=== PATIENT | male | born 1950 | race Caucasian/White ===

== ENCOUNTER 2018-02-09 09:13 | Inpatient (IN) | payer MEDICARE, OTHER, SELFPAY ==
[2018-02-09] VITALS (13 sets, daily range): BP systolic 143–211; BP diastolic 66–109; PULSE 73–99; RESP 14–21; TEMP 36.5–37; O2SAT 94–96; BMI 40.6; BMI 39.0; BMI 39.7
--- NOTE | 2018-02-09 09:32 | EKG12_ITS ---
Test Reason : CP Blood Pressure : / mmHG Vent. Rate : 098 BPM Atrial Rate : 098 BPM P-R Int : 184 ms QRS Dur : 110 ms QT Int : 376 ms P-R-T Axes : 000 -31 073 degrees QTc Int : 480 ms Normal sinus rhythm Left axis deviation Septal infarct , age undetermined Abnormal ECG Confirmed by ARPIT WAGNER, JUNAID ([id number]), newspaper editor DANUTA FLOWERS ([id number]) on 02/11/2018 1:29:19 PM Referred By: Confirmed By:JUNAID MUNSON MD
--- NOTE | 2018-02-09 09:34 | ED.VISSUMM ---
- ER Visit Summary Date of Service: 02/09/18 Chief Complaint: Chest pain History of Present Illness: The patient is a 67 M presenting with chest pain. Chest pain has been intermittent and started yesterday. He states it is a burning type pain in the substernal region radiating to both arms. He states he has had these symptoms in the past and required stenting. He has mild shortness of breath associated with this. Denies diaphoresis or nausea. At the worst it was 8/10. Currently 4/10. He has a history of 5 stents with the last being in 2013. He has a history of hypertension, diabetes, hypercholesterolemia, family history of early heart disease. No PE/DVT risk factors. Physical Examination: Vitals are stable. Blood pressure 211/109. Patient is afebrile. Alert no acute distress. HEENT exam is unremarkable. Neck is supple. Lungs are clear and equal bilaterally. Heart is regular rate and rhythm. Abdomen is soft nontender nondistended. Extremities are unremarkable. Skin is warm and dry. No focal neurologic deficit. Remainder of exam is unremarkable. Emergency Department Course and Treatment: Patient was given aspirin on arrival. EKG is sinus rate of 98. His blood pressure is elevated and he is given his morning dose of his home medication. Repeat blood pressure 171/89. CBC, chemistries unremarkable other than glucose 338. Troponin 0.026. Chest x-ray shows cardiomegaly. On reevaluation, patient is pain-free. Discussed with Dr. Spence and Dr. Freeman. Patient will be admitted. Disposition: Admission Impression: Chest pain This note was generated with Hair S[employer]nce dictation software. It may contain incorrect words, spelling, and punctuation that were not noted in review of the chart prior to signing ED Disposition - Plan for ED Patient: Disposition: Acute Care [facility] Chief Complaint: Chest Pain
--- NOTE | 2018-02-09 09:35 | RAD_ITS ---
STUDY: X-RAY CHEST REASON FOR EXAM: Male, 67 years old. Chest pain TECHNIQUE: Single frontal view COMPARISON: None. FINDINGS: The lungs are clear and expanded. There is no demonstrated pleural abnormality. Cardiomegaly. Normal mediastinum and april. Normal visualized pulmonary arteries. Slightly calcified aortic arch and descending thoracic aorta. Mild degenerative changes of the thoracic spine. Normal visualized ribs, clavicles, and shoulders. There is no demonstrated abnormality of the visualized soft tissue structures of the upper abdomen. RAD/Chest 1 View (Portable) IMPRESSION: Cardiomegaly. Electronically Signed: Siddharth Augustin DO at 9:54 EDT Tel [phone], Service support ,
[2018-02-09] MEDS: Aspirin 81 MG TAB.CHEW 324 MG PO (09:36)
--- NOTE | 2018-02-09 09:37 | ED.DCSUM_ITS ---
- ER Visit Summary Date of Service: 02/09/18 Chief Complaint: Chest pain History of Present Illness: The patient is a 67 M presenting with chest pain. Chest pain has been intermittent and started yesterday. He states it is a burning type pain in the substernal region radiating to both arms. He states he has had these symptoms in the past and required stenting. He has mild shortness of breath associated with this. Denies diaphoresis or nausea. At the worst it was 8/10. Currently 4/10. He has a history of 5 stents with the last being in 2013. He has a history of hypertension, diabetes, hypercholesterolemia, family history of early heart disease. No PE/DVT risk factors. Physical Examination: Vitals are stable. Blood pressure 211/109. Patient is afebrile. Alert no acute distress. HEENT exam is unremarkable. Neck is supple. Lungs are clear and equal bilaterally. Heart is regular rate and rhythm. Abdomen is soft nontender nondistended. Extremities are unremarkable. Skin is warm and dry. No focal neurologic deficit. Remainder of exam is unremarkable. Emergency Department Course and Treatment: Patient was given aspirin on arrival. EKG is sinus rate of 98. His blood pressure is elevated and he is given his morning dose of his home medication. Repeat blood pressure 171/89. CBC, chemistries unremarkable other than glucose 338. Troponin 0.026. Chest x- ray shows cardiomegaly. On reevaluation, patient is pain-free. Discussed with Dr. Spence and Dr. Freeman. Patient will be admitted. Disposition: Admission Impression: Chest pain This note was generated with Clink dictation software. It may contain incorrect words, spelling, and punctuation that were not noted in review of the chart prior to signing ED Disposition - Plan for ED Patient: Disposition: Acute Care Hospital [facility] Chief Complaint: Chest Pain
[2018-02-09 09:47] LABS: Absolute Lymphocyte Count 2.26 X10^3/ul (0.83-4.51); Absolute Neutrophil Count 3.6 X10^3/uL (2.0-7.7); Basophil# 0.03 X10^3/uL; Basophil% 0.5 % (0-1); Eosinophil# 0.17 X10^3/uL; Eosinophils% 2.6 % (0-5); Hematocrit 47.5 % (40-54); Hemoglobin 16.5 g/dl (13.0-16.5); Lymphocyte # 2.26 X10^3/ul (4.0); Lymphocyte % 34.3 % (19-41); Mean Corp Hgb Conc 34.7 g/gl (32-36); Mean Corpuscular Hgb 29.4 pg (27.0-32.0); Mean Corpuscular Volume 84.5 fL (80-94); Mean Platelet Vol. 10.5 fl (6.2-12.0); Monocyte# 0.54 X10^3/uL; Monocyte% 8.2 % (0-10); Neutrophil # 3.56 X10^3/uL (2.7-7.7); Neutrophil % 54.1 % (47-70); Platelet Count 202 K/mm3 (150-450); RBC Distribution Width SD 39.8 fl (35.1-43.9); Red Blood Count 5.62 M/mm3 (4.6-6.2); White Blood Count 6.6 K/mm3 (4.4-11.0)
[2018-02-09 09:48] LABS: POSITIVE COUNT NO; POSITIVE DIFFERENTIAL NO; POSITIVE MORPHOLOGY NO
[2018-02-09 09:59] LABS: Anion Gap 9 (5-15); BUN 17 mg/dL (7-18); Calcium,Total 9.4 mg/dL (8.5-10.1); Chloride 103 mmol/L (98-107); Creatinine, Serum 0.94 mg/dL (0.70-1.30); EST Glomerular Filtration Rate 85 mL/min (>60); Est Glom Filt Rate - Afr Amer 103 mL/min (>60); Estimated Creatinine Clearance 82.33 ml/min; Glucose 338 mg/dL (74-106); Potassium 3.8 mmol/L (3.5-5.1); Sodium Level 139 mmol/L (136-145)
[2018-02-09] MEDS: Losartan Potassium 25 MG Tablet PO (09:59)
[2018-02-09] MEDS: amLODIPine 5 MG Tablet PO (09:59)
--- NOTE | 2018-02-09 11:18 | PCM.HP.STD ---
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 Patient symptoms started a day prior to coming in. Pain was located in the retrosternal region spreading across the chest as well as to both shoulders. Patient did notice increasing pain with minimal activity. He had a similar presentation when the last time he had a stent placed. He therefore presented to the emergency department as a result. Initial set of cardiac enzymes came back negative however given patient presentation and assessment of unstable angina made treatment initiated per protocol with consultation placed to cardiology from the ED and patient admitted to a monitored bed for subsequent management Past Medical History Past Medical History (Chronic Problems): Chronic Problems (Last Updated 11/20/17 @ 14:17 by Lizz Durant) Essential (primary) hypertension (Chronic) DM type 2 (diabetes mellitus, type 2) (Chronic) Dyslipidemia (Chronic) CAD (coronary artery disease) (Chronic) Allergies No Known Allergies Allergy (Unverified 02/09/18 09:16) Home Medications: Ambulatory Orders Medication Instructions Recorded amlodipine 5 mg tablet 5 mg PO QDAY 11/20/17 aspirin 81 mg tablet,delayed 81 mg PO DAILY 11/20/17 release glipizide 10 mg tablet 20 mg PO BID 11/20/17 insulin lispro (U-100) 100 unit/mL 20 unit SC TID ml 11/20/17 subcutaneous pen losartan 25 mg tablet 25 mg PO QDAY 11/20/17 lovastatin 40 mg tablet 40 mg PO QDAY 11/20/17 metoprolol succinate ER 100 mg 100 mg PO QDAY tab 11/20/17 tablet,extended release 24 hr Clopidogrel Bisulfate [Clopidogrel] 75 mg PO DAILY 02/09/18 Insulin NPH Human Isophane 40 unit SQ BID 02/09/18 [Novolin N] Metformin HCl [Glucophage] 1,000 mg PO BID 02/09/18 Smoking Status: Never smoker - *Family History Maternal History Items: No pertinent history Review of Systems Constitutional: Denies: Anorexia, Chills, Fever, Night Sweats, Weight Change HEENT: Denies: Head Aches, Sinus Congestion, Sinus Drainage Cardiovascular: Reports: Chest Pain. Denies: Orthopnea Respiratory: Denies: Cough, Shortness of breath at rest, Shortness of breath upon exertion, Sputum production Gastrointestinal: Denies: Abdominal Pain, Hematemesis, Hematochezia, Nausea, Melena, Vomiting Genitourinary: Denies: Dysuria, Frequency, Hematuria, Urgency Musculoskeletal: Denies: Joint Pain, Joint Tenderness Skin: Denies: Rash Neurological: Denies: Focal weakness, Numbness, Tingling Psychiatric: Denies: Homicidal Ideations, Suicidal Ideations Hematologic/ Lymphatic: Denies: Easy Bruising, Easy Bleeding VTE Information - Inpt Only VTE Present on Admission: No VTE Mechan Device Prophylaxis: Knee High SYLVIE Hose VTE Pharm Prophylaxis ordered?: Yes Patient Problems: Active and Suspected Problems (Last Updated 11/20/17 @ 14:17 by Lizz Durant) Unstable angina (Acute) Objective: GENERAL: cooperative HEENT: Clear conjunctiva, NECK; supple, normal thyroid, CHEST: Clear to auscultation bilaterally, HEART: Regular S1 S2, no audible murmurs ABDOMEN: soft, non-tender, normoactive bowel sounds, RECTAL: deferred EXTREMITIES: No edema, no clubbing, no cyanosis. FILES SUPERVISOR: Awake; no lateralizing signs. SKIN: No Rash - Physical Exam Vital Signs Temp Pulse Resp BP Pulse Ox 97.7 F L 76 20 H 171/89 H 96 02/09/18 11:00 02/09/18 11:00 02/09/18 11:00 02/09/18 11:00 02/09/18 11:00 Oxygen Flow Rate (L/min) 2 Oxygen Delivery Method Nasal Cannula Weight: 132.2 kg Body Mass Index (BMI) 40.6 Laboratory Tests Past 24 Hrs 02/09/18 02/09/18 09:18 09:18 WBC 6.6 RBC 5.62 Hgb 16.5 Hct 47.5 MCV 84.5 MCH 29.4 MCHC 34.7 RDW 13.0 RDW Differential 39.8 Plt Count 202 MPV 10.5 Immature Gran % (Auto) 0.300 Neut % (Auto) 54.1 Lymph % (Auto) 34.3 [place] % (Auto) 8.2 Eos % (Auto) 2.6 Baso % (Auto) 0.5 Absolute Neuts (auto) 3.6 Absolute Lymphs (auto) 2.26 Total Counted Not Reportable Sodium 139 Potassium 3.8 Chloride 103 Carbon Dioxide 27.0 Anion Gap 9 BUN 17 Creatinine 0.94 Estim Creat Clear Calc 82.33 Est GFR (MDRD) Af Amer 103 Est GFR (MDRD) Non-Af 85 BUN/Creatinine Ratio 18.0 Glucose 338 H Calcium 9.4 Troponin I 0.026 Assessment/Plan Active and Suspected Problems (Last Updated 11/20/17 @ 14:17 by Lizz Durant) Unstable angina (Acute) Patient is a 67-year-old gentleman with significant risk factors including hypertension, diabetes mellitus type 2 CAD with previous stent placement who presents with chest pain 1. Unstable angina. Treatment initiated per protocol patient admitted to the progressive care unit. Did order serial cardiac enzymes and echo and consultation placed to cardiology. Patient was kept n.p.o. after midnight nuclear stress test was not ordered the decision deferred to cardiology 2. CAD with previous stent placement patient is on recommended medications including dual antiplatelet therapy beta-blockers, as well as starting therapy 3. Diabetes mellitus type II: Controlled/ patient's oral hypoglycemics held. Placed on long acting insulin, Accu-Cheks a.c. and at bedtime and covered with sliding scale insulin 4. Hypertension-blood pressure controlled, home medications continued with dose adjustment as needed 5. Dyslipidemia-patient is on statin therapy, continued at home dose 6. Obesity with BMI of 40.6 weight loss advised 7. DVT prophylaxis on heparin Code Visit OBSV E&M: 02597 Initial observation care L2
--- NOTE | 2018-02-09 12:11 | EKG12_ITS ---
Test Reason : CP Blood Pressure : / mmHG Vent. Rate : 074 BPM Atrial Rate : 074 BPM P-R Int : 194 ms QRS Dur : 110 ms QT Int : 456 ms P-R-T Axes : -17 -39 078 degrees QTc Int : 506 ms Normal sinus rhythm Left axis deviation Septal infarct , age undetermined Prolonged QT Abnormal ECG Confirmed by SHANNAN WAGNER, GILBERTO ([id number]), editorial project manager DANUTA FLOWERS ([id number]) on 02/13/2018 1:14:23 PM Referred By: MILAGROS Confirmed By:GILBERTO CAMPBELL MD
--- NOTE | 2018-02-09 12:11 | ECHOCS_ITS ---
Reason For Study: CP Procedure This was a 2D Doppler, Color Flow transthoracic echocardiogram. Exam performed portable in patient room. Left Ventricle Normal LV size. Moderate concentric left ventricular hypertrophy. Left ventricular systolic function is normal. The estimated ejection fraction is 55 %. Transmitral diastolic flow velocities suggest mild (stage 1) diastolic dysfunction (reversed pattern). No regional wall motion abnormalities noted. Right Ventricle Normal RV size. Normal systolic function. Atria Normal left atrium. Normal right atrium. Mitral Valve Normal mitral valve. Tricuspid Valve Normal tricuspid valve. Unable to estimate RV systolic pressure due to inadequate jet, pulmonary artery pressure probably normal. Aortic Valve Trisinus/trileaflet aortic valve. Pulmonic Valve Normal pulmonic valve. Great Vessels Normal aortic root. The pulmonary artery is normal size. Normal inferior vena cava. Pericardium/Pleural No pericardial effusion. Medication Diluted definity 2ml given slow IV push to enhance endocardial definition. MMode/2D Measurements & Calculations LVIDd: 4.9 cm IVSd: 1.6 cm Ao root diam: 3.3 cm LVIDs: 3.4 cm LVPWd: 1.2 cm RVDd: 2.6 cm FS: 30.7 % LAV(MOD-bp): 43.7 ml LAV(MOD-bp) Indexed: 17.8 ml/m2 LA A4 area: 15.0 cm2 RA A4 area: 14.1 cm2 LAV(MOD-sp2): 46.2 ml LAV(MOD-sp4): 37.1 ml Time Measurements MV dec time: 0.26 sec Doppler Measurements & Calculations MV E max teodoro: 72.1 cm/sec Lat Peak E' Teodoro: 8.0 cm/sec Med Peak E' Teodoro: 5.6 cm/sec MV A max teodoro: 95.1 cm/sec E/E' lat: 9.0 E/E' med: 12.9 MV E/A: 0.76 Ao V2 max: 141.6 cm/sec LV V1 max: 82.1 cm/sec PA V2 max: 111.6 cm/sec Ao max P.0 mmHg LV V1 max P.7 mmHg Interpretation Summary Normal LV size. Moderate concentric left ventricular hypertrophy. Left ventricular systolic function is normal. The estimated ejection fraction is 55 %. Contrast injection was performed. Ordering Physician: Steven Spence Referring Physician: SUNNY JUAREZ Performed By: Nikki Leahy RDCS
[2018-02-09 13:25] LABS: Bedside Glucose 216 mg/dL (70-110)
[2018-02-09 14:41] LABS: Partial Thromboplast Time 26.2 Seconds (24.1-36.2)
[2018-02-09] MEDS: HEPARIN/D5w 25,000 UNITS 25,000 UNITS/250 ML IV.SOLN. 17 UNITS IV (15:03)
[2018-02-09] MEDS: Heparin Injection 5,000 UNITS/ML Syringe 10500 UNITS IV (15:03)
[2018-02-09 16:56] LABS: Bedside Glucose 311 mg/dL (70-110)
[2018-02-09 21:25] LABS: Partial Thromboplast Time 64.4 Seconds (24.1-36.2)
[2018-02-09 21:50] LABS: Bedside Glucose 210 mg/dL (70-110)
[2018-02-10] VITALS (29 sets, daily range): BP systolic 134–172; BP diastolic 48–96; PULSE 66–96; RESP 14–25; TEMP 36.7–37.7; O2SAT 92–96
[2018-02-10 02:58] LABS: Hematocrit 43.2 % (40-54); Hemoglobin 15.2 g/dl (13.0-16.5); Mean Corp Hgb Conc 35.2 g/gl (32-36); Mean Corpuscular Hgb 29.7 pg (27.0-32.0); Mean Corpuscular Volume 84.4 fL (80-94); Mean Platelet Vol. 10.4 fl (6.2-12.0); Platelet Count 177 K/mm3 (150-450); RBC Distribution Width CV 12.9 % (11.6-14.6); RBC Distribution Width SD 39.3 fl (35.1-43.9); Red Blood Count 5.12 M/mm3 (4.6-6.2); White Blood Count 6.2 K/mm3 (4.4-11.0)
[2018-02-10 03:02] LABS: Anion Gap 9 (5-15); BUN 12 mg/dL (7-18); BUN/Creat Ratio 17.5 RATIO (10-20); Calcium,Total 8.3 mg/dL (8.5-10.1); Chloride 104 mmol/L (98-107); Creatinine, Serum 0.68 mg/dL (0.70-1.30); EST Glomerular Filtration Rate 123 mL/min (>60); Est Glom Filt Rate - Afr Amer 149 mL/min (>60); Estimated Creatinine Clearance 77.39 ml/min; Glucose 221 mg/dL (74-106); Partial Thromboplast Time 49.9 Seconds (24.1-36.2); Potassium 3.1 mmol/L (3.5-5.1); Sodium Level 139 mmol/L (136-145)
[2018-02-10 03:45] LABS: Scan Indicated on CBC? Y/N NO
[2018-02-10] MEDS: Heparin Injection (Vial) 5,000 UNIT/ML VIAL IV (04:03)
[2018-02-10] MEDS: HEPARIN/D5w 25,000 UNITS 25,000 UNITS/250 ML IV.SOLN. 17 UNITS IV (04:43)
[2018-02-10 07:06] LABS: Bedside Glucose 244 mg/dL (70-110)
--- NOTE | 2018-02-10 08:12 | NURSING ---
HEPARIN STOPPED PER DR. MUNSON'S ORDERS.
[2018-02-10] MEDS: 0.9% NaCl Peripheral Flush Adult/Peds IV (08:18)
--- NOTE | 2018-02-10 08:27 | PCM.CONS.C ---
Reason for Consult Date of Consultation: 02/10/18 Reason for Consultation: Chest discomfort. History of Present Illness: The patient is a 67 year old M with a previous known history of coronary artery disease status post previous stenting who recently moved to the area. He said that many years ago he had experienced chest discomfort described as a burning sensation prior to his having been stented in 2008. He was told that if he had a similar presentation he should come to the emergency room. Over the weekend he experienced a similar episode of chest discomfort which appeared to worse with exertion and going away with rest. Due to the above he presented to the emergency room was evaluated and admitted. He was started on heparin. This morning cardiology consult was placed to evaluate him. He denies any chest pain at this particular time no paroxysmal nocturnal dyspnea no pedal edema no dizziness or diaphoresis no near syncope or syncope. He has been compliant with his medications he recently moved to the [facility]. [] Past Medical History Allergies/Adverse Reactions: Allergies No Known Allergies Allergy (Unverified 02/09/18 09:16) Home Medications: Ambulatory Orders Medication Instructions Recorded amlodipine 5 mg tablet 5 mg PO QDAY 11/20/17 aspirin 81 mg tablet,delayed 81 mg PO DAILY 11/20/17 release glipizide 10 mg tablet 20 mg PO BID 11/20/17 insulin lispro (U-100) 100 unit/mL 20 unit SC TID ml 11/20/17 subcutaneous pen losartan 25 mg tablet 25 mg PO QDAY 11/20/17 lovastatin 40 mg tablet 40 mg PO QDAY 11/20/17 metoprolol succinate ER 100 mg 100 mg PO QDAY tab 11/20/17 tablet,extended release 24 hr Clopidogrel Bisulfate [Clopidogrel] 75 mg PO DAILY 02/09/18 Insulin NPH Human Isophane 40 unit SQ BID 02/09/18 [Novolin N] Metformin HCl [Glucophage] 1,000 mg PO BID 02/09/18 Past Medical History (Chronic Problems): Chronic Problems (Last Updated 11/20/17 @ 14:17 by Lizz Durant) Essential (primary) hypertension (Chronic) DM type 2 (diabetes mellitus, type 2) (Chronic) Dyslipidemia (Chronic) CAD (coronary artery disease) (Chronic) Surgical History: - - *Family History Maternal Family History: Family History (Last Updated 11/20/17 @ 14:18 by Lizz Durant) Unknown Arthritis Cancer Diabetes Hypertension Heart disease History Items: No pertinent history Smoking Status: Never smoker Alcohol: None Drugs: None Review of Systems - Review of Systems General: Denies: Fever, Night Sweats, Fatigue Cardiovascular: Reports: Chest Discomfort, Chest Discomfort with Exertion. Denies: Shortness of Breath, Orthopnea, PND, Peripheral Edema, Palpitations, Lightheadedness, Dizziness, Near Syncope, Syncope Respiratory: Denies: Cough, Sputum Production, Hemoptysis Gastrointestinal: Denies: Hematemesis, Hematochezia, Melena Genitourinary: Denies: Dysuria, Hematuria Skin: Denies: Rash Subjectve: Pleasant gentleman in no apparent distress Objective: Vital Signs Temp Pulse Resp BP Pulse Ox 98.1 F 85 18 151/81 H 92 02/10/18 02:46 02/10/18 07:35 02/10/18 02:46 02/10/18 02:46 02/10/18 07:35 Oxygen Delivery Method Room Air Weight: 285 lb 0.923 oz Body Mass Index (BMI) 39.7 Intake and Output for Last 24 Hours 02/08/18 02/09/18 02/10/18 23:59 23:59 23:59 Intake Total 892 / 892 90 / 90 Balance 892 / 892 90 / 90 General: Awake, Alert, Oriented x 3 HEENT: PERRL, EOMI, Sclera Non Icteric Neck: Supple, Good ROM, No Lymph Node Enlargement Lungs: Clear to auscultation Cardiovascular: Regular Rhythm, Normal S1, Normal S2, No Murmurs, No Rubs, No Gallops Vascular: No Carotid Bruits, Normal Femoral Pulses, Normal Radial Pulses, Normal Dorsalis Pedal Pulse, Normal Posterior Tibial Pulses Abdomen: Bowel Sounds Present, Soft, Non Tender, No HSM, No Organomegaly Extremities: No Cyanosis, No Clubbing, No edema Neurological: No Focal Motor or Sensory Deficit 02/09/18 12:25: Troponin I 0.142 H 02/09/18 14:20: APTT 26.2 02/09/18 15:15: Troponin I 0.242 H 02/09/18 21:03: APTT 64.4 H 02/10/18 02:40: WBC 6.2, RBC 5.12, Hgb 15.2, Hct 43.2, MCV 84.4, MCH 29.7, MCHC 35.2, RDW 12.9, RDW Differential 39.3, Plt Count 177, MPV 10.4 02/10/18 02:40: Sodium 139, Potassium 3.1 L, Chloride 104, Carbon Dioxide 26.0, Anion Gap 9, BUN 12, Creatinine 0.68 L, Est GFR (MDRD) Af Amer 149, Est GFR (MDRD) Non-Af 123, BUN/Creatinine Ratio 17.5, Glucose 221 H, Calcium 8.3 L 02/10/18 02:40: APTT 49.9 H Rhythm: EKG: ECHO: Stress Test: Cardiac Cath: PCI: CT Surgery: Holter monitor: EPS: PPM: CXR: Chest CT Scan: Assessment/Plan 1. Chest pain unstable angina. He presents with chest discomfort which appears to be worsened with exertion of recent onset characteristic of unstable angina. He does not have any EKG changes at this particular time however he does have mild troponin elevation. With his previous history it would be prudent to proceed with a cardiac catheterization. The risk benefits and alternatives have been explained to him he understands and agrees to proceed. This was discussed with him in the presence of his and friend. 2. Hypertension. Patient has a history of known hypertension currently on medical therapy. No changes were made with respect to the above. 3. Risk factor modification. Patient will continue with aggressive risk factor modification with diet and exercise to be encouraged as well as lipid lowering medications. Thank you for allowing me to participate in the care of your patient. Please don't hesitate to call if any issues arise Addendum.: Patient underwent cardiac catheterization this morning which demonstrated the following: Left main coronary artery normal. Left anterior descending artery previously stented with mild diffuse disease. Left circumflex artery nondominant with proximal and 90% stenosis. Ramus intermedius with mild to moderate diffuse disease. Left to right collaterals filling a distal posterolateral vessel. Dominant large right coronary artery with mid 95% in-stent stenosis and mid to distal 70% stenosis and diffuse distal disease Preserved left ventricular ejection fraction. Based on the above angiographic findings the patient will undergo angioplasty and stenting of the right coronary artery which is thought to be the culprit lesion for his symptoms. Above discussed with patient, family and interventionalist.
[2018-02-10] MEDS: 0.9% Normal Saline 1,000 ML 15 ML IV (09:07)
[2018-02-10] MEDS: Clopidogrel Bisulfate 75 MG Tablet PO (09:07)
[2018-02-10] MEDS: Aspirin E.C. 81 MG Tablet PO (09:07)
[2018-02-10] MEDS: Metoprolol(XL)Succ 100 MG Tablet PO (09:08)
[2018-02-10] MEDS: amLODIPine 5 MG Tablet PO (09:08)
[2018-02-10] MEDS: Losartan Potassium 25 MG Tablet PO (09:09)
[2018-02-10 09:27] LABS: Partial Thromboplast Time 35.4 Seconds (24.1-36.2)
--- NOTE | 2018-02-10 10:38 | NURSING ---
Report given to Mulu in ICU
--- NOTE | 2018-02-10 10:55 | CL.D_ITS ---
Patient Name: AMBROSIO JULIO Study Date: 02/10/2018 Performing: Donny Choi MD Ht: 70.86 inches 180 cm : 1950 Wt: 284.4 lbs 129 kg Age: 67 Gender: male BSA: 2.45 PROCEDURE(S) PERFORMED [id number]/COR/LV CLINICAL PROFILE AND INDICATIONS Indications: ACS <= 24 hrs Heart Failure: None Stress/Imaging Stress/Image Study Performed: No Angina Classification Anginal Classification w/in 2 Weeks: CCS III CAD Presentations: Unstable angina. CONCLUSIONS Significant coronary artery disease with evidence of in-stent stenosis in the right coronary artery a s well as yocha dehe vessel disease. RECOMMENDATIONS Referred for immediate PCI DESCRIPTION OF PROCEDURE The patient arrived to the procedure lab. The risks and benefits of the procedure as well as a full d escription of our services here and current unavailability of surgical backup were fully explained to the patient and/or their significant other prior to the catheterization. The Timeout was completed, verifying the correct patient and procedure. The patient's procedural site was prepped and draped in the usual fashion. Local anesthetic was given subcutaneously to right radial region with Lidocaine 2% . Using a modified Seldinger technique, arterial access was obtained via the right radial artery, a 6 Fr sheath was inserted. Left Coronary Artery selective angiography was performed in multiple views u sing a 5 Fr. 4.0 Campo catheter. Right Coronary Artery selective angiography was then performed in mu ltiple views using a 5 Fr. 4.0 Campo catheter. Left Ventriculography was performed in SYED projection using a 5 Fr. Pigtail catheter. LV to AO pullback pressures were then recorded. CORONARY ANGIOGRAPHY DOMINANCE: Right Dominant LEFT HEART ASSESSMENT Left Ventricular Ejection Fraction: by LV Gram 60 % Normal LV wall motion Normal Left Ventricular systolic function LEFT MAIN: Angiographically normal LEFT ANTERIOR DECENDING ARTERY: Previously placed stent is patent, Mild luminal irregularities CIRCUMFLEX ARTERY: PROX CIRC: 95 % Stenosis RAMUS: Mild luminal irregularities RIGHT CORONARY ARTERY: MID RCA: Instent restenosis 95 %, 70 % Stenosis RT PDA: Distal - Mild luminal irregularities less than 30% COLLATERAL FLOW: Collateral flow from Left to Right COMPLICATIONS No Complications PROCEDURE MEDICATIONS Versed 1 mg IV Fentanyl 50 mcg IV Versed 1 mg IV Fentanyl 25 mcg IV Oxygen: 2 L/min via nasal cannula Oxygen: 4 L/min via nasal cannula Heparin diluted in 23cc Heparinized saline. Patient given 10cc IA of this solution. 02/10/2018 09:47: 08 Heparin 14606 unit(s) IV 02/10/2018 10:31:04 Heparin 1000 unit(s) IV 02/10/2018 10:51:46 Nitro 300 mcg IC 02/10/2018 10:41:56 Verapamil 2.5mg, Ntg 100mcgs, 2000 units of Heparin diluted in 23cc Heparinized saline. Patient give n 10cc IA of this solution. 02/10/2018 09:47:08 Solu-cortef 100 mg IV 02/10/2018 10:48:05 SUMMARY OF HEMODYNAMIC DATA Time AIR REST ECG 09:29:05 AO 122/80 (94) SA 09:50:06 AO 93/67 (76) 09:52:21 AO 86/61 (72) 09:54:23 LV 109/0, 13 09:59:18 LV 109/1, 13 09:59:25 LV 140/-3, 18 10:01:02 LVp 143/-2, 17 10:01:09 AOp 132/72 (95) 10:01:14 AO 95/59 (73) 10:46:10 Signed By Donny Choi MD On 02/10/2018 10:54:36 Donny Choi MD
--- NOTE | 2018-02-10 11:15 | EKG12_ITS ---
Test Reason : POST PCI Blood Pressure : / mmHG Vent. Rate : 087 BPM Atrial Rate : 087 BPM P-R Int : 254 ms QRS Dur : 114 ms QT Int : 430 ms P-R-T Axes : 025 -49 086 degrees QTc Int : 517 ms Sinus rhythm with 1st degree A-V block Left axis deviation Poor R wave progression Prolonged QT Abnormal ECG Confirmed by SHANNAN WAGNER, GILBERTO ([id number]), editor publications DANUTA FLOWERS ([id number]) on 02/13/2018 12:57:34 PM Referred By: ARPIT Confirmed By:GILBERTO CAMPBELL MD
--- NOTE | 2018-02-10 11:23 | CL.I_ITS ---
Patient Name: AMBROSIO JULIO Study Date: 02/10/2018 Performing: Juan David Freeman MD Ht: 71 inches 180 cm : 1950 Wt: 284.8 lbs 129 kg Age: 67 Gender: male BSA: 2.45 PROCEDURE(S) PERFORMED [id number] W OR WO PTCA, SINGLE CORONARY ARTERY CLINICAL PROFILE AND CO-MORBIDITIES Indications: ACS <= 24 hrs Heart Failure: None Stress/Imaging Stress/Image Study Performed: No Angina Classification Anginal Classification w/in 2 Weeks: CCS III CAD Presentations: Unstable angina. CONCLUSIONS Successful PTCA/JOSE MIGUEL of the Mid RCA ISR using Resolute Integrity 3.5x15 mm Successful PTCA/JOSE MIGUEL of the distal RCA using Resolute Integrity 3.0x15 mm, post-dilated using 3.5 mm b alloon RECOMMENDATIONS ASA Indefinitley Plavix for at least 12 months Follow up with Dr. Choi INTERVENTION INFORMATION LESION SITE: RCA (Mid) Lesion Complexity: Non-High/Non-C, In-stent restenosis: Yes Pre Stenosis: 95 % Pre intervention ORA flow: 3 PROCEDURE: Drug Eluting Stent with pre and post dilatation Post Stenosis: 0 % Post intervention ORA flow: 3 Lesion Devices: Cordis 6 Fr AL.75 100cm Guide Catheter Terumo .014 Runthrough Extra Floppy 180cm straight Ian Sci EMERGE MR 3.00x12 BALLOON Medtronic Resolute RX JOSE MIGUEL 3.5x15 Ian Sci NC EMERGE MR 3.50x15 BALLOON LESION SITE: RCA (Distal) Lesion Complexity: Non-High/Non-C Pre Stenosis: 80 % Pre intervention ORA flow: 3 PROCEDURE: Drug Eluting Stent with pre and post dilatation Drug Eluting Stent with pre and post dilatation Post Stenosis: 0 % Post intervention ORA flow: 3 Lesion Devices: Cordis 6 Fr AL.75 100cm Guide Catheter Terumo .014 Runthrough Extra Floppy 180cm straight Ian Sci EMERGE MR 3.00x12 BALLOON Medtronic Resolute RX JOSE MIGUEL 3.0x15 Ian Sci NC EMERGE MR 3.50x15 BALLOON COMPLICATIONS No Complications PROCEDURE MEDICATIONS Versed 1 mg IV Fentanyl 50 mcg IV Versed 1 mg IV Fentanyl 25 mcg IV Oxygen: 2 L/min via nasal cannula Oxygen: 4 L/min via nasal cannula Heparin diluted in 23cc Heparinized saline. Patient given 10cc IA of this solution. 02/10/2018 09:47: 08 Heparin 35263 unit(s) IV 02/10/2018 10:31:04 Heparin 1000 unit(s) IV 02/10/2018 10:51:46 Heparin 3000 unit(s) IV 02/10/2018 11:06:56 Nitro 300 mcg IC 02/10/2018 10:41:56 Plavix 300 mg PO 02/10/2018 11:07:07 Verapamil 2.5mg, Ntg 100mcgs, 2000 units of Heparin diluted in 23cc Heparinized saline. Patient give n 10cc IA of this solution. 02/10/2018 09:47:08 Solu-cortef 100 mg IV 02/10/2018 10:48:05 SUMMARY OF HEMODYNAMIC DATA Time AIR REST ECG 09:29:05 AO 122/80 (94) SA 09:50:06 AO 93/67 (76) 09:52:21 AO 86/61 (72) 09:54:23 LV 109/0, 13 09:59:18 LV 109/1, 13 09:59:25 LV 140/-3, 18 10:01:02 LVp 143/-2, 17 10:01:09 AOp 132/72 (95) 10:01:14 AO 95/59 (73) 10:46:10 RM AIR REST 10:55:24 AIR REST AO 167/90 (125) 10:58:22 Signed By Juan David Freeman MD On 02/11/2018 07:59:45 Signed By Juan David Freeman MD On 02/10/2018 11:22:01 AM Juan David Freeman MD
[2018-02-10] MEDS: 0.9% Normal Saline 1,000 ML 100 ML IV (11:33)
[2018-02-10 11:56] LABS: Bedside Glucose 257 mg/dL (70-110)
[2018-02-10] MEDS: Atorvastatin Calcium 10 MG Tablet PO (12:06)
--- NOTE | 2018-02-10 13:08 | CRPHASE1 ---
Patient Data/Charges Phase II Referral:: [facility] Start Phase II:: FOLLOWING CARDIOLOGY OFFICE VISIT Risk Factors/Lifestyle Smoking Status: Never smoker Hx Hypertension: Yes Hx Diabetes Mellitus Type 2: Yes Hx Metabolic Disorders: Yes Hx Dyslipidemia: Yes Hx Obesity: Yes Height: 5 ft 11 in - WT 284 / BMI 39.8 Stress: Home/Family ETOH: No Substance Abuse: No Risk Factor for Sedentary Lifestyle: Highest Risk Family History: Family History (Last Updated 11/20/17 @ 14:18 by Lizz Durant) Unknown Arthritis Cancer Diabetes Hypertension Heart disease Family History: Cancer, Diabetes, Heart Disease, Hypertension Past Cardiac Illness: Valve Disorders, Coronary Artery Disease, Previous PCI w/Stent Phase I Education Given On:: [place], Nutrition, Antiplatelet medication, Diabetes - Type II Issues Affecting Care:: None Knowledge of Condition:: Yes Learning Preferences: Verbal, Written Hospital Course Presenting Symptoms:: CHEST BURNING WITH PREVIOUS STENT PLACEMENT Pain Description: Burning Medical/Surgical History HI:: No Angina:: Yes - BURNING Valve Disease/Replacement:: Yes Diabetes:: Yes Diabetes Type II:: Yes Hypertension:: Yes Dyslipidemia:: Yes PTCA:: Yes - 2008 Discharge/Home/Social Eval Discharge Disposition: Home
--- NOTE | 2018-02-10 13:12 | CRPHASE1_ITS ---
Patient Data/Charges Phase II Referral:: [facility] Start Phase II:: FOLLOWING CARDIOLOGY OFFICE VISIT Risk Factors/Lifestyle Smoking Status: Never smoker Hx Hypertension: Yes Hx Diabetes Mellitus Type 2: Yes Hx Metabolic Disorders: Yes Hx Dyslipidemia: Yes Hx Obesity: Yes Height: 5 ft 11 in - WT 284 / BMI 39.8 Stress: Home/Family ETOH: No Substance Abuse: No Risk Factor for Sedentary Lifestyle: Highest Risk Family History: Family History (Last Updated 11/20/17 @ 14:18 by Lizz Durant) Unknown Arthritis Cancer Diabetes Hypertension Heart disease Family History: Cancer, Diabetes, Heart Disease, Hypertension Past Cardiac Illness: Valve Disorders, Coronary Artery Disease, Previous PCI w/ Stent Phase I Education Given On:: [place], Nutrition, Antiplatelet medication, Diabetes - Type II Issues Affecting Care:: None Knowledge of Condition:: Yes Learning Preferences: Verbal, Written Hospital Course Presenting Symptoms:: CHEST BURNING WITH PREVIOUS STENT PLACEMENT Pain Description: Burning Medical/Surgical History [place]:: No Angina:: Yes - BURNING Valve Disease/Replacement:: Yes Diabetes:: Yes Diabetes Type II:: Yes Hypertension:: Yes Dyslipidemia:: Yes PTCA:: Yes - 2008 Discharge/Home/Social Eval Discharge Disposition: Home
--- NOTE | 2018-02-10 13:14 | CRPH1.INST_ITS ---
General Education CAD and cardiac anatomy and function:: Patient communicates acknowledgment Explanation of diagnoses and procedures:: Patient communicates acknowledgment Sign/Symptoms of [place]:: Patient communicates acknowledgment Antiplatelet therapy: Patient communicates acknowledgment Proper use of NTG-SL: Patient communicates acknowledgment Emergency procedures and activation of EMS: Patient communicates acknowledgment Compliance of all prescribed medications: Patient communicates acknowledgment Smoking Patient Nicotine/Smoking Risk Factors Are:: Never smoked Dyslipidemia Patient Dyslipidemia Risk Factors Are:: Total Cholesterol, Triglycerides, HDL, LDL Recommendations Include:: Lipid profile not available, Reviewed NCEP/ATP guidelines, Therapeutic Lifestyle Change dietary guidelines Dyslipidemia Response Code:: Patient communicates acknowledgment Overweight/Obesity Patient Overweight/Obesity Risk Factors Are:: Obesity - > or = 30 Recommendations Include:: Weight loss of 5-10%, Reduced calorie diet, Exercise 5 -7 times/week Overweight/Obesity:: Patient communicates acknowledgment Hypertension Recommendations Include:: BP <130/80 if diabetic, DASH dietary guidelines, Decrease/maintain normal body weight, Moderation of ETOH Hypertension:: Patient communicates acknowledgment Heart Disease Patient Heart Disease Risk Factors Are:: Previous cardiac event Heart Disease Response Code:: Patient communicates acknowledgment Diabetes Patient Diabetes Risk Factors Are:: Elevated blood sugars Recommendations Include:: Maintain fasting blood sugars 70-110 md/dL, Maintain HgbA1c of 6% or less, Monitor blood sugar as prescribed, Diabetic dietary guidelines, Decrease/maintain body weight Diabetes:: Patient communicates acknowledgment Metabolic Syndrome Patient Metabolic Syndrome Risk Factors Are [3 of 5]:: Fasting blood sugar > 100 mg/dL, Waist circumference > 35 [female] or 40 [male], High triglyceride > 150, Hypertension, Low HDL <40 [male] or < 50 [female] Recommendations Include:: Reinforce compliance to risk factor modifications, Patient is diabetic, Encouraged follow-up with Primary Care Physician Metabolic Syndrome Response Code:: Patient communicates acknowledgment Sedentary Patient Sedentary Risk Factors Are:: Lack of regular exercise Recommendations Include:: Aerobic exercise 5-7 times/week for 20-30 minutes continuously, Benefits of regular exercise, Discussed home walking program, Monitored Outpatient Cardiac Rehab Sedentary Response Code:: Patient communicates acknowledgment Stress Recommendations Include:: Identification of stressors, and assessment of coping skills, Stress management techniques Stress Response Code:: Patient communicates acknowledgment
[2018-02-10 13:41] LABS: ACT Activated Clotting Time 241 sec (74-137)
[2018-02-10 13:41] LABS: ACT Activated Clotting Time 213 sec (74-137)
[2018-02-10 13:45] LABS: M R Staph aureus DNA By PCR Negative (Negative); Probe Check PASS; Specimen Processing Control PASS
[2018-02-10] MEDS: Insulin NPH Human 100 UNITS/ML PEN 40 UNITS SC (16:42)
[2018-02-10 16:50] LABS: Bedside Glucose 267 mg/dL (70-110)
--- NOTE | 2018-02-10 17:12 | PN_ITS ---
Patient Problems: Active and Suspected Problems (Last Updated 02/10/18 @ 13:18 by Leslie Trent) Unstable angina (Acute) Subjective: Patient was seen and examined today, I talked with the patient as well as several family members including his who were in the room today. Patient had a stent placed in the right coronary artery, he appears to have had a non- STEMI. His EF is preserved. I talked at length about the patient's dietary habits-it appears that the patient is really not watching his diet as well as he could be, I tried to impress upon him the necessity to take better care of his diabetes. I decided to change some of his medications up today, I have stopped his Cozaar and placed him on Diovan due to his elevated blood pressure, I recommended a discharge that we stop his glipizide, I have also recommended we change her from lovastatin to higher dose Lipitor at 40 mg nightly. I explained how to carb count to him and his family. - Physical Exam General: Alert, Oriented x3, Cooperative, No apparent distress, Well developed, Well nourished HEENT: Atraumatic, PERRLA, EOMI, Normocephalic Oral: Moist Mucosa Neck: Supple, No JVD, Negative Carotid Bruits, Trachea Midline, Thyroid Normal Size and Texture Lungs: Clear to auscultation, Normal air movement, No rhonchi, No wheeze, No rales Cardiovascular: Regular rate, Regular Rhythm, Normal S1, Normal S2, No murmurs, No Ectopic Activity, PMI Normal, No rub noted, No Gallop Abdomen: Bowel Sounds Present, Soft, Non Tender, Non-Distended, Obese, No hernias noted Extremities: No clubbing, No cyanosis, No edema, Capillary Refill Less than 3 Seconds Skin: No rashes, No breakdown Musculoskeletal: No Tenderness to Palpation of Joints or Extremities Neurological: Cranial nerves II-XII grossly intact, Neuro grossly intact, Sensory exam intact to light touch and pain, Coordination normal Psych/Mental Status: Normal Affect, Appropriate, Alert and oriented to time, place, person, mood and affect Vital Signs Temp Pulse Resp BP Pulse Ox 98.3 F 80 15 166/82 H 94 02/10/18 16:00 02/10/18 17:00 02/10/18 17:00 02/10/18 17:00 02/10/18 17:00 Oxygen Delivery Method Room Air Weight: 129.3 kg Body Mass Index (BMI) 39.7 Intake and Output for Last 24 Hours 02/08/18 02/09/18 02/10/18 23:59 23:59 23:59 Intake Total 892 / 892 1876 / 1877 Balance 892 / 892 1876 Laboratory Tests Past 24 Hrs 02/09/18 02/10/18 02/10/18 21:03 02:40 02:40 WBC 6.2 RBC 5.12 Hgb 15.2 Hct 43.2 MCV 84.4 MCH 29.7 MCHC 35.2 RDW 12.9 RDW Differential 39.3 Plt Count 177 MPV 10.4 APTT 64.4 H Activated Clotting Time Sodium 139 Potassium 3.1 L Chloride 104 Carbon Dioxide 26.0 Anion Gap 9 BUN 12 Creatinine 0.68 L Estim Creat Clear Calc 77.39 Est GFR (MDRD) Af Amer 149 Est GFR (MDRD) Non-Af 123 BUN/Creatinine Ratio 17.5 Glucose 221 H Calcium 8.3 L MRSA (PCR) 02/10/18 02/10/18 02/10/18 02:40 09:00 10:36 WBC RBC Hgb Hct MCV MCH MCHC RDW RDW Differential Plt Count MPV APTT 49.9 H 35.4 Activated Clotting Time 241 H Sodium Potassium Chloride Carbon Dioxide Anion Gap BUN Creatinine Estim Creat Clear Calc Est GFR (MDRD) Af Amer Est GFR (MDRD) Non-Af BUN/Creatinine Ratio Glucose Calcium MRSA (PCR) 02/10/18 02/10/18 11:03 11:30 WBC RBC Hgb Hct MCV MCH MCHC RDW RDW Differential Plt Count MPV APTT Activated Clotting Time 213 H Sodium Potassium Chloride Carbon Dioxide Anion Gap BUN Creatinine Estim Creat Clear Calc Est GFR (MDRD) Af Amer Est GFR (MDRD) Non-Af BUN/Creatinine Ratio Glucose Calcium MRSA (PCR) Negative POC Glucose 02/10/18 02/10/18 02/10/18 16:40 11:49 06:57 POC Glucose 267 H 257 H 244 H 02/09/18 21:20 POC Glucose 210 H Medical Necessity - Tobacco Use Smoking Status: Never smoker Assessment/Plan Active and Suspected Problems (Last Updated 02/10/18 @ 13:18 by Leslie Trent) Unstable angina (Acute) #1 [id number] present medications #2 coronary artery disease #3 type 2 diabetes-under poor control, I will have the dietitian see the patient before he is discharged #4 hypertension-again adjustments remain on his blood pressure medications #5 obesity #6 hyperlipidemia Code Visit Inpatient E&M: 11443 Subs Hosp L2
[2018-02-10] MEDS: Atorvastatin Calcium 40 MG Tablet PO (21:07)
[2018-02-11] VITALS (15 sets, daily range): BP systolic 132–172; BP diastolic 58–97; PULSE 64–82; RESP 13–18; TEMP 36.6–36.9; O2SAT 93–98
[2018-02-11] MEDS: 0.9% NaCl Peripheral Flush Adult/Peds IV (04:09)
[2018-02-11 04:36] LABS: Anion Gap 10 (5-15); BUN 11 mg/dL (7-18); BUN/Creat Ratio 18.4 RATIO (10-20); Calcium,Total 8.5 mg/dL (8.5-10.1); Chloride 107 mmol/L (98-107); EST Glomerular Filtration Rate 143 mL/min (>60); Est Glom Filt Rate - Afr Amer 173 mL/min (>60); Estimated Creatinine Clearance 77.39 ml/min; Glucose 121 mg/dL (74-106); Potassium 3.2 mmol/L (3.5-5.1); Sodium Level 142 mmol/L (136-145)
[2018-02-11 04:38] LABS: Hematocrit 42.3 % (40-54); Hemoglobin 14.8 g/dl (13.0-16.5); Mean Corpuscular Hgb 29.7 pg (27.0-32.0); Mean Corpuscular Volume 84.9 fL (80-94); Mean Platelet Vol. 10.4 fl (6.2-12.0); Platelet Count 202 K/mm3 (150-450); RBC Distribution Width SD 39.8 fl (35.1-43.9); Red Blood Count 4.98 M/mm3 (4.6-6.2); White Blood Count 8.3 K/mm3 (4.4-11.0)
[2018-02-11 05:14] LABS: Scan Indicated on CBC? Y/N NO
--- NOTE | 2018-02-11 05:55 | EKG12_ITS ---
Test Reason : AM EKG Blood Pressure : / mmHG Vent. Rate : 068 BPM Atrial Rate : 068 BPM P-R Int : 214 ms QRS Dur : 112 ms QT Int : 432 ms P-R-T Axes : -20 -42 121 degrees QTc Int : 459 ms Sinus rhythm with 1st degree A-V block Left axis deviation Septal infarct , age undetermined T wave abnormality, consider lateral ischemia Abnormal ECG Confirmed by ARPIT WAGNER, JUNAID ([id number]), editor farm journal DANUTA FLOWERS ([id number]) on 02/14/2018 3:05:10 PM Referred By: AZAEL Confirmed By:JUNAID MUNSON MD
[2018-02-11] MEDS: Insulin NPH Human 100 UNITS/ML PEN 40 UNITS SC (07:45)
[2018-02-11] MEDS: Aspirin E.C. 81 MG Tablet PO (07:46)
[2018-02-11 07:56] LABS: Bedside Glucose 169 mg/dL (70-110)
--- NOTE | 2018-02-11 08:48 | PCM.PN.CARD ---
Subjectve: The patient was seen and evaluated. Had uneventful night. Appears to be doing well. Objective: Vital Signs Temp Pulse Resp BP Pulse Ox 98.2 F 74 15 172/81 H 94 02/11/18 08:00 02/11/18 08:00 02/11/18 08:00 02/11/18 08:00 02/11/18 08:00 Oxygen Delivery Method Room Air Intake and Output for Last 24 Hours 02/09/18 02/10/18 02/11/18 23:59 23:59 23:59 Intake Total 984 / 984 Balance 984 / 984 General: Awake, Alert, Oriented x 3 HEENT: PERRL, EOMI, Sclera Non Icteric Neck: Supple, Good ROM, No Lymph Node Enlargement Lungs: Clear to auscultation Cardiovascular: Regular Rhythm, Normal S1, Normal S2, No Murmurs, No Rubs, No Gallops Vascular: No Carotid Bruits, Normal Femoral Pulses, Normal Radial Pulses, Normal Dorsalis Pedal Pulse, Normal Posterior Tibial Pulses Abdomen: Bowel Sounds Present, Soft, Non Tender, No HSM, No Organomegaly Extremities: No Cyanosis, No Clubbing, No edema Neurological: No Focal Motor or Sensory Deficit 02/11/18 04:05: WBC 8.3, RBC 4.98, Hgb 14.8, Hct 42.3, MCV 84.9, MCH 29.7, MCHC 35.0, RDW 13.0, RDW Differential 39.8, Plt Count 202, MPV 10.4 02/11/18 04:05: Sodium 142, Potassium 3.2 L, Chloride 107, Carbon Dioxide 25.0, Anion Gap 10, BUN 11, Creatinine 0.60 L, Est GFR (MDRD) Af Amer 173, Est GFR (MDRD) Non-Af 143, BUN/Creatinine Ratio 18.4, Glucose 121 H, Calcium 8.5 Rhythm: EKG: Normal sinus rhythm with no acute changes ECHO: Normal ejection fraction Medical Necessity - Tobacco Use Smoking Status: Never smoker Assessment/Plan 1. Chest pain unstable angina Patient underwent cardiac catheterization which demonstrated the following: Left main coronary artery normal. Left anterior descending artery previously stented with mild diffuse disease. Left circumflex artery nondominant with proximal and 90% stenosis. Ramus intermedius with mild to moderate diffuse disease. Left to right collaterals filling a distal posterolateral vessel. Dominant large right coronary artery with mid 95% in-stent stenosis and mid to distal 70% stenosis and diffuse distal disease Preserved left ventricular ejection fraction. Patient underwent angioplasty and stenting of the proximal and mid right coronary artery uneventfully. Creatinine this morning appears to be in the normal range with no rise and hemoglobin is also stable with no fall. Plan will be to continue patient on the current medical therapy with aspirin clopidogrel beta-tera and cardiac rehabilitation. Patient can be discharged from my standpoint. 2. Hypertension. Patient's blood pressure appears to be under suboptimal control. Would suggest increasing the amlodipine and also continue the ARB as well as the beta-tera. This can be followed up as an outpatient. 3. Risk factor modification with statins should be continued. Electrolytes should also be appropriately corrected.
--- NOTE | 2018-02-11 08:51 | PN.CARD_ITS ---
Subjectve: The patient was seen and evaluated. Had uneventful night. Appears to be doing well. Objective: Vital Signs Temp Pulse Resp BP Pulse Ox 98.2 F 74 15 172/81 H 94 02/11/18 08:00 02/11/18 08:00 02/11/18 08:00 02/11/18 08:00 02/11/18 08:00 Oxygen Delivery Method Room Air Intake and Output for Last 24 Hours 02/09/18 02/10/18 02/11/18 23:59 23:59 23:59 Intake Total 984 / 984 Balance 984 / 984 General: Awake, Alert, Oriented x 3 HEENT: PERRL, EOMI, Sclera Non Icteric Neck: Supple, Good ROM, No Lymph Node Enlargement Lungs: Clear to auscultation Cardiovascular: Regular Rhythm, Normal S1, Normal S2, No Murmurs, No Rubs, No Gallops Vascular: No Carotid Bruits, Normal Femoral Pulses, Normal Radial Pulses, Normal Dorsalis Pedal Pulse, Normal Posterior Tibial Pulses Abdomen: Bowel Sounds Present, Soft, Non Tender, No HSM, No Organomegaly Extremities: No Cyanosis, No Clubbing, No edema Neurological: No Focal Motor or Sensory Deficit 02/11/18 04:05: WBC 8.3, RBC 4.98, Hgb 14.8, Hct 42.3, MCV 84.9, MCH 29.7, MCHC 35.0, RDW 13.0, RDW Differential 39.8, Plt Count 202, MPV 10.4 02/11/18 04:05: Sodium 142, Potassium 3.2 L, Chloride 107, Carbon Dioxide 25.0, Anion Gap 10, BUN 11, Creatinine 0.60 L, Est GFR (MDRD) Af Amer 173, Est GFR ( MDRD) Non-Af 143, BUN/Creatinine Ratio 18.4, Glucose 121 H, Calcium 8.5 Rhythm: EKG: Normal sinus rhythm with no acute changes ECHO: Normal ejection fraction Medical Necessity - Tobacco Use Smoking Status: Never smoker Assessment/Plan 1. Chest pain unstable angina Patient underwent cardiac catheterization which demonstrated the following: Left main coronary artery normal. Left anterior descending artery previously stented with mild diffuse disease. Left circumflex artery nondominant with proximal and 90% stenosis. Ramus intermedius with mild to moderate diffuse disease. Left to right collaterals filling a distal posterolateral vessel. Dominant large right coronary artery with mid 95% in-stent stenosis and mid to distal 70% stenosis and diffuse distal disease Preserved left ventricular ejection fraction. Patient underwent angioplasty and stenting of the proximal and mid right coronary artery uneventfully. Creatinine this morning appears to be in the normal range with no rise and hemoglobin is also stable with no fall. Plan will be to continue patient on the current medical therapy with aspirin clopidogrel beta-tera and cardiac rehabilitation. Patient can be discharged from my standpoint. 2. Hypertension. Patient's blood pressure appears to be under suboptimal control. Would suggest increasing the amlodipine and also continue the ARB as well as the beta- tera. This can be followed up as an outpatient. 3. Risk factor modification with statins should be continued. Electrolytes should also be appropriately corrected.
[2018-02-11] MEDS: Isosorbide Mononitrate 60 MG Tablet PO (09:29)
[2018-02-11] MEDS: Metoprolol(XL)Succ 100 MG Tablet PO (09:30)
[2018-02-11] MEDS: amLODIPine 5 MG Tablet PO (09:30)
[2018-02-11] MEDS: Clopidogrel Bisulfate 75 MG Tablet PO (09:31)
--- NOTE | 2018-02-11 10:40 | CASEMGMT ---
RN CM Chart review. DC Plan Home on discharge. No needs identified @ this time. Patricia OTTON RN ACM
--- NOTE | 2018-02-11 10:46 | DCINST_ITS ---
- Discharge Diagnoses Current Active Problems: Current Active and Chronic Problems (Last Updated 02/10/18 @ 13:18 by Leslie Trent ) Unstable angina (Acute) Essential (primary) hypertension (Chronic) DM type 2 (diabetes mellitus, type 2) (Chronic) Dyslipidemia (Chronic) You will use the following diet at home:: Calorie/Carbohydrate Controlled ( specify 1200, 1400, etc) - 9122-3040 hermilo Your food should be the consistency of: Regular Your liquids should be the consistency of: Regular/Thin Discharge Activity: Return to Normal Activity Weight Bearing Status: Full weight bearing Additional Instructions: recommend carb counting Allergies/Adverse Reactions: Allergies No Known Allergies Allergy (Unverified 02/09/18 09:16) Medications to take at Discharge amlodipine 5 mg tablet 5 mg PO QDAY 11/20/17 aspirin 81 mg tablet,delayed release 81 mg PO DAILY 11/20/17 insulin lispro (U-100) 100 unit/mL subcutaneous pen 20 unit SC TID ml 11/20/17 metoprolol succinate ER 100 mg tablet,extended release 24 hr 100 mg PO QDAY tab 11/20/17 Clopidogrel Bisulfate [Clopidogrel] 75 mg PO DAILY 02/09/18 Metformin HCl [Glucophage] 1,000 mg PO BID 02/09/18 Atorvastatin Calcium [Lipitor] 40 mg PO QHS #90 tab 02/11/18 Insulin NPH Human Isophane [Novolin N] 45 unit SQ BID #1 vial 02/11/18 Isosorbide Mononitrate [Imdur] 60 mg PO DAILY #90 tab 02/11/18 Valsartan [Diovan] 320 mg PO DAILY #90 tab 02/11/18 The following prescriptions were given: Atorvastatin Calcium [Lipitor] 40 mg PO QHS #90 tab Isosorbide Mononitrate [Imdur] 60 mg PO DAILY #90 tab Valsartan [Diovan] 320 mg PO DAILY #90 tab Insulin NPH Human Isophane [Novolin N] 45 unit SQ BID #1 vial Primary Care Physician: Skylar Gunn DO [Primary Care Provider] - Please follow up with your Primary Care Physician in: in 2 weeks Please Follow Up With: Donny Choi MD When: as directed
--- NOTE | 2018-02-11 18:15 | PCM.DC.SUM ---
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%, distal right coronary artery stenosis 80% #3 proximal circumflex stenosis 90% #4 type 2 diabetes-uncontrolled #5 hypertension #6 hyperlipidemia - Secondary Discharge Diagnosis Chronic Problems (Last Updated 02/10/18 @ 13:18 by Leslie Trent) Atherosclerotic heart disease of [place] coronary artery without angina pectoris (Chronic) Essential (primary) hypertension (Chronic) DM type 2 (diabetes mellitus, type 2) (Chronic) Dyslipidemia (Chronic) Hospital Course and Treatment Operations: None Procedures: 2-D Echocardiogram, Cardiac catheterization, - - Drug-eluting stent placement in mid right coronary artery in-stent, drug-eluting stent placement distal RCA Summary of Care Provided: The patient is a 67 year old M who was seen in the emergency room at [facility] with a chief complaint of chest pain, he stated the chest pain was similar to anginal pain that he has had in the past. Patient had a past history of stent placements the last 1 occurring in 2013. Workup in the emergency room included an EKG which showed a normal sinus rhythm at 98, blood pressure was elevated, troponin was elevated at 0.026, chest x-ray showed cardiomegaly. Patient was admitted to PCU for unstable angina, serial cardiac enzymes were obtained and were elevated indicating a non-STEMI, patient was seen in consultation by cardiology who performed a cardiac catheterization which showed in-stent stenosis of the right coronary artery and severe stenosis of the distal right coronary artery, there was also stenosis of the proximal circumflex artery. Patient underwent insertion of a drug-eluting stent and his previous stent and also a drug-eluting stent in the distal right coronary artery. The circumflex artery stenosis was not felt to be amendable to intervention at this time and it was felt that drug treatment would be the best option for this stenosis. Patient tolerated his cardiac catheterization well, cardiac medications were adjusted during his hospital stay. On 02/11/18, patient was seen and examined and felt to be in stable condition for discharge home Discharge Activity: Return to Normal Activity Weight Bearing Status: Full weight bearing Home Medications: Medications to take at Discharge amlodipine 5 mg tablet 5 mg PO QDAY 11/20/17 aspirin 81 mg tablet,delayed release 81 mg PO DAILY 11/20/17 insulin lispro (U-100) 100 unit/mL subcutaneous pen 20 unit SC TID ml 11/20/17 metoprolol succinate ER 100 mg tablet,extended release 24 hr 100 mg PO QDAY tab 11/20/17 Clopidogrel Bisulfate [Clopidogrel] 75 mg PO DAILY 02/09/18 Metformin HCl [Glucophage] 1,000 mg PO BID 02/09/18 Atorvastatin Calcium [Lipitor] 40 mg PO QHS #90 tab 02/11/18 Insulin NPH Human Isophane [Novolin N] 45 unit SQ BID #1 vial 02/11/18 Isosorbide Mononitrate [Imdur] 60 mg PO DAILY #90 tab 02/11/18 Valsartan [Diovan] 320 mg PO DAILY #90 tab 02/11/18 Following Prescrptions Were Given to Patient: Atorvastatin Calcium [Lipitor] 40 mg PO QHS #90 tab Isosorbide Mononitrate [Imdur] 60 mg PO DAILY #90 tab Valsartan [Diovan] 320 mg PO DAILY #90 tab Insulin NPH Human Isophane [Novolin N] 45 unit SQ BID #1 vial Primary Care Physician: Skylar Gunn DO [Primary Care Provider] - Please follow up with your Primary Care Physician in: in 2 weeks Please Follow Up With: Donny Choi MD When: as directed Disposition: Home Minutes spent on discharge:: 35 Patient Condition:: Stable Medical Necessity - Tobacco Use Smoking Status: Never smoker Meaningful Use Info Meaningful Use Diagnoses (Choose all that apply): AMI - AMI Aspirin given w/in 24hrs of arrival?: Yes ASA at discharge?: Yes Statins at discharge?: Yes Joselito/ARB at discharge?: Yes Beta Malaika at discharge?: Yes Done w/ Acute [place] measure.: Yes Code Visit Inpatient E&M: 24294 Disch Hosp
--- NOTE | 2018-02-11 18:26 | DS.PCM_ITS ---
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%, distal right coronary artery stenosis 80% #3 proximal circumflex stenosis 90% #4 type 2 diabetes-uncontrolled #5 hypertension #6 hyperlipidemia - Secondary Discharge Diagnosis Chronic Problems (Last Updated 02/10/18 @ 13:18 by Leslie Trent) Atherosclerotic heart disease of [place] coronary artery without angina pectoris (Chronic) Essential (primary) hypertension (Chronic) DM type 2 (diabetes mellitus, type 2) (Chronic) Dyslipidemia (Chronic) Hospital Course and Treatment Operations: None Procedures: 2-D Echocardiogram, Cardiac catheterization, - - Drug-eluting stent placement in mid right coronary artery in-stent, drug-eluting stent placement distal RCA Summary of Care Provided: The patient is a 67 year old M who was seen in the emergency room at [facility] with a chief complaint of chest pain, he stated the chest pain was similar to anginal pain that he has had in the past. Patient had a past history of stent placements the last 1 occurring in 2013. Workup in the emergency room included an EKG which showed a normal sinus rhythm at 98, blood pressure was elevated, troponin was elevated at 0.026, chest x-ray showed cardiomegaly. Patient was admitted to PCU for unstable angina, serial cardiac enzymes were obtained and were elevated indicating a non-STEMI, patient was seen in consultation by cardiology who performed a cardiac catheterization which showed in-stent stenosis of the right coronary artery and severe stenosis of the distal right coronary artery, there was also stenosis of the proximal circumflex artery. Patient underwent insertion of a drug-eluting stent and his previous stent and also a drug-eluting stent in the distal right coronary artery. The circumflex artery stenosis was not felt to be amendable to intervention at this time and it was felt that drug treatment would be the best option for this stenosis. Patient tolerated his cardiac catheterization well, cardiac medications were adjusted during his hospital stay. On 02/11/18, patient was seen and examined and felt to be in stable condition for discharge home Discharge Activity: Return to Normal Activity Weight Bearing Status: Full weight bearing Home Medications: Medications to take at Discharge amlodipine 5 mg tablet 5 mg PO QDAY 11/20/17 aspirin 81 mg tablet,delayed release 81 mg PO DAILY 11/20/17 insulin lispro (U-100) 100 unit/mL subcutaneous pen 20 unit SC TID ml 11/20/17 metoprolol succinate ER 100 mg tablet,extended release 24 hr 100 mg PO QDAY tab 11/20/17 Clopidogrel Bisulfate [Clopidogrel] 75 mg PO DAILY 02/09/18 Metformin HCl [Glucophage] 1,000 mg PO BID 02/09/18 Atorvastatin Calcium [Lipitor] 40 mg PO QHS #90 tab 02/11/18 Insulin NPH Human Isophane [Novolin N] 45 unit SQ BID #1 vial 02/11/18 Isosorbide Mononitrate [Imdur] 60 mg PO DAILY #90 tab 02/11/18 Valsartan [Diovan] 320 mg PO DAILY #90 tab 02/11/18 Following Prescrptions Were Given to Patient: Atorvastatin Calcium [Lipitor] 40 mg PO QHS #90 tab Isosorbide Mononitrate [Imdur] 60 mg PO DAILY #90 tab Valsartan [Diovan] 320 mg PO DAILY #90 tab Insulin NPH Human Isophane [Novolin N] 45 unit SQ BID #1 vial Primary Care Physician: Skylar Gunn DO [Primary Care Provider] - Please follow up with your Primary Care Physician in: in 2 weeks Please Follow Up With: Donny Choi MD When: as directed Disposition: Home Minutes spent on discharge:: 35 Patient Condition:: Stable Medical Necessity - Tobacco Use Smoking Status: Never smoker Meaningful Use Info Meaningful Use Diagnoses (Choose all that apply): AMI - AMI Aspirin given w/in 24hrs of arrival?: Yes ASA at discharge?: Yes Statins at discharge?: Yes Joselito/ARB at discharge?: Yes Beta Malaika at discharge?: Yes Done w/ Acute [place] measure.: Yes Code Visit Inpatient E&M: 88371 Disch Hosp
== END 2018-02-11 11:15 | disposition home or self-care (01) | DRG 247 ==
LOC: ED 10:58 → PCU 11:50 → ICU 02-10 10:32
PROVIDERS: Internal Medicine Cardiovascular Disease; Admitting Provider Internal Medicine; Emergency Provider Emergency Medicine; Family Provider Family Medicine; PCP Family Medicine; Visit Provider Internal Medicine
DX: I21.4 Non-ST elevation (NSTEMI) myocardial infarction (principal); T82.855A Stenosis of coronary artery stent, initial encounter; Z68.41 Body mass index [BMI] 40.0-44.9, adult; T82.858A Stenosis of other vascular prosthetic devices, implants and grafts, initial encounter; I10 Essential (primary) hypertension; E78.5 Hyperlipidemia, unspecified; Y83.1 Surgical operation with implant of artificial internal device as the cause of abnormal reaction of the patient, or of later complication, without mention of misadventure at the time of the procedure; I25.110 Atherosclerotic heart disease of native coronary artery with unstable angina pectoris; E11.65 Type 2 diabetes mellitus with hyperglycemia; E66.9 Obesity, unspecified; Z71.3 Dietary counseling and surveillance
CPT/HCPCS: 36415; 71045; 80048; 82962; 84484; 85025; 85027; 85347; 85730; 87641; 92928; 93005; 93306; 93458; 97802; 99152; 99153; 99251; 99284; J7030; Q9957; Q9967; A4216; C1725; C1769; C1874; C1887; C1894; C8929; C9600; G0463

== ENCOUNTER → 2018-03-13 10:35 | Outpatient (CLI) | payer MEDICARE, OTHER, SELFPAY ==
--- NOTE | 2018-03-13 10:43 | PCM.CR.HP2 ---
CR - History & Physical - General Arrival date:: 03/13/18 Arrival time:: 10:43 Date of Referral:: 03/13/18 Date of CR Evaluation:: 03/13/18 Referring Physician: Dr. Dahiana Choi Primary Diagnosis: NSTEMI, PCI with stent - History of Present Cardiac Event Onset Date: Enter Onset Date of cardiac illnesses in Comment field below Current stable Angina Pectoris:: Yes - 02/09/18 Acute Myocardial Infarction within 12 months:: Yes - 02/09/18 Coronary Artery Bypass Graft:: No Heart valve replacement or repair:: No PTCA or coronary stenting:: Yes - 02/10/18 Heart or Heart-Lung Transplant:: No Heart Failure EF <35%:: No Type of Symptoms:: chest burning Interventions with present event:: PCI with stenting Were there any complications?: none - Medications Home Medications: Ambulatory Orders Medication Instructions Recorded aspirin 81 mg tablet,delayed 81 mg PO DAILY 11/20/17 release insulin lispro (U-100) 100 unit/mL 20 unit SC TID ml 11/20/17 subcutaneous pen metoprolol succinate ER 100 mg 100 mg PO QDAY tab 11/20/17 tablet,extended release 24 hr Clopidogrel Bisulfate [Clopidogrel] 75 mg PO DAILY 02/09/18 Atorvastatin Calcium [Lipitor] 40 mg PO QHS #90 tab 02/11/18 Insulin NPH Human Isophane 45 unit SQ BID #1 vial 02/11/18 [Novolin N] Isosorbide Mononitrate [Imdur] 60 mg PO DAILY #90 tab 02/11/18 Valsartan [Diovan] 320 mg PO DAILY #90 tab 02/11/18 cholecalciferol (vitamin D3) 50,000 unit PO QWEEK 03/12/18 50,000 unit capsule metformin 500 mg tablet 500 mg PO BID tab 03/12/18 - Allergies Allergies/Adverse Reactions: Allergies No Known Allergies Allergy (Unverified 03/12/18 10:19) - Sleep Disorder Evaluation Hx of Sleep Apnea: No Do you snore loudly (louder than talking or can be heard through closed doors)?: No Do you often feel tired/ fatigued/ sleepy during daytime?: Yes Has anyone observed you stop breathing during sleep?: No History of Hypertension (for STOP score): Yes STOP Results: Positive Advanced Directives - Advanced Directives Power of Bioinformatics Assistant: Yes Living Will: Yes Advance Directives Information Provided: Yes Advance Directives on File: Yes DNR Order?:: No Past Medical History - Past Medical Illness Medical History: Past Medical History (Last Reviewed 03/12/18 @ 10:40 by Donny Choi MD) Hyperlipidemia (Chronic) E78.5 Hypertension (Chronic) I10 Atherosclerotic heart disease of [place] coronary artery without angina pectoris (Chronic) I25.10 VEM-MVK-YDP-Mid RCA w/ 3.5 x 15 mm Resolute and JOSE MIGUEL-Distal RCA w/ Resolute 3.5 x 15 mm stent 02/10/18 GLU-Eoukn-Ymy LAD 06/29/2014 PCI-JOSE MIGUEL-Mid RCA w/ 4.0 x 18 mm Xience-06/10/2009 @ [facility] Vascular disease I99.9 Diabetes type 2, controlled E11.9 HTN (hypertension) I10 - Past Surgical History Surgical History: Past Surgical History (Last Reviewed 03/12/18 @ 10:40 by Donny Choi MD) History of left heart catheterization (Chronic) Z98.890 H/O right coronary artery stent placement (Chronic) Onset Date: 02/10/18 Z95.5 JXU-JLL-HAU-Mid RCA w/ 3.5 x 15 mm Resolute and JOSE MIGUEL-Distal RCA w/ Resolute 3.5 x 15 mm stent 02/10/18 TRS-Hxvaz-Rxn LAD 06/29/2014 PCI-JOSE MIGUEL-Mid RCA w/ 4.0 x 18 mm Xience-06/10/2009 @ [facility] History of hydrocelectomy Z98.890 History of tonsillectomy and adenoidectomy Z98.890 Surgical History: - - Family History Summary Family History: Family History (Last Reviewed 03/12/18 @ 10:40 by Donny Choi MD) Unknown Arthritis Cancer Diabetes Father Heart disease Mother Hypertension Other CAD (coronary artery disease) Social History - Smoking History Smoking Status: Never smoker - Alcohol Use Alcohol Usage: Yes - social drinkers - Substance Abuse Hx Substance Use: No - Occupation Occupation (List type of work in comments):: Retired - Hobbies, Recreation, Social Activities Hobbies: Other - golfing, grandchildren Recreational Activities: I am able to engage in all my recreational activities Social Environment - Status Marital Status: - Current Living Arrangements Living Environment:: Spouse - Children How many children do you have?: 3 Do any of your children live nearby?: Yes - Safety Do you feel safe in your surroundings?: Yes - Assistance Do you need any assistance at home?: no Review of Systems - Review of Systems Hints: Right click = Denies (Slash). Left click = Reports ([place]) Review of Present Symptoms: Reports: Fatigue, Appetite - Normal, Appetite - Special Diet - Cardiac diabetic, Sleep - Normal. Denies: Shortness of Breath at Rest, Shortness of Breath with Exertion, PVD, Operative Discomfort, Angina, Wound Healing, Dizziness/Lightheadedness, Heart Arrhythmia/Irregularities, Sexual Changes - Pain Is Patient Pain Free?: No Pain Location: other - Some pain behind knees. Ernesto with steps, knees Pain Level: 10 Risk Factor Assessment - Chief Complaint Chief Complaint: Feel better, less tired, more energy - Pulse Pulse Rate: 64 Pulse Rhythm: Regular - Hypertension How long have you been treated?: 25 years On medication(s)?: yes Blood Pressure Sitting - Right Arm: 144/80 Blood Pressure Sitting - Left Arm: 114/72 - Stress Stress: Home/Family - some - Diabetes Diabetic History: Type II Nutrition Referral for Diabetes: Yes - Obesity Height: 1.8 m Weight:: 129.274 kg Weight in Pounds: 285.0 lbs Weight Source: Standing Scale Body Mass Index (BMI): 39.7 Realistic Weight Goal (Loss of 1-2 lbs/week): 24 Nutritional Referral for Obesity: Yes - Physical Inactivity Physical Inactivity: Reg Exercise 30 min/day, Physically demanding job, Recreational activity - Risk Stratification Risk Guidelines: Lowest Risk: Risk Factor for Smoking, Moderate Risk: Risk Factor for Dyslipidemia, Risk Factor for Diabetes, Risk Factor for Hypertension, Risk Factor for Sedentary Lifestyle, Risk Factor for Depression, Highest Risk: Risk Factor for Obesity - For Smoking Smoking Risk Guidelines: Smoking Low Risk: None or quit greater than 6 months ago. Smoking Moderate Risk: Smoker or quit 6 months or less ago. Smoking High Risk: Smoker - For Dyslipidemia Dyslipidemia Risk Guidelines: Low Risk: Moderate Risk: High Risk: 15-25% fat 25.1-29% fat >/= 30% fat. <7% sat fat 7-9% sat fat >9% sat fat. <150 mg chol 150-299 mg chol >/= 300 mg chol. LDL <100 LDL 100-129 LDL >/= 130. Chol/HDL ratio <5.0 Chol/HDL ratio 5.0-6.0 Chol/HDL ratio >6.0. Triglycerides <100 Triglycerides 100-149 Triglycerides >/= 150 - For Diabetes Mellitus Diabetes Risk Guidelines: Diabetes Low Risk: HgA1c <6.5% and/or FBG <120. Diabetes Moderate Risk: HgA1c 6.6-7.9% and/or FBG 120-180. Diabetes High Risk: HgA1c >/= 8% and/or FBG >180 - For Obesity/Overweight Obesity/Overweight Risk Guidelines: Obesity Low Risk: BMI <25.0. Obesity Moderate Risk: BMI 25-29.9. Obesity High Risk: BMI >/= 30.0 - For Hypertension Hypertension Risk Guidelines: Hypertension Low Risk: Systolic <120 and Diastolic <80. Hypertension Moderate Risk: Systolic 120-139 and Diastolic 80-89. Hypertension High Risk: Systolic >/= 140 and Diastolic >/= 90 - For Sedentary Lifestyle Sedentary Lifestyle Risk Guidelines: Sedentary Lifestyle Low Risk: >/= 1,500 kcal/week. Sedentary Lifestyle Moderate Risk: 700-1,499 kcal/week. Sedentary Lifestyle High Risk: < 700 kcal/week - For Depression Depression Risk Guidelines: Depression Low Risk: Not clinically depressed. Depression Moderate Risk: Mildly depressed. Depression High Risk: Clinically depressed - Family History Family History: Family History (Last Reviewed 03/12/18 @ 10:40 by Donny Choi MD) Unknown Arthritis Cancer Diabetes Father Heart disease Mother Hypertension Other CAD (coronary artery disease) Motivation - Motivation to Participate On a scale of 1 to 10, how prepared are you to commit to attending program?: 6
--- NOTE | 2018-03-13 11:04 | CR.HP_ITS ---
CR - History & Physical - General Arrival date:: 03/13/18 Arrival time:: 10:43 Date of Referral:: 03/13/18 Date of CR Evaluation:: 03/13/18 Referring Physician: Dr. Dahiana Choi Primary Diagnosis: NSTEMI, PCI with stent - History of Present Cardiac Event Onset Date: Enter Onset Date of cardiac illnesses in Comment field below Current stable Angina Pectoris:: Yes - 02/09/18 Acute Myocardial Infarction within 12 months:: Yes - 02/09/18 Coronary Artery Bypass Graft:: No Heart valve replacement or repair:: No PTCA or coronary stenting:: Yes - 02/10/18 Heart or Heart-Lung Transplant:: No Heart Failure EF <35%:: No Type of Symptoms:: chest burning Interventions with present event:: PCI with stenting Were there any complications?: none - Medications Home Medications: Ambulatory Orders Medication Instructions Recorded aspirin 81 mg tablet,delayed 81 mg PO DAILY 11/20/17 release insulin lispro (U-100) 100 unit/mL 20 unit SC TID ml 11/20/17 subcutaneous pen metoprolol succinate ER 100 mg 100 mg PO QDAY tab 11/20/17 tablet,extended release 24 hr Clopidogrel Bisulfate [Clopidogrel] 75 mg PO DAILY 02/09/18 Atorvastatin Calcium [Lipitor] 40 mg PO QHS #90 tab 02/11/18 Insulin NPH Human Isophane 45 unit SQ BID #1 vial 02/11/18 [Novolin N] Isosorbide Mononitrate [Imdur] 60 mg PO DAILY #90 tab 02/11/18 Valsartan [Diovan] 320 mg PO DAILY #90 tab 02/11/18 cholecalciferol (vitamin D3) 50,000 unit PO QWEEK 03/12/18 50,000 unit capsule metformin 500 mg tablet 500 mg PO BID tab 03/12/18 - Allergies Allergies/Adverse Reactions: Allergies No Known Allergies Allergy (Unverified 03/12/18 10:19) - Sleep Disorder Evaluation Hx of Sleep Apnea: No Do you snore loudly (louder than talking or can be heard through closed doors)? : No Do you often feel tired/ fatigued/ sleepy during daytime?: Yes Has anyone observed you stop breathing during sleep?: No History of Hypertension (for STOP score): Yes STOP Results: Positive Advanced Directives - Advanced Directives Power of Neon Technician: Yes Living Will: Yes Advance Directives Information Provided: Yes Advance Directives on File: Yes DNR Order?:: No Past Medical History - Past Medical Illness Medical History: Past Medical History (Last Reviewed 03/12/18 @ 10:40 by Donny Choi MD) Hyperlipidemia (Chronic) E78.5 Hypertension (Chronic) I10 Atherosclerotic heart disease of [place] coronary artery without angina pectoris (Chronic) I25.10 SRO-MMP-GLK-Mid RCA w/ 3.5 x 15 mm Resolute and JOSE MIGUEL-Distal RCA w/ Resolute 3.5 x 15 mm stent 02/10/18 XIO-Wdwri-Kzr LAD 06/29/2014 PCI-JOSE MIGUEL-Mid RCA w/ 4.0 x 18 mm Xience-06/10/[address] [facility] Vascular disease I99.9 Diabetes type 2, controlled E11.9 HTN (hypertension) I10 - Past Surgical History Surgical History: Past Surgical History (Last Reviewed 03/12/18 @ 10:40 by Donny Choi MD) History of left heart catheterization (Chronic) Z98.890 H/O right coronary artery stent placement (Chronic) Onset Date: 02/10/18 Z95.5 JNS-KGQ-VWJ-Mid RCA w/ 3.5 x 15 mm Resolute and JOSE MIGUEL-Distal RCA w/ Resolute 3.5 x 15 mm stent 02/10/18 SJR-Wvdnm-Xph LAD 06/29/2014 PCI-JOSE MIGUEL-Mid RCA w/ 4.0 x 18 mm Xience-06/10/[address] [facility] History of hydrocelectomy Z98.890 History of tonsillectomy and adenoidectomy Z98.890 Surgical History: - - Family History Summary Family History: Family History (Last Reviewed 03/12/18 @ 10:40 by Donny Choi MD) Unknown Arthritis Cancer Diabetes Father Heart disease Mother Hypertension Other CAD (coronary artery disease) Social History - Smoking History Smoking Status: Never smoker - Alcohol Use Alcohol Usage: Yes - social drinkers - Substance Abuse Hx Substance Use: No - Occupation Occupation (List type of work in comments):: Retired - Hobbies, Recreation, Social Activities Hobbies: Other - golfing, grandchildren Recreational Activities: I am able to engage in all my recreational activities Social Environment - Status Marital Status: - Current Living Arrangements Living Environment:: Spouse - Children How many children do you have?: 3 Do any of your children live nearby?: Yes - Safety Do you feel safe in your surroundings?: Yes - Assistance Do you need any assistance at home?: no Review of Systems - Review of Systems Hints: Right click = Denies (Slash). Left click = Reports ([place]) Review of Present Symptoms: Reports: Fatigue, Appetite - Normal, Appetite - Special Diet - Cardiac diabetic, Sleep - Normal. Denies: Shortness of Breath at Rest, Shortness of Breath with Exertion, PVD, Operative Discomfort, Angina, Wound Healing, Dizziness/Lightheadedness, Heart Arrhythmia/Irregularities, Sexual Changes - Pain Is Patient Pain Free?: No Pain Location: other - Some pain behind knees. Ernesto with steps, knees Pain Level: 10 Risk Factor Assessment - Chief Complaint Chief Complaint: Feel better, less tired, more energy - Pulse Pulse Rate: 64 Pulse Rhythm: Regular - Hypertension How long have you been treated?: 25 years On medication(s)?: yes Blood Pressure Sitting - Right Arm: 144/80 Blood Pressure Sitting - Left Arm: 114/72 - Stress Stress: Home/Family - some - Diabetes Diabetic History: Type II Nutrition Referral for Diabetes: Yes - Obesity Height: 1.8 m Weight:: 129.274 kg Weight in Pounds: 285.0 lbs Weight Source: Standing Scale Body Mass Index (BMI): 39.7 Realistic Weight Goal (Loss of 1-2 lbs/week): 24 Nutritional Referral for Obesity: Yes - Physical Inactivity Physical Inactivity: Reg Exercise 30 min/day, Physically demanding job, Recreational activity - Risk Stratification Risk Guidelines: Lowest Risk: Risk Factor for Smoking, Moderate Risk: Risk Factor for Dyslipidemia, Risk Factor for Diabetes, Risk Factor for Hypertension , Risk Factor for Sedentary Lifestyle, Risk Factor for Depression, Highest Risk : Risk Factor for Obesity - For Smoking Smoking Risk Guidelines: Smoking Low Risk: None or quit greater than 6 months ago. Smoking Moderate Risk: Smoker or quit 6 months or less ago. Smoking High Risk: Smoker - For Dyslipidemia Dyslipidemia Risk Guidelines: Low Risk: Moderate Risk: High Risk: 15-25% fat 25.1-29% fat >/= 30% fat. <7% sat fat 7-9% sat fat >9% sat fat. <150 mg chol 150-299 mg chol >/= 300 mg chol. LDL <100 LDL 100-129 LDL >/= 130. Chol/HDL ratio <5.0 Chol/HDL ratio 5.0-6.0 Chol/HDL ratio >6.0. Triglycerides <100 Triglycerides 100-149 Triglycerides >/= 150 - For Diabetes Mellitus Diabetes Risk Guidelines: Diabetes Low Risk: HgA1c <6.5% and/or FBG <120. Diabetes Moderate Risk: HgA1c 6.6-7.9% and/or FBG 120-180. Diabetes High Risk: HgA1c >/= 8% and/or FBG >180 - For Obesity/Overweight Obesity/Overweight Risk Guidelines: Obesity Low Risk: BMI <25.0. Obesity Moderate Risk: BMI 25-29.9. Obesity High Risk: BMI >/= 30.0 - For Hypertension Hypertension Risk Guidelines: Hypertension Low Risk: Systolic <120 and Diastolic <80. Hypertension Moderate Risk: Systolic 120-139 and Diastolic 80-89. Hypertension High Risk: Systolic >/= 140 and Diastolic >/= 90 - For Sedentary Lifestyle Sedentary Lifestyle Risk Guidelines: Sedentary Lifestyle Low Risk: >/= 1 ,500 kcal/week. Sedentary Lifestyle Moderate Risk: 700-1,499 kcal/week. Sedentary Lifestyle High Risk: < 700 kcal/week - For Depression Depression Risk Guidelines: Depression Low Risk: Not clinically depressed. Depression Moderate Risk: Mildly depressed. Depression High Risk: Clinically depressed - Family History Family History: Family History (Last Reviewed 03/12/18 @ 10:40 by Donny Choi MD) Unknown Arthritis Cancer Diabetes Father Heart disease Mother Hypertension Other CAD (coronary artery disease) Motivation - Motivation to Participate On a scale of 1 to 10, how prepared are you to commit to attending program?: 6
--- NOTE | 2018-03-13 11:04 | CR.ITP_ITS ---
General Information - General Information Admitting Diagnosis: NSTEMI, PCI with stent - Education/Goals Barriers to Learning: None Cardiac Rehabilitation Goals: 1. Maintain the individual as the primary focus of care. 2. To improve the patient's quality of life. 3. Identification of cardiac risk factors and provide cardiac risk factor management. 4. Enhance the psychosocial status of the patient. 5. Reconditioning enough to allow the patient to resume customary activities. 6. Control symptoms of cardiac disease Scale for measuring improvement of personal goals: Enter appropriate number in Comments. 2 = Unchanged. 3 = Slightly Better. 4 = Moderate Improvement. 5 = Met my Goal Personal Goals: Initial Assessment: Improve management of stress and emotions, Improve energy level, Participate in home exercise program, Get back to work, or to resume activities faster, Improve muscle strength and endurance, Improve diet and eating habits (eat healthier), Control risk factors (learn risk factor modification) Exercise - Initial Assessment - Visit Date of Eval: 03/13/18 - Stages of Change Stages of Change:: Action - Exercise Prescription Mode:: Treadmill, Biodyne, Rower, Airdyne, NuStep - Hypertension Do any of the following apply?: Yes - Intervention Home Exercise/Activity Goal:: Sitting Time <3 hrs/day - Education Goals:: Warm-up, RPE LAURA Scale, S/S, Safe Exercise, Self-Monitoring - Exercise Program Goals Exercise Program Goals: B/P <130/80 Nutrition - Initial Assessment - Program Goals Nutrition Program Goals: LDL <70. Total Cholesterol <200. HDL >45. Triglycerides <150. HgbA1C <7%. BMI <25 - Visit Date of Assessment:: 03/13/18 - Stages of Change Stages of Change:: Action - Diabetes Diabetes:: Yes - Weight Management Height: 1.8 m Weight:: 129.274 kg - Intervention Referral to dietitian:: Yes Referral to Diabetic Clinic:: Yes Will attend diet classes:: Yes - Education Gave educational materials for:: Signs & symptoms of hypoglycemia, Signs & symptoms of hyperglycemia, Relate diabetes to coronary artery disease, Healthy eating Tobacco - Initial Assessment - Program Goals Tobacco Program Goals: Complete smoking cessation. Attend education classes. Improve Knowledge Test score - Stage of Change Stages of Change:: Maintenance - Learning Barriers Learning Barriers: Ready to Learn Total Score:: 20 - Family Support Do you have family support?: Yes - Tobacco Use Tobacco Use: Non-smoker Do you use smokeless tobacco?: No - Intervention Smoking Cessation Referral:: No Individual Education/Counseling:: No Education Schedule Given:: Yes - Education Gave educational material for:: Coronary artery disease, Risk factors, Sexuality , Medical compliance, Cardiac A&P, Angina signs & symptoms Psychosocial - Initial Assess - Target Goals Target Goals: Assess presence or absence of depression. Using a valid screening tool, maximizes coping skills. Positive support system - Stages of Change Stages of Change:: Action - Psychosocial Test Tool Used:: HANDS Depression Questionnaire Total Mood Screening Score:: 13 Self-Efficacy Score:: 6 - Intervention PS - Interventions: Yes Attend Stress Management Classes, Yes Uses Stress Management Skills, No Referral to Mental Health, No Referral to [facility] Case Management, No Referral to Physician - Education Gave educational materials for:: Coping techniques, Signs & symptoms of depression, Stress management, Relaxation techniques - Patient/Program Goal Preventative Medication(s):: Aspirin, LUCILLE inhibitor, Clopidogrel, Beta tera, Statin/lipid - Assistive Devices Assistive Devices:: None Fall Risk Assessed:: Yes Patient Health Questionnaire Initial Assessment 1. Little interest or pleasure in doing things: Several days 2. Feeling down, depressed, or hopeless: Several days 3. Trouble falling or staying asleep, or sleeping too much: More than half the days 4. Feeling tired or having little energy: Nearly every day 5. Poor appetite or overeating: Nearly every day 6. Feeling bad about yourself -- or that you are a failure or have let yourself or your family down: Several days 7. Trouble concentrating on things, such as reading the newspaper or watching television: Several days 8. Moving or speaking so slowly that other people could have noticed. Or the opposite - being so fidgety or restless that you have been moving around a lot more than usual: Several days 9. Thoughts that you would be better off , or of hurting yourself in some way: Not at all How difficult have these problems made it for you to do your work, take care of things at home, or get along with other people?: Somewhat difficult Total Score: 13 MINOR-Q SV Test - Statements CAD is a disease of the arteries in the heart: False Examples of risk factors for heart disease: True Angina is chest pain or discomfort: True The benefits of resistance training include: True Eating more meat and dairy products: False Anti-platelet medications such as aspirin are important: True The only effective way to manage stress: False An exercise warm-up slowly increases heart rate: True Prepared, processed foods usually have high sodium: True Depression is common after a heart attack: True The statin medications lower cholesterol: True To control blood pressure, lower the amount of sodium: True If someone gets chest discomfort during walking: False Transfats are partially hydrogenated vegetable oils: True Sleep apnea that is not treated increases the risk: False To control cholesterol, one should become a vegetarian: False Someone knows if he/she is exercising at the right level: True Diabetes cannot be prevented with exercise & health eating: False Stress is a large risk for heart attack: True A diet that can help lower blood pressure is rich in: True - Total Score Total Correct Responses: 20 Self-Efficacy Initial Assessment We would like to know how confident you are in doing certain activities. Please select your confidence level for:: Select your confidence level for the following using the scale 1-10 where 1 is not at all confident and 10 is totally confident. Your score is the average of all 6 responses. Fatigue: How confident are you that you can keep the fatigue caused by your disease from interfering with the things you want to do? Select Number: 5 Physical Discomfort or Pain: How confident are you that you can keep the physical discomfort or pain of your disease from interfering with the things you want to do? Select Number: 8 Emotional Distress: How confident are you that you can keep the emotional distress caused by your disease from interfering with the things you want to do? Select Number: 9 Other Symptoms or Health Problems: How confident are you that you can keep other symptoms or health problems from interfering with the things you want to do? Select Number: 6 Different Tasks and Activities: How confident are you that you can do the different tasks and activities needed to manage your health condition so as to reduce your need to see a doctor? Select Number: 7 Medication: How confident are you that you can do things other than just taking medication to reduce how much your illness affects your everyday life? Select Number: 6 Total Score:: 6 Nutrition Survey - Nutrition Survey Instructions Scoring Instructions: Scoring is as follows: Yes = 1 points. No = 0 point. Patient score that is >/=12 is considered to be at potential nutritional risk and could benefit from a referral to a registered dietitian. - Nutrition Survey Initial Have you lost >10 lbs over the past 2 months without trying?: No Are you following a special diet at home for diabetes, low fat, or low salt?: Yes Are you interested in meeting with a dietitian for help understanding your diet? : Yes Do you eat less than 3 meals a day?: No Do you eat fatty meats (newby, sausage, ribs, etc), fried foods, desserts, large amounts of salad dressings, margarine, butter, or cheese most days?: Yes Do you have food allergies? [Enter types in comment field]: No Do you eat in restaurants more than 3 times a week?: Yes Do you season food with salt, seasoning salt, or garlic salt?: Yes Do you used canned, boxed, frozen meals, or soups, seasoning packets?: Yes Total Score:: 6
[2018-03-13 12:08] VITALS: BP 114/72; BP 144/80; PULSE 64; BMI 39.7
== END ==
PROVIDERS: Family Provider Family Medicine; PCP Family Medicine; Visit Provider Internal Medicine Cardiovascular Disease
DX: I25.10 Atherosclerotic heart disease of native coronary artery without angina pectoris (principal); Z95.5 Presence of coronary angioplasty implant and graft; I25.2 Old myocardial infarction; E78.5 Hyperlipidemia, unspecified; I10 Essential (primary) hypertension; E11.9 Type 2 diabetes mellitus without complications; Z98.890 Other specified postprocedural states; Z79.82 Long term (current) use of aspirin; Z79.4 Long term (current) use of insulin; Z79.84 Long term (current) use of oral hypoglycemic drugs; Z79.899 Other long term (current) drug therapy

== ENCOUNTER → 2018-03-26 09:01 | Outpatient (CLI) | payer MEDICARE, OTHER, SELFPAY ==
--- NOTE | 2018-03-26 09:06 | AAVD_ITS ---
Reason For Study: Atherosclerotic Heart Disease Aorta Measurements Aorta Doppler Measurements Proximal aorta measures1.74cm x 1.77cm. in cross-Peak systolic flow velocities within the proximal sectional axis. aorta measure 107 cm/sec. Proximal aorta measures1.75cm. in longitudinal Peak systolic flow velocities within the mid axis. aorta measure 154 cm/sec. Mid aorta measures1.66cm x 1.74cm. in cross- Peak systolic flow velocities within the distal sectional axis. aorta measure 158 cm/sec. Mid aorta measures1.65cm. in longitudinal axis. Distal aorta measures1.24cm x 1.32cm. in cross- sectional axis. Distal aorta measures1.40cm. in longitudinal axis. Left Iliac Artery Left iliac artery measures 1.01cm x 0.97 cm. in the cross-sectional axis. Left iliac artery measures 1.01 cm. in the longitudinal axis. Peak systolic velocity in the left iliac artery measures 138 cm/sec. Right Iliac Artery Right iliac artery measures 0.95cm x 0.97 cm. in the cross-sectional axis. Right iliac artery measures 1.05 cm. in the longitudinal axis. Peak systolic velocity in the right iliac artery measures 110 cm/sec. Procedure Aorta IVC Iliac vasculature or bypass grafts [id number]. Difficult to visualize prox Ao due to bowel gas. Exam performed in department. Interpretation Summary Maximal aortic diameter of 1.74 x 1.77 cm proximally with no evidence for aneurysmal change Mildly increased aortic velocities consistent with atherosclerotic disease. Normal diameter left common iliac 1.01 x 0.97cm Normal diameter right common iliac 0.95 x 0.97cm Ordering Physician: Donny Choi Referring Physician: Skylar Gunn Performed By: Patrica Goldsmith, ALYCIA, RVT
== END ==
PROVIDERS: Family Provider Family Medicine; PCP Family Medicine; Visit Provider Internal Medicine Cardiovascular Disease
DX: I25.708 Atherosclerosis of coronary artery bypass graft(s), unspecified, with other forms of angina pectoris (principal); I10 Essential (primary) hypertension
CPT/HCPCS: 93978

== ENCOUNTER 2018-03-28 08:00 | Outpatient (RCR) | payer MEDICARE, OTHER, SELFPAY ==
--- NOTE | 2018-03-21 15:04 | PCM.CR.ITP ---
Exercise - 30-day Assessment - Visit Date of Eval: 03/21/18 Session #:: 4 - Stages of Change Stages of Change:: Action - Exercise Prescription Mode:: Treadmill, Rower, Airdyne, NuStep Frequency (x/week): 3 Duration:: 30 METs - Progression: 0.5-1 MET as tolerated: 2.5 Target Heart Rate:: 115-123 - Hypertension Resting Blood Pressure:: 144/82 Peak Exercise Blood Pressure:: 162/88 Medication Changes:: No - Intervention Home Exercise/Activity Goal:: Sitting Time <3 hrs/day - Education Goals:: Warm-up, RPE LAURA Scale, S/S, Safe Exercise, Self-Monitoring - Exercise Program Goals Exercise Program Goals: Aerobic Activity >30 min Nutrition - 30-Day Assessment - Program Goals Nutrition Program Goals: LDL <70. Total Cholesterol <200. HDL >45. Triglycerides <150. HgbA1C <7%. BMI <25 - Visit Date of Eval: 03/21/18 - Stages of Change Stages of Change:: Action - Lipids Has the patient seen the dietitian?: Yes - Diabetes Diabetes:: Yes - Weight Management Weight:: 287 lb - Intervention Referral to dietitian:: Yes Referral to Diabetic Clinic:: Yes Will attend diet classes:: Yes - Education Attended class for:: Signs & symptoms of hypoglycemia, Signs & symptoms of hyperglycemia, Relate diabetes to coronary artery disease, Healthy eating Tobacco - Initial Assessment - Program Goals Tobacco Program Goals: Complete smoking cessation. Attend education classes. Improve Knowledge Test score - Learning Barriers Learning Barriers: Ready to Learn Tobacco - 30-Day Assessment - Program Goals Tobacco Program Goals: Complete smoking cessation. Attend education classes. Improve Knowledge Test score - Stage of Change Stages of Change:: Action - Learning Barriers Learning Barriers: Participates in education - Family Support Do you have family support?: Yes - Tobacco Use Do you use smokeless tobacco?: No - Intervention Education Schedule Given:: Yes - Education Attended class for:: Tobacco triggers, Coronary artery disease, Risk factors, Sexuality, Medical compliance, Cardiac A&P, Angina signs & symptoms Psychosocial - Initial Assess - Target Goals Target Goals: Assess presence or absence of depression. Using a valid screening tool, maximizes coping skills. Positive support system - Psychosocial Test Tool Used:: HANDS Depression Questionnaire - Assistive Devices Fall Risk Assessed:: Yes Psychosocial - 30-Day Assess - Target Goals Target Goals: Assess presence or absence of depression. Using a valid screening tool, maximizes coping skills. Positive support system - Stages of Change Stages of Change:: Action - Psychosocial Test Tool Used:: HANDS Depression Questionnaire - Intervention PS - Interventions: Yes Attend Stress Management Classes, No Referral to Mental Health, No Referral to [facility] Case Management, No Referral to Physician, No Uses Stress Management Skills - Education Attended classes for:: Coping techniques, Signs & symptoms of depression, Stress management, Relaxation techniques - Patient/Program Goal Preventative Medication(s):: Aspirin, LUCILLE inhibitor, Clopidogrel, Beta tera, Statin/lipid - Assistive Devices Assistive Devices:: None Fall Risk Assessed:: Yes Patient Health Questionnaire 30-Day Re-eval Assessment 1. Little interest or pleasure in doing things: Several days 2. Feeling down, depressed, or hopeless: Several days 3. Trouble falling or staying asleep, or sleeping too much: More than half the days 4. Feeling tired or having little energy: Nearly every day 5. Poor appetite or overeating: Nearly every day 6. Feeling bad about yourself -- or that you are a failure or have let yourself or your family down: Several days 7. Trouble concentrating on things, such as reading the newspaper or watching television: Several days 8. Moving or speaking so slowly that other people could have noticed. Or the opposite - being so fidgety or restless that you have been moving around a lot more than usual: Several days 9. Thoughts that you would be better off , or of hurting yourself in some way: Not at all How difficult have these problems made it for you to do your work, take care of things at home, or get along with other people?: Somewhat difficult Total Score: 13 Self-Efficacy 30-Day Re-eval Assessment We would like to know how confident you are in doing certain activities. Please select your confidence level for:: Select your confidence level for the following using the scale 1-10 where 1 is not at all confident and 10 is totally confident. Your score is the average of all 6 responses. Fatigue: How confident are you that you can keep the fatigue caused by your disease from interfering with the things you want to do? Select Number: 5 Physical Discomfort or Pain: How confident are you that you can keep the physical discomfort or pain of your disease from interfering with the things you want to do? Select Number: 8 Emotional Distress: How confident are you that you can keep the emotional distress caused by your disease from interfering with the things you want to do? Select Number: 9 Other Symptoms or Health Problems: How confident are you that you can keep other symptoms or health problems from interfering with the things you want to do? Select Number: 6 Different Tasks and Activities: How confident are you that you can do the different tasks and activities needed to manage your health condition so as to reduce your need to see a doctor? Select Number: 7 Medication: How confident are you that you can do things other than just taking medication to reduce how much your illness affects your everyday life? Select Number: 6 Total Score:: 6
[2018-03-21 15:10] VITALS: BP 144/82; BP 162/88
== END 2018-03-29 23:59 ==
LOC: CR 08:00
PROVIDERS: Family Provider Family Medicine; PCP Family Medicine; Visit Provider Internal Medicine Cardiovascular Disease
DX: I25.10 Atherosclerotic heart disease of native coronary artery without angina pectoris (principal); Z95.5 Presence of coronary angioplasty implant and graft; I25.708 Atherosclerosis of coronary artery bypass graft(s), unspecified, with other forms of angina pectoris; I10 Essential (primary) hypertension
CPT/HCPCS: 93798; 93978

== ENCOUNTER 2018-03-28 09:33 | Outpatient (RCR) | payer MEDICARE, OTHER, SELFPAY | END 2018-03-29 23:59 | LOC: CR 09:33 | PROVIDERS: Family Provider Family Medicine; PCP Family Medicine; Visit Provider Internal Medicine Cardiovascular Disease | DX: I25.118 Atherosclerotic heart disease of native coronary artery with other forms of angina pectoris (principal) | CPT/HCPCS: 92971; G0166 ==

== ENCOUNTER → 2018-03-28 10:17 | Outpatient (CLI) | payer MEDICARE, OTHER, SELFPAY | PROVIDERS: Family Provider Family Medicine; PCP Family Medicine; Visit Provider Internal Medicine Cardiovascular Disease | DX: I25.10 Atherosclerotic heart disease of native coronary artery without angina pectoris (principal); Z95.5 Presence of coronary angioplasty implant and graft; I25.2 Old myocardial infarction; E78.5 Hyperlipidemia, unspecified; I10 Essential (primary) hypertension; E11.9 Type 2 diabetes mellitus without complications; Z98.890 Other specified postprocedural states; Z79.82 Long term (current) use of aspirin; Z79.4 Long term (current) use of insulin; Z79.84 Long term (current) use of oral hypoglycemic drugs; Z79.899 Other long term (current) drug therapy ==

== ENCOUNTER → 2018-04-21 07:12 | Outpatient (CLI) | payer MEDICARE, OTHER, SELFPAY ==
[2018-04-21 08:14] LABS: Hemoglobin A1c 8.5 % (4.2-6.3)
[2018-04-21 08:24] LABS: ALB/GLOB Ratio 0.9 RATIO (0.9-2.4); AST(SGOT) 17 U/L (15-37); Alanine Aminotransfer ALT/SGPT 26 U/L (16-61); Albumin, Serum 3.4 g/dL (3.2-5.0); Alkaline Phosphatase 87 U/L (45-117); Anion Gap 7 (5-15); BUN 15 mg/dL (7-18); BUN/Creat Ratio 17.3 RATIO (10-20); Calcium,Total 8.6 mg/dL (8.5-10.1); Chloride 105 mmol/L (98-107); Cholesterol 129 mg/dL (200); Creatinine, Serum 0.87 mg/dL (0.70-1.30); EST Glomerular Filtration Rate 93 mL/min (>60); Est Glom Filt Rate - Afr Amer 113 mL/min (>60); Globulin 3.9 g/dL (2.2-4.2); Glucose 153 mg/dL (74-106); High Density Lipoprotein 39 mg/dL; PSA,Total - Annual Screen 0.28 ng/mL (0.00-4.00); Potassium 3.9 mmol/L (3.5-5.1); Protein, Total 7.3 g/dL (6.4-8.2); Sodium Level 143 mmol/L (136-145); Thyroid Stim Hormone (TSH) 3.01 uIU/mL (0.358-3.74); Triglycerides 117 mg/dL; Very Low Density Lipoprotein 23 mg/dL (5-40)
[2018-04-21 10:36] LABS: Microalbumin,Random Urine 30.4 mg/L (NO RANGE EST.)
== END ==
PROVIDERS: Family Provider Family Medicine; PCP Family Medicine; Visit Provider Nurse Practitioner
DX: E11.9 Type 2 diabetes mellitus without complications (principal); R39.198 Other difficulties with micturition; Z12.5 Encounter for screening for malignant neoplasm of prostate
CPT/HCPCS: 36415; 80053; 80061; 82043; 82570; 83036; 84153; 84443; G0103

== ENCOUNTER 2018-04-22 13:00 | Outpatient (RCR) | payer MEDICARE, OTHER, SELFPAY | END 2018-04-22 23:59 | LOC: DC 13:00 | PROVIDERS: Family Provider Family Medicine; PCP Family Medicine; Visit Provider Internal Medicine Cardiovascular Disease | DX: E11.9 Type 2 diabetes mellitus without complications (principal); Z71.3 Dietary counseling and surveillance; I25.118 Atherosclerotic heart disease of native coronary artery with other forms of angina pectoris | CPT/HCPCS: 92971; 97802; G0108; G0166 ==

== ENCOUNTER → 2018-04-25 10:31 | Outpatient (CLI) | payer MEDICARE, OTHER, SELFPAY | PROVIDERS: Family Provider Family Medicine; PCP Family Medicine; Visit Provider Internal Medicine Cardiovascular Disease | DX: I49.9 Cardiac arrhythmia, unspecified (principal); R00.2 Palpitations; Z95.5 Presence of coronary angioplasty implant and graft; I25.118 Atherosclerotic heart disease of native coronary artery with other forms of angina pectoris | CPT/HCPCS: 92971; 93225; 93226; G0166 ==

== ENCOUNTER 2018-04-28 08:00 | Outpatient (RCR) | payer MEDICARE, OTHER, SELFPAY ==
[2018-03-30 01:10] VITALS: BP 144/82; BP 162/88
[2018-04-23 12:04] VITALS: BP 132/68; BP 178/70
--- NOTE | 2018-04-23 12:04 | CR.ITP_ITS ---
Exercise - 60-Day Assessment - Visit Date of Eval: 04/23/18 Session #:: 16 - Stages of Change Stages of Change:: Action - Exercise Prescription Mode:: Treadmill, Rower, Airdyne Frequency (x/week): 3 - also receiving ECP therapy 5-days/week. Duration:: 30 METs: 4 Target Heart Rate:: 115-123 - Hypertension Resting Blood Pressure:: 132/68 Peak Exercise Blood Pressure:: 178/70 Medication Changes:: No - Intervention Home Exercise/Activity Goal:: Moderate Exercise 30 min/day x 5 days/wk - Education Goals:: Warm-up, RPE LAURA Scale, S/S, Safe Exercise, Self-Monitoring - Exercise Program Goals Exercise Program Goals: Aerobic Activity >30 min Nutrition - 60-Day Assessment - Program Goals Nutrition Program Goals: LDL <70. Total Cholesterol <200. HDL >45. Triglycerides <150. HgbA1C <7%. BMI <25 - Visit Date of Eval: 04/23/18 - Stages of Change Stages of Change:: Action - Lipids Has the patient seen the dietitian?: No - Diabetes Diabetes:: Yes Insulin: No Non-Insulin Dependent?: Yes - Weight Management Weight:: 286 lb - Intervention Referral to dietitian:: No Referral to Diabetic Clinic:: No Will attend diet classes:: Yes - Education Attended class for:: Healthy eating Tobacco - Initial Assessment - Program Goals Tobacco Program Goals: Complete smoking cessation. Attend education classes. Improve Knowledge Test score - Learning Barriers Learning Barriers: Ready to Learn Tobacco - 60-Day Assessment - Program Goals Tobacco Program Goals: Complete smoking cessation. Attend education classes. Improve Knowledge Test score - Stage of Change Stages of Change:: Action - Learning Barriers Learning Barriers: Participates in education - Family Support Do you have family support?: Yes - Tobacco Use Tobacco Use: Non-smoker - Intervention Smoking Cessation Referral:: No Individual Education/Counseling:: No Education Schedule Given:: Yes - Education Attended class for:: Coronary artery disease, Risk factors, Sexuality, Medical compliance, Cardiac A&P, Angina signs & symptoms Psychosocial - 60-Day Assess - Target Goals Target Goals: Assess presence or absence of depression. Using a valid screening tool, maximizes coping skills. Positive support system - Stages of Change Stages of Change:: Action - Psychosocial Test Tool Used:: HANDS Depression Questionnaire - Intervention PS - Interventions: Yes Attend Stress Management Classes, Yes Uses Stress Management Skills, No Referral to Mental Health, No Referral to [facility] Case Management, No Referral to Physician - Education Attended classes for:: Coping techniques, Signs & symptoms of depression, Stress management, Relaxation techniques - Patient/Program Goal Preventative Medication(s):: Aspirin, Clopidogrel, Beta tera, Statin/lipid - Assistive Devices Assistive Devices:: None Fall Risk Assessed:: Yes Patient Health Questionnaire 60-Day Re-eval Assessment 1. Little interest or pleasure in doing things: Not at all 2. Feeling down, depressed, or hopeless: Not at all 3. Trouble falling or staying asleep, or sleeping too much: Several days 4. Feeling tired or having little energy: More than half the days 5. Poor appetite or overeating: More than half the days 6. Feeling bad about yourself -- or that you are a failure or have let yourself or your family down: Not at all 7. Trouble concentrating on things, such as reading the newspaper or watching television: Not at all 8. Moving or speaking so slowly that other people could have noticed. Or the opposite - being so fidgety or restless that you have been moving around a lot more than usual: Not at all 9. Thoughts that you would be better off , or of hurting yourself in some way: Not at all How difficult have these problems made it for you to do your work, take care of things at home, or get along with other people?: Somewhat difficult Total Score: 5 Self-Efficacy 60-Day Re-eval Assessment We would like to know how confident you are in doing certain activities. Please select your confidence level for:: Select your confidence level for the following using the scale 1-10 where 1 is not at all confident and 10 is totally confident. Your score is the average of all 6 responses. Fatigue: How confident are you that you can keep the fatigue caused by your disease from interfering with the things you want to do? Select Number: 6 Physical Discomfort or Pain: How confident are you that you can keep the physical discomfort or pain of your disease from interfering with the things you want to do? Select Number: 9 Emotional Distress: How confident are you that you can keep the emotional distress caused by your disease from interfering with the things you want to do? Select Number: 10 Other Symptoms or Health Problems: How confident are you that you can keep other symptoms or health problems from interfering with the things you want to do? Select Number: 7 Different Tasks and Activities: How confident are you that you can do the different tasks and activities needed to manage your health condition so as to reduce your need to see a doctor? Select Number: 8 Medication: How confident are you that you can do things other than just taking medication to reduce how much your illness affects your everyday life? Select Number: 7 Total Score:: 7
== END 2018-04-29 23:59 ==
LOC: CR 08:00
PROVIDERS: Family Provider Family Medicine; PCP Family Medicine; Visit Provider Internal Medicine Cardiovascular Disease
DX: I25.118 Atherosclerotic heart disease of native coronary artery with other forms of angina pectoris (principal); Z95.5 Presence of coronary angioplasty implant and graft; E11.9 Type 2 diabetes mellitus without complications; R39.198 Other difficulties with micturition; Z12.5 Encounter for screening for malignant neoplasm of prostate
CPT/HCPCS: 36415; 80053; 80061; 82043; 82570; 83036; 84153; 84443; 92971; 93798; G0103; G0166

== ENCOUNTER 2018-04-28 09:30 | Outpatient (RCR) | payer MEDICARE, OTHER, SELFPAY | END 2018-04-29 23:59 | LOC: CR 09:30 | PROVIDERS: Family Provider Family Medicine; PCP Family Medicine; Visit Provider Internal Medicine Cardiovascular Disease | DX: I25.118 Atherosclerotic heart disease of native coronary artery with other forms of angina pectoris (principal); Z95.5 Presence of coronary angioplasty implant and graft | CPT/HCPCS: 92971; 93798; G0166 ==

== ENCOUNTER 2018-05-20 09:15 | Outpatient (RCR) | payer MEDICARE, OTHER, SELFPAY | END 2018-05-30 23:59 | LOC: CR 09:15 | PROVIDERS: Family Provider Family Medicine; PCP Family Medicine; Visit Provider Internal Medicine Cardiovascular Disease | DX: I25.118 Atherosclerotic heart disease of native coronary artery with other forms of angina pectoris (principal); I25.10 Atherosclerotic heart disease of native coronary artery without angina pectoris; Z95.5 Presence of coronary angioplasty implant and graft | CPT/HCPCS: 92971; 93798; G0166 ==

== ENCOUNTER 2018-05-30 08:00 | Outpatient (RCR) | payer MEDICARE, OTHER, SELFPAY ==
[2018-04-30 01:06] VITALS: BP 132/68; BP 178/70
--- NOTE | 2018-05-23 14:59 | CR.ITP_ITS ---
General Information - General Information Admitting Diagnosis: PCI with coronary artery stenting - Education/Goals Cardiac Rehabilitation Goals: 1. Maintain the individual as the primary focus of care. 2. To improve the patient's quality of life. 3. Identification of cardiac risk factors and provide cardiac risk factor management. 4. Enhance the psychosocial status of the patient. 5. Reconditioning enough to allow the patient to resume customary activities. 6. Control symptoms of cardiac disease Scale for measuring improvement of personal goals: Enter appropriate number in Comments. 2 = Unchanged. 3 = Slightly Better. 4 = Moderate Improvement. 5 = Met my Goal Exercise - 90-Day Assessment - Visit Date of Eval: 05/23/18 Session #:: 27 - Stages of Change Stages of Change:: Action - Exercise Prescription Mode:: Treadmill, Airdyne, NuStep Frequency (x/week): 3 Duration:: 30 METs: 4 Target Heart Rate:: 115-123 Max HR 129 - Hypertension Resting Blood Pressure:: 156/82 Peak Exercise Blood Pressure:: 180/90 Medication Changes:: Yes - Atorvastatin dc'd start Lovastatin 20 mg QHS in 1 week 04/30 - Intervention Home Exercise/Activity Goal:: Sitting Time <3 hrs/day - Education Goals:: Warm-up, RPE LAURA Scale, S/S, Safe Exercise, Self-Monitoring - Exercise Program Goals Exercise Program Goals: Aerobic Activity >30 min, B/P <130/80 Nutrition - 90-Day Assessment - Program Goals Nutrition Program Goals: LDL <70. Total Cholesterol <200. HDL >45. Triglycerides <150. HgbA1C <7%. BMI <25 - Visit Date of Eval: 05/23/18 - Stages of Change Stages of Change:: Action - Lipids Has the patient seen the dietitian?: No - Diabetes Diabetes:: Yes - Weight Management Weight:: 129.501 kg - Intervention Referral to dietitian:: Yes Referral to Diabetic Clinic:: Yes Will attend diet classes:: Yes - Education Attended class for:: Signs & symptoms of hypoglycemia, Signs & symptoms of hyperglycemia, Relate diabetes to coronary artery disease, Healthy eating Tobacco - Initial Assessment - Program Goals Tobacco Program Goals: Complete smoking cessation. Attend education classes. Improve Knowledge Test score - Learning Barriers Learning Barriers: Ready to Learn Tobacco - 90-Day Assessment - Program Goals Tobacco Program Goals: Complete smoking cessation. Attend education classes. Improve Knowledge Test score - Stage of Change Stages of Change:: Action - Learning Barriers Learning Barriers: Participates in education - Family Support Do you have family support?: Yes - Tobacco Use Tobacco Use: Non-smoker Do you use smokeless tobacco?: No - Intervention Smoking Cessation Referral:: No Individual Education/Counseling:: No Education Schedule Given:: Yes - Education Attended class for:: Tobacco triggers, Coronary artery disease, Risk factors, Sexuality, Medical compliance, Cardiac A&P, Angina signs & symptoms Psychosocial - Initial Assess - Target Goals Target Goals: Assess presence or absence of depression. Using a valid screening tool, maximizes coping skills. Positive support system - Psychosocial Test Tool Used:: HANDS Depression Questionnaire - Assistive Devices Fall Risk Assessed:: Yes Psychosocial - 90-Day Assess - Target Goals Target Goals: Assess presence or absence of depression. Using a valid screening tool, maximizes coping skills. Positive support system - Stages of Change Stages of Change:: Action - Psychosocial Test Tool Used:: HANDS Depression Questionnaire - Intervention PS - Interventions: Yes Attend Stress Management Classes, Yes Uses Stress Management Skills, No Referral to Mental Health, No Referral to [facility] Case Management, No Referral to Physician Patient Health Questionnaire 90-Day Re-eval Assessment 2. Feeling down, depressed, or hopeless: Not at all 3. Trouble falling or staying asleep, or sleeping too much: Several days 4. Feeling tired or having little energy: Several days 5. Poor appetite or overeating: Several days 6. Feeling bad about yourself -- or that you are a failure or have let yourself or your family down: Not at all 7. Trouble concentrating on things, such as reading the newspaper or watching television: Not at all 8. Moving or speaking so slowly that other people could have noticed. Or the opposite - being so fidgety or restless that you have been moving around a lot more than usual: Not at all 9. Thoughts that you would be better off , or of hurting yourself in some way: Not at all How difficult have these problems made it for you to do your work, take care of things at home, or get along with other people?: Not difficult at all Total Score: 3 Self-Efficacy 90-Day Re-eval Assessment We would like to know how confident you are in doing certain activities. Please select your confidence level for:: Select your confidence level for the following using the scale 1-10 where 1 is not at all confident and 10 is totally confident. Your score is the average of all 6 responses. Fatigue: How confident are you that you can keep the fatigue caused by your disease from interfering with the things you want to do? Select Number: 7 Physical Discomfort or Pain: How confident are you that you can keep the physical discomfort or pain of your disease from interfering with the things you want to do? Select Number: 10 Emotional Distress: How confident are you that you can keep the emotional distress caused by your disease from interfering with the things you want to do? Select Number: 10 Other Symptoms or Health Problems: How confident are you that you can keep other symptoms or health problems from interfering with the things you want to do? Select Number: 8 Different Tasks and Activities: How confident are you that you can do the different tasks and activities needed to manage your health condition so as to reduce your need to see a doctor? Select Number: 8 Medication: How confident are you that you can do things other than just taking medication to reduce how much your illness affects your everyday life? Select Number: 8 Total Score:: 8
[2018-05-23 15:00] VITALS: BP 156/82; BP 180/90
== END 2018-05-30 23:59 ==
LOC: CR 08:00
PROVIDERS: Family Provider Family Medicine; PCP Family Medicine; Visit Provider Internal Medicine Cardiovascular Disease
DX: I25.10 Atherosclerotic heart disease of native coronary artery without angina pectoris (principal); Z95.5 Presence of coronary angioplasty implant and graft; E11.9 Type 2 diabetes mellitus without complications; R39.198 Other difficulties with micturition; Z12.5 Encounter for screening for malignant neoplasm of prostate; I25.118 Atherosclerotic heart disease of native coronary artery with other forms of angina pectoris
CPT/HCPCS: 92971; 93798; G0166

== ENCOUNTER 2018-06-11 08:00 | Outpatient (RCR) | payer MEDICARE, OTHER, SELFPAY ==
[2018-05-31 01:11] VITALS: BP 156/82; BP 180/90
== END 2018-06-29 23:59 ==
LOC: CR 08:00
PROVIDERS: Family Provider Family Medicine; PCP Family Medicine; Visit Provider Internal Medicine Cardiovascular Disease
DX: I25.10 Atherosclerotic heart disease of native coronary artery without angina pectoris (principal); Z95.5 Presence of coronary angioplasty implant and graft; E11.9 Type 2 diabetes mellitus without complications; R39.198 Other difficulties with micturition; Z12.5 Encounter for screening for malignant neoplasm of prostate
CPT/HCPCS: 93798

== ENCOUNTER → 2018-09-12 09:23 | Outpatient (CLI) | payer MEDICARE, OTHER, SELFPAY ==
[2018-08-28 10:18] VITALS: BMI 40.0
[2018-09-12 10:32] LABS: AST(SGOT) 17 U/L (15-37); Alanine Aminotransfer ALT/SGPT 24 U/L (16-61); Albumin, Serum 3.8 g/dL (3.2-5.0); Alkaline Phosphatase 84 U/L (45-117); Cholesterol 178 mg/dL (200); Globulin 3.9 g/dL (2.2-4.2); High Density Lipoprotein 37 mg/dL; Protein, Total 7.7 g/dL (6.4-8.2); Triglycerides 157 mg/dL; Very Low Density Lipoprotein 31 mg/dL (5-40)
--- OUTSIDE RECORDS SUMMARY | 2018-10-28 22:45 | XMS RPT_ITS ---
:1950 Author Organization OHIP Support Name Relationship Address Phone R Unavailable Unavailable Unavailable JANNET JULIO Unavailable [address] + [place] [address] R Unavailable Unavailable Unavailable JANNET JULIO Unavailable [address] + [place] [address] R Unavailable Unavailable Unavailable JANNET JULIO Unavailable [address] + [place] [address] R Unavailable Unavailable Unavailable JANNET JULIO Unavailable [phone] [place] [address] R Unavailable Unavailable Unavailable JANNET JULIO Unavailable [phone] [place] [address] R Unavailable Unavailable Unavailable JANNET JULIO Unavailable [address] + [place] [address] R Unavailable Unavailable Unavailable JANNET JULIO Unavailable [phone] [place] [address] R Unavailable Unavailable Unavailable JANNET JULIO Unavailable [phone] [place] [address] R Unavailable Unavailable Unavailable JANNET JULIO Unavailable [phone] [place] [address] R Unavailable Unavailable Unavailable JANNET JULIO Unavailable [phone] [place] [address] R Unavailable Unavailable Unavailable JANNET JULIO Unavailable [phone] [place] [address] R Unavailable Unavailable Unavailable JANNET JULIO Unavailable [phone] [place] [address] R Unavailable Unavailable Unavailable JANNET JULIO Unavailable [address] + [place] [address] R Unavailable Unavailable Unavailable JANNET JULIO Unavailable [address] + [place] [address] R Unavailable Unavailable Unavailable JANNET JULIO Unavailable [address] + [place] [address] R Unavailable Unavailable Unavailable JANNET JULIO Unavailable [address] + [place] [address] R Unavailable Unavailable Unavailable JANNET JULIO Unavailable [address] + [place] [address] R Unavailable Unavailable Unavailable JANNET JULIO Unavailable [address] + [place] [address] R Unavailable Unavailable Unavailable JANNET JULIO Unavailable [address] + [place] [address] R Unavailable Unavailable Unavailable JANNET JULIO Unavailable [address] + [place] [address] R Unavailable Unavailable Unavailable JANNET JULIO Unavailable [address] + [place] [address] R Unavailable Unavailable Unavailable JANNET JULIO Unavailable [address] + [place] [address] R Unavailable Unavailable Unavailable JANNET JULIO Unavailable [address] + [place] [address] R Unavailable Unavailable Unavailable JANNET JULIO Unavailable [address] + [place] [address] R Unavailable Unavailable Unavailable JANNET JULIO Unavailable [address] + [place] [address] R Unavailable Unavailable Unavailable JANNET JULIO Unavailable [address] + [place] [address] R Unavailable Unavailable Unavailable JANNET JULIO Unavailable [address] + [place] [address] R Unavailable Unavailable Unavailable JANNET JULIO Unavailable [address] + [place] [address] R Unavailable Unavailable Unavailable NORI, JANNET Unavailable [address] + [place] [address] R Unavailable Unavailable Unavailable NORI, JANNET Unavailable [address] + [place] [address] R Unavailable Unavailable Unavailable NORI, JANNET Unavailable [address] + [place] [address] R Unavailable Unavailable Unavailable NORI, JANNET Unavailable [address] + [place] [address] R Unavailable Unavailable Unavailable NORI, JANNET Unavailable [address] + [place] [address] Care Team Providers Name Role Phone Steph, Pinewood Attending Unavailable Stehp, Pinewood Referring Unavailable Malys, Skylar Primary Care Unavailable Vita Grady DETAIL ASSEMBLER-C Attending Unavailable Malys, Skylar Referring Unavailable Malys, Skylar Primary Care Unavailable Kittoe, Steven Admitting Unavailable Pete, Juan David Consulting Unavailable Tereletsky, Kiran Attending Unavailable Kittoe, Steven Admitting Unavailable Kittoe, Steven Attending Unavailable Malys, Skylar Primary Care Unavailable Kittoe, Steven Consulting Unavailable Kittoe, Steven Admitting Unavailable Tereletsky, Kiran Attending Unavailable Malys, Skylar Primary Care Unavailable Pete, Juan David Consulting Unavailable Tereletsky, Kiran Consulting Unavailable Kittoe, Steven Admitting Unavailable Steph, Pinewood Attending Unavailable Malys, Skylar Primary Care Unavailable Pete, Juan David Consulting Unavailable Tereletsky, Kiran Consulting Unavailable Kittoe, Steven Admitting Unavailable Steph, Pinewood Attending Unavailable Malys, Skylar Primary Care Unavailable Pete, Juan David Consulting Unavailable Tereletsky, Kiran Consulting Unavailable Kittoe, Steven Admitting Unavailable Tereletsky, Kiran Attending Unavailable Malys, Skylar Primary Care Unavailable Pete, Juan Daivd Consulting Unavailable Tereletsky, Kiran Consulting Unavailable Natalie Bo Attending Unavailable Steph, Donny Attending Unavailable Malys, Skylar Referring Unavailable Malys, Skylar Primary Care Unavailable Steph, Pinewood Attending Unavailable Malys, Skylar Primary Care Unavailable Steph, Pinewood Attending Unavailable Malys, Skylar Primary Care Unavailable Steph, Donny Attending Unavailable Steph, Pinewood Referring Unavailable Malys, Skylar Primary Care Unavailable Ghassan Campbell Attending Unavailable Steven Spence Referring Unavailable Ghassan Campbell Attending Unavailable Steph, Pinewood Referring Unavailable Natalie Bo Attending Unavailable Steph, Pinewood Attending Unavailable Steph, Pinewood Referring Unavailable Malys, Skylar Primary Care Unavailable Steph, Pinewood Attending Unavailable Malys, Skylar Primary Care Unavailable Steph, Donny Attending Unavailable Malys, Skylar Primary Care Unavailable Steph, Donny Attending Unavailable Steph, Pinewood Referring Unavailable Malys, Skylar Primary Care Unavailable Shook, Vita Quiros DETAIL ASSEMBLER-C Attending Unavailable Malys, Skylar Referring Unavailable Malys, Skylar Primary Care Unavailable Malys, Skylar Primary Care Unavailable Steph, Donny Referring Unavailable Steph, Donny Attending Unavailable Shook, Vita Quiros DETAIL ASSEMBLER-C Attending Unavailable Shook, Vita Quiros DETAIL ASSEMBLER-C Referring Unavailable Malys, Skylar Primary Care Unavailable Jonathan Alegria Attending Unavailable Felipe Iniguez Attending Unavailable Felipe Iniguez Referring Unavailable Malys, Skylar Primary Care Unavailable Steph, Pinewood Attending Unavailable Malys, Skylar Primary Care Unavailable Steph, Pinewood Attending Unavailable Steph, Pinewood Referring Unavailable Malys, Skylar Primary Care Unavailable Steph, Donny Attending Unavailable Steph, Pinewood Referring Unavailable Malys, Skylar Primary Care Unavailable Felipe Iniguez Attending Unavailable Steph, Pinewood Attending Unavailable Malys, Skylar Primary Care Unavailable Steph, Pinewood Attending Unavailable Steph, Pinewood Referring Unavailable Malys, Skylar Primary Care Unavailable Steph, Donny Attending Unavailable Malys, Skylar Primary Care Unavailable Steph, Pinewood Attending Unavailable Malys, Skylar Referring Unavailable PROBLEMS PROBLEMS DATE TYPE CONDITION / CODE ATTENDING STATUS SOURCE 08/28/2018 Unknown Z95.5 - Presence of Steph, Pinewood Active [place] coronary angioplasty [facility] implant and graft / Hospital Z95.5(ICD-10) Repository 08/28/2018 Unknown I10 - Essential Steph, Donny Active [facility] [place] (primary) hypertension Community / I10(ICD-10) Hospital Repository 08/28/2018 Unknown E78.00 - Pure Steph, Pinewood Active [place] hypercholesterolemia, Community unspecified / Hospital E78.00(ICD-10) Repository 06/30/2018 Unknown I25.10 - Donny Choi Active [place] Atherosclerotic heart [facility] coronary artery Repository without angina pectoris / I25.10(ICD-10) 05/31/2018 Unknown I25.118 - Steph, Donny Active [place] Atherosclerotic heart [facility] coronary artery with Repository other forms of angina pectoris / I25.118(ICD-10) 07/30/2018 Unknown E11.9 - Type 2 Steph, Pinewood Active [place] diabetes mellitus [facility] without complications Hospital / E11.9(ICD-10) Repository 04/21/2018 Unknown R39.198 - Other Vita Grady Active [place] difficulties with J DETAIL ASSEMBLER-C [facility] micturition / Hospital R39.198(ICD-10) Repository 03/26/2018 Unknown I25.708 - Brent Choiril Active [place] Atherosclerosis of [facility] coronary artery bypass Hospital graft(s), unspecified, Repository with other forms of angina pectoris / I25.708(ICD-10) 03/21/2018 Unknown R94.31 - Abnormal [place], Active [place] electrocardiogram [facility] [ECG] [EKG] / Hospital R94.31(ICD-10) Repository 03/21/2018 Unknown I21.4 - Non-ST [place], Active [place] elevation (NSTEMI) [facility] myocardial infarction Hospital / I21.4(ICD-10) Repository PROCEDURES PROCEDURES No Procedure Records FoundRESULTS RESULTS LIVER PROFILE Collected: 09/12/2018 Status: F Source: [place] 9:31 AM [facility] REPOSITORY TYPE CODE TESTS RESULT OUT OF RANGE REFERENCE UNITS LAB L501.1500 6.4-8.2 g/dL Normal T PROT 7.7 LAB L501.1800 3.2-5.0 g/dL Normal ALB 3.8 LAB L501.1950 2.2-4.2 g/dL Normal GLOB 3.9 LAB L501.4100 15-37 U/L Normal AST 17 LAB L501.4305 45-117 U/L Normal ALK P 84 LAB L501.4405 16-61 U/L Normal ALT 24 LAB L501.4600 0.20-1.00 mg/dL Normal T BILI 0.80 LAB L501.4700 0.00-0.30 mg/dL Normal D BILI 0.20 Performed By: #### L500.3400, L500.4100 #### [facility] [address] [place], [address] LIPID PROFILE Collected: 09/12/2018 Status: F Source: [place] 9:31 AM [facility] REPOSITORY TYPE CODE TESTS RESULT OUT OF RANGE REFERENCE UNITS LAB L501.4900 200 mg/dL Normal CHOL 178 Result Comment: <200 mg/dL Desirable 200-240 mg/dL Borderline >240 mg/dL High Risk LAB L501.5000 mg/dL Normal TRIG 157 Result Comment: The drugs N-Acetylcysteine and Metamizole may falsely depress this assay. Serum Triglycerides Reference Interval Normal <150 mg/dL Borderline high 150 - 199 mg/dL High 200 - 499 mg/dL Very High > or = 500 mg/dL LAB L501.6400 mg/dL Low HDL 37 Result Comment: The drugs N-Acetylcysteine and Metamizole may falsely depress this assay. Reference Range HDL <40 mg/dL Low HDL Cholesterol HDL >or= 60 mg/dL High HDL Cholesterol LAB L501.6500 0-130 mg/dL Normal LDL 110 LAB L501.6600 5-40 mg/dL Normal VLDL 31 Performed By: #### L500.3400, L500.4100 #### [facility] [address] [place], [address] CARDIOLOGY VISIT Observed: 08/28/2018 Status: F Source: [place] REPORT 10:47 AM [facility] REPOSITORY [facility] [address] [place] [address] OFFICE VISIT Date of Service: 08/28/18 MR#: [id number] Acct: [id number] Name: AMBROSIO JULIO Rep #: [id number] : 1950 Provider: Donny Choi MD Age/Sex: 68/M [place] [facility] [place]: Signed HPI [facility] Chief Complaint: Follow up Details: AMBROSIO JULIO, is a 68 M who presents to the office today for a follow-up visit. He is a gentleman who had previously had coronary artery stenting in 2008 involving the right coronary artery as well as in the left anterior descending artery in 2013. He presented to the hospital in January of this year with chest discomfort suggestive of unstable angina. He underwent a cardiac catheterization which demonstrated normal left main coronary artery, left anterior descending artery with the previously placed stents which was patent, a circumflex artery with a 95% proximal stenosis in the small vessel., A dominant right coronary artery with a mid in-stent stenosis of 70-80% and a distal drug-eluting stent with a stenosis noted. He underwent angioplasty and drug-eluting stenting with a 3.5 15 mm stent as well as a 3.0 15 mm drug-eluting stent with excellent results. He also underwent EECP with some benefit. He has completed cardiac rehabilitation as well. He has had occasional chest discomfort but nothing to prevent him from participating his most activities of daily living. He has been compliant with all his medications. 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 Depositor Required: No Accompanied by: Allergies No Known Allergies Allergy (Verified 08/28/18 10:19) Medications aspirin 81 mg tablet,delayed release 81 mg PO DAILY 11/20/17 [History Confirmed 08/28/18] Clopidogrel Bisulfate [Clopidogrel] 75 mg PO DAILY 02/09/18 [History Confirmed 08/28/18] cholecalciferol (vitamin D3) 50,000 unit capsule 50,000 unit PO QWEEK 03/12/18 [History Confirmed 08/28/18] metformin 500 mg tablet 500 mg PO BID tab 03/12/18 [History Confirmed 08/28/18] Blood pressure arm cuff #1 ea 03/14/18 [Rx] insulin NPH isophane U- 100 human 100 unit/mL subcutaneous suspension 45 unit SC BID #2 vial 04/16/18 [Rx Confirmed 08/28/18] metoprolol succinate ER 100 mg tablet,extended release 24 hr 100 mg PO QDAY #30 tab 04/28/18 [Rx Confirmed 08/28/18] lovastatin 20 mg tablet 20 mg PO QDAY #30 tab 04/29/18 [Rx Confirmed 08/28/18] insulin lispro (U- 100) 100 unit/mL subcutaneous pen 20 unit SC TID #60 ml 05/08/18 [Rx Confirmed 08/28/18] isosorbide mononitrate ER 60 mg tablet,extended release 24 hr 60 mg PO DAILY #90 tab 05/08/18 [Rx Confirmed 08/28/18] losartan 100 mg tablet 100 mg PO QDAY #30 tab 05/13/18 [Rx Confirmed 08/28/18] amlodipine 5 mg tablet 5 mg PO DAILY #90 tab 08/28/18 [Rx Confirmed 08/28/18] [facility] Medical History Hyperlipidemia (Chronic) Hypertension (Chronic) Atherosclerotic heart disease of [place] coronary artery without angina pectoris (Chronic) Vascular disease (Acute) Diabetes type 2, controlled (Chronic) HTN (hypertension) (Chronic) Surgical History History of left heart catheterization (Chronic) H/O right coronary artery stent placement (Chronic 02/10/18) History of hydrocelectomy (Chronic) History of tonsillectomy and adenoidectomy (Chronic) Family History Unknown Arthritis Cancer Diabetes Father Heart disease Mother Hypertension Other CAD (coronary artery disease) Social History Smoking Status: Never smoker second hand exposure: No alcohol intake: never substance use type: does not use ROS Const Const: Negative for fatigue, weakness, night sweats, excessive sweating, frequent falls, headache(s) or daytime sleepiness Eyes Eyes: Negative for loss of peripheral vision, transient loss of vision, blind spots, double vision or blurry vision ENT ENT: Negative for headache(s), dizziness, balance problems, Nosebleed/epistaxis, tongue swelling or lip swelling Cardio Chest Pain: No Palpitations: No Edema: None Muscle aches with walking: None Resp Respiratory: Negative for SOB at rest, SOB orthopnea\SOB lying down, Cough, paroxysmal nocturnal dyspnea or SOB with activity GI GI: Negative nausea, vomiting, heartburn, black,tarry stools or bright, red blood in stools : Negative for hematuria Musc Musc: Negative for balance problems, muscle aches/ myalgia, muscle weakness or joint pain Skin Skin: Negative non-healing lesions, unusual bruising or rash Neuro Neuro: Negative for weakness, frequent falls, headache(s), double vision, dizziness, lightheadedness, orthostatic symptoms, blurry vision or lack of coordination [place] Hematologic/Lymphatic: Negative for easy bruising or easy bleeding Endo Endo: Negative for fatigue, excessive sweating, cold intolerance, heat intolerance, increased thirst/drinking or hair loss Psych Psych: Negative for anxiety or depression Allergy Allergy/Immunology: Negative for throat swelling, Negative for tongue swelling, Negative for hives, Negative for rash, Negative for lip swelling Cardiology Exam Const Appearance: cooperative, healthy appearing, well developed, well groomed and no acute distress Nutritional Appearance: well nourished and average body habitus Orientation: alert, awake and oriented x3 Head Head: normal to inspection, normocephalic and atraumatic Ears: hearing grossly normal bilaterally and external ears normal Nose: external nose normal, nasal mucous membranes and turbinates normal, nares normal, septum normal, no nasal discharge Face and Sinus: face symmetric Mouth: oral mucosae normal, tongue normal, oropharynx normal and moist mucous membranes Teeth and gingiva: dentition normal Throat: posterior oropharynx normal, tonsils normal and uvula midline Eyes General: appearance normal, both eyes and all related structures Eyelids: eyelids normal Conjunctivae: conjunctivae normal Pupils: PERRL, normal by confrontation and accommodation normal EOM: EOM intact bilaterally Neck Neck: normal visual inspection, trachea midline and no JVD JVD: +5 Carotids: normal carotid upstroke and bounding pulses Chest Chest inspection: normal inspection of the chest, symmetric chest movement and normal respiratory effort Auscultation: Bilateral: Clear to Auscultation Cardio Palpation: normal PMI Rate: regular rate Rhythm: regular rhythm Heart sounds: S1 normal, S2 normal and normal, physiologic split S2; negative rub, gallop or murmur GI GI: normal to inspection, soft, no hepatosplenomegaly and bowel sounds present Neuro General: alert, awake, oriented x3, no focal sensory deficit, gait normal and moves all extremities Skin Skin: no rashes or lesions noted Extremities Pulses: Normal: Right Femoral Pulse, Left Femoral Pulse, Right Dorsalis Pedis Pulse, Left Dorsalis Pedis Pulse, Right Posterior Tibial Pulse, Left Posterior Tibial Pulse, Right Radial Pulse, Left Radial Pulse Lower Extremity Edema: None: Bilateral Musculoskel Musculoskeletal: No joint tenderness Psych Psychological: normal affect Assessment AND Plan 1. H/O right coronary artery stent placement Z95.5 [id number]-Mid RCA w/ 3.5 x 15 mm Resolute and JOSE MIGUEL-Distal RCA w/ Resolute 3.5 x 15 mm stent 02/10/18 IQU-[id number]-Wkn LAD 06/29/2014 PCI-JOSE MIGUEL-Mid RCA w/ 4.0 x 18 mm Xience-06/10/2009 @ [facility] Plan He is status post angioplasty and stenting of the right coronary artery as noted above. The plan is for him to continue the same medications with risk factor modification. He has completed cardiac rehabilitation but have encouraged him to continue exercising as usual. He does have occasional anginal episodes which appear to be stable. I would like to add amlodipine 5 mg at night to his regimen. We should consider an exercise stress test on medications at his next visit. 2. Pure hypercholesterolemia E78.00 Following with cardiology. Labs ordered.On statin Plan He does have a history of hyperlipidemia currently on high intensity statin his most recent lipid profile demonstrates a total cholesterol 129, HDL of 39 and LDL of 67. He will continue on the same without as making any changes. 3. Essential hypertension I10 Rechecked 136/80 Enc diet,exercise, weight loss Plan He does have a history of hypertension. His blood pressure appears to be better controlled at this time. However, I would like to add amlodipine for vasodilatation. He will continue on the metoprolol as well as the isosorbide. Plan Detail Other Medications New: Follow Up 6 Months (jhr) Coding Level of Care Code Off vis,est,level 4 Diagnoses H/O right coronary artery stent placement Z95.5 Pure hypercholesterolemia E78.00 Hyperlipidemia type: pure hypercholesterolemia Essential hypertension I10 Hypertension type: essential hypertension Coding Level of Care Code Off vis,est,level 4 Diagnoses H/O right coronary artery stent placement Z95.5 Pure hypercholesterolemia E78.00 Hyperlipidemia type: pure hypercholesterolemia Essential hypertension I10 Hypertension type: essential hypertension 08/28/18 1047 <Electronically signed by Donny Choi MD> Date Donny Hoff Signature: Date (if applicable) CC: Skylar Gunn DO HEMOGLOBIN A1C Collected: 04/21/2018 Status: F Source: [place] 7:17 AM [facility] REPOSITORY TYPE CODE TESTS RESULT OUT OF RANGE REFERENCE UNITS LAB L501.9985 4.2-6.3 % High HGB A1C 8.5 Performed By: #### L501.9985, L500.4050, L500.4100, L501.9520, L501.9910 #### [facility] [address] [place], [address] COMPREHENSIVE METABOLIC Collected: 04/21/2018 Status: F Source: [facility] 7:17 AM [facility] REPOSITORY TYPE CODE TESTS RESULT OUT OF RANGE REFERENCE UNITS LAB L501.0100 74-106 mg/dL High GLU 153 Result Comment: Fasting Glucose result greater than or equal to 126 mg/dL suggests DIABETES MELLITUS per A.D.A. criteria. Please note revised GLUCOSE reference range effective 2017. LAB L501.1000 7-18 mg/dL Normal BUN 15 LAB L501.1100 0.70-1.30 mg/dL Normal CREAT,SERUM 0.87 Result Comment: The validity of the calculated GFR AND GFRAA in patients over 70 years has not been determined. Clinical correlation is essential. LAB L501.1110 >60 mL/min Normal EST GFR 93 Result Comment: Non- GFR Calc LAB L501.1115 >60 mL/min Normal EST GFR - AA 113 Result Comment: GFR Calc LAB L501.1300 10-20 RATIO Normal BUN/CRE 17.3 LAB L501.1500 6.4-8.2 g/dL T Normal PROT 7.3 LAB L501.1800 3.2-5.0 g/dL Normal ALB 3.4 LAB L501.1950 2.2-4.2 g/dL Normal GLOB 3.9 LAB L501.2000 0.9-2.4 RATIO Normal A/G 0.9 LAB L501.2200 8.5-10.1 mg/dL CA Normal 8.6 LAB L501.4100 15-37 U/L Normal AST 17 LAB L501.4305 45-117 U/L Normal ALK P 87 LAB L501.4405 16-61 U/L Normal ALT 26 LAB L501.4600 0.20-1.00 mg/dL T Normal BILI 0.70 LAB L501.5300 136-145 mmol/L NA Normal 143 LAB L501.5600 3.5-5.1 mmol/L K Normal 3.9 LAB L501.5900 98-107 mmol/L CL Normal 105 LAB L501.6100 21.0-32.0 mmol/L Normal CO2 31.0 LAB L501.6200 5-15 Normal GAP 7 Performed By: #### L501.9985, L500.4050, L500.4100, L501.9520, L501.9910 #### [facility] [address] [place], [address] LIPID PROFILE Collected: 04/21/2018 Status: F Source: [place] 7:17 AM [facility] REPOSITORY TYPE CODE TESTS RESULT OUT OF RANGE REFERENCE UNITS LAB L501.4900 200 mg/dL Normal CHOL 129 Result Comment: <200 mg/dL Desirable 200-240 mg/dL Borderline >240 mg/dL High Risk LAB L501.5000 mg/dL Normal TRIG 117 Result Comment: The drugs N-Acetylcysteine and Metamizole may falsely depress this assay. Serum Triglycerides Reference Interval Normal <150 mg/dL Borderline high 150 - 199 mg/dL High 200 - 499 mg/dL Very High > or = 500 mg/dL LAB L501.6400 mg/dL Low HDL 39 Result Comment: The drugs N-Acetylcysteine and Metamizole may falsely depress this assay. Reference Range HDL <40 mg/dL Low HDL Cholesterol HDL >or= 60 mg/dL High HDL Cholesterol LAB L501.6500 0-130 mg/dL Normal LDL 67 LAB L501.6600 5-40 mg/dL Normal VLDL 23 Performed By: #### L501.9985, L500.4050, L500.4100, L501.9520, L501.9910 #### [facility] [address] [facility] [place], [address] THYROID STIM HORMONE Collected: 04/21/2018 Status: F Source: [place] ([facility]) 7:17 AM [facility] REPOSITORY TYPE CODE TESTS RESULT OUT OF RANGE REFERENCE UNITS LAB L501.9520 0.358-3.74 uIU/mL Normal TSH 3.01 Performed By: #### L501.9985, L500.4050, L500.4100, L501.9520, L501.9910 #### [facility] [address] [place], [address] PSA,TOTAL - ANNUAL Collected: 04/21/2018 Status: F Source: [place] SCREEN 7:17 AM [facility] REPOSITORY TYPE CODE TESTS RESULT OUT OF RANGE REFERENCE UNITS LAB L501.9910 0.00-4.00 ng/mL Normal PSA,TOT 0.28 SCREEN Result Comment: This test was performed using the TPSA assay method for the [employer] chemistry system. Values obtained with different assay methods cannot be used interchangably. When changing PSA assays in the course of monitoring a patient, additional sequential testing should be carried out to confirm baseline values. Performed By: #### L501.9985, L500.4050, L500.4100, L501.9520, L501.9910 #### [place] [facility] [address] [place], [address] CREATININE, URINE Collected: 04/21/2018 Status: F Source: DENISE (RANDOM) 7:17 AM [facility] REPOSITORY TYPE CODE TESTS RESULT OUT OF RANGE REFERENCE UNITS LAB L501.1200 NO RANGE EST. mg/dL Normal UR CREAT 193.00 Performed By: #### L501.1200, L502.0500 #### [facility] [address] [place], [address] MICROALBUMIN,RANDOM URINE Collected: Status: F Source: DENISE 04/21/2018 7:17 AM [facility] REPOSITORY TYPE CODE TESTS RESULT OUT OF RANGE REFERENCE UNITS LAB L502.0500 NO RANGE EST. mg/L Normal 30.4 MICROALBUMIN ,UR Performed By: #### L501.1200, L502.0500 #### [facility] [address] [place], [address] ENDOCRINOLOGY VISIT Observed: 04/16/2018 Status: F Source: [place]ISE REPORT 8:39 AM [facility] REPOSITORY [facility] [address] [place] [address] OFFICE VISIT Date of Service: 04/14/18 MR#: [id number] Acct: [id number] Name: AMBROSIO JULIO Rep #: [id number] : 1950 Provider: Vita Grady NP Age/Sex: 67/M Location: [facility] [place] Status: Signed HPI History of present illness Ambrosio Newton is a 66 yr old male who presents for follow up of diabetes type 2 diagnosed in 1999. He stopped levemir 80 units daily due to cost but takes his meal insulin 20 units at each meal. Sliding scale 1 unit for 10 BG points. He also takes januvia, glipizide and gucophage. Has a known hx of hypertension, hyperlipidemia, has 5 stents, heart disease, vascular disease, and back problems. He denies excessive thirst or increased frequency of urination, chest pain or dyspnea, numbness,tingling, or pain in extremities, new or unusual visual symptomsor low blood sugars. Follows a diabetic diet. Is compliant with medication and is tolerating without side effects. He did bring not his BG readings Reports appetite good, sleep good. no change in bowel or bladder. Since our last visit he denies excessive thirst or increased frequency of urination, chest pain or dyspnea, numbness,tingling, or pain in extremities, new or unusual visual symptoms. Has had no low blood sugars. Follows a varied diet. 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 At time of visit -Pt denies symptoms of hypertensive emergency (CP,SOB,SHIRLEY< blurred vision) and hypotension(dizziness, lightheadedness) - Pt denies symptoms of hypoglcemia( sweaty, confusion, anxiety, tremor, hunger, palpitations) and hyperglycemia (polydipsia, polyuria) -Pt denies potential medication adverse effects (cough,myalgia, edema). HYPOGLYCEMIA Aware of hypoglycemia: yes Able to self treat hypoglycemia : yes Frequent low BG readings: No SMBG Has been checking BG.. BG in am 120-140 PM 150-200 DIET / EXERCISE Feels he eats healthy Does not carb count No routine exercise regimen Appearance: cooperative, healthy appearing, well developed, well groomed and no acute distress Nutritional Appearance: well nourished and average body habitus Orientation: alert, awake and oriented x3 Head Head: normal to inspection, normocephalic and atraumatic Ears: hearing grossly normal bilaterally and external ears normal Nose: external nose normal, nasal mucous membranes and turbinates normal, nares normal, septum normal, no nasal discharge Face and Sinus: face symmetric Mouth: oral mucosae normal, tongue normal, oropharynx normal and moist mucous membranes Teeth and gingiva: dentition normal Throat: posterior oropharynx normal, tonsils normal and uvula midline Eyes General: appearance normal, both eyes and all related structures Eyelids: eyelids normal Conjunctivae: conjunctivae normal Pupils: PERRL, normal by confrontation and accommodation normal EOM: EOM intact bilaterally Neck Neck: normal visual inspection, trachea midline and no JVD Chest Chest inspection: normal inspection of the chest, symmetric chest movement and normal respiratory effort Auscultation: Bilateral: Clear to Auscultation Cardio Palpation: normal PMI Rate: regular rate Rhythm: regular rhythm Heart sounds: S1 normal, S2 normal and normal, physiologic split S2; negative rub, gallop or murmur GI GI: normal to inspection, soft, no hepatosplenomegaly and bowel sounds present Neuro General: alert, awake, oriented x3, no focal sensory deficit, gait normal and moves all extremities Skin Skin: no rashes or lesions noted Extremities Pulses: Normal: Right Femoral Pulse, Left Femoral Pulse, Right Dorsalis Pedis Pulse, Left Dorsalis Pedis Pulse, Right Posterior Tibial Pulse, Left Posterior Tibial Pulse, Right Radial Pulse, Left Radial Pulse Lower Extremity Edema: None: Bilateral Musculoskel Musculoskeletal: No joint tenderness Psych Psychological: normal affect I have reviewed vital signs, allergies, current medications, labs, PMH, SH,F H, There are no medical record or records of vaccinations. Intake Vital Signs04/14/18 Height 5 ft 11 in 04/14/18 Weight: 285 lb 4 oz Intake Visit Reasons: Diabetes follow-up Chief Complaint: Follow Up Batter Depositor Required: No Accompanied by: None Is patient in pain?: No Allergies No Known Allergies Allergy (Unverified 03/12/18 10:19) Medications aspirin 81 mg tablet,delayed release 81 mg PO DAILY 11/20/17 [History Confirmed 03/12/18] insulin lispro (U-100) 100 unit/mL subcutaneous pen 20 unit SC TID ml 11/20/17 [History Confirmed 03/12/18] metoprolol succinate ER 100 mg tablet,extended release 24 hr 100 mg PO QDAY tab 11/20/17 [History Confirmed 03/12/18] Clopidogrel Bisulfate [Clopidogrel] 75 mg PO DAILY 02/09/18 [History Confirmed 03/12/18] Atorvastatin Calcium [Lipitor] 40 mg PO QHS #90 tab 02/11/18 [Rx Confirmed 03/12/18] Isosorbide Mononitrate [Imdur] 60 mg PO DAILY #90 tab 02/11/18 [Rx Confirmed 03/12/18] Valsartan [Diovan] 320 mg PO DAILY #90 tab 02/11/18 [Rx Confirmed 03/12/18] cholecalciferol (vitamin D3) 50,000 unit capsule 50,000 unit PO QWEEK 03/12/18 [History Confirmed 03/12/18] metformin 500 mg tablet 500 mg PO BID tab 03/12/18 [History Confirmed 03/12/18] Blood pressure arm cuff #1 ea 03/14/18 [Rx] insulin NPH isophane U-100 human 100 unit/mL subcutaneous suspension 45 unit SC BID #2 vial 04/16/18 [Rx Confirmed 04/16/18] PFSH Medical History Hyperlipidemia (Chronic) Hypertension (Chronic) Atherosclerotic heart disease of [place] coronary artery without angina pectoris (Chronic) Vascular disease (Acute) Diabetes type 2, controlled (Chronic) HTN (hypertension) (Chronic) Surgical History History of left heart catheterization (Chronic) H/O right coronary artery stent placement (Chronic 02/10/18) History of hydrocelectomy (Chronic) History of tonsillectomy and adenoidectomy (Chronic) Family History Unknown Arthritis Cancer Diabetes Father Heart disease Mother Hypertension Other CAD (coronary artery disease) Social History Smoking Status: Never smoker second hand exposure: No alcohol intake: never substance use type: does not use Assessment AND Plan 1. Type 2 diabetes mellitus with complication, with long-term current use of insulin E11.8; Z79.4 Is improving with Bg recently as he is doing cardiac rehab. Enc to increase his meal insulin due to higher Bg in evening. 2. Essential hypertension I10 3. Pure hypercholesterolemia E78.00 Plan Detail Other Orders Orders: Other Medications Changed: To: insulin NPH isophane U- Take 45 unit45 units (0.45 mL) Sub-Q BID blood sugaE11.9 s twice daily r Additional Comments 1. Please schedule follow up in 3 months. 2. Lab work one week before appointment. 3. Discussed importance of regular exercise and recommend starting or continuing a regular exercise program for good health. 4. The patient was encouraged to lose weight for good health 5. The importance of monitoring blood sugar regularly was reviewed. 6. The importance of monitoring the HBA1c level regularly was reviewed. 7. The importance of prper foot care and regularly checking feet to prevent sores and loss of limbs was reviewed. 8. The importance of keeping BP at or below 130/80 to prevent stroke, heart attacks, kidney failure, blindness was reviewed. Spent approximately 30 minutes with patient with over 50% of time spent in discussion and counseling regarding medication adjustment, symptoms and treatment of hypoglycemia, diet adherence, and checking BG before driving. 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 Diabetes mellitus complication status: with unspecified complications Essential hypertension I10 Hypertension type: essential hypertension Pure hypercholesterolemia E78.00 Hyperlipidemia type: pure hypercholesterolemia Time Spent (min) 30 04/16/18 0839 <Electronically signed by Vita THOMAS> Date Vita THOMAS Cosigner Signature: Date (if applicable) CC: ABD AORTIC/IVC DUPLEX Observed: 03/26/2018 Status: F Source: [place] SCAN 6:07 PM [facility] REPOSITORY [facility] Cardiovascular Services [facility] [place] [address] Abd Aortic/IVC Duplex scan 03/26/18 0907 MR#: [id number] Acct: [id number] Name: AMBROSIO JULIO Rep #: [id number] : 1950 67 From: Jonathan Alegria MD Attending Dr: Donny Chio MD Status: REG CLI Ordering Dr: Donny Choi MD Date: 03/26/18 Location: [facility] Sex: M C Admitted: Reason For Study: Atherosclerotic Heart Disease Aorta Measurements Aorta Doppler Measurements Proximal aorta measures1.74cm x 1.77cm. in cross-Peak systolic flow velocities within the proximal sectional axis. aorta measure 107 cm/sec. Proximal aorta measures1.75cm. in longitudinal Peak systolic flow velocities within the mid axis. aorta measure 154 cm/sec. Mid aorta measures1.66cm x 1.74cm. in cross- Peak systolic flow velocities within the distal sectional axis. aorta measure 158 cm/sec. Mid aorta measures1.65cm. in longitudinal axis. Distal aorta measures1.24cm x 1.32cm. in cross- sectional axis. Distal aorta measures1.40cm. in longitudinal axis. Left Iliac Artery Left iliac artery measures 1.01cm x 0.97 cm. in the cross- sectional axis. Left iliac artery measures 1.01 cm. in the longitudinal axis. Peak systolic velocity in the left iliac artery measures 138 cm/sec. Right Iliac Artery Right iliac artery measures 0.95cm x 0.97 cm. in the cross- sectional axis. Right iliac artery measures 1.05 cm. in the longitudinal axis. Peak systolic velocity in the right iliac artery measures 110 cm/sec. Procedure Aorta IVC Iliac vasculature or bypass grafts 99988. Difficult to visualize prox Ao due to bowel gas. Exam performed in department. Interpretation Summary Maximal aortic diameter of 1.74 x 1.77 cm proximally with no evidence for aneurysmal change Mildly increased aortic velocities consistent with atherosclerotic disease. Normal diameter left common iliac 1.01 x 0.97cm Normal diameter right common iliac 0.95 x 0.97cm Ordering Physician: Donny Choi Referring Physician: Skylar Gunn Performed By: Patrica Goldsmith, ALYCIA, RVT 03/26/181805 Date Jonathan Alegria MD CC: Donny Choi MD; Skylar Gunn DO Date Dictated: 03/26/18906 Date Transcribed: 03/26/181805 Logistics Management Specialist: Signed CR - HISTORY AND Observed: 03/13/2018 Status: F Source: [place] PHYSICAL 3:38 PM [facility] REPOSITORY [facility] Cardiac Rehab [address] [place] [address] CR - History AND Physical MR#: [id number] Acct: [id number] Name: AMBROSIO JULIO Rep #: [id number] : 1950 67 From: Patricio Chowdhury RN PCP: Skylar Gunn DO DOS: 03/13/18 CR - History AND Physical - General Arrival date:: 03/13/18 Arrival time:: 10:43 Date of Referral:: 03/13/18 Date of CR Evaluation:: 03/13/18 Referring Physician: Dr. Dahiana Choi Primary Diagnosis: NSTEMI, PCI with stent - History of Present Cardiac Event Onset Date: Enter Onset Date of cardiac illnesses in Comment field below Current stable Angina Pectoris:: Yes - 02/09/18 Acute Myocardial Infarction within 12 months:: Yes - 02/09/18 Coronary Artery Bypass Graft:: No Heart valve replacement or repair:: No PTCA or coronary stenting:: Yes - 02/10/18 Heart or Heart-Lung Transplant:: No Heart Failure EF <35%:: No Type of Symptoms:: chest burning Interventions with present event:: PCI with stenting Were there any complications?: none - Medications Home Medications: Ambulatory Orders Medication Instructions Recorded aspirin 81 mg tablet,delayed 81 mg PO DAILY 11/20/17 release insulin lispro (U-100) 100 unit/mL 20 unit SC TID ml 11/20/17 - Allergies Allergies/Adverse Reactions: Allergies No Known Allergies Allergy (Unverified 03/12/18 10:19) - Sleep Disorder Evaluation Hx of Sleep Apnea: No Do you snore loudly (louder than talking or can be heard through closed doors)?: No Do you often feel tired/ fatigued/ sleepy during daytime?: Yes Has anyone observed you stop breathing during sleep?: No History of Hypertension (for STOP score): Yes STOP Results: Positive Advanced Directives - Advanced Directives Power of Form Stripper: Yes Living Will: Yes Advance Directives Information Provided: Yes Advance Directives on File: Yes DNR Order?:: No Past Medical History - Past Medical Illness Medical History: Past Medical History (Last Reviewed 03/12/18 @ 10:40 by Donny Choi MD) Hyperlipidemia (Chronic) E78.5 Hypertension (Chronic) I10 Atherosclerotic heart disease of [place] coronary artery without angina pectoris (Chronic) I25.10 EIH-YQG-QUF-Mid RCA w/ 3.5 x 15 mm Resolute and JOSE MIGUEL-Distal RCA w/ Resolute 3.5 x 15 mm stent 02/10/18 DGJ-Ezzsl-Ljk LAD 06/29/2014 PCI-JOSE MIGUEL-Mid RCA w/ 4.0 x 18 mm Xience-06/10/2009 @ [facility] Vascular disease I99.9 Diabetes type 2, controlled E11.9 HTN (hypertension) I10 - Past Surgical History Surgical History: Past Surgical History (Last Reviewed 03/12/18 @ 10:40 by Donny Choi MD) History of left heart catheterization (Chronic) Z98.890 H/O right coronary artery stent placement (Chronic) Onset Date: 02/10/18 Z95.5 GTH-AST-EHL-Mid RCA w/ 3.5 x 15 mm Resolute and JOSE MIGUEL-Distal RCA w/ Resolute 3.5 x 15 mm stent 02/10/18 SLO-Amdxm-Ogw LAD 06/29/2014 PCI-JOSE MIGUEL-Mid RCA w/ 4.0 x 18 mm Xience-06/10/2009 @ [facility] History of hydrocelectomy Z98.890 History of tonsillectomy and adenoidectomy Z98.890 Surgical History: - - Family History Summary Family History: Family History (Last Reviewed 03/12/18 @ 10:40 by Donny Choi MD) Unknown Arthritis Cancer Diabetes Father Heart disease Mother Hypertension Other CAD (coronary artery disease) Social History - Smoking History Smoking Status: Never smoker - Alcohol Use Alcohol Usage: Yes - social drinkers - Substance Abuse Hx Substance Use: No - Occupation Occupation (List type of work in comments):: Retired - Hobbies, Recreation, Social Activities Hobbies: Other - golfing, grandchildren Recreational Activities: I am able to engage in all my recreational activities Social Environment - Status Marital Status: - Current Living Arrangements Living Environment:: Spouse - Children How many children do you have?: 3 Do any of your children live nearby?: Yes - Safety Do you feel safe in your surroundings?: Yes - Assistance Do you need any assistance at home?: no Review of Systems - Review of Systems Hints: Right click = Denies (Slash). Left click = Reports ([place]ajo) Review of Present Symptoms: Reports: Fatigue, Appetite - Normal, Appetite - Special Diet - Cardiac diabetic, Sleep - Normal. Denies: Shortness of Breath at Rest, Shortness of Breath with Exertion, PVD, Operative Discomfort, Angina, Wound Healing, Dizziness/Lightheadedness, Heart Arrhythmia/Irregularities, Sexual Changes - Pain Is Patient Pain Free?: No Pain Location: other - Some pain behind knees. Ernesto with steps, knees Pain Level: 4/10 Risk Factor Assessment - Chief Complaint Chief Complaint: Feel better, less tired, more energy - Pulse Pulse Rate: 64 Pulse Rhythm: Regular - Hypertension How long have you been treated?: 25 years On medication(s)?: yes Blood Pressure Sitting - Right Arm: 144/80 Blood Pressure Sitting - Left Arm: 114/72 - Stress Stress: Home/Family - some - Diabetes Diabetic History: Type II Nutrition Referral for Diabetes: Yes - Obesity Height: 1.8 m Weight:: 129.274 kg Weight in Pounds: 285.0 lbs Weight Source: Standing Scale Body Mass Index (BMI): 39.7 Realistic Weight Goal (Loss of 1-2 lbs/week): 24 Nutritional Referral for Obesity: Yes - Physical Inactivity Physical Inactivity: Reg Exercise 30 min/day, Physically demanding job, Recreational activity - Risk Stratification Risk Guidelines: Lowest Risk: Risk Factor for Smoking, Moderate Risk: Risk Factor for Dyslipidemia, Risk Factor for Diabetes, Risk Factor for Hypertension, Risk Factor for Sedentary Lifestyle, Risk Factor for Depression, Highest Risk: Risk Factor for Obesity - For Smoking Smoking Risk Guidelines: Smoking Low Risk: None or quit greater than 6 months ago. Smoking Moderate Risk: Smoker or quit 6 months or less ago. Smoking High Risk: Smoker - For Dyslipidemia Dyslipidemia Risk Guidelines: Low Risk: Moderate Risk: High Risk: 15-25% fat 25.1-29% fat >/= 30% fat. <7% sat fat 7-9% sat fat >9% sat fat. <150 mg chol 150-299 mg chol >/= 300 mg chol. LDL <100 LDL 100-129 LDL >/= 130. Chol/HDL ratio <5.0 Chol/HDL ratio 5.0-6.0 Chol/HDL ratio >6.0. Triglycerides <100 Triglycerides 100-149 Triglycerides >/= 150 - For Diabetes Mellitus Diabetes Risk Guidelines: Diabetes Low Risk: HgA1c <6.5% and/or FBG <120. Diabetes Moderate Risk: HgA1c 6.6-7.9% and/or FBG 120- 180. Diabetes High Risk: HgA1c >/= 8% and/or FBG >180 - For Obesity/Overweight Obesity/Overweight Risk Guidelines: Obesity Low Risk: BMI <25.0. Obesity Moderate Risk: BMI 25-29.9. Obesity High Risk: BMI >/= 30.0 - For Hypertension Hypertension Risk Guidelines: Hypertension Low Risk: Systolic <120 and Diastolic <80. Hypertension Moderate Risk: Systolic 120-139 and Diastolic 80-89. Hypertension High Risk: Systolic >/= 140 and Diastolic >/= 90 - For Sedentary Lifestyle Sedentary Lifestyle Risk Guidelines: Sedentary Lifestyle Low Risk: >/= 1,500 kcal/week. Sedentary Lifestyle Moderate Risk: 700-1,499 kcal/week. Sedentary Lifestyle High Risk: < 700 kcal/week - For Depression Depression Risk Guidelines: Depression Low Risk: Not clinically depressed. Depression Moderate Risk: Mildly depressed. Depression High Risk: Clinically depressed - Family History Family History: Family History (Last Reviewed 03/12/18 @ 10:40 by Donny Choi MD) Unknown Arthritis Cancer Diabetes Father Heart disease Mother Hypertension Other CAD (coronary artery disease) Motivation - Motivation to Participate On a scale of 1 to 10, how prepared are you to commit to attending program?: 6 03/13/18 1209 <Electronically signed by Patricio Chowdhury RN> Date Patricio Chowdhury RN Outcome assessment reviewed. Exercise plan approved as documented. Treatment plan and goals support patient needs/abilities. Continue with current plan. I certify the patient demonstrates improvement and remains willing and capable of participation. the patient continues to benefit from cardiac rehab services/training. The patient may continue at current intensity, endurance and modality and progress per protocol. 03/13/18 1538 <Electronically signed by Donny Choi MD> Cosigner Signature: Date Donny Choi MD CC: Signed CARDIOLOGY VISIT Observed: 03/12/2018 Status: F Source: [place] REPORT 10:53 AM [facility] REPOSITORY [facility] [address] [place] [address] OFFICE VISIT Date of Service: 03/12/18 MR#: [id number] Acct: [id number] Name: AMBROSIO JULIO Rep #: [id number] : 1950 Provider: Donny Choi MD Age/Sex: 67/M Location: [facility] [place] Status: Signed [facility] Chief Complaint: Follow Up Details: AMBROSIO JULIO, is a 67 M who presents to the office today for a follow-up visit. He is a gentleman who had previously had coronary artery stenting in 2008 involving the right coronary artery as well as in the left anterior descending artery in 2013. He presented to the hospital in January of this year with chest discomfort suggestive of unstable angina. He underwent a cardiac catheterization which demonstrated normal left main coronary artery, left anterior descending artery with the previously placed stents which was patent, a circumflex artery with a 95% proximal stenosis in the small vessel., A dominant right coronary artery with a mid in-stent stenosis of 70-80% and a distal drug-eluting stent with a stenosis noted. He underwent angioplasty and drug-eluting stenting with a 3.5 15 mm stent as well as a 3.0 15 mm drug-eluting stent with excellent results. Since going home he is done well with no chest discomfort suggestive of angina. For reasons that are not completely clear he is not taking his amlodipine any longer. He is eager to start cardiac rehabilitation. He says that he has been dieting but this has not necessarily translated into significant weight loss. His physical exam today demonstrates clear lung marrero regular rate and rhythm and no pedal edema Intake Vital Signs03/12/18 Height 5 ft 11 in 03/12/18 Weight: 292 lb 03/12/18 Body Mass Index (BMI) 40.7 Intake Visit Reasons: DC ICU 5-15 (NEW to [facility]) Allergies No Known Allergies Allergy (Unverified 03/12/18 10:19) Medications aspirin 81 mg tablet,delayed release 81 mg PO DAILY 11/20/17 [History Confirmed 03/12/18] insulin lispro (U-100) 100 unit/mL subcutaneous pen 20 unit SC TID ml 11/20/17 [History Confirmed 03/12/18] metoprolol succinate ER 100 mg tablet,extended release 24 hr 100 mg PO QDAY tab 11/20/17 [History Confirmed 03/12/18] Clopidogrel Bisulfate [Clopidogrel] 75 mg PO DAILY 02/09/18 [History Confirmed 03/12/18] Atorvastatin Calcium [Lipitor] 40 mg PO QHS #90 tab 02/11/18 [Rx Confirmed 03/12/18] Insulin NPH Human Isophane [Novolin N] 45 unit SQ BID #1 vial 02/11/18 [Rx Confirmed 03/12/18] Isosorbide Mononitrate [Imdur] 60 mg PO DAILY #90 tab 02/11/18 [Rx Confirmed 03/12/18] Valsartan [Diovan] 320 mg PO DAILY #90 tab 02/11/18 [Rx Confirmed 03/12/18] cholecalciferol (vitamin D3) 50,000 unit capsule 50,000 unit PO QWEEK 03/12/18 [History Confirmed 03/12/18] metformin 500 mg tablet 500 mg PO BID tab 03/12/18 [History Confirmed 03/12/18] [facility] Medical History Hyperlipidemia (Chronic) Hypertension (Chronic) Atherosclerotic heart disease of [place] coronary artery without angina pectoris (Chronic) Vascular disease (Acute) Diabetes type 2, controlled (Chronic) HTN (hypertension) (Chronic) Surgical History History of left heart catheterization (Chronic) H/O right coronary artery stent placement (Chronic 02/10/18) History of hydrocelectomy (Chronic) History of tonsillectomy and adenoidectomy (Chronic) Family History Unknown Arthritis Cancer Diabetes Father Heart disease Mother Hypertension Other CAD (coronary artery disease) Social History Smoking Status: Never smoker second hand exposure: No alcohol intake: never substance use type: does not use ROS Const Const: Positive for other and fatigue; negative for weakness, night sweats, frequent falls, headache(s), daytime sleepiness or excessive sweating Eyes Eyes: Negative for loss of peripheral vision, transient loss of vision, blind spots, double vision or blurry vision ENT ENT: Negative for dizziness, balance problems, Nosebleed/epistaxis, tongue swelling, lip swelling or headache(s) Cardio Chest Pain: No Palpitations: No Edema: None Muscle aches with walking: None Resp Respiratory: Negative for SOB at rest, SOB orthopnea\SOB lying down, Cough, paroxysmal nocturnal dyspnea or SOB with activity GI GI: Negative nausea, vomiting, heartburn, black,tarry stools or bright, red blood in stools : Negative for hematuria Musc Musc: Negative for balance problems, muscle aches/ myalgia, muscle weakness or joint pain Skin Skin: Negative non-healing lesions, unusual bruising or rash Neuro Neuro: Negative for double vision, dizziness, lightheadedness, orthostatic symptoms, blurry vision, lack of coordination, weakness, frequent falls or headache(s) [place] Hematologic/Lymphatic: Negative for easy bruising or easy bleeding Endo Endo: Positive for fatigue; negative for excessive sweating, cold intolerance, heat intolerance, increased thirst/drinking or hair loss Psych Psych: Negative for anxiety or depression Allergy Allergy/Immunology: Negative for throat swelling, Negative for tongue swelling, Negative for hives, Negative for rash, Negative for lip swelling Cardiology Exam Const Appearance: cooperative, healthy appearing, well developed, well groomed and no acute distress Nutritional Appearance: well nourished and average body habitus Orientation: alert, awake and oriented x3 Head Head: normal to inspection, normocephalic and atraumatic Ears: hearing grossly normal bilaterally and external ears normal Nose: external nose normal, nasal mucous membranes and turbinates normal, nares normal, septum normal, no nasal discharge Face and Sinus: face symmetric Mouth: oral mucosae normal, tongue normal, oropharynx normal and moist mucous membranes Teeth and gingiva: dentition normal Throat: posterior oropharynx normal, tonsils normal and uvula midline Eyes General: appearance normal, both eyes and all related structures Eyelids: eyelids normal Conjunctivae: conjunctivae normal Pupils: PERRL, normal by confrontation and accommodation normal EOM: EOM intact bilaterally Neck Neck: normal visual inspection, trachea midline and no JVD JVD: +5 Carotids: normal carotid upstroke and bounding pulses Chest Chest inspection: normal inspection of the chest, symmetric chest movement and normal respiratory effort Auscultation: Bilateral: Clear to Auscultation Cardio Palpation: normal PMI Rate: regular rate Rhythm: regular rhythm Heart sounds: S1 normal, S2 normal and normal, physiologic split S2; negative rub, gallop or murmur GI GI: normal to inspection, soft, no hepatosplenomegaly and bowel sounds present Neuro General: alert, awake, oriented x3, no focal sensory deficit, gait normal and moves all extremities Skin Skin: no rashes or lesions noted Extremities Pulses: Normal: Right Femoral Pulse, Left Femoral Pulse, Right Dorsalis Pedis Pulse, Left Dorsalis Pedis Pulse, Right Posterior Tibial Pulse, Left Posterior Tibial Pulse, Right Radial Pulse, Left Radial Pulse Lower Extremity Edema: None: Bilateral Musculoskel Musculoskeletal: No joint tenderness Psych Psychological: normal affect Assessment AND Plan 1. H/O right coronary artery stent placement Z95.5 QTP-TCM-ESB-Mid RCA w/ 3.5 x 15 mm Resolute and JOSE MIGUEL-Distal RCA w/ Resolute 3.5 x 15 mm stent 02/10/18 QAW-Fzxgl-Snf LAD 06/29/2014 PCI-JOSE MIGUEL-Mid RCA w/ 4.0 x 18 mm Xience-06/10/2009 @ [facility] Plan He is status post angioplasty and stenting of the right coronary artery. He will start cardiac rehabilitation and continue with aggressive risk factor modification. We will continue to monitor his blood pressures and cardiac rehabilitation. If it is noted to be elevated then we will start the pain. In the meantime he will continue on aspirin clopidogrel and beta-malaika. 2. Essential hypertension I10 Plan His blood pressure here is under good control. He does have a wrist cuff and have suggested that he get a brachial cuff to better monitor his blood pressure. He will remain on the valsartan metoprolol isosorbide. 3. Pure hypercholesterolemia E78.00; E78.0 Plan He will continue with high intensity statin and appropriate lipid profiles will be obtained. 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) Coding Level of Care Code Off vis,est,level 4 Diagnoses H/O right coronary artery stent placement Z95.5 Essential hypertension I10 Hypertension type: essential hypertension Pure hypercholesterolemia E78.00; E78.0 Hyperlipidemia type: pure hypercholesterolemia Coding Level of Care Code Off vis,est,level 4 Diagnoses H/O right coronary artery stent placement Z95.5 Essential hypertension I10 Hypertension type: essential hypertension Pure hypercholesterolemia E78.00; E78.0 Hyperlipidemia type: pure hypercholesterolemia 03/12/18 1053 <Electronically signed by Donny Choi MD> Date Donny Choi MD Cosigner Signature: Date (if applicable) CC: Skylar Gunn DO 12 LEAD ELECTROCARDIOGRAM Observed: 02/14/2018 Status: F Source: [place] 3:05 PM [facility] REPOSITORY [facility] Cardiovascular Services [address] [place] [address] 12 Lead EKG 02/11/18 0526 MR#: [id number] Acct: [id number] Name: AMBROSIO JULIO Rep #: [id number] : 1950 67 From: Donny Choi MD Attending Dr: Kiran Yeboah DO Status: DIS IN Ordering Dr: Juan David Freeman MD Date: 02/11/18 Location: ICU Sex: M C Admitted: 02/10/18 Test Reason : AM EKG Blood Pressure : / mmHG Vent. Rate : 068 BPM Atrial Rate : 068 BPM P-R Int : 214 ms QRS Dur : 112 ms QT Int : 432 ms P-R-T Axes : -20 -42 121 degrees QTc Int : 459 ms Sinus rhythm with 1st degree A-V block Left axis deviation Septal infarct , age undetermined T wave abnormality, consider lateral ischemia Abnormal ECG Confirmed by DONNY CHOI MD ([id number]), legal editor DANUTA FLOWERS ([id number]) on 02/14/2018 3:05:10 PM Referred By: AZAEL Confirmed By:DONNY CHOI MD 02/14/18 1505 Date Donny Choi MD CC: Juan David Freeman MD; Skylar Gunn DO; Kiran Yeboah DO Signed 12 LEAD ELECTROCARDIOGRAM Observed: 02/13/2018 Status: F Source: [place] 1:14 PM [facility] REPOSITORY [facility] Cardiovascular Services [address] [place] [address] 12 Lead EKG 02/09/18 1223 MR#: [id number] Acct: [id number] Name: AMBROSIO JULIO Rep #: [id number] : 1950 67 From: Ghassan Campbell MD Attending Dr: Kiran Yeboah DO Status: DIS IN Ordering Dr: Steven Spence MD Date: 02/09/18 Location: ICU Sex: M C Admitted: 02/10/18 Test Reason : CP Blood Pressure : / mmHG Vent. Rate : 074 BPM Atrial Rate : 074 BPM P-R Int : 194 ms QRS Dur : 110 ms QT Int : 456 ms P-R-T Axes : -17 -39 078 degrees QTc Int : 506 ms Normal sinus rhythm Left axis deviation Septal infarct , age undetermined Prolonged QT Abnormal ECG Confirmed by GHASSAN CAMPBELL MD ([id number]), legal editor DANUTA FLOWERS ([id number]) on 02/13/2018 1:14:23 PM Referred By: MILAGROS Confirmed By:GHASSAN CAMPBELL MD 02/13/18 1314 Date Ghassan Campbell MD CC: Steven Spence MD; Skylar Gunn DO; Kiran Yeboah DO Signed 12 LEAD ELECTROCARDIOGRAM Observed: 02/13/2018 Status: F Source: [place] 12:58 PM [facility] REPOSITORY [facility] Cardiovascular Services [address] [place] [address] 12 Lead EKG 02/10/18 1128 MR#: [id number] Acct: [id number] Name: AMBROSIO JULIO Rep #: [id number] : 1950 67 From: Ghassan Campbell MD Attending Dr: Kiran Yeboah DO Status: DIS IN Ordering Dr: Juan David Freeman MD Date: 02/10/18 Location: ICU Sex: M C Admitted: 02/10/18 Test Reason : POST PCI Blood Pressure : / mmHG Vent. Rate : 087 BPM Atrial Rate : 087 BPM P-R Int : 254 ms QRS Dur : 114 ms QT Int : 430 ms P-R-T Axes : 025 -49 086 degrees QTc Int : 517 ms Sinus rhythm with 1st degree A-V block Left axis deviation Poor R wave progression Prolonged QT Abnormal ECG Confirmed by SHANNAN WAGNER, GHASSAN ([id number]), legal editor DANUTA FLOWERS ([id number]) on 02/13/2018 12:57:34 PM Referred By: STEPH Confirmed By:GHASSAN CAMPBELL MD 02/13/18 1257 Date Ghassan Campbell MD CC: Juan David Freeman MD; Skylar Gunn DO; Kiran Yeboah DO Signed DISCHARGE SUMMARY Observed: 02/11/2018 Status: F Source: [place] 6:27 PM [facility] REPOSITORY [facility] Medical Records Department [address] [place] [address] Discharge Summary 02/11/18 1815 MR#: [id number] Acct: [id number] Name: AMBROSIO JULIO Rep #: [id number] : 1950 67 From: Kiran Yeboah DO PCP: Skylar Gunn DO Status: DIS IN Y Location: ICU [id number] 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%, distal right coronary artery stenosis 80% #3 proximal circumflex stenosis 90% #4 type 2 diabetes-uncontrolled #5 hypertension #6 hyperlipidemia - Secondary Discharge Diagnosis Chronic Problems (Last Updated 02/10/18 @ 13:18 by Leslie Trent) Atherosclerotic heart disease of [place] coronary artery without angina pectoris (Chronic) Essential (primary) hypertension (Chronic) DM type 2 (diabetes mellitus, type 2) (Chronic) Dyslipidemia (Chronic) Hospital Course and Treatment Operations: None Procedures: 2-D Echocardiogram, Cardiac catheterization, - - Drug-eluting stent placement in mid right coronary artery in-stent, drug-eluting stent placement distal RCA Summary of Care Provided: The patient is a 67 year old M who was seen in the emergency room at [facility] with a chief complaint of chest pain, he stated the chest pain was similar to anginal pain that he has had in the past. Patient had a past history of stent placements the last 1 occurring in 2013. Workup in the emergency room included an EKG which showed a normal sinus rhythm at 98, blood pressure was elevated, troponin was elevated at 0.026, chest x-ray showed cardiomegaly. Patient was admitted to PCU for unstable angina, serial cardiac enzymes were obtained and were elevated indicating a non-STEMI, patient was seen in consultation by cardiology who performed a cardiac catheterization which showed in-stent stenosis of the right coronary artery and severe stenosis of the distal right coronary artery, there was also stenosis of the proximal circumflex artery. Patient underwent insertion of a drug- eluting stent and his previous stent and also a drug-eluting stent in the distal right coronary artery. The circumflex artery stenosis was not felt to be amendable to intervention at this time and it was felt that drug treatment would be the best option for this stenosis. Patient tolerated his cardiac catheterization well, cardiac medications were adjusted during his hospital stay. On 02/11/18, patient was seen and examined and felt to be in stable condition for discharge home Discharge Activity: Return to Normal Activity Weight Bearing Status: Full weight bearing Home Medications: Medications to take at Discharge amlodipine 5 mg tablet 5 mg PO QDAY 11/20/17 aspirin 81 mg tablet,delayed release 81 mg PO DAILY 11/20/17 insulin lispro (U-100) 100 unit/mL subcutaneous pen 20 unit SC TID ml 11/20/17 metoprolol succinate ER 100 mg tablet,extended release 24 hr 100 mg PO QDAY tab 11/20/17 Clopidogrel Bisulfate [Clopidogrel] 75 mg PO DAILY 02/09/18 Metformin HCl [Glucophage] 1,000 mg PO BID 02/09/18 Atorvastatin Calcium [Lipitor] 40 mg PO QHS #90 tab 02/11/18 Insulin NPH Human Isophane [Novolin N] 45 unit SQ BID #1 vial 02/11/18 Isosorbide Mononitrate [Imdur] 60 mg PO DAILY #90 tab 02/11/18 Valsartan [Diovan] 320 mg PO DAILY #90 tab 02/11/18 Following Prescrptions Were Given to Patient: Atorvastatin Calcium [Lipitor] 40 mg PO QHS #90 tab Isosorbide Mononitrate [Imdur] 60 mg PO DAILY #90 tab Valsartan [Diovan] 320 mg PO DAILY #90 tab Insulin NPH Human Isophane [Novolin N] 45 unit SQ BID #1 vial Primary Care Physician: Skylar Gunn DO [Primary Care Provider] - Please follow up with your Primary Care Physician in: in 2 weeks Please Follow Up With: Donny Choi MD When: as directed Disposition: Home Minutes spent on discharge:: 35 Patient Condition:: Stable Medical Necessity - Tobacco Use Smoking Status: Never smoker Meaningful Use Info Meaningful Use Diagnoses (Choose all that apply): AMI - AMI Aspirin given w/in 24hrs of arrival?: Yes ASA at discharge?: Yes Statins at discharge?: Yes Joselito/ARB at discharge?: Yes Beta Malaika at discharge?: Yes Done w/ Acute KS measure.: Yes Code Visit Inpatient E AND M: [id number] Disch Hosp 02/11/18 9194 <Electronically signed by Kiran Yeboah DO> Date Kiran Yeboah DO Cosigner Signature (if applicable): Date CC: Skylar Gunn DO; Kiran Yeboah DO Signed 12 LEAD ELECTROCARDIOGRAM Observed: 02/11/2018 Status: F Source: [place] 1:29 PM [facility] REPOSITORY [facility] Cardiovascular Services [address] [place] [address] 12 Lead EKG 02/09/18912 MR#: [id number] Acct: [id number] Name: AMBROSIO JULIO Rep #: [id number] : 1950 67 From: Donny Choi MD Attending Dr: Kiran Yeboah DO Status: DIS IN Ordering Dr: Lelo Del Rosario MD Date: 02/09/18 Location: ICU Sex: M C Admitted: 02/10/18 Test Reason : CP Blood Pressure : / mmHG Vent. Rate : 098 BPM Atrial Rate : 098 BPM P-R Int : 184 ms QRS Dur : 110 ms QT Int : 376 ms P-R-T Axes : 000 -31 073 degrees QTc Int : 480 ms Normal sinus rhythm Left axis deviation Septal infarct , age undetermined Abnormal ECG Confirmed by DONNY CHOI MD ([id number]), legal editor DANUTA FLOWERS ([id number]) on 02/11/2018 1:29:19 PM Referred By: Confirmed By:DONNY CHOI MD 02/11/18 1329 Date Donny Choi MD CC: Lelo Del Rosario MD; Skylar Gunn DO; Kiran Yeboah DO Signed CONSULTATION Observed: 02/11/2018 Status: F Source: [place] 12:45 PM [facility] REPOSITORY [facility] Medical Records Department [address] [place] [address] Consultation 02/10/18 0827 MR#: [id number] Acct: [id number] Name: AMBROSIO JULIO Rep #: [id number] : 1950 67 From: Donny Choi MD PCP: Skylar Gunn DO Status: DIS IN Y Location: ICU [id number] Reason for Consult Date of Consultation: 02/10/18 Reason for Consultation: Chest discomfort. History of Present Illness: The patient is a 67 year old M with a previous known history of coronary artery disease status post previous stenting who recently moved to the area. He said that many years ago he had experienced chest discomfort described as a burning sensation prior to his having been stented in 2008. He was told that if he had a similar presentation he should come to the emergency room. Over the weekend he experienced a similar episode of chest discomfort which appeared to worse with exertion and going away with rest. Due to the above he presented to the emergency room was evaluated and admitted. He was started on heparin. This morning cardiology consult was placed to evaluate him. He denies any chest pain at this particular time no paroxysmal nocturnal dyspnea no pedal edema no dizziness or diaphoresis no near syncope or syncope. He has been compliant with his medications he recently moved to the [facility]. [] Past Medical History Allergies/Adverse Reactions: Allergies No Known Allergies Allergy (Unverified 02/09/18 09:16) Home Medications: Ambulatory Orders Medication Instructions Recorded amlodipine 5 mg tablet 5 mg PO QDAY 11/20/17 Past Medical History (Chronic Problems): Chronic Problems (Last Updated 11/20/17 @ 14:17 by Lizz Durant) Essential (primary) hypertension (Chronic) DM type 2 (diabetes mellitus, type 2) (Chronic) Dyslipidemia (Chronic) CAD (coronary artery disease) (Chronic) Surgical History: - - *Family History Maternal Family History: Family History (Last Updated 11/20/17 @ 14:18 by Lizz Durant) Unknown Arthritis Cancer Diabetes Hypertension Heart disease History Items: No pertinent history Smoking Status: Never smoker Alcohol: None Drugs: None Review of Systems - Review of Systems General: Denies: Fever, Night Sweats, Fatigue Cardiovascular: Reports: Chest Discomfort, Chest Discomfort with Exertion. Denies: Shortness of Breath, Orthopnea, PND, Peripheral Edema, Palpitations, Lightheadedness, Dizziness, Near Syncope, Syncope Respiratory: Denies: Cough, Sputum Production, Hemoptysis Gastrointestinal: Denies: Hematemesis, Hematochezia, Melena Genitourinary: Denies: Dysuria, Hematuria Skin: Denies: Rash Subjectve: Pleasant gentleman in no apparent distress Objective: Vital Signs Temp Pulse Resp BP Pulse Ox 98.1 F 85 18 151/81 H 92 02/10/18 02:46 02/10/18 07:35 02/10/18 02:46 02/10/18 02:46 02/10/18 07:35 Oxygen Delivery Method Room Air Weight: 285 lb 0.923 oz Body Mass Index (BMI) 39.7 Intake and Output for Last 24 Hours Intake Total 892 / 892 / Balance 2 / 2 General: Awake, Alert, Oriented x 3 HEENT: PERRL, EOMI, Sclera Non Icteric Neck: Supple, Good ROM, No Lymph Node Enlargement Lungs: Clear to auscultation Cardiovascular: Regular Rhythm, Normal S1, Normal S2, No Murmurs, No Rubs, No Gallops Vascular: No Carotid Bruits, Normal Femoral Pulses, Normal Radial Pulses, Normal Dorsalis Pedal Pulse, Normal Posterior Tibial Pulses Abdomen: Bowel Sounds Present, Soft, Non Tender, No HSM, No Organomegaly Extremities: No Cyanosis, No Clubbing, No edema Neurological: No Focal Motor or Sensory Deficit 02/09/18 12:25: Troponin I 0.142 H 02/09/18 14:20: APTT 26.2 02/09/18 15:15: Troponin I 0.242 H 02/09/18 21:03: APTT 64.4 H 02/10/18 02:40: WBC 6.2, RBC 5.12, Hgb 15.2, Hct 43.2, MCV 84.4, MCH 29.7, MCHC 35.2, RDW 12.9, RDW Differential 39.3, Plt Count 177, MPV 10.4 02/10/18 02:40: Sodium 139, Potassium 3.1 L, Chloride 104, Carbon Dioxide 26.0, Anion Gap 9, BUN 12, Creatinine 0.68 L, Est GFR (MDRD) Af Amer 149, Est GFR (MDRD) Non-Af 123, BUN/Creatinine Ratio 17.5, Glucose 221 H, Calcium 8.3 L 02/10/18 02:40: APTT 49.9 H Rhythm: EKG: ECHO: Stress Test: Cardiac Cath: PCI: CT Surgery: Holter monitor: EPS: PPM: CXR: Chest CT Scan: Assessment/Plan 1. Chest pain unstable angina. He presents with chest discomfort which appears to be worsened with exertion of recent onset characteristic of unstable angina. He does not have any EKG changes at this particular time however he does have mild troponin elevation. With his previous history it would be prudent to proceed with a cardiac catheterization. The risk benefits and alternatives have been explained to him he understands and agrees to proceed. This was discussed with him in the presence of his and friend. 2. Hypertension. Patient has a history of known hypertension currently on medical therapy. No changes were made with respect to the above. 3. Risk factor modification. Patient will continue with aggressive risk factor modification with diet and exercise to be encouraged as well as lipid lowering medications. Thank you for allowing me to participate in the care of your patient. Please don't hesitate to call if any issues arise Addendum.: Patient underwent cardiac catheterization this morning which demonstrated the following: Left main coronary artery normal. Left anterior descending artery previously stented with mild diffuse disease. Left circumflex artery nondominant with proximal and 90% stenosis. Ramus intermedius with mild to moderate diffuse disease. Left to right collaterals filling a distal posterolateral vessel. Dominant large right coronary artery with mid 95% in-stent stenosis and mid to distal 70% stenosis and diffuse distal disease Preserved left ventricular ejection fraction. Based on the above angiographic findings the patient will undergo angioplasty and stenting of the right coronary artery which is thought to be the culprit lesion for his symptoms. Above discussed with patient, family and interventionalist. 02/11/18 1245 <Electronically signed by Donny Choi MD> Date Donny Choi MD Cosigner Signature (if applicable): Date CC: Juan David Freeman MD; Skylar Gunn DO Signed DISCHARGE INSTRUCTION Observed: 02/11/2018 Status: F Source: [place] 10:46 AM [facility] REPOSITORY [facility] Medical Records Department [address] [place] [address] Instructions for Home/Discharge Instructions 02/11/18 1044 MR#: [id number] Acct: [id number] Name: AMBROSIO JULIO Rep #: [id number] : 1950 67 From: Kiran Yeboah DO PCP: Skylar Gunn DO Status: ADM IN - Discharge Diagnoses Current Active Problems: Current Active and Chronic Problems (Last Updated 02/10/18 @ 13:18 by Leslie Trent) Unstable angina (Acute) Essential (primary) hypertension (Chronic) DM type 2 (diabetes mellitus, type 2) (Chronic) Dyslipidemia (Chronic) You will use the following diet at home:: Calorie/Carbohydrate Controlled (specify 1200, 1400, etc) - 7595-7042 hermilo Your food should be the consistency of: Regular Your liquids should be the consistency of: Regular/Thin Discharge Activity: Return to Normal Activity Weight Bearing Status: Full weight bearing Additional Instructions: recommend carb counting Allergies/Adverse Reactions: Allergies No Known Allergies Allergy (Unverified 02/09/18 09:16) Medications to take at Discharge amlodipine 5 mg tablet 5 mg PO QDAY 11/20/17 aspirin 81 mg tablet,delayed release 81 mg PO DAILY 11/20/17 insulin lispro (U-100) 100 unit/mL subcutaneous pen 20 unit SC TID ml 11/20/17 metoprolol succinate ER 100 mg tablet,extended release 24 hr 100 mg PO QDAY tab 11/20/17 Clopidogrel Bisulfate [Clopidogrel] 75 mg PO DAILY 02/09/18 Metformin HCl [Glucophage] 1,000 mg PO BID 02/09/18 Atorvastatin Calcium [Lipitor] 40 mg PO QHS #90 tab 02/11/18 Insulin NPH Human Isophane [Novolin N] 45 unit SQ BID #1 vial 02/11/18 Isosorbide Mononitrate [Imdur] 60 mg PO DAILY #90 tab 02/11/18 Valsartan [Diovan] 320 mg PO DAILY #90 tab 02/11/18 The following prescriptions were given: Atorvastatin Calcium [Lipitor] 40 mg PO QHS #90 tab Isosorbide Mononitrate [Imdur] 60 mg PO DAILY #90 tab Valsartan [Diovan] 320 mg PO DAILY #90 tab Insulin NPH Human Isophane [Novolin N] 45 unit SQ BID #1 vial Primary Care Physician: Skylar Gunn DO [Primary Care Provider] - Please follow up with your Primary Care Physician in: in 2 weeks Please Follow Up With: Donny Choi MD When: as directed 02/11/18 1046 <Electronically signed by Kiran Yeboah DO> Date Kiran Yeboah DO CC: Juan David Freeman MD; Skylar Gunn DO BEDSIDE GLUCOSE Collected: 02/11/2018 Status: F Source: [place] 7:42 AM [facility] REPOSITORY TYPE CODE TESTS RESULT OUT OF REFERENCE UNITS RANGE LAB L501.080 70-110 mg/dL High BEDSIDE GLU 169 Result Comment: MANAGEMENT OF PATIENT CARE PER NURSING PROTOCOL Performed By: #### L501.080 #### [facility] Point of Care [address] [place], [place] [address] BASIC METABOLIC Collected: 02/11/2018 Status: F Source: [place] PROFILE (BMP) 4:05 AM [facility] REPOSITORY TYPE CODE TESTS RESULT OUT OF RANGE REFERENCE UNITS LAB L501.0100 74-106 mg/dL High GLU 121 Result Comment: Fasting Glucose result from 100 to 125 mg/dL suggests IMPAIRED HOMEOSTASIS per A.D.A. criteria. Please note revised GLUCOSE reference range effective 2017. LAB L501.1000 7-18 mg/dL Normal BUN 11 LAB L501.1100 0.70-1.30 mg/dL Low CREAT,SERUM 0.60 Result Comment: The validity of the calculated GFR AND GFRAA in patients over 70 years has not been determined. Clinical correlation is essential. LAB L501.1110 >60 mL/min Normal EST GFR 143 Result Comment: Non- GFR Calc LAB L501.1115 >60 mL/min Normal EST GFR - AA 173 Result Comment: GFR Calc LAB L501.1255 ml/min Normal Estimated CRCL 77.39 LAB L501.1300 10-20 RATIO Normal BUN/CRE 18.4 LAB L501.2200 8.5-10 mg/dL Normal .1 CA 8.5 LAB L501.5300 136-14 mmol/L Normal 5 NA 142 LAB L501.5600 3.5-5. mmol/L Low 1 K 3.2 LAB L501.5900 98-107 mmol/L Normal CL 107 LAB L501.6100 21.0-3 mmol/L Normal 2.0 CO2 25.0 LAB L501.6200 5-15 Normal GAP 10 Performed By: #### L500.2500 #### [facility] [address] [facility] [place], [place], [id number] CBC-COMPLETE BLOOD CNT Collected: 02/11/2018 Status: F Source: [place] NO DIFF 4:05 AM [facility] REPOSITORY TYPE CODE TESTS RESULT OUT OF RANGE REFERENCE UNITS LAB L100.1000 4.4-11.0 K/mm3 Normal WBC 8.3 LAB L100.1200 4.6-6.2 M/mm3 Normal RBC 4.98 LAB L100.1300 13.0-16.5 g/dl Normal HGB 14.8 LAB L100.1400 40-54 % Normal HCT 42.3 LAB L100.1500 80-94 fL Normal MCV 84.9 LAB L100.1600 27.0-32.0 pg Normal MCH 29.7 LAB L100.1700 32-36 g/gl Normal MCHC 35.0 LAB L100.1810 11.6-14.6 % Normal RDW CV 13.0 LAB L100.1820 35.1-43.9 fl Normal RDW SD 39.8 LAB L100.1900 150-450 K/mm3 Normal PLT 202 LAB L100.2000 6.2-12.0 fl Normal MPV 10.4 Performed By: #### L100.0500 #### [facility] [address] [facility] [place], [place], [address] BEDSIDE GLUCOSE Collected: 02/10/2018 Status: F Source: [place] 4:40 PM [facility] REPOSITORY TYPE CODE TESTS RESULT OUT OF REFERENCE UNITS RANGE LAB L501.080 70-110 mg/dL High BEDSIDE GLU 267 Result Comment: MANAGEMENT OF PATIENT CARE PER NURSING PROTOCOL Performed By: #### L501.080 #### [facility] Point of Care [address] [place] [address] BEDSIDE GLUCOSE Collected: 02/10/2018 Status: F Source: DENISE 11:49 AM [facility] REPOSITORY TYPE CODE TESTS RESULT OUT OF REFERENCE UNITS RANGE LAB L501.080 70-110 mg/dL High BEDSIDE GLU 257 Result Comment: MANAGEMENT OF PATIENT CARE PER NURSING PROTOCOL Performed By: #### L501.080 #### [facility] Point of Care [address] [place] [address] M R STAPH AUREUS Collected: 02/10/2018 Status: F Source: DENISE DNA BY PCR 11:30 AM [facility] REPOSITORY TYPE CODE TESTS RESULT OUT OF RANGE REFERENCE UNITS LAB L8200.1100 Negative Normal MRSA Negative RESULT Performed By: #### L8200.1000 #### [facility] [address] [place], [address] ACT ACTIVATED CLOTTING Collected: 02/10/2018 Status: F Source: DENISE TIME 11:03 AM [facility] REPOSITORY TYPE CODE TESTS RESULT OUT OF RANGE REFERENCE UNITS LAB L9100.0100 74-137 sec High ACTk CLOT 213 TIME Performed By: #### L9100.0100 #### [facility] Point of Care [address] [place] [address] ACT ACTIVATED CLOTTING Collected: 02/10/2018 Status: F Source: DENISE TIME 10:36 AM [facility] REPOSITORY TYPE CODE TESTS RESULT OUT OF RANGE REFERENCE UNITS LAB L9100.0100 74-137 sec High ACTk CLOT 241 TIME Performed By: #### L9100.0100 #### [facility] Point of Care [address] [place] [address] ECHO, COMPLETE W/ Observed: 02/10/2018 Status: F Source: DENISE CONTRAST 9:31 AM [facility] REPOSITORY [facility] Cardiovascular Services [address] [place] [address] Echo Complete W/ Contrast 05/14/18 0821 MR#: [id number] Acct: [id number] Name: AMBROSIO JULIO Rep #: [id number] : 1950 67 From: Donny Choi MD Attending Dr: Kiran Yeboah DO Status: ADM JOSELITO Ordering Dr: Steven Spence MD Date: 02/09/18 Location: [facility] Sex: M C Admitted: 02/09/18 Reason For Study: CP Procedure This was a 2D Doppler, Color Flow transthoracic echocardiogram. Exam performed portable in patient room. Left Ventricle Normal LV size. Moderate concentric left ventricular hypertrophy. Left ventricular systolic function is normal. The estimated ejection fraction is 55 %. Transmitral diastolic flow velocities suggest mild (stage 1) diastolic dysfunction (reversed pattern). No regional wall motion abnormalities noted. Right Ventricle Normal RV size. Normal systolic function. Atria Normal left atrium. Normal right atrium. Mitral Valve Normal mitral valve. Tricuspid Valve Normal tricuspid valve. Unable to estimate RV systolic pressure due to inadequate jet, pulmonary artery pressure probably normal. Aortic Valve Trisinus/trileaflet aortic valve. Pulmonic Valve Normal pulmonic valve. Great Vessels Normal aortic root. The pulmonary artery is normal size. Normal inferior vena cava. Pericardium/Pleural No pericardial effusion. Medication Diluted definity 2ml given slow IV push to enhance endocardial definition. MMode/2D Measurements AND Calculations LVIDd: 4.9 cm IVSd: 1.6 cm Ao root diam: 3.3 cm LVIDs: 3.4 cm LVPWd: 1.2 cm RVDd: 2.6 cm FS: 30.7 % LAV(MOD-bp): 43.7 ml LAV(MOD-bp) Indexed: 17.8 ml/m2 LA A4 area: 15.0 cm2 RA A4 area: 14.1 cm2 LAV(MOD-sp2): 46.2 ml LAV(MOD-sp4): 37.1 ml Time Measurements MV dec time: 0.26 sec Doppler Measurements AND Calculations MV E max teodoro: 72.1 cm/sec Lat Peak E' Teodoro: 8.0 cm/sec Med Peak E' Teodoro: 5.6 cm/sec MV A max teodoro: 95.1 cm/sec E/E' lat: 9.0 E/E' med: 12.9 MV E/A: 0.76 Ao V2 max: 141.6 cm/sec LV V1 max: 82.1 cm/sec PA V2 max: 111.6 cm/sec Ao max P.0 mmHg LV V1 max P.7 mmHg Interpretation Summary Normal LV size. Moderate concentric left ventricular hypertrophy. Left ventricular systolic function is normal. The estimated ejection fraction is 55 %. Contrast injection was performed. Ordering Physician: Steven Spence Referring Physician: SKYLAR GUNN Performed By: Nikki Leahy RDCS 02/10/18929 Date Donny Choi MD CC: Steven Spence MD; Skylar Gunn DO; Kiran Yeboah DO Date Dictated: 02/10/18820 Date Transcribed: 02/10/18929 Logistics Management Specialist: Signed PARTIAL THROMBOPLAST Collected: 02/10/2018 Status: F Source: DENISE TIME 9:00 AM [facility] REPOSITORY TYPE CODE TESTS RESULT OUT OF RANGE REFERENCE UNITS LAB L300.4310 24.1-36.2 Seconds Normal PTT 35.4 Performed By: #### L300.4310 #### [facility] [address] [place], [address] BEDSIDE GLUCOSE Collected: 02/10/2018 Status: F Source: DENISE 6:57 AM [facility] REPOSITORY TYPE CODE TESTS RESULT OUT OF REFERENCE UNITS RANGE LAB L501.080 70-110 mg/dL High BEDSIDE GLU 244 Result Comment: MANAGEMENT OF PATIENT CARE PER NURSING PROTOCOL Performed By: #### L501.080 #### [facility] Point of Care [address] [place] [address] BASIC METABOLIC Collected: 02/10/2018 Status: F Source: [place]ISE PROFILE (BMP) 2:40 AM [facility] REPOSITORY TYPE CODE TESTS RESULT OUT OF RANGE REFERENCE UNITS LAB L501.0100 74-106 mg/dL High GLU 221 Result Comment: Glucose result greater than or equal to 200 mg/dL suggests DIABETES MELLITUS per A.D.A. criteria. Please note revised GLUCOSE reference range effective 2017. LAB L501.1000 7-18 mg/dL Normal BUN 12 LAB L501.1100 0.70-1.30 mg/dL Low CREAT,SERUM 0.68 Result Comment: The validity of the calculated GFR AND GFRAA in patients over 70 years has not been determined. Clinical correlation is essential. LAB L501.1110 >60 mL/min Normal EST GFR 123 Result Comment: Non- GFR Calc LAB L501.1115 >60 mL/min Normal EST GFR - AA 149 Result Comment: GFR Calc LAB L501.1255 ml/min Normal Estimated CRCL 77.39 LAB L501.1300 10-20 RATIO Normal BUN/CRE 17.5 LAB L501.2200 8.5-10 mg/dL Low .1 CA 8.3 LAB L501.5300 136-14 mmol/L Normal 5 NA 139 LAB L501.5600 3.5-5. mmol/L Low 1 K 3.1 LAB L501.5900 98-107 mmol/L Normal CL 104 LAB L501.6100 21.0-3 mmol/L Normal 2.0 CO2 26.0 LAB L501.6200 5-15 Normal GAP 9 Performed By: #### L500.2500 #### [facility] [address] [place], [place], [address] PARTIAL THROMBOPLAST Collected: 02/10/2018 Status: F Source: DENISE TIME 2:40 AM [facility] REPOSITORY TYPE CODE TESTS RESULT OUT OF REFERENCE UNITS RANGE LAB L300.4310 24.1-36.2 Seconds High PTT 49.9 Performed By: #### L300.4310 #### [facility] [address] [place], [place], [address] CBC-COMPLETE BLOOD CNT Collected: 02/10/2018 Status: F Source: [place]ISE NO DIFF 2:40 AM [facility] REPOSITORY TYPE CODE TESTS RESULT OUT OF RANGE REFERENCE UNITS LAB L100.1000 4.4-11.0 K/mm3 Normal WBC 6.2 LAB L100.1200 4.6-6.2 M/mm3 Normal RBC 5.12 LAB L100.1300 13.0-16.5 g/dl Normal HGB 15.2 LAB L100.1400 40-54 % Normal HCT 43.2 LAB L100.1500 80-94 fL Normal MCV 84.4 LAB L100.1600 27.0-32.0 pg Normal MCH 29.7 LAB L100.1700 32-36 g/gl Normal MCHC 35.2 LAB L100.1810 11.6-14.6 % Normal RDW CV 12.9 LAB L100.1820 35.1-43.9 fl Normal RDW SD 39.3 LAB L100.1900 150-450 K/mm3 Normal PLT 177 LAB L100.2000 6.2-12.0 fl Normal MPV 10.4 Performed By: #### L100.0500 #### [facility] [address] [place], [place], [address] BEDSIDE GLUCOSE Collected: 02/09/2018 Status: F Source: DENISE 9:20 PM [facility] REPOSITORY TYPE CODE TESTS RESULT OUT OF REFERENCE UNITS RANGE LAB L501.080 70-110 mg/dL High BEDSIDE GLU 210 Result Comment: MANAGEMENT OF PATIENT CARE PER NURSING PROTOCOL Performed By: #### L501.080 #### [facility] Point of Care [address] [place], [place] [address] PARTIAL THROMBOPLAST Collected: 02/09/2018 Status: F Source: DENISE TIME 9:03 PM [facility] REPOSITORY TYPE CODE TESTS RESULT OUT OF REFERENCE UNITS RANGE LAB L300.4310 24.1-36.2 Seconds High PTT 64.4 Performed By: #### L300.4310 #### [facility] [address] [place], [address] BEDSIDE GLUCOSE Collected: 02/09/2018 Status: F Source: DENISE 4:32 PM [facility] REPOSITORY TYPE CODE TESTS RESULT OUT OF REFERENCE UNITS RANGE LAB L501.080 70-110 mg/dL High BEDSIDE GLU 311 Result Comment: MANAGEMENT OF PATIENT CARE PER NURSING PROTOCOL Performed By: #### L501.080 #### [facility] Point of Care [address] [place] [address] TROPONIN-I Collected: 02/09/2018 Status: F Source: DENISE 3:15 PM [facility] REPOSITORY Order Comment: 'TROP' Serial specimen #1, #2 or #3: 3 TYPE CODE TESTS RESULT OUT OF RANGE REFERENCE UNITS LAB L501.4010 <0.045 ng/mL High 0.242 TROPONIN-I Result Comment: TROPONIN-I EXPECTED VALUES <0.045 NEGATIVE 0.045 - 0.590 AT RISK OF KS > OR = 0.600 SUGGEST KS Not every elevated troponin is indicative of KS. These values should be used with clinical judgement in examining the patient's clinical picture for diagnosis. To establish a diagnosis of KS versus myocardial injury, there must be a demonstrated rise and/or fall in the troponin values, in addition to ischemic symptoms, EKG changes, new regional wall motion abnormality, and/or angiographical evidence. PLEASE NOTE: REFERENCE RANGES EDITED 18 Performed By: #### L501.4010 #### [facility] [address] [place], [address] EMERGENCY DEPARTMENT Observed: 02/09/2018 Status: F Source: [place] SUMMARY 2:55 PM [facility] REPOSITORY [facility] Medical Records Department [address] [place] [address] Emergency Department Summary 02/09/18 0934 MR#: [id number] Acct: [id number] Name: AMBROSIO JULIO Rep #: [id number] : 1950 67 From: Lelo Del Rosario MD PCP: Skylar Gunn DO Status: ADM JOSELITO - ER Visit Summary Date of Service: 02/09/18 Chief Complaint: Chest pain History of Present Illness: The patient is a 67 M presenting with chest pain. Chest pain has been intermittent and started yesterday. He states it is a burning type pain in the substernal region radiating to both arms. He states he has had these symptoms in the past and required stenting. He has mild shortness of breath associated with this. Denies diaphoresis or nausea. At the worst it was 8/10. Currently 4/10. He has a history of 5 stents with the last being in 2013. He has a history of hypertension, diabetes, hypercholesterolemia, family history of early heart disease. No PE/DVT risk factors. Physical Examination: Vitals are stable. Blood pressure 211/109. Patient is afebrile. Alert no acute distress. HEENT exam is unremarkable. Neck is supple. Lungs are clear and equal bilaterally. Heart is regular rate and rhythm. Abdomen is soft nontender nondistended. Extremities are unremarkable. Skin is warm and dry. No focal neurologic deficit. Remainder of exam is unremarkable. Emergency Department Course and Treatment: Patient was given aspirin on arrival. EKG is sinus rate of 98. His blood pressure is elevated and he is given his morning dose of his home medication. Repeat blood pressure 171/89. CBC, chemistries unremarkable other than glucose 338. Troponin 0.026. Chest x-ray shows cardiomegaly. On reevaluation, patient is pain-free. Discussed with Dr. Spence and Dr. Freeman. Patient will be admitted. Disposition: Admission Impression: Chest pain This note was generated with [employer] dictation software. It may contain incorrect words, spelling, and punctuation that were not noted in review of the chart prior to signing ED Disposition - Plan for ED Patient: Disposition: Acute Care Hospital [facility] Chief Complaint: Chest Pain What to do if you have Problems For any increased pain, shortness of breath, bleeding, nausea or vomiting, chest pain, or any unexpected problems, contact your Primary Care Provider. Call [facility] ([phone]) or report to the closest Emergency Room. Call 911 if necessary. 02/09/18 1455 <Electronically signed by Lelo Del Rosario MD> Date Lelo Del Rosario MD Cosigner Signature (If Indicated): Date CC: Skylar Gunn DO PARTIAL THROMBOPLAST Collected: 02/09/2018 Status: F Source: [place] TIME 2:20 PM [facility] REPOSITORY TYPE CODE TESTS RESULT OUT OF RANGE REFERENCE UNITS LAB L300.4310 24.1-36.2 Seconds Normal PTT 26.2 Performed By: #### L300.4310 #### [facility] [address] [place], [place], [address] BEDSIDE GLUCOSE Collected: 02/09/2018 Status: F Source: DENISE 1:19 PM [facility] REPOSITORY TYPE CODE TESTS RESULT OUT OF REFERENCE UNITS RANGE LAB L501.080 70-110 mg/dL High BEDSIDE GLU 216 Result Comment: MANAGEMENT OF PATIENT CARE PER NURSING PROTOCOL Performed By: #### L501.080 #### [facility] Point of Care [address] [place] [address] TROPONIN-I Collected: 02/09/2018 Status: F Source: DENISE 12:25 PM [facility] REPOSITORY Order Comment: 'TROP' Serial specimen #1, #2 or #3: 2 TYPE CODE TESTS RESULT OUT OF RANGE REFERENCE UNITS LAB L501.4010 <0.045 ng/mL High 0.142 TROPONIN-I Result Comment: TROPONIN-I EXPECTED VALUES <0.045 NEGATIVE 0.045 - 0.590 AT RISK OF KS > OR = 0.600 SUGGEST KS Not every elevated troponin is indicative of KS. These values should be used with clinical judgement in examining the patient's clinical picture for diagnosis. To establish a diagnosis of KS versus myocardial injury, there must be a demonstrated rise and/or fall in the troponin values, in addition to ischemic symptoms, EKG changes, new regional wall motion abnormality, and/or angiographical evidence. PLEASE NOTE: REFERENCE RANGES EDITED 18 Performed By: #### L501.4010 #### [facility] [address] [place], [address] HISTORY AND PHYSICAL Observed: 02/09/2018 Status: F Source: [place] EXAM 12:24 PM [facility] REPOSITORY [facility] Medical Records Department [address] [place] [address] History and Physical 02/09/18 1118 MR#: [id number] Acct: [id number] Name: AMBROSIO JULIO Rep #: [id number] : 1950 67 From: Steven Spence MD PCP: Skylar Gunn DO Status: ADM JOSELITO Y Location: [place] [address] Problem List (1) Unstable angina Status: Acute (2) Essential (primary) hypertension Status: Chronic (3) DM type 2 (diabetes mellitus, type 2) Status: Chronic Qualifiers: Diabetes mellitus residential insulin use: with residential use (4) Dyslipidemia Status: Chronic (5) CAD (coronary artery disease) Status: Chronic History of Present Illness Date of Admission: 02/09/18 Chief Complaint: Chest pain The patient is a 67 year old M with past medical history significant for CAD with previous 16th placement, hypertension dyslipidemia diabetes mellitus type 2 who presented with chest pain. Patient symptoms started a day prior to coming in. Pain was located in the retrosternal region spreading across the chest as well as to both shoulders. Patient did notice increasing pain with minimal activity. He had a similar presentation when the last time he had a stent placed. He therefore presented to the emergency department as a result. Initial set of cardiac enzymes came back negative however given patient presentation and assessment of unstable angina made treatment initiated per protocol with consultation placed to cardiology from the ED and patient admitted to a monitored bed for subsequent management Past Medical History Past Medical History (Chronic Problems): Chronic Problems (Last Updated 11/20/17 @ 14:17 by Lizz Durant) Essential (primary) hypertension (Chronic) DM type 2 (diabetes mellitus, type 2) (Chronic) Dyslipidemia (Chronic) CAD (coronary artery disease) (Chronic) Allergies No Known Allergies Allergy (Unverified 02/09/18 09:16) Home Medications: Ambulatory Orders Medication Instructions Recorded amlodipine 5 mg tablet 5 mg PO QDAY 11/20/17 Smoking Status: Never smoker - *Family History Maternal History Items: No pertinent history Review of Systems Constitutional: Denies: Anorexia, Chills, Fever, Night Sweats, Weight Change HEENT: Denies: Head Aches, Sinus Congestion, Sinus Drainage Cardiovascular: Reports: Chest Pain. Denies: Orthopnea Respiratory: Denies: Cough, Shortness of breath at rest, Shortness of breath upon exertion, Sputum production Gastrointestinal: Denies: Abdominal Pain, Hematemesis, Hematochezia, Nausea, Melena, Vomiting Genitourinary: Denies: Dysuria, Frequency, Hematuria, Urgency Musculoskeletal: Denies: Joint Pain, Joint Tenderness Skin: Denies: Rash Neurological: Denies: Focal weakness, Numbness, Tingling Psychiatric: Denies: Homicidal Ideations, Suicidal Ideations Hematologic/ Lymphatic: Denies: Easy Bruising, Easy Bleeding VTE Information - Inpt Only VTE Present on Admission: No VTE Mechan Device Prophylaxis: Knee High SYLVIE Hose VTE Pharm Prophylaxis ordered?: Yes Patient Problems: Active and Suspected Problems (Last Updated 11/20/17 @ 14:17 by Lizz Durant) Unstable angina (Acute) Objective: GENERAL: cooperative HEENT: Clear conjunctiva, NECK; supple, normal thyroid, CHEST: Clear to auscultation bilaterally, HEART: Regular S1 S2, no audible murmurs ABDOMEN: soft, non-tender, normoactive bowel sounds, RECTAL: deferred EXTREMITIES: No edema, no clubbing, no cyanosis. DESKTOP TECHNICIAN: Awake; no lateralizing signs. SKIN: No Rash - Physical Exam Vital Signs Temp Pulse Resp BP Pulse Ox 97.7 F L 76 20 H 171/89 H 96 02/09/18 11:00 02/09/18 11:00 02/09/18 11:00 02/09/18 11:00 02/09/18 11:00 Oxygen Flow Rate (L/min) 2 Oxygen Delivery Method Nasal Cannula Weight: 132.2 kg Body Mass Index (BMI) 40.6 Laboratory Tests Past 24 Hrs WBC 6.6 RBC 5.62 Hgb 16.5 Hct 47.5 MCV 84.5 MCH 29.4 MCHC 34.7 RDW 13.0 Assessment/Plan Active and Suspected Problems (Last Updated 11/20/17 @ 14:17 by Lizz Durant) Unstable angina (Acute) Patient is a 67-year-old gentleman with significant risk factors including hypertension, diabetes mellitus type 2 CAD with previous stent placement who presents with chest pain 1. Unstable angina. Treatment initiated per protocol patient admitted to the progressive care unit. Did order serial cardiac enzymes and echo and consultation placed to cardiology. Patient was kept n.p.o. after midnight nuclear stress test was not ordered the decision deferred to cardiology 2. CAD with previous stent placement patient is on recommended medications including dual antiplatelet therapy beta-blockers, as well as starting therapy 3. Diabetes mellitus type II: Controlled/ patient's oral hypoglycemics held. Placed on long acting insulin, Accu-Cheks a.c. and at bedtime and covered with sliding scale insulin 4. Hypertension-blood pressure controlled, home medications continued with dose adjustment as needed 5. Dyslipidemia-patient is on statin therapy, continued at home dose 6. Obesity with BMI of 40.6 weight loss advised 7. DVT prophylaxis on heparin Code Visit OBSV E AND M: [id number] Initial observation care L2 02/09/18 1224 <Electronically signed by Steven Spence MD> Date Steven Spence MD Cosigner Signature: Date (if applicable) CC: Steven Spence MD; Skylar Gunn DO Signed CHEST 1 VIEW Observed: 02/09/2018 Status: F Source: DENISE (PORTABLE) 9:33 AM [facility] REPOSITORY [facility] Imaging Services [address] [place] [id number] Chest 1 View (Portable) MR#: [id number] Acct: [id number] Name: AMBROSIO JULIO Rep #: [id number] : 1950 M 67 From: Siddharth Augustin DO PCP: Skylar Gunn DO Status: REG ER Study: Chest 1 View (Portable) Date of Exam: 02/09/18 Exam# [id number] Ordering Dr: Lelo Del Rosario MD STUDY: X-RAY CHEST REASON FOR EXAM: Male, 67 years old. Chest pain TECHNIQUE: Single frontal view COMPARISON: None. FINDINGS: The lungs are clear and expanded. There is no demonstrated pleural abnormality. Cardiomegaly. Normal mediastinum and april. Normal visualized pulmonary arteries. Slightly calcified aortic arch and descending thoracic aorta. Mild degenerative changes of the thoracic spine. Normal visualized ribs, clavicles, and shoulders. There is no demonstrated abnormality of the visualized soft tissue structures of the upper abdomen. RAD/Chest 1 View (Portable) IMPRESSION: Cardiomegaly. Electronically Signed: Siddharth Augustin DO at 9:54 EDT Tel [phone], Service support , CC: Lelo Del Rosario MD; Skylar Gunn DO Logistics Management Specialist: Signed CBC W/DIFF, AUTOMATED Collected: 02/09/2018 Status: F Source: DENISE 9:18 AM [facility] REPOSITORY TYPE CODE TESTS RESULT OUT OF RANGE REFERENCE UNITS LAB L100.1000 4.4-11.0 K/mm3 Normal WBC 6.6 LAB L100.1200 4.6-6.2 M/mm3 Normal RBC 5.62 LAB L100.1300 13.0-16.5 g/dl Normal HGB 16.5 LAB L100.1400 40-54 % Normal HCT 47.5 LAB L100.1500 80-94 fL Normal MCV 84.5 LAB L100.1600 27.0-32.0 pg Normal MCH 29.4 LAB L100.1700 32-36 g/gl Normal MCHC 34.7 LAB L100.1810 11.6-14.6 % Normal RDW CV 13.0 LAB L100.1820 35.1-43.9 fl Normal RDW SD 39.8 LAB L100.1900 150-450 K/mm3 Normal PLT 202 LAB L100.2000 6.2-12.0 fl Normal MPV 10.5 LAB L100.2100 47-70 % Normal NEUT% 54.1 LAB L100.2200 19-41 % Normal LY% 34.3 LAB L100.2300 0-10 % Normal MONO% 8.2 LAB L100.2400 0-5 % Normal EO% 2.6 LAB L100.2500 0-1 % Normal BASO% 0.5 LAB L100.2550 0.0-0.9 % Normal IM GRAN % 0.300 Result Comment: IG% - Immature Granulocytes (promyelocytes, myelocytes and metamyelocytes) > 1% indicates that a LEFT SHIFT is Present. LAB L100.2620 2.0-7.7 X10 3/uL Normal Absolute Neut 3.6 LAB L100.2720 0.83-4.51 X10 3/ul Normal Absolute Lymph 2.26 Performed By: #### L100.0100 #### [facility] [address] [place], [address] BASIC METABOLIC Collected: 02/09/2018 Status: F Source: [place] PROFILE (BMP) 9:18 AM [facility] REPOSITORY TYPE CODE TESTS RESULT OUT OF RANGE REFERENCE UNITS LAB L501.0100 74-106 mg/dL High GLU 338 Result Comment: Glucose result greater than or equal to 200 mg/dL suggests DIABETES MELLITUS per A.D.A. criteria. Please note revised GLUCOSE reference range effective 2017. LAB L501.1000 7-18 mg/dL Normal BUN 17 LAB L501.1100 0.70-1.30 mg/dL Normal CREAT,SERUM 0.94 Result Comment: The validity of the calculated GFR AND GFRAA in patients over 70 years has not been determined. Clinical correlation is essential. LAB L501.1110 >60 mL/min Normal EST GFR 85 Result Comment: Non- GFR Calc LAB L501.1115 >60 mL/min Normal EST GFR - AA 103 Result Comment: GFR Calc LAB L501.1255 ml/min Normal Estimated CRCL 82.33 LAB L501.1300 10-20 RATIO Normal BUN/CRE 18.0 LAB L501.2200 8.5-10 mg/dL Normal .1 CA 9.4 LAB L501.5300 136-14 mmol/L Normal 5 NA 139 LAB L501.5600 3.5-5. mmol/L Normal 1 K 3.8 LAB L501.5900 98-107 mmol/L Normal CL 103 LAB L501.6100 21.0-3 mmol/L Normal 2.0 CO2 27.0 LAB L501.6200 5-15 Normal GAP 9 Performed By: #### L500.2500, L501.4010 #### [facility] [address] [place], [place], [address] TROPONIN-I Collected: 02/09/2018 Status: F Source: [place] 9:18 AM [facility] REPOSITORY TYPE CODE TESTS RESULT OUT OF RANGE REFERENCE UNITS LAB L501.4010 <0.045 ng/mL Normal 0.026 TROPONIN-I Result Comment: TROPONIN-I EXPECTED VALUES <0.045 NEGATIVE 0.045 - 0.590 AT RISK OF KS > OR = 0.600 SUGGEST KS Not every elevated troponin is indicative of KS. These values should be used with clinical judgement in examining the patient's clinical picture for diagnosis. To establish a diagnosis of KS versus myocardial injury, there must be a demonstrated rise and/or fall in the troponin values, in addition to ischemic symptoms, EKG changes, new regional wall motion abnormality, and/or angiographical evidence. PLEASE NOTE: REFERENCE RANGES EDITED 18 Performed By: #### L500.2500, L501.4010 #### [facility] [address] [place], [address] ALLERGIES ALLERGIES DATE TYPE / CODE NAME / CODE REACTION SEVERITY SOURCE 08/28/2018 Drug No Known Unknown [facility] Allergy/4160 Allergies/F00 [facility] [address](SNOMED [id number](RXNOR Repository CT) M) ENCOUNTERS ENCOUNTERS ADMIT/DISCHARGE ACCOUNT ADMITTING ENCOUNTER LOCATION SOURCE NUMBER CLASS 09/12/2018 [id number] Ambulatory [address] ing:LAB Repository 08/28/2018/ [id number] Ambulatory BMSBuilding:B [place] 8 1 [facility] Repository 07/10/2018 [id number] Ambulatory [place] 5 [facility] ing:CR Repository 06/11/2018/ [id number] Ambulatory Denise [place] 8 7 [facility] ing:CR Repository 06/10/2018 [id number] Ambulatory [place] [facility] 9 [facility] ing:CR Repository 05/30/2018/ [id number] [place] 8 6 [facility] ing:CR Repository 05/20/2018/ [id number] Ambulatory Denise [place] 8 1 [facility] ing:CR Repository 05/10/2018 [id number] Ambulatory [place] Denise 7 [facility] ing:DC Repository 04/28/2018/ [id number] Ambulatory Denise Denise 8 1 [facility] ing:CR Repository 04/28/2018/ [id number] [place] 8 3 [facility] ing:CR Repository 04/25/2018 [id number] Ambulatory Denise [place] 4 [facility] ing:PSN Repository 04/25/2018 [id number] Ambulatory BMSBuilding:W [place] 7 [facility] Hospital Repository 04/22/2018/ [id number] Amb[place] 8 7 [facility] ing:DC Repository 04/21/2018 [id number] Ambulatory [place] Denies 6 [facility] ing:LAB Repository 04/14/2018/ [id number] Ambulatory BMSBuilding:B [place] 8 0 [facility] Repository 03/28/2018 [id number] Ambulatory Denise Den[place] 6 [facility] ing:CR Repository 03/28/2018/ [id number] Ambulatory [place] Denise 8 0 [facility] ing:CR Repository 03/28/2018/ [id number] Ambulatory Denise Denise 8 9 [facility] ing:CR Repository 03/26/2018 [id number] Ambulatory BMSBuilding:B [place] 5 [facility] Repository 03/26/2018 [id number] Ambulatory [place] Denise 6 [facility] Hospital ing:[facility] Repository 03/26/2018 [id number] Ambulatory BMSBuilding:B [place] 5 [facility] Repository 03/13/2018 [id number] Ambulatory Denise [place] 7 [facility] ing:CR Repository 03/12/2018/ [id number] Ambulatory BMSBuilding:B [place] 8 [address] [facility] Repository 03/11/2018 [id number] Ambulatory BMSBuilding:B [place] 8 [facility] Repository 02/10/2018/ [id number] Steven Spence Inpatient [place] Denise 8 6 Encounter [facility] ing:ICURoom: Repository USEMA308Ohi: 1 02/10/2018 [id number] Steven Spence Ambulatory BMSBuilding:B [place] 3 MS.[facility] Repository 02/10/2018 [id number] Steven Spence Ambulatory BMSBuilding:B [place] 7 [facility] Repository 02/10/2018 [id number] Steven Spence Ambulatory BMSBuilding:B [place] 6 [facility] Repository 02/10/2018/ [id number] Ambulatory BMSBuilding:W [place] 8 8 [facility] Repository 02/09/2018 [id number] Steven Spence Ambulatory BMSBuilding:B [place] 4 [facility] Repository 02/09/2018 [id number] Steven Spence Ambulatory BMSBuilding:B [place] 6 [facility] Repository 02/09/2018/ [id number] Ambulatory BMSBuilding:W [place] 8 5 [facility] Repository 12/02/2017 [id number] Ambulatory BMSBuilding:B [place] 8 MS.[facility] Repository PAYERS PAYERS ENCOUNTER GUARANTOR PAYER SUBSCRIBER SOURCE 09/12/2018 AMBROSIO [id number] Insurance:MEDICARE WILLARDDOB: Community [place] PART [place] [facility] [id number] Number: Repository [id number]: [phone] [id number] [phone] () Date:2018-09-12 09/12/2018 Secondary AMBROSIO C Den[place] Insurance:AETNA SR WILLARDDOB: Community SUPPLEMENT INSPolicy [id number] Hospital Number: Repository [id number] Date:7261-01-03JUGSC SENIOR SUPPLEMENT [address] [place] [address]OV: 09/12/2018 Tertiary NOT GIVENUNK Den[place] Insurance:SELF PAY [facility] Hospital Number: Effective Repository Date:2018-09-12 08/28/2018 AMBROSIO C Primary AMBROSIO C Den[place] [id number] Insurance:MEDICARE WILLARDDOB: Community [place] PART A [facility] [id number] Number: Repository [address]Ujy: [phone] [id number] [phone] () Date:2018-03-12 08/28/2018 Secondary AMBROSIO C Den[place] Insurance:AETNA SR WILLARDDOB: Community [facility] [id number] Hospital Number: Repository [id number] Date:7277-68-66VPJOA SENIOR SUPPLEMENT [address] [place] [address]UQ: 08/28/2018 Tertiary NOT GIVENUNK Denise Insurance:SELF PAY [facility] Hospital Number: Effective Repository Date:2018-08-28 07/10/2018 AMBROSIO C Primary AMBROSIO C Denise [id number] Insurance:MEDICARE WILLARDDOB: Community [place] PART A [facility] [id number] Number: Repository [phone]: [phone] [id number] [phone] () Date:2018-03-13 07/10/2018 Secondary AMBROSIO C [place] Insurance:AETNA SR WILLARDDOB: Community SUPPLEMENT [facility] [id number] Hospital Number: Repository [id number] Date:2932-58-19EJXVX SENIOR SUPPLEMENT [address] [address]RTPAXGEZB, [place] [address]MF: 07/10/2018 Tertiary NOT GIVENUNK [place] Insurance:SELF PAY [facility] Number: Effective Repository Date:2018-06-30 06/11/2018 AMBROSIO C Primary AMBROSIO C [place] [id number] Insurance:MEDICARE WILLARDDOB: Community [place] PART A [facility] [id number] [place] Number: Repository [phone]: [phone] [id number] [phone] () Date:2018-03-13 06/11/2018 Secondary AMBROSIO C [place] Insurance:AETNA SR WILLARDDOB: Community SUPPLEMENT [facility] [id number] Hospital Number: Repository [id number] Date:0907-61-33HZQHT SENIOR SUPPLEMENT [address] [address], [place] [address]ZM: 06/11/2018 Tertiary NOT GIVENUNK Den[place] Insurance:SELF PAY [facility] Number: Effective Repository Date:2018-05-31 06/10/2018 AMBROSIO C Primary AMBROSIO C [place] [id number] Insurance:MEDICARE WILLARDDOB: Community [place] [facility] [id number] Number: Repository [id number]: [phone] [id number] [phone] () Date:2018-03-17 06/10/2018 Secondary AMBROSIO C [place] Insurance:AETNA SR WILLARDDOB: Community SUPPLEMENT [facility] [id number] Hospital Number: Repository [id number] Date:7594-11-77SQZUY SENIOR SUPPLEMENT [address] [address]KMUJ[place]OD[place], [place] [address]GT: 06/10/2018 Tertiary NOT GIVENUNK Den[place] Insurance:SELF PAY [facility] Number: Effective Repository Date:2018-05-31 05/30/2018 AMBROSIO C Primary AMBROSIO C [place] [id number] Insurance:MEDICARE WILLARDDOB: Community [place] [facility] [id number] Hospital - [place] Number: Repository [id number]: [phone] [id number] [phone] (HP) Date:2018-03-13 05/30/2018 Secondary AMBROSIO C [place] Insurance:AETNA SR WILLARDDOB: Community SUPPLEMENT INSPolicy [id number] Hospital Number: Repository [id number] Date:9568-34-08LNBMC SENIOR SUPPLEMENT [address]QS[address] [place] [address]JK: 05/30/2018 Tertiary NOT GIVENUNK [place] Insurance:SELF PAY [facility] Number: Effective Repository Date:2018-04-30 05/20/2018 AMBROSIO C Primary AMBROSIO C [place] [id number] Insurance:MEDICARE WILLARDDOB: Community [place] [facility] [id number] Number: Repository [address]Grj: [phone] [id number] [phone] () Date:2018-03-17 05/20/2018 Secondary AMBROSIO C [place] Insurance:AETNA SR WILLARDDOB: Community SUPPLEMENT INSPolicy [id number] Hospital Number: Repository [id number] Date:5050-29-78FYVMF SENIOR SUPPLEMENT [address] [place] [address]WR: 05/20/2018 Tertiary NOT GIVENUNK [place] Insurance:SELF PAY [facility] Number: Effective Repository Date:2018-04-30 05/10/2018 AMBROSIO C Primary AMBROSIO C Denise [id number] Insurance:MEDICARE WILLARDDOB: Community [place] [facility] [id number] Hospital - [place] Number: Repository [id number]: [phone] [id number] [phone] () Date:2018-04-17 05/10/2018 Secondary AMBROSIO C [place] Insurance:AETNA SR WILLARDDOB: Community [facility]PPLEMENT [facility] [id number] Hospital Number: Repository [id number] Date:7600-85-44FEXEI SENIOR SUPPLEMENT [address] [place] [address]FR: 05/10/2018 Tertiary NOT GIVENUNK [place] Insurance:SELF PAY [facility] Hospital Number: Effective Repository Date:2018-04-30 04/28/2018 AMBROSIO C Primary AMBROSIO C Denise [id number] Insurance:MEDICARE WILLARDDOB: Community [place] [facility] [id number] Number: Repository [address]Nra: [phone] [id number] [phone] (HP) Date:2018-03-17 04/28/2018 Secondary AMBROSIO C [place] Insurance:AETNA SR WILLARDDOB: Community SUPPLEMENT [facility] [id number] Hospital Number: Repository [id number] Date:9950-35-65ABYRY SENIOR SUPPLEMENT [address] [place] [address]PV: 04/28/2018 Tertiary NOT GIVENUNK [place] Insurance:SELF PAY [facility] Hospital Number: Effective Repository Date:2018-03-30 04/28/2018 AMBROSIO C Primary AMBROSIO C [place] [id number] Insurance:MEDICARE WILLARDDOB: Community [place] PART A [facility] [id number] Hospital - [place] Number: Repository [id number]: [phone]) [id number] [phone] () Date:2018-03-13 04/28/2018 Secondary AMBROSIO C [place] Insurance:AETNA SR WILLARDDOB: Community SUPPLEMENT [facility] [id number] Hospital Number: Repository [id number] Date:3126-98-49ISTUW SENIOR SUPPLEMENT [address]PIVYK[address] [place] [address]UI: 04/28/2018 Tertiary NOT GIVENUNK [place] Insurance:SELF PAY [facility] Hospital Number: Effective Repository Date:2018-03-30 04/25/2018 AMBROSIO C Primary AMBROSIO C [place] [id number] Insurance:MEDICARE WILLARDDOB: Community [place] A [facility] [id number] Hospital - [place] Number: Repository [id number]: [phone]) [id number] [phone] (HP) Date:2018-04-24 04/25/2018 Secondary AMBROSIO C [place] Insurance:AETNA SR WILLARDDOB: Community SUPPLEMENT INSPolicy [id number] Hospital Number: Repository [id number] Date:9438-84-86TLQSY SENIOR SUPPLEMENT [address] [address]ZINZBWYXF, [place] [address]QC: 04/25/2018 Tertiary NOT GIVENUNK Den[place] Insurance:SELF PAY [facility] Hospital Number: Effective Repository Date:2018-04-24 04/25/2018 AMBROSIO C Primary AMBROSIO C [place] [id number] Insurance:MEDICARE WILLARDDOB: Community [place] [facility] [id number] Number: Repository [id number]: [phone]) [id number] [phone] () Date:2018-04-24 04/25/2018 Secondary AMBROSIO C [place] Insurance:AETNA SR WILLARDDOB: Community SUPPLEMENT [facility] [id number] Hospital Number: Repository [id number] Date:9392-98-34LFQHJ SENIOR SUPPLEMENT [address] [address]SPAEEMCAQ, [place] [address]GP: 04/25/2018 Tertiary NOT GIVENUNK [place] Insurance:SELF PAY [facility] Number: Effective Repository Date:2018-04-25 04/22/2018 AMBROSIO C Primary AMBROSIO C Den[place] [id number] Insurance:MEDICARE WILLARDDOB: Community [place] [facility] [id number] Number: Repository [id number]: [phone] [id number] [phone] (HP) Date:2018-04-17 04/22/2018 Secondary AMBROSIO C [place] Insurance:AETNA SR WILLARDDOB: Community SUPPLEMENT [facility] [id number] Hospital Number: Repository [id number] Date:6884-46-40AFPJK SENIOR SUPPLEMENT [address] [address]GGINLFYIQ, [place] [address]AD: 04/22/2018 Tertiary NOT GIVENUNK [place] Insurance:SELF PAY [facility] Hospital Number: Effective Repository Date:2018-04-17 04/21/2018 AMBROSIO C Primary AMBROSIO C [place] [id number] Insurance:MEDICARE WILLARDDOB: Community [place] [facility] [id number] Number: Repository [id number]: [phone] [id number] [phone] (HP) Date:2018-04-21 04/21/2018 Secondary AMBROSIO C [place] Insurance:AETNA SR WILLARDDOB: Community SUPPLEMENT INSPolicy [id number] Hospital Number: Repository [id number] Date:7530-88-64PHOCW SENIOR SUPPLEMENT [address] [place] [address]HV: 04/21/2018 Tertiary NOT GIVENUNK [place] Insurance:SELF PAY [facility] Number: Effective Repository Date:2018-04-21 04/14/2018 AMBROSIO C Primary AMBROSIO C [place] [id number] Insurance:MEDICARE WILLARDDOB: Community [place] PART A [facility] [id number] Hospital - [place] Number: Repository [phone]: [phone] [id number] [phone] () Date:2018-03-31 04/14/2018 Secondary AMBROSIO C [place] Insurance:AETNA SR WILLARDDOB: Community SUPPLEMENT INSPolicy [id number] Hospital Number: Repository [id number] Date:4242-71-12ZHFTZ SENIOR SUPPLEMENT [address]QPD[address] [place] [address]ST: 04/14/2018 Tertiary NOT GIVENUNK [place] Insurance:SELF PAY [facility] Number: Effective Repository Date:2018-04-14 03/28/2018 AMBROSIO C Primary AMBROSIO C [place] [id number] Insurance:MEDICARE WILLARDDOB: Community [place] [facility] [id number] Number: Repository [id number]: [phone]) [id number] [phone] (HP) Date:2018-03-17 03/28/2018 Secondary AMBROSIO C Den[place] Insurance:AETNA SR WILLARDDOB: Community SUPPLEMENT INSPolicy [id number] Hospital Number: Repository [id number] Date:4852-90-84GLIFH SENIOR SUPPLEMENT [address] [address]SMMIIXOBG, [place] [address]SJ: 03/28/2018 Tertiary NOT GIVENUNK Denise Insurance:SELF PAY [facility] Number: Effective Repository Date:2018-03-17 03/28/2018 AMBROSIO C Primary AMBROSIO N[place] Denise [id number] Insurance:MEDICARE WILLARDDOB: Community [place] [facility] [id number] Number: Repository [address]Jpa: [phone] [id number] [phone] () Date:2018-03-17 03/28/2018 Secondary AMBROSIO C [place] Insurance:AETNA SR WILLARDDOB: Community SUPPLEMENT [facility] [id number] Hospital Number: Repository [id number] Date:8412-37-20PXMDW SENIOR SUPPLEMENT [address]BCEFFZCBD, [place] [address]NN: 03/28/2018 Tertiary NOT GIVENUNK [place] Insurance:SELF PAY [facility] Hospital Number: Effective Repository Date:2018-03-17 03/28/2018 AMBROSIO C Primary AMBROSIO Noland Denise [id number] Insurance:MEDICARE WILLARDDOB: Community [place] [facility] [id number] Number: Repository [address]Eio: [phone] [id number] [phone] () Date:2018-03-13 03/28/2018 Secondary AMBROSIO C [place] Insurance:AETNA SR WILLARDDOB: Community SUPPLEMENT [facility] [id number] Hospital Number: Repository [id number] Date:0642-96-68AAKPD SENIOR SUPPLEMENT [address] [address]AKCSWZHRK, [place] [address]PQ: 03/28/2018 Tertiary NOT GIVENUNK [place] Insurance:SELF PAY [facility] Hospital Number: Effective Repository Date:2018-03-13 03/26/2018 AMBROSIO C Primary AMBROSIO C [place] [id number] Insurance:MEDICARE WILLARDDOB: Community [place] [facility] [id number] Number: Repository 43171Erf: [phone] [id number] [phone] () Date:2018-03-26 03/26/2018 Secondary AMBROSIO C [place] Insurance:AETNA SR WILLARDDOB: Community SUPPLEMENT [facility] [id number] Hospital Number: Repository [id number] Date:0701-56-50ZRDTM SENIOR SUPPLEMENT [address] [place] [address]AM: 03/26/2018 Tertiary NOT GIVENUNK Den[place] Insurance:SELF PAY [facility] Hospital Number: Effective Repository Date:2018-03-26 03/26/2018 AMBROSIO C Primary AMBROSIO C [place] [id number] Insurance:MEDICARE WILLARDDOB: Community [place] PART A [facility] [id number] [place] Number: Repository [address]Thn: [phone]) [id number] [phone] () Date:2018-03-17 03/26/2018 Secondary AMBROSIO C [place] Insurance:AETNA SR WILLARDDOB: Community SUPPLEMENT [facility] [id number] Hospital Number: Repository [id number] Date:4460-56-13PSOSK SENIOR SUPPLEMENT [address]MHQZOZUDI[address] [place] [address]QD: 03/26/2018 Tertiary NOT GIVENUNK [place] Insurance:SELF PAY [facility] Hospital Number: Effective Repository Date:2018-03-17 03/26/2018 AMBROSIO C Primary AMBROSIO C [place] [id number] Insurance:MEDICARE WILLARDDOB: Community [place] PART A [facility] [id number] Number: Repository [id number]: [phone]) [id number] [phone] () Date:2018-03-17 03/26/2018 Secondary AMBROSIO C [place] Insurance:AETNA SR WILLARDDOB: Community SUPPLEMENT [facility] [id number] Hospital Number: Repository [id number] Date:2660-11-75ORFXC SENIOR SUPPLEMENT [address] [address]CNKWSIRMG, [place] [address]MA: 03/26/2018 Tertiary NOT GIVENUNK [place] Insurance:SELF PAY [facility] Number: Effective Repository Date:2018-03-26 03/13/2018 AMBROSIO C Primary AMBROSIO C [place] [id number] Insurance:MEDICARE WILLARDDOB: Community [place] PART A [facility] [id number][place] Number: Repository [id number]: [phone]) [id number] [phone] () Date:2018-02-18 03/13/2018 Secondary AMBROSIO C [place] Insurance:AETNA SR WILLARDDOB: Community SUPPLEMENT [facility] [id number] Hospital Number: Repository [id number] Date:5843-55-93PEGFI SENIOR SUPPLEMENT [address] [address]WIEOLXKFW, [place] [address]BY: 03/13/2018 Tertiary NOT GIVENUNK Denise Insurance:SELF PAY [facility] Hospital Number: Effective Repository Date:2018-02-18 03/12/2018 AMBROSIO C Primary AMBROSIO C [place] [id number] Insurance:MEDICARE WILLARDDOB: Community G[place] PART A [facility] [id number], [place] Number: Repository [id number]: [phone]) [id number] [phone] () Date:2018-02-14 03/12/2018 Secondary AMBROSIO C [place] Insurance:AETNA SR WILLARDDOB: Community SUPPLEMENT [facility] [id number] Hospital Number: Repository [id number] Date:0900-73-85HNATD SENIOR SUPPLEMENT [address] [place] [address]SM: 03/12/2018 Tertiary NOT GIVENUNK [place] Insurance:SELF PAY [facility] Number: Effective Repository Date:2018-03-12 03/11/2018 Ambrosio C Primary Ambrosio C [place] [id number] Insurance:MEDICARE WillardDOB: Community Gates PART A [facility] [id number], [place] Number: Repository [id number]: [phone] [id number] [phone] (HP) Date:2018-03-11 03/11/2018 Secondary Ambrosio C [place] Insurance:AETNA SR WillardDOB: Community SUPPLEMENT INSPolicy [id number] Hospital Number: Repository [id number] Date:4909-84-90GQBGI SENIOR SUPPLEMENT [address] [address]EEIWETGLB, [place] [address]WP: 03/11/2018 Tertiary NOT GIVENUNK [place] Insurance:SELF PAY [facility] Number: Effective Repository Date:2018-03-11 02/10/2018 Ambrosio C Primary Ambrosio C [place] [id number] Insurance:MEDICARE WillardDOB: Community Gates PART A [facility] [id number] Number: Repository [id number]: [phone]) [id number] [phone] () Date:2018-02-09 02/10/2018 Secondary Ambrosio C [place] Insurance:AETNA SR WillardDOB: Community SUPPLEMENT [facility] [id number] Hospital Number: Repository [id number] Date:7839-56-96TFUFQ SENIOR SUPPLEMENT [address] [address]WAJPLTWOV, [place] [address]RJ: 02/10/2018 Tertiary NOT GIVENUNK [place] Insurance:SELF PAY [facility] Number: Effective Repository Date:2018-02-09 02/10/2018 Ambrosio C Primary Ambrosio C Denise [id number] Insurance:MEDICARE WillardDOB: Community Gates PART A [facility] [id number] Number: Repository [id number]: [phone]) [id number] [phone] (HP) Date:2018-02-09 02/10/2018 Secondary Ambrosio C [place] Insurance:AETNA SR WillardDOB: Community SUPPLEMENT [facility] [id number] Hospital Number: Repository [id number] Date:3161-90-85DCOKQ SENIOR SUPPLEMENT [address] [address]PKSTTOSQE, [place] [address]JC: 02/10/2018 Tertiary NOT GIVENUNK [place] Insurance:SELF PAY [facility] Number: Effective Repository Date:2018-02-10 02/10/2018 Ambrosio Noland Primary Ambrosio Noland [place] [id number] Insurance:MEDICARE WillardDOB: Community Gates PART A [facility] [id number], [place] Number: Repository [id number]: [phone]) [id number] [phone] (HP) Date:2018-02-09 02/10/2018 Secondary Ambrosio C [place] Insurance:AETNA SR WillardDOB: Community SUPPLEMENT [facility] [id number] Hospital Number: Repository [id number] Date:3071-54-02YCREL SENIOR SUPPLEMENT [address] [place] [address]XR: 02/10/2018 Tertiary NOT GIVENUNK Den[place] Insurance:SELF PAY [facility] Hospital Number: Effective Repository Date:2018-02-10 02/10/2018 Ambrosio Noland Primary Ambrosio Noland Denise [id number] Insurance:MEDICARE WillardDOB: Community Gates PART A [facility] [id number] [place] Number: Repository [id number]: [phone]) [id number] [phone] () Date:2018-02-09 02/10/2018 Secondary Ambrosio N[place] Insurance:AETNA SR WillardDOB: Community SUPPLEMENT [facility] [id number] Hospital Number: Repository [id number] Date:6933-18-38MSNSE SENIOR SUPPLEMENT INSPO [id number] [place] [phone]: 02/10/2018 Tertiary NOT GIVENUNK Denise Insurance:SELF PAY [facility] Number: Effective Repository Date:2018-02-10 02/10/2018 AMBROSIO [place] Primary AMBROSIO [place] Denise [id number] Insurance:MEDICARE WILLARDDOB: Community GATES PART A [id number] [place] Number: Repository [id number]: [phone] [id number] [phone] (HP) Date:2018-02-09 02/10/2018 Secondary AMBROSIO C [place] Insurance:AETNA SR WILLARDDOB: Community SUPPLEMENT INSPolicy [id number] Hospital Number: Repository [id number] Date:[id number] SENIOR SUPPLEMENT [address] [address], [place] [address]RF: 02/10/2018 Tertiary NOT GIVENUNK [place] Insurance:SELF PAY [facility] Number: Effective Repository Date:2018-02-10 02/09/2018 Ambrosio C Primary Ambrosio C [place] [id number] Insurance:MEDICARE WillardDOB: Community Gates PART A [facility] [id number] Number: Repository [id number]: [phone] [id number] [phone] () Date:2018-02-09 02/09/2018 Secondary Ambrosio C [place] Insurance:AETNA SR WillardDOB: Community SUPPLEMENT [facility] [id number] Hospital Number: Repository [id number] Date:[id number] SENIOR SUPPLEMENT [address] [address], [place] [address]GP: 02/09/2018 Tertiary NOT GIVENUNK Denise Insurance:SELF PAY [facility] Number: Effective Repository Date:2018-02-09 02/09/2018 Ambrosio C Primary Ambrosio Noland [place] [id number] Insurance:MEDICARE WillardDOB: Community Gates PART A [facility] [id number] Number: Repository [id number]: [phone] [id number] [phone] () Date:2018-02-09 02/09/2018 Secondary Ambrosio C [place] Insurance:AETNA SR WillardDOB: Community SUPPLEMENT [facility] [id number] Hospital Number: Repository [id number] Date:[id number] SENIOR SUPPLEMENT [address] [address]BV[place]MN, [place] [address]FV: 02/09/2018 Tertiary NOT GIVENUNK [place] Insurance:SELF PAY [facility] Hospital Number: Effective Repository Date:2018-02-09 02/09/2018 AMBROSIO C Primary AMBROSIO Noland [place] [id number] Insurance:MEDICARE WILLARDDOB: Community [place]ATES PART A [id number] Number: Repository [id number]: [phone] [id number] [phone] () Date:2018-02-09 02/09/2018 Secondary AMBROSIO Noland [place] Insurance:AETNA SR WILLARDDOB: Community SUPPLEMENT [facility] [id number] Hospital Number: Repository [id number] Date:[id number] SENIOR SUPPLEMENT INSP[address] [place] [phone]: 02/09/2018 Tertiary NOT GIVENUNK Denise Insurance:SELF PAY [facility] Number: Effective Repository Date:2018-02-09 12/02/2017 Ambrosio C Primary NOT GIVENUNK [place] [id number] Insurance:SELF [place]Y [place] Number: Effective Repository [phone]: [phone] Date:2017-09-17 [phone] ()
== END ==
PROVIDERS: Family Provider Family Medicine; PCP Family Medicine; Referring Provider Internal Medicine Cardiovascular Disease; Visit Provider Internal Medicine Cardiovascular Disease
DX: E78.00 Pure hypercholesterolemia, unspecified (principal)
CPT/HCPCS: 36415; 80061; 80076

== ENCOUNTER → 2019-01-14 10:24 | Outpatient (CLI) | payer MEDICARE, OTHER, SELFPAY ==
[2019-01-14 09:40] VITALS: BMI 39.9
--- NOTE | 2019-01-14 10:30 | RAD_ITS ---
STUDY: X-RAY CHEST REASON FOR EXAM: Male, 68 years old. Dyspnea TECHNIQUE: PA and lateral views of the chest. COMPARISON: Chest x-ray 02/09/2018 FINDINGS: The lungs are clear and expanded. There is no demonstrated pleural abnormality. Normal size heart. Normal mediastinum and april. Normal visualized pulmonary arteries. Normal visualized aortic arch and descending thoracic aorta. Normal visualized thoracic spine. Normal visualized ribs, clavicles, and shoulders. There is no demonstrated abnormality of the visualized soft tissue structures of the upper abdomen. RAD/Chest PA and Lateral IMPRESSION: Normal x-ray examination of the chest. Electronically Signed: Da Dwyer, at 13:33 EDT Tel , Service support ,
[2019-01-14 11:27] LABS: Anion Gap 6 (5-15); BUN 21 mg/dL (7-18); BUN/Creat Ratio 20.8 RATIO (10-20); Calcium,Total 9.3 mg/dL (8.5-10.1); Chloride 101 mmol/L (98-107); Creatinine, Serum 1.01 mg/dL (0.70-1.30); EST Glomerular Filtration Rate 78 mL/min (>60); Est Glom Filt Rate - Afr Amer 95 mL/min (>60); Glucose 329 mg/dL (74-106); Potassium 4.4 mmol/L (3.5-5.1); Sodium Level 137 mmol/L (136-145)
[2019-01-14 11:39] LABS: BNP,B-Type NATRIURETIC PEPTIDE 59.3 pg/mL (0-100)
== END ==
PROVIDERS: Family Provider Family Medicine; PCP Family Medicine; Referring Provider Nurse Practitioner Family; Visit Provider Nurse Practitioner Family
DX: I25.10 Atherosclerotic heart disease of native coronary artery without angina pectoris (principal); R06.09 Other forms of dyspnea; I10 Essential (primary) hypertension; R05 Cough
CPT/HCPCS: 36415; 71046; 80048; 83880

== ENCOUNTER → 2019-02-02 | Outpatient (CLI) | payer MEDICARE, OTHER, SELFPAY ==
[2019-01-14 09:40] VITALS: BMI 39.9
--- NOTE | 2019-02-02 16:45 | STRESSREP ---
Stress Test Report Pharmacologic myocardial perfusion stress test. 68-year-old man with a history of coronary artery disease status post Hoa plasty and stenting of the right coronary artery, and left anterior descending artery. Stress protocol: Resting EKG demonstrates normal sinus rhythm with a rate of 68 bpm occasional premature ventricular complexes noted. Resting blood pressure is 162/82 mmHg. 0.4 mg of regadenoson was infused per usual protocol followed by rapid intravenous saline flush injection continuous EKG monitoring was performed. The patient maintained sinus rhythm throughout the recording the maximum heart rate attained was 82 bpm which was 53% of maximum predicted heart rate the maximum workload was 1 metabolic equivalent. At rest with no ST or T wave changes noted suggest abnormal flow reserve at peak infusion nonspecific ST-T wave changes were noted with no meet the criteria for ischemia. Myocardial perfusion protocol. 14.8 mCi of technetium 99m sestamibi was injected at rest. 0.4 mg of regadenoson was infused per usual protocol peak infusion 44.4 mCi of technetium 99m sestamibi was injected stress images were obtained stress and rest images were reconstructed in comparing the short axis vertical long horizontal long axis. Gated images were also obtained Perfusion SPECT analysis: Review of the stress images demonstrate normal uptake of tracer noted in the septum the apical anterior wall and portions of the lateral wall. There is a large defect noted involving the inferior wall from base to apex. The resting images demonstrate improvement in the apical inferior wall. The basal inferior wall appears to be largely fixed suggestive of a previous inferior myocardial infarction. This images are suggestive of inferior apical ischemia. Gated SPECT analysis: The gated ejection fraction is noted to be 55%. Conclusion: Abnormal myocardial perfusion scan with evidence of inferior apical ischemia. Preserved ejection fraction. Previous basal inferior infarct noted.
== END | disposition home or self-care (01) ==
PROVIDERS: Family Provider Family Medicine; PCP Family Medicine; Referring Provider Nurse Practitioner Family; Visit Provider Nurse Practitioner Family
DX: I25.10 Atherosclerotic heart disease of native coronary artery without angina pectoris (principal); I10 Essential (primary) hypertension; R06.09 Other forms of dyspnea
CPT/HCPCS: 78452; 93017; A9500; A4216; J2785

== ENCOUNTER → 2019-02-05 | Outpatient (CLI) | payer MEDICARE, OTHER, SELFPAY ==
[2019-01-14 09:40] VITALS: BMI 39.9
[2019-02-05 12:33] LABS: Absolute Lymphocyte Count 2.86 X10^3/ul (0.83-4.51); Absolute Neutrophil Count 3.5 X10^3/uL (2.0-7.7); Basophil# 0.03 X10^3/uL; Basophil% 0.4 % (0-1); Eosinophil# 0.19 X10^3/uL; Eosinophils% 2.6 % (0-5); Hematocrit 46.1 % (40-54); Hemoglobin 15.4 g/dl (13.0-16.5); Lymphocyte # 2.86 X10^3/ul (4.0); Lymphocyte % 39.7 % (19-41); Mean Corp Hgb Conc 33.4 g/gl (32-36); Mean Corpuscular Hgb 29.4 pg (27.0-32.0); Mean Platelet Vol. 10.7 fl (6.2-12.0); Monocyte# 0.63 X10^3/uL; Monocyte% 8.8 % (0-10); Neutrophil # 3.48 X10^3/uL (2.7-7.7); Neutrophil % 48.4 % (47-70); Platelet Count 209 K/mm3 (150-450); RBC Distribution Width CV 13.2 % (11.6-14.6); Red Blood Count 5.24 M/mm3 (4.6-6.2); White Blood Count 7.2 K/mm3 (4.4-11.0)
[2019-02-05 12:41] LABS: POSITIVE COUNT NO; POSITIVE DIFFERENTIAL NO; POSITIVE MORPHOLOGY NO
[2019-02-05 13:00] LABS: AST(SGOT) 10 U/L (15-37); Alanine Aminotransfer ALT/SGPT 23 U/L (16-61); Albumin, Serum 3.6 g/dL (3.2-5.0); Alkaline Phosphatase 73 U/L (45-117); Anion Gap 9 (5-15); BUN 13 mg/dL (7-18); BUN/Creat Ratio 15.9 RATIO (10-20); Calcium,Total 8.6 mg/dL (8.5-10.1); Chloride 106 mmol/L (98-107); Cholesterol 184 mg/dL (200); Creatinine, Serum 0.82 mg/dL (0.70-1.30); EST Glomerular Filtration Rate 100 mL/min (>60); Est Glom Filt Rate - Afr Amer 121 mL/min (>60); Globulin 3.7 g/dL (2.2-4.2); Glucose 135 mg/dL (74-106); High Density Lipoprotein 39 mg/dL; Potassium 3.7 mmol/L (3.5-5.1); Protein, Total 7.3 g/dL (6.4-8.2); Sodium Level 141 mmol/L (136-145); Thyroid Stim Hormone (TSH) 2.32 uIU/mL (0.358-3.74); Triglycerides 112 mg/dL; Very Low Density Lipoprotein 22 mg/dL (5-40)
== END | disposition home or self-care (01) ==
LOC: BFHLAB 08:08
PROVIDERS: Family Provider Family Medicine; PCP Family Medicine; Visit Provider Family Medicine
DX: E11.9 Type 2 diabetes mellitus without complications (principal); N40.0 Benign prostatic hyperplasia without lower urinary tract symptoms; E78.5 Hyperlipidemia, unspecified; R53.83 Other fatigue; I11.9 Hypertensive heart disease without heart failure
CPT/HCPCS: 36415; 80053; 80061; 84443; 85025

== ENCOUNTER 2019-02-19 06:42 | Day surgery (SDC) | payer MEDICARE, OTHER, SELFPAY ==
[2019-01-14 09:40] VITALS: BMI 39.9
[2019-02-18 11:21] VITALS: BMI 39.9
[2019-02-19] VITALS (23 sets, daily range): BP systolic 96–177; BP diastolic 49–88; PULSE 63–76; RESP 13–22; TEMP 36.5–37; O2SAT 93–96; BMI 40.2
--- NOTE | 2019-02-19 06:45 | PCM.HP.BLA ---
Problem List (1) Abnormal stress test Status: Acute (2) Atherosclerotic heart disease of [place] coronary artery without angina pectoris Status: Chronic Qualifiers: Comment: [id number]-Mid RCA w/ 3.5 x 15 mm Resolute and JOSE MIGUEL-Distal RCA w/ Resolute 3.5 x 15 mm stent 02/10/18 [id number] LAD 06/29/2014 PCI-JOSE MIGUEL-Mid RCA w/ 4.0 x 18 mm Xience-06/10/2009 @ [facility] (3) H/O right coronary artery stent placement Status: Chronic Comment: [id number]-Mid RCA w/ 3.5 x 15 mm Resolute and JOSE MIGUEL-Distal RCA w/ Resolute 3.5 x 15 mm stent 02/10/18 KNW-Vhqvi-Hke LAD 06/29/2014 PCI-JOSE MIGUEL-Mid RCA w/ 4.0 x 18 mm Xience-06/10/2009 @ [facility] (4) Hyperlipidemia Status: Chronic Qualifiers: Comment: Following with cardiology. Labs ordered.On statin (5) Hypertension Status: Chronic Qualifiers: Comment: Rechecked 136/80 Enc diet,exercise, weight loss History and Physical Date of Admission: 02/19/19 HPI HPI Details: AMBROSIO JULIO, is a 68 M who presents to the labor representative today for a hear catheterization procedure. He has a history coronary artery with stenting in 2008 involving the right coronary artery as well as in the left anterior descending artery in 2013. He presented to the hospital in January 2018 with chest discomfort suggestive of unstable angina. He underwent a cardiac catheterization which demonstrated normal left main coronary artery, left anterior descending artery with the previously placed stents which was patent, a circumflex artery with a 95% proximal stenosis in the small vessel, and a dominant right coronary artery with a mid in-stent stenosis of 70-80% and a distal drug-eluting stent with stenosis noted. He underwent angioplasty and drug-eluting stenting with a 3.5?15 mm stent as well as a 3.0?15 mm drug-eluting stent with excellent results to RCA. He also underwent EECP with some benefit. He underwent a nuclear stress test on 02/02/2019 d/t concerning SOB. This test showed evidence of inferior apical ischemia, preserved ejection fraction, and basal inferior infarct. Thus, he will proceed with a left heart catheterization for further evaluation. Patient denies any chest, arm, jaw, or neck pain. He continues with shortness of breath. His cough is unchanged. He denies any lightheadedness, dizziness, presyncope, or syncope. He denies edema or claudication. He denies orthopnea or PND. He states his energy level remains low. 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 Is patient in pain?: No Allergies No Known Allergies Allergy (Verified 01/14/19 09:42) Medications aspirin 81 mg tablet,delayed release 81 mg PO DAILY 11/20/17 [History Confirmed 01/14/19] Clopidogrel Bisulfate [Clopidogrel] 75 mg PO DAILY 02/09/18 [History Confirmed 01/14/19] cholecalciferol (vitamin D3) 50,000 unit capsule 50,000 unit PO QWEEK 03/12/18 [History Confirmed 01/14/19] Blood pressure arm cuff #1 ea 03/14/18 [Rx Confirmed 01/14/19] insulin NPH isophane U- 100 human 100 unit/mL subcutaneous suspension 45 unit SC BID #2 vial 04/16/18 [Rx Confirmed 01/14/19] metoprolol succinate ER 100 mg tablet,extended release 24 hr 100 mg PO QDAY #30 tab 04/28/18 [Rx Confirmed 01/14/19] insulin lispro (U- 100) 100 unit/mL subcutaneous pen 20 unit SC TID #60 ml 05/08/18 [Rx Confirmed 01/14/19] isosorbide mononitrate ER 60 mg tablet,extended release 24 hr 60 mg PO DAILY #90 tab 05/08/18 [Rx Confirmed 01/14/19] losartan 100 mg tablet 100 mg PO QDAY #30 tab 05/13/18 [Rx Confirmed 01/14/19] amlodipine 5 mg tablet 5 mg PO DAILY #90 tab 08/28/18 [Rx Confirmed 01/14/19] insulin syringe U-100 with needle 1/2 mL 31 gauge x 15/64 See Dose Instructions .ROUTE .MEDSUPPLY #90 ea 09/08/18 [Rx Confirmed 01/14/19] metformin 500 mg tablet 500 mg PO BID #180 tab 12/16/18 [Rx Confirmed 01/14/19] lovastatin 40 mg tablet 40 mg PO DAILY 01/14/19 [History Confirmed 01/14/19] PFSH Medical History Hyperlipidemia (Chronic) Hypertension (Chronic) Atherosclerotic heart disease of [place] coronary artery without angina pectoris (Chronic) Vascular disease (Acute) Diabetes type 2, controlled (Chronic) HTN (hypertension) (Chronic) Surgical History History of left heart catheterization (Chronic) H/O right coronary artery stent placement (Chronic 02/10/18) History of hydrocelectomy (Chronic) History of tonsillectomy and adenoidectomy (Chronic) Family History Unknown Arthritis Cancer Diabetes Father Heart disease Mother Hypertension Other CAD (coronary artery disease) Social History Smoking Status: Never smoker second hand exposure: No alcohol intake: never substance use type: does not use ROS Const Const: Positive for fatigue; negative for weakness, body ache, fever(s) or chills ENT ENT: Negative for dizziness Cardio Chest Pain: No Palpitations: No Edema: None Muscle aches with walking: None Resp Respiratory: Positive for SOB with activity and Cough; negative for SOB at rest, SOB orthopnea\SOB lying down or paroxysmal nocturnal dyspnea GI GI: Negative nausea, vomiting blood/hematemesis, bright, red blood in stools or black,tarry stools : Negative for hematuria or frequent nighttime urination/ nocturia Musc Musc: Negative for muscle aches/ myalgia Skin Skin: Negative non-healing lesions or rash Neuro Neuro: Negative for dizziness, lightheadedness, near syncope, syncope, orthostatic symptoms or weakness Endo Endo: Positive for fatigue Allergy Allergy/Immunology: Negative for rash Cardiology Exam Const Appearance: cooperative, healthy appearing, comfortable and no acute distress Nutritional Appearance: well nourished and obese Orientation: alert, awake and oriented x3 Head Head: normal to inspection Ears: hearing grossly normal bilaterally Nose: external nose normal Face and Sinus: face symmetric Mouth: oral mucosae normal Eyes General: appearance normal, both eyes and all related structures Eyelids: eyelids normal EOM: EOM intact bilaterally Neck Neck: normal visual inspection and no JVD Carotids: normal carotid upstroke Chest Chest inspection: normal inspection of the chest, symmetric chest movement, normal respiratory effort and cough Auscultation: Bilateral: Diminished Lung Sounds Cardio Rate: regular rate Rhythm: regular rhythm Heart sounds: S1 normal and S2 normal; negative rub, gallop or murmur GI GI: normal to inspection and obese Neuro General: alert, awake, oriented x3 and CN's II-XI intact bilaterally Skin Skin: no rashes or lesions noted Extremities Pulses: Normal: Right Posterior Tibial Pulse, Left Posterior Tibial Pulse, Right Radial Pulse, Left Radial Pulse Lower Extremity Edema: None: Bilateral Psych Psychological: normal affect Assessment & Plan 1. Atherosclerosis of [place] coronary artery of [place] heart without angina pectoris I25.10 YMF-KPI-JGH-Mid RCA w/ 3.5 x 15 mm Resolute and JOSE MIGUEL-Distal RCA w/ Resolute 3.5 x 15 mm stent 02/10/18 [id number]-Lvhvg-Haa LAD 06/29/2014 PCI-JOSE MIGUEL-Mid RCA w/ 4.0 x 18 mm Xience-06/10/2009 @ [facility] Plan - MARTHA Chilel His last echocardiogram in January 2018 showed ejection fraction of 55% and moderate concentric left ventricular hypertrophy. His previous heart catheterization from January 2018 is noted above. Because of his abnormal stress test, he will proceed with left heart catheterization. Based on results, further recommendation will be made. 2. Dyspnea on exertion R06.09 Plan - MARTHA Chilel He continues with SOB. This was evaluated after last office visit with a BNP, BMP, and chest x-ray, which was negative. Hopefully the left heart catherization will provide more information to help his symptom. 3. Essential hypertension I10 Rechecked 136/80 Enc diet,exercise, weight loss Plan - MARTHA Chilel Patient's blood pressure is well-controlled. We will continue to monitor. We will not make any medication regimen changes. 4. Pure hypercholesterolemia E78.00 Following with cardiology. Labs ordered.On statin Plan - MARTHA Chilel Lipid panel from August 2018 showed cholesterol: 178, HDL: 37, LDL: 110, and triglycerides: 157. He will continue with current statin medication. He is expected to repeat both liver and lipid profile in March 2019. Additional Comments - MARTHA Chilel Discussed the above patient with Dr. Choi, he agrees with the plan of care. Thank you for allowing us to participate in the patients plan of care, if you have any questions please do not hesitate to call. This note was generated using a voice recognition system and there may be incorrect words, spelling or punctuation that were not noted when reviewing the office note prior to saving. Diagnoses Atherosclerosis of [place] coronary artery of [place] heart without angina pectoris I25.10 [place] vs. transplanted heart: [place] heart Dyspnea on exertion R06.09 Essential hypertension I10 Hypertension type: essential hypertension Pure hypercholesterolemia E78.00 Hyperlipidemia type: pure hypercholesterolemia Diagnoses Atherosclerosis of [place] coronary artery of [place] heart without angina pectoris I25.10 [place] vs. transplanted heart: [place] heart Dyspnea on exertion R06.09 Essential hypertension I10 Hypertension type: essential hypertension Pure hypercholesterolemia E78.00 Hyperlipidemia type: pure hypercholesterolemia Supplemental Info Supplemental Information Echocardiogram from 02/09/2018: Interpretation Summary Normal LV size. Moderate concentric left ventricular hypertrophy. Left ventricular systolic function is normal. The estimated ejection fraction is 55 %. Contrast injection was performed. Heart catheterization from 02/10/2018: CORONARY ANGIOGRAPHY DOMINANCE: Right Dominant LEFT HEART ASSESSMENT Left Ventricular Ejection Fraction: by LV Gram 60 % Normal LV wall motion Normal Left Ventricular systolic function LEFT MAIN: Angiographically normal LEFT ANTERIOR DESCENDING ARTERY: Previously placed stent is patent, Mild luminal irregularities CIRCUMFLEX ARTERY: PROX CIRC: 95 % Stenosis RAMUS: Mild luminal irregularities RIGHT CORONARY ARTERY: MID RCA: Instent restenosis 95 %, 70 % Stenosis RT PDA: Distal - Mild luminal irregularities less than 30% COLLATERAL FLOW: Collateral flow from Left to Right He under went successful PTCA/JOSE MIGUEL of the Mid RCA ISR using Resolute Integrity 3.5x15 mm and successful PTCA/JOSE MIGUEL of the distal RCA using Resolute Integrity 3.0x15 mm, post-dilated using 3.5 mm balloon. Nuclear Stress Test from 02/02/2019: Conclusion: Abnormal myocardial perfusion scan with evidence of inferior apical ischemia. Preserved ejection fraction. Previous basal inferior infarct noted. Labs LDL Cholesterol 110 mg/dL (0-130) 09/12/18 HDL Cholesterol 37 mg/dL (40-) L 09/12/18 Triglycerides 157 mg/dL (-199) 09/12/18 VLDL Cholesterol 31 mg/dL (5-40) 09/12/18 Diagnostics Chest X-Ray 01/14/19
--- NOTE | 2019-02-19 06:55 | HP.PCM_ITS ---
Problem List (1) Abnormal stress test Status: Acute (2) Atherosclerotic heart disease of [place] coronary artery without angina pectoris Status: Chronic Qualifiers: Comment: [id number]-Mid RCA w/ 3.5 x 15 mm Resolute and JOSE MIGUEL-Distal RCA w/ Resolute 3.5 x 15 mm stent 02/10/18 VMA-[id number]-Jwj LAD 06/29/2014 PCI-JOSE MIGUEL-Mid RCA w/ 4.0 x 18 mm Xience-06/10/2009 @ [facility] (3) H/O right coronary artery stent placement Status: Chronic Comment: [id number]-Mid RCA w/ 3.5 x 15 mm Resolute and JOSE MIGUEL- Distal RCA w/ Resolute 3.5 x 15 mm stent 02/10/18 UMN-Conlb-Xyp LAD 06/29/2014 PCI-JOSE MIGUEL-Mid RCA w/ 4.0 x 18 mm Xience-06/10/2009 @ [facility] (4) Hyperlipidemia Status: Chronic Qualifiers: Comment: Following with cardiology. 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 He has a history coronary artery with stenting in 2008 involving the right coronary artery as well as in the left anterior descending artery in 2013. He presented to the hospital in January 2018 with chest discomfort suggestive of unstable angina. He underwent a cardiac catheterization which demonstrated normal left main coronary artery, left anterior descending artery with the previously placed stents which was patent, a circumflex artery with a 95% proximal stenosis in the small vessel, and a dominant right coronary artery with a mid in-stent stenosis of 70-80% and a distal drug-eluting stent with stenosis noted. He underwent angioplasty and drug-eluting stenting with a 3.5?15 mm stent as well as a 3.0?15 mm drug-eluting stent with excellent results to RCA. He also underwent EECP with some benefit. He underwent a nuclear stress test on 02/02/2019 d/t concerning SOB. This test showed evidence of inferior apical ischemia, preserved ejection fraction, and basal inferior infarct. Thus, he will proceed with a left heart catheterization for further evaluation. Patient denies any chest, arm, jaw, or neck pain. He continues with shortness of breath. His cough is unchanged. He denies any lightheadedness, dizziness, presyncope, or syncope. He denies edema or claudication. He denies orthopnea or PND. He states his energy level remains low. Vital Signs: See electronic medical record Intake Visit Reasons: Left heart catheterization procedure Server Service Assistant Required: No Is patient in pain?: No Allergies No Known Allergies Allergy (Verified 01/14/19 09:42) Medications aspirin 81 mg tablet,delayed release 81 mg PO DAILY 11/20/17 [History Confirmed 01/14/19] Clopidogrel Bisulfate [Clopidogrel] 75 mg PO DAILY 02/09/18 [History Confirmed 01/14/19] cholecalciferol (vitamin D3) 50,000 unit capsule 50,000 unit PO QWEEK 03/12/18 [History Confirmed 01/14/19] Blood pressure arm cuff #1 ea 03/14/18 [Rx Confirmed 01/14/19] insulin NPH isophane U- 100 human 100 unit/mL subcutaneous suspension 45 unit SC BID #2 vial 04/16/18 [Rx Confirmed 01/14/19] metoprolol succinate ER 100 mg tablet,extended release 24 hr 100 mg PO QDAY #30 tab 04/28/18 [Rx Confirmed 01/14/19] insulin lispro (U- 100) 100 unit/mL subcutaneous pen 20 unit SC TID #60 ml 05/08/18 [Rx Confirmed 01/14/19] isosorbide mononitrate ER 60 mg tablet,extended release 24 hr 60 mg PO DAILY #90 tab 05/08/18 [Rx Confirmed 01/14/19] losartan 100 mg tablet 100 mg PO QDAY #30 tab 05/13/18 [Rx Confirmed 01/14/19] amlodipine 5 mg tablet 5 mg PO DAILY #90 tab 08/28/18 [Rx Confirmed 01/14/19] insulin syringe U-100 with needle 1/2 mL 31 gauge x 15/64 See Dose Instructions .ROUTE .MEDSUPPLY #90 ea 09/08/18 [Rx Confirmed 01/14/19] metformin 500 mg tablet 500 mg PO BID #180 tab 12/16/18 [Rx Confirmed 01/14/19] lovastatin 40 mg tablet 40 mg PO DAILY 01/14/19 [History Confirmed 01/14/19] PFSH Medical History Hyperlipidemia (Chronic) Hypertension (Chronic) Atherosclerotic heart disease of [place] coronary artery without angina pectoris (Chronic) Vascular disease (Acute) Diabetes type 2, controlled (Chronic) HTN (hypertension) (Chronic) Surgical History History of left heart catheterization (Chronic) H/O right coronary artery stent placement (Chronic 02/10/18) History of hydrocelectomy (Chronic) History of tonsillectomy and adenoidectomy (Chronic) Family History Unknown Arthritis Cancer Diabetes Father Heart disease Mother Hypertension Other CAD (coronary artery disease) Social History Smoking Status: Never smoker second hand exposure: No alcohol intake: never substance use type: does not use ROS Const Const: Positive for fatigue; negative for weakness, body ache, fever(s) or chills ENT ENT: Negative for dizziness Cardio Chest Pain: No Palpitations: No Edema: None Muscle aches with walking: None Resp Respiratory: Positive for SOB with activity and Cough; negative for SOB at rest, SOB orthopnea\SOB lying down or paroxysmal nocturnal dyspnea GI GI: Negative nausea, vomiting blood/hematemesis, bright, red blood in stools or black,tarry stools : Negative for hematuria or frequent nighttime urination/ nocturia Musc Musc: Negative for muscle aches/ myalgia Skin Skin: Negative non-healing lesions or rash Neuro Neuro: Negative for dizziness, lightheadedness, near syncope, syncope, orthostatic symptoms or weakness Endo Endo: Positive for fatigue Allergy Allergy/Immunology: Negative for rash Cardiology Exam Const Appearance: cooperative, healthy appearing, comfortable and no acute distress Nutritional Appearance: well nourished and obese Orientation: alert, awake and oriented x3 Head Head: normal to inspection Ears: hearing grossly normal bilaterally Nose: external nose normal Face and Sinus: face symmetric Mouth: oral mucosae normal Eyes General: appearance normal, both eyes and all related structures Eyelids: eyelids normal EOM: EOM intact bilaterally Neck Neck: normal visual inspection and no JVD Carotids: normal carotid upstroke Chest Chest inspection: normal inspection of the chest, symmetric chest movement, normal respiratory effort and cough Auscultation: Bilateral: Diminished Lung Sounds Cardio Rate: regular rate Rhythm: regular rhythm Heart sounds: S1 normal and S2 normal; negative rub, gallop or murmur GI GI: normal to inspection and obese Neuro General: alert, awake, oriented x3 and CN's II-XI intact bilaterally Skin Skin: no rashes or lesions noted Extremities Pulses: Normal: Right Posterior Tibial Pulse, Left Posterior Tibial Pulse, Right Radial Pulse, Left Radial Pulse Lower Extremity Edema: None: Bilateral Psych Psychological: normal affect Assessment & Plan 1. Atherosclerosis of [place] coronary artery of [place] heart without angina pectoris I25.10 [id number]-Mid RCA w/ 3.5 x 15 mm Resolute and JOSE MIGUEL-Distal RCA w/ Resolute 3.5 x 15 mm stent 02/10/18 LYH-Imaxl-Lhe LAD 06/29/2014 PCI-JOSE MIGUEL-Mid RCA w/ 4.0 x 18 mm Xience-06/10/2009 @ [facility] Plan - MARTHA Chilel His last echocardiogram in January 2018 showed ejection fraction of 55% and moderate concentric left ventricular hypertrophy. His previous heart catheterization from January 2018 is noted above. Because of his abnormal stress test, he will proceed with left heart catheterization. Based on results, further recommendation will be made. 2. Dyspnea on exertion R06.09 Plan - MARTHA Chilel He continues with SOB. This was evaluated after last office visit with a BNP, BMP, and chest x-ray, which was negative. Hopefully the left heart catherization will provide more information to help his symptom. 3. Essential hypertension I10 Rechecked 136/80 Enc diet,exercise, weight loss Plan - MARTHA Chilel Patient's blood pressure is well-controlled. We will continue to monitor. We will not make any medication regimen changes. 4. Pure hypercholesterolemia E78.00 Following with cardiology. Labs ordered.On statin Plan - MARTHA Chilel Lipid panel from August 2018 showed cholesterol: 178, HDL: 37, LDL: 110, and triglycerides: 157. He will continue with current statin medication. He is expected to repeat both liver and lipid profile in March 2019. Additional Comments - MARTHA Chilel Discussed the above patient with Dr. Choi, he agrees with the plan of care. Thank you for allowing us to participate in the patients plan of care, if you have any questions please do not hesitate to call. This note was generated using a voice recognition system and there may be incorrect words, spelling or punctuation that were not noted when reviewing the office note prior to saving. Diagnoses Atherosclerosis of [place] coronary artery of [place] heart without angina pectoris I25.10 [place] vs. transplanted heart: [place] heart Dyspnea on exertion R06.09 Essential hypertension I10 Hypertension type: essential hypertension Pure hypercholesterolemia E78.00 Hyperlipidemia type: pure hypercholesterolemia Diagnoses Atherosclerosis of [place] coronary artery of [place] heart without angina pectoris I25.10 [place] vs. transplanted heart: [place] heart Dyspnea on exertion R06.09 Essential hypertension I10 Hypertension type: essential hypertension Pure hypercholesterolemia E78.00 Hyperlipidemia type: pure hypercholesterolemia Supplemental Info Supplemental Information Echocardiogram from 02/09/2018: Interpretation Summary Normal LV size. Moderate concentric left ventricular hypertrophy. Left ventricular systolic function is normal. The estimated ejection fraction is 55 %. Contrast injection was performed. Heart catheterization from 02/10/2018: CORONARY ANGIOGRAPHY DOMINANCE: Right Dominant LEFT HEART ASSESSMENT Left Ventricular Ejection Fraction: by LV Gram 60 % Normal LV wall motion Normal Left Ventricular systolic function LEFT MAIN: Angiographically normal LEFT ANTERIOR DESCENDING ARTERY: Previously placed stent is patent, Mild luminal irregularities CIRCUMFLEX ARTERY: PROX CIRC: 95 % Stenosis RAMUS: Mild luminal irregularities RIGHT CORONARY ARTERY: MID RCA: Instent restenosis 95 %, 70 % Stenosis RT PDA: Distal - Mild luminal irregularities less than 30% COLLATERAL FLOW: Collateral flow from Left to Right He under went successful PTCA/JOSE MIGUEL of the Mid RCA ISR using Resolute Integrity 3.5x15 mm and successful PTCA/JOSE MIGUEL of the distal RCA using Resolute Integrity 3.0x15 mm, post-dilated using 3.5 mm balloon. Nuclear Stress Test from 02/02/2019: Conclusion: Abnormal myocardial perfusion scan with evidence of inferior apical ischemia. Preserved ejection fraction. Previous basal inferior infarct noted. Labs LDL Cholesterol 110 mg/dL (0-130) 09/12/18 HDL Cholesterol 37 mg/dL (40-) L 09/12/18 Triglycerides 157 mg/dL (-199) 09/12/18 VLDL Cholesterol 31 mg/dL (5-40) 09/12/18 Diagnostics Chest X-Ray 01/14/19
--- NOTE | 2019-02-19 08:47 | CL.D_ITS ---
Patient Name: Ishaan JULIO Study Date: 02/19/2019 Performing: Donny Choi MD Ht: 70.86 inches 180 cm : 1950 Wt: 286.6 lbs 130 kg Age: 68 Gender: male BSA: 2.45 PROCEDURE(S) PERFORMED [id number]/LV CLINICAL PROFILE AND INDICATIONS Indications: Suspected CAD Heart Failure: None Stress/Imaging Date: 02/02/2019Stress Test with SPECT MPI: Positive Intermediate Risk CAD Presentations: Unstable angina. CONCLUSIONS Severe disease noted in the distal right coronary artery within the stent. Previous stent in the mid RCA is patent and LAD is patent. [place] circumflex with diffuse disease. Unchanged from prior RECOMMENDATIONS Referred for immediate PCI DESCRIPTION OF PROCEDURE The patient arrived to the procedure lab. The risks and benefits of the procedure as well as a full d escription of our services here and current unavailability of surgical backup were fully explained to the patient and/or their significant other prior to the catheterization. The Timeout was completed, verifying the correct patient and procedure. The patient's procedural site was prepped and draped in the usual fashion. Local anesthetic was given subcutaneously to right radial region with Lidocaine 2% . Using a modified Seldinger technique, arterial access was obtained via the right radial artery, a 6 Fr sheath was inserted. Right Coronary Artery selective angiography was performed in multiple views using a 5 Fr. 4.0 [place] catheter. Left Coronary Artery selective angiography was performed in multipl e views using a 5 Fr. 4.0 [place] catheter. Left Ventriculography was performed in SYED projection using a 5 Fr. Pigtail catheter. LV to AO pullback pressures were then recorded. CORONARY ANGIOGRAPHY DOMINANCE: Right Dominant LEFT HEART ASSESSMENT Left Ventricular Ejection Fraction: by LV Gram 55 % Normal LV wall motion LEFT MAIN: Angiographically normal LEFT ANTERIOR DESCENDING ARTERY: MID LAD: Previously placed stent is patent DISTAL LAD: Mild luminal irregularities less than 30% DIAGONAL 1: Ostial - 90 % Stenosis CIRCUMFLEX ARTERY: PROX CIRC: 90 % Stenosis RIGHT CORONARY ARTERY: PROX RCA: Mild luminal irregularities MID RCA: Previously placed stent is patent DISTAL RCA: Previously placed stent has an instent 90 % restenosis COLLATERAL FLOW: Collateral flow from Left to Right COMPLICATIONS PROCEDURE MEDICATIONS Versed 1 mg IV Fentanyl 50 mcg IV Versed 1 mg IV Versed 1 mg IV Oxygen: 2 L/min via nasal cannula Heparin diluted in 23cc Heparinized saline. Patient given 10cc IA of this solution. 02/19/2019 08:18: 32 Verapamil 2.5mg, Ntg 100mcgs, 2000 units of Heparin diluted in 23cc Heparinized saline. Patient give n 10cc IA of this solution. 02/19/2019 08:18:32 SUMMARY OF HEMODYNAMIC DATA Time AIR REST ECG 07:06:00 AO 112/71 (89) SA 08:17:24 LV 129/6, 11 08:28:27 LV 128/4, 10 08:28:33 LV 148/-7, 11 08:29:16 LV 152/-4, 14 08:29:22 LVp 153/-1, 18 08:29:26 AOp 148/72 (104) 08:29:31 Signed By Donny Choi MD On 02/19/2019 08:46:42 Donny Choi MD
[2019-02-19] MEDS: 0.9% Normal Saline 1,000 ML 100 ML IV (10:00)
--- NOTE | 2019-02-19 10:00 | EKG12_ITS ---
Test Reason : POST PCI Blood Pressure : / mmHG Vent. Rate : 068 BPM Atrial Rate : 068 BPM P-R Int : 224 ms QRS Dur : 096 ms QT Int : 532 ms P-R-T Axes : -14 -41 032 degrees QTc Int : 565 ms Sinus rhythm with 1st degree A-V block with occasional Premature ventricular complexes Left axis deviation Septal infarct (cited on or before 11-FEB-2018) Prolonged QT Abnormal ECG When compared with ECG of 11-FEB-2018 05:26, Premature ventricular complexes are now Present Serial changes of Septal infarct Present Confirmed by ANITA PATINO ([id number]), development editor DANUTA FLOWERS ([id number]) on 02/25/2019 12:55:20 PM Referred By: Donny Choi Confirmed By:KATIE PATINO
--- NOTE | 2019-02-19 10:21 | CRPHASE1 ---
Patient Communication Former Patient:: Phase I - 01/2018, Phase II - 01/2018 PHII Cardiac Rehab Discussed with Patient:: Yes Guide to Cardiac Rehab Given to Patient:: Yes Cardiac Rehab Facility Choice List Given to Patient:: Yes - [facility] Choice Program [facility] PHII:: Communication Given to CR, Refer to [facility] Optical Laboratory Manager:: Cassie Triana Refer Phase II Cardiac Rehab:: Yes Sessions:: 36 sessions - 3 days/wk, 12 weeks - Former CR patient 2018 Risk Factors/Lifestyle Family History: Family History (Last Reviewed 08/28/18 @ 10:44 by Donny Choi MD) Unknown Arthritis Cancer Diabetes Father Heart disease Mother Hypertension Other CAD (coronary artery disease) Cardiac Rehabilitation Info Cardiac Rehabilitation Program Information: Cardiac Rehabilitation is important for patients like you who are recovering from a heart problem. Cardiac rehabilitation programs are recognized as integral to the continued care of the patient with coronary heart disease. The cardiac rehabilitation program is designed to optimize a patient's physical, psychological, and social functioning. Health personal carer work in cardiac rehabilitation programs and assist you with getting the treatments you need to get stronger and healthier - like exercise, healthy eating habits, and medications. Cardiac rehabilitation has been show to help people with heart problems live longer and have better life enjoyment than people who do not go to cardiac rehabilitation. Please contact the Cardiac Rehabilitation Program at [facility] at in two weeks if you have not heard from them.
--- NOTE | 2019-02-19 10:25 | CRPHASE1_ITS ---
Patient Communication Former Patient:: Phase I - 01/2018, Phase II - 01/2018 PHII Cardiac Rehab Discussed with Patient:: Yes Guide to Cardiac Rehab Given to Patient:: Yes Cardiac Rehab Facility Choice List Given to Patient:: Yes - [facility] Choice Program [facility] CR PHII:: Communication Given to CR, Refer to [facility] Inbound Sales Advisor:: Cassie Triana Refer Phase II Cardiac Rehab:: Yes Sessions:: 36 sessions - 3 days/wk, 12 weeks - Former CR patient 2018 Risk Factors/Lifestyle Family History: Family History (Last Reviewed 08/28/18 @ 10:44 by Donny Choi MD) Unknown Arthritis Cancer Diabetes Father Heart disease Mother Hypertension Other CAD (coronary artery disease) Cardiac Rehabilitation Info Cardiac Rehabilitation Program Information: Cardiac Rehabilitation is important for patients like you who are recovering from a heart problem. Cardiac rehabilitation programs are recognized as integral to the continued care of the patient with coronary heart disease. The cardiac rehabilitation program is designed to optimize a patient's physical, psychological, and social functioning. Health hospice spiritual care coordinator work in cardiac rehabilitation programs and assist you with getting the treatments you need to get stronger and healthier - like exercise, healthy eating habits, and medications. Cardiac rehabilitation has been show to help people with heart problems live longer and have better life enjoyment than people who do not go to cardiac rehabilitation. Please contact the Cardiac Rehabilitation Program at [facility] at in two weeks if you have not heard from them.
--- NOTE | 2019-02-19 10:26 | CL.I_ITS ---
Patient Name: Ishaan JULIO Study Date: 02/19/2019 Performing: Brandt Triana MD Ht: 70.87 inches 180 cm : 1950 Wt: 286.6 lbs 130 kg Age: 68 Gender: male BSA: 2.45 PROCEDURE(S) PERFORMED [id number] W OR WO PTCA, SINGLE CORONARY ARTERY [id number], SINGLE CORONARY ARTERY [id number], EACH ADD'L CORONARY ART, SAME MAJOR CLINICAL PROFILE AND CO-MORBIDITIES Indications: Suspected CAD Heart Failure: None Stress/Imaging Date: 02/02/2019 Stress Test with SPECT MPI: Positive Intermediate Risk CAD Presentations: Unstable angina. CONCLUSIONS Successful PCI of instent restenosis of distal RCA with JOSE MIGUEL (3.5 x 28 mm synergy), PTCA of RPDA and P TCA of Ramus. 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 The risks and benefits of the procedure as well as a full d escription of our services here and current unavailability of surgical backup were fully explained to the patient and/or their significant other prior to the catheterization. The Timeout was completed, verifying the correct patient and procedure. The patient's procedural site was prepped and draped in the usual fashion. Local anesthetic was given subcutaneously to right radial region with Lidocaine 2% Using a modified Seldinger technique,arterial access was obtained via the right radial artery, a 6Fr sheath was inserted. Right Coronary Artery selective angiography was performed in multiple views usi ng a 5 Fr. 4.0 [place] catheter. Left Coronary Artery selective angiography was performed in multiple v iews using a 5 Fr. 4.0 [place] catheter. Left Ventriculography was performed in SYED projection using a 5 Fr. Pigtail catheter. LV to AO pullback pressures were then recorded.The images were reviewed and options discussed. A decision was then made to proceed with an Intervention, IVUS or oth er adjunct procedure. Cortis JR4 Guide catheter was inserted and engaged into the RCA. [place] Guide wire was adv anced to the RCA. Emerge 2.5 x 12 Balloon catheter was inserted. Balloon catheter was advanced across lesion in the right coronary, distal. PTCA balloon inflated at 10 atms for 17 secs. PTCA balloon inf lated at 10 atms for 12 secs. PTCA balloon inflated at 10 atms for 11 secs. PTCA balloon inflated at 10 atms for 15 secs. Angiogram performed post balloon dilatation. Synergy 3.5 x 28 Drug Eluting stent was inserted. Drug Eluting stent was advanced across the lesion in the right coronary, distal. Angio gram performed pre stent deployment. Angiogram performed post stent deployment. Emerge Push 1.2 x 8 B alloon catheter was inserted. Balloon catheter was advanced across lesion in the posterior descending , ostial. Angiogram performed post balloon dilatation. XB 3.5 Guide catheter was inserted and engaged into the LCA. [place] Guide wire was reinserted and advanced to the Ramus. Emerge 2.0 x 12 Balloon catheter was inserted. Angiogram performed pre balloon dilatation. Balloon catheter was advanced across lesion in the ramus branch, proximal. The arterial sheath was pulled and a TR B and was applied for hemostasis INTERVENTION INFORMATION LESION SITE: RCA (Distal) Lesion Complexity: High/C, chronic total occlusion: No, lesion at bifurcation: Yes, thrombus present: No, lesion length: 27 mm, culprit lesion: Yes, Previously treated lesion: Yes, Timeframe of previous treatment: Time unknown, Previously treated with a stent: Yes Stent Type: with JOSE MIUGEL, In-stent Thrombo sis: No Pre Stenosis: 95 % Pre intervention ORA flow: 3 PROCEDURE: Drug Eluting Stent with pre dilatation. Post Stenosis: 0 % Post intervention ORA flow: 3 Lesion Devices: Cordis 6 Fr JR4 100cm Guide Catheter Shukla .014 [place] Straight 190cm Ian Sci EMERGE MR 2.50x12 BALLOON Ian Sci Synergy MR JOSE MIGUEL 3.50x28 LESION SITE: RT PDA (Ostial) Lesion Complexity: High/C, chronic total occlusion: No, lesion at bifurcation: Yes, thrombus present: No, lesion length: 6 mm, culprit lesion: Yes, Previously treated lesion: No, In-stent restenosis: No Pre Stenosis: 90 % Pre intervention ORA flow: 3 PROCEDURE: Balloon Angioplasty Post Stenosis: 70 % Post intervention ORA flow: 3 Lesion Devices: Cordis 6 Fr JR4 100cm Guide Catheter Shukla .014 [employer] [place] Straight 190cm Ian Sci EMERGE PUSH MR 1.20x08 BALLOON LESION SITE: Ramus (Proximal) Lesion Complexity: High/C, chronic total occlusion: No, lesion at bifurcation: No, thrombus present: No, lesion length: 8 mm, culprit lesion: Yes, Previously treated lesion: No Pre Stenosis: 95 % Pre intervention ORA flow: 3 PROCEDURE: Balloon Angioplasty 30 % Post intervention ORA flow: 3 Lesion Devices: Shukla .014 [place] Straight 190cm Cordis 6 Fr XB3.5 100cm Guide Catheter Ian Sci EMERGE MR 2.00x12 BALLOON COMPLICATIONS No Complications PROCEDURE MEDICATIONS Versed 1 mg IV Fentanyl 50 mcg IV Versed 1 mg IV Versed 1 mg IV Oxygen: 2 L/min via nasal cannula Heparin diluted in 23cc Heparinized saline. Patient given 10cc IA of this solution. 02/19/2019 08:18: 32 Heparin 78770 unit(s) IV 02/19/2019 08:47:59 Verapamil 2.5mg, Ntg 100mcgs, 2000 units of Heparin diluted in 23cc Heparinized saline. Patient give n 10cc IA of this solution. 02/19/2019 08:18:32 SUMMARY OF HEMODYNAMIC DATA Time AIR REST ECG 07:06:00 AO 112/71 (89) SA 08:17:24 LV 129/6, 11 08:28:27 LV 128/4, 10 08:28:33 LV 148/-7, 11 08:29:16 LV 152/-4, 14 08:29:22 LVp 153/-1, 18 08:29:26 AOp 148/72 (104) 08:29:31 Signed By Brandt Triana MD On 02/19/2019 10:25:53 Brandt Triana MD
--- NOTE | 2019-02-19 10:30 | CRPH1.INSTRU ---
General Education CAD and cardiac anatomy and function:: Patient communicates acknowledgment - Pt former CR in 01/2018. Plans to return to [facility] CR.
[2019-02-19 11:35] LABS: Bedside Glucose 201 mg/dL (70-110)
[2019-02-19 16:31] LABS: ACT Activated Clotting Time 213 sec (74-137)
[2019-02-19 17:10] LABS: Bedside Glucose 217 mg/dL (70-110)
[2019-02-19] MEDS: Insulin Lispro 100 UNIT/ML INSULN.PEN SC ×2 (17:18→21:10)
[2019-02-19] MEDS: Atorvastatin Calcium 10 MG Tablet PO (21:10)
[2019-02-19] MEDS: Insulin NPH Human 100 UNITS/ML PEN 45 UNITS SC (21:11)
[2019-02-19 21:25] LABS: Bedside Glucose 319 mg/dL (70-110)
[2019-02-20] VITALS (13 sets, daily range): BP systolic 122–179; BP diastolic 69–88; PULSE 62–73; RESP 13–19; TEMP 36.8; O2SAT 93–97
[2019-02-20 02:16] LABS: Bedside Glucose 193 mg/dL (70-110)
[2019-02-20 07:30] LABS: Bedside Glucose 178 mg/dL (70-110)
--- NOTE | 2019-02-20 07:44 | PN.CARD_ITS ---
Subjectve: Patient seen and evaluated. Objective: Vital Signs Temp Pulse Resp BP Pulse Ox 98.2 F 68 14 162/77 H 93 02/20/19 00:19 02/20/19 06:00 02/20/19 06:00 02/20/19 06:00 02/20/19 06:00 Oxygen Delivery Method Room Air Weight: 287 lb 14.779 oz Body Mass Index (BMI) 40.2 Intake and Output for Last 24 Hours 02/18/19 02/19/19 02/20/19 23:59 23:59 23:59 Intake Total 1320 / 1320 360 / 360 Balance 1320 / 1320 360 / 360 General: Awake, Alert, Oriented x 3 HEENT: PERRL, EOMI, Sclera Non Icteric Neck: Supple, Good ROM, No Lymph Node Enlargement Lungs: Clear to auscultation Cardiovascular: Regular Rhythm, Normal S1, Normal S2, No Murmurs, No Rubs, No Gallops Vascular: No Carotid Bruits, Normal Femoral Pulses, Normal Radial Pulses, Normal Dorsalis Pedal Pulse, Normal Posterior Tibial Pulses Abdomen: Bowel Sounds Present, Soft, Non Tender, No HSM, No Organomegaly Extremities: No Cyanosis, No Clubbing, No edema Skin: No Rashes Lymphatic: No Lymph Node Enlargement Neurological: No Focal Motor or Sensory Deficit Psych/Mental Status: Appropriate Rhythm: EKG: ECHO: Stress Test: Cardiac Cath: PCI: CT Surgery: Holter monitor: EPS: PPM: CXR: Chest CT Scan: Medical Necessity - Tobacco Use Smoking Status: Never smoker Tobacco Use: Non-smoker Assessment/Plan 1. Coronary artery disease. * Patient status post angioplasty and stenting of the distal right coronary artery and plain old balloon angioplasty to the ramus intermedius diagonal vessel. Patient tolerated the procedure well. This morning has no complications EKG appears to be normal. The plan will be to continue patient on the current medical therapy and follow him up as an outpatient. * 2. Hypertension * Patient's blood pressure is mildly elevated. I would recommend observing him at home and calling in with blood pressures. If it is noted to be elevated would make adjustments. * * Thank you for allowing me to participate in the care of your patient. Please don't hesitate to call if any issues arise
--- NOTE | 2019-02-20 07:47 | PCM.DC.CCA ---
Discharge Diet: Low fat/ Low Cholesterol Discharge Activity: Return to Normal Activity Call your doctor if your incision/area has: Increased Pain/ Swelling, Increased Redness, Foul Smelling Discharge, Swelling at the incision site Call your doctor if you observe: Fever of 101 or Higher Additional Dressing/Incision Instructions:: Keep the dressing (bandage) on until the next morning. You may then shower, but do not take a tub bath for 5 days after your test. It is normal to have some tenderness and discomfort at the puncture site. Sometimes bruising also occurs. However, if pain, numbness, or coldness occurs below the puncture site (in your leg, toes, arms or fingers) call your doctor at once. You may have a small, marble sized knot at the puncture site. This is normal. Do not rub it. It will go away in 4-6 weeks. Bleeding can occur from the area where the puncture was done. Blood may spurt or drip from the site. If blood spurts, apply pressure right away to stop bleeding and call 911. Although rare, bleeding into the tissue (hematoma) can also occur. If this happens, a large, firm area goose egg under the skin will appear. If any of these occur, lie down as flat as you can and have someone apply firm pressure to the cath site with a gauze pad or a clean washcloth for 10-15 minutes. Call 911 or go to the Emergency Department. Allergies/Adverse Reactions: Allergies No Known Allergies Allergy (Verified 01/14/19 09:42) Medications to take at Discharge aspirin 81 mg tablet,delayed release 81 mg PO DAILY 11/20/17 Clopidogrel Bisulfate [Clopidogrel] 75 mg PO DAILY 02/09/18 cholecalciferol (vitamin D3) 50,000 unit capsule 50,000 unit PO QWEEK 03/12/18 Blood pressure arm cuff #1 ea 03/14/18 insulin NPH isophane U- 100 human 100 unit/mL subcutaneous suspension 45 unit SC BID #2 vial 04/16/18 metoprolol succinate ER 100 mg tablet,extended release 24 hr 100 mg PO QDAY #30 tab 04/28/18 insulin lispro (U- 100) 100 unit/mL subcutaneous pen 20 unit SC TID #60 ml 05/08/18 insulin syringe U-100 with needle 1/2 mL 31 gauge x 15/64 See Dose Instructions .ROUTE .MEDSUPPLY #90 ea 09/08/18 lovastatin 40 mg tablet 40 mg PO DAILY 01/14/19 Amlodipine Besylate [Norvasc] 5 mg PO DAILY 02/19/19 Dutasteride 0.5 mg PO 02/19/19 Isosorbide Mononitrate [Imdur] 60 mg PO DAILY 02/19/19 Losartan Potassium 100 mg PO QDAY 02/19/19 Metformin HCl [Glucophage] 500 mg PO BID 02/19/19 Primary Care Physician: Skylar Gunn DO [Primary Care Provider] - Test Results: Test results from this visit will be discussed in further detail at your follow-up appointment, if applicable. When: office will call for follow up Proposed Discharge Date: 02/20/19 Cardiac Rehabilitation Info Cardiac Rehabilitation Program Information: Cardiac Rehabilitation is important for patients like you who are recovering from a heart problem. Cardiac rehabilitation programs are recognized as integral to the continued care of the patient with coronary heart disease. The cardiac rehabilitation program is designed to optimize a patient's physical, psychological, and social functioning. Health manager care work in cardiac rehabilitation programs and assist you with getting the treatments you need to get stronger and healthier - like exercise, healthy eating habits, and medications. Cardiac rehabilitation has been show to help people with heart problems live longer and have better life enjoyment than people who do not go to cardiac rehabilitation. Please contact the Cardiac Rehabilitation Program at [facility] at in two weeks if you have not heard from them.
[2019-02-20] MEDS: Aspirin E.C. 81 MG Tablet PO (07:51)
[2019-02-20] MEDS: Clopidogrel Bisulfate 75 MG Tablet PO (07:52)
[2019-02-20] MEDS: Isosorbide Mononitrate 60 MG Tablet PO (07:52)
[2019-02-20] MEDS: Losartan Potassium 100 MG Tablet PO (07:52)
[2019-02-20] MEDS: amLODIPine 5 MG Tablet PO (07:52)
[2019-02-20] MEDS: Finasteride 5 MG Tablet PO (07:53)
[2019-02-20] MEDS: Metoprolol(XL)Succ 100 MG Tablet PO (07:53)
[2019-02-20] MEDS: Insulin Lispro 100 UNIT/ML INSULN.PEN SC (07:57)
[2019-02-20] MEDS: Insulin NPH Human 100 UNITS/ML PEN 45 UNITS SC (07:57)
[2019-02-20 08:08] LABS: Absolute Lymphocyte Count 2.47 X10^3/ul (0.83-4.51); Absolute Neutrophil Count 3.9 X10^3/uL (2.0-7.7); Basophil# 0.03 X10^3/uL; Basophil% 0.4 % (0-1); Eosinophil# 0.17 X10^3/uL; Eosinophils% 2.4 % (0-5); Hematocrit 44.4 % (40-54); Hemoglobin 15.5 g/dl (13.0-16.5); Lymphocyte # 2.47 X10^3/ul (4.0); Lymphocyte % 34.4 % (19-41); Mean Corp Hgb Conc 34.9 g/gl (32-36); Mean Platelet Vol. 9.7 fl (6.2-12.0); Monocyte# 0.61 X10^3/uL; Monocyte% 8.5 % (0-10); Neutrophil # 3.89 X10^3/uL (2.7-7.7); Neutrophil % 54.2 % (47-70); Platelet Count 204 K/mm3 (150-450); RBC Distribution Width SD 40.8 fl (35.1-43.9); Red Blood Count 5.16 M/mm3 (4.6-6.2); White Blood Count 7.2 K/mm3 (4.4-11.0)
[2019-02-20 08:09] LABS: Anion Gap 4 (5-15); BUN 11 mg/dL (7-18); Calcium,Total 8.5 mg/dL (8.5-10.1); Chloride 108 mmol/L (98-107); Creatinine, Serum 0.74 mg/dL (0.70-1.30); EST Glomerular Filtration Rate 113 mL/min (>60); Est Glom Filt Rate - Afr Amer 137 mL/min (>60); Estimated Creatinine Clearance 76.35 ml/min; Glucose 174 mg/dL (74-106); Potassium 3.6 mmol/L (3.5-5.1); Sodium Level 139 mmol/L (136-145)
[2019-02-20 08:14] LABS: POSITIVE COUNT NO; POSITIVE DIFFERENTIAL NO; POSITIVE MORPHOLOGY NO
--- NOTE | 2019-02-20 10:00 | EKG12_ITS ---
Test Reason : AM EKG Blood Pressure : / mmHG Vent. Rate : 070 BPM Atrial Rate : 070 BPM P-R Int : 216 ms QRS Dur : 102 ms QT Int : 418 ms P-R-T Axes : -17 -40 064 degrees QTc Int : 451 ms Sinus rhythm with 1st degree A-V block Left axis deviation Septal infarct , age undetermined Abnormal ECG When compared with ECG of 19-FEB-2019 10:06, MANUAL COMPARISON REQUIRED, DATA IS UNCONFIRMED Confirmed by ANITA PATINO ([id number]), editor map DANUTA FLOWERS ([id number]) on 02/25/2019 12:53:39 PM Referred By: Donny Choi Confirmed By:KATIE PATINO
== END 2019-02-20 10:15 | disposition home or self-care (01) ==
LOC: CLSP 06:44 → ICU 10:06
PROVIDERS: Specialist; Family Provider Family Medicine; PCP Family Medicine; Referring Provider Internal Medicine Cardiovascular Disease; Visit Provider Internal Medicine Cardiovascular Disease
DX: I25.810 Atherosclerosis of coronary artery bypass graft(s) without angina pectoris (principal); R94.39 Abnormal result of other cardiovascular function study; E78.00 Pure hypercholesterolemia, unspecified; I10 Essential (primary) hypertension; E11.9 Type 2 diabetes mellitus without complications; Z79.82 Long term (current) use of aspirin; Z79.4 Long term (current) use of insulin; Z79.84 Long term (current) use of oral hypoglycemic drugs; Z79.899 Other long term (current) drug therapy
CPT/HCPCS: 80048; 82962; 85025; 85347; 92920; 92921; 92928; 93005; 93458; 97802; 99152; 99153; J7030; J7040; Q9967; C1725; C1769; C1874; C1887; C1894; C9600

== ENCOUNTER → 2019-05-19 | Outpatient (CLI) | payer MEDICARE, OTHER, SELFPAY ==
[2019-04-03 13:30] VITALS: BMI 39.7
--- NOTE | 2019-05-19 10:45 | MRI_ITS ---
STUDY: MRI LUMBAR SPINE WITHOUT CONTRAST REASON FOR EXAM: Male, 68 years old. back pain X 10YEARS. TECHNIQUE: Standardized fat and water weighted pulse sequences were obtained in the sagittal and axial planes. COMPARISON: None FINDINGS: T12-L1: There is minimal disc space narrowing and endplate spondylosis. There is no significant disc herniation, central canal or foraminal stenosis. Normal lumbar lordosis. There is no substantial scoliosis. Normal conus medullaris that terminates at the T12 L1-2: There is mild disc space narrowing and endplates spondylosis. There is mild disc bulge and facet arthropathy without significant central canal or foraminal stenosis. L2-3: There is mild disc space narrowing and endplates spondylosis. There is mild disc bulge and facet arthropathy without significant central canal or foraminal stenosis. L3-4: There is minimal disc space narrowing and endplates spondylosis. There is a mild disc bulge asymmetric to the left with mild left foraminal stenosis. There is facet arthropathy without significant central canal or right foraminal stenosis. L4-5: There is minimal disc space narrowing and endplate spondylosis. There is no significant disc herniation, central canal or foraminal stenosis. Mild facet arthropathy L5-S1: There is minimal disc space narrowing and endplate spondylosis. There is no significant disc herniation, central canal or foraminal stenosis. Mild disc bulge and moderate facet arthropathy without significant central canal or foraminal stenosis. Normal visualized sacral ala. MRI/Spine Lumbar (Routine) IMPRESSION: Mild multilevel degenerative changes. Electronically Signed: Jhoan Paredes MD at 12:27 EDT Tel , Service support ,
== END | disposition home or self-care (01) ==
LOC: MRI 10:19
PROVIDERS: Family Provider Family Medicine; PCP Family Medicine; Referring Provider Family Medicine; Visit Provider Family Medicine
DX: M54.5 Low back pain (principal); G89.29 Other chronic pain
CPT/HCPCS: 72148

== ENCOUNTER → 2019-11-05 09:26 | Outpatient (CLI) | payer MEDICARE, OTHER, SELFPAY ==
[2019-10-29 12:54] VITALS: BMI 41.1
[2019-11-05 11:04] LABS: AST(SGOT) 15 U/L (15-37); Alanine Aminotransfer ALT/SGPT 29 U/L (16-61); Albumin, Serum 3.5 g/dL (3.2-5.0); Alkaline Phosphatase 89 U/L (45-117); Cholesterol 126 mg/dL (200); Globulin 3.8 g/dL (2.2-4.2); High Density Lipoprotein 32 mg/dL; Protein, Total 7.3 g/dL (6.4-8.2); Triglycerides 116 mg/dL; Very Low Density Lipoprotein 23 mg/dL (5-40)
[2019-11-05 11:14] LABS: PSA,Total- Diagnostic 0.27 ng/mL (0.0-4.0)
== END ==
PROVIDERS: PCP Family Medicine; Referring Provider Internal Medicine Cardiovascular Disease; Visit Provider Internal Medicine Cardiovascular Disease
DX: E78.5 Hyperlipidemia, unspecified (principal); N40.0 Benign prostatic hyperplasia without lower urinary tract symptoms
CPT/HCPCS: 36415; 80061; 80076; 84153

== ENCOUNTER → 2020-02-16 | Outpatient (CLI) | payer MEDICARE, OTHER, SELFPAY ==
--- NOTE | 2020-02-16 | IMM_PTH ---
PATIENT: Ishaan JULIO LOC: [facility] U#:[id number] AGE/SX: 69/M ROOM: RE02/16/[address]: Dr. Jonathan Alegria MD : 1950 BED: DIS: 02/16/2020 SPEC #: [id number] RECD: 02/18/20 12:12 STATUS: [place] REQ #: [id number] LEO: 02/16/20 00:[address]: Jonathan Alegria DEPT: IMMUNOHISTOCHEMISTRY RECD BY: Cecilia Alexander ENTERED: 02/18/20 12:15 SP TYPE: IMMUNO OTHR DR: Dr. Skylar Gunn, DO Tissues: Skin of scalp, NOS Procedures: NAPSIN A (add) BCL-2 (add) CD10 (add) CD31 (add) CD34 (add) CD45 (add) CK14 (add) CK20 (add) CK5-6 (add) CK7 (add) CK8 (add) PRYOR-2 (add) KI-67 (add) P53 (add) TTF1 (add) Vimentin (add) 34BE12 (add) FACTOR VIII (add) Pankeratin (initial) P40 (add) S-100 (add) PHYSICIAN & INSTITUTION [place] [id number] SPECIMEN INFORMATION: Tissue Source: Skin lesion right scalp Clinical Info: Skin lesion right scalp Specimen Number: [id number] #2 CPT code: 93388, 89580 x20 METHODOLOGY: Deparaffinized sections of prefer/formalin-fixed tissue or PAP/DQ stained slides are incubated with monoclonal/polyclonal antibodies/oligonucleotide probes. Localization is made via biotin free immunoperoxidase method. Appropriate controls are performed and reacted as expected. Results on target cell population are indicated in the following table: RESULTS: ANTIBODY / CLONE RESULT Block 2 AE1-3 (AE1/AE3/PCK26) negative CK7 (OV-TL12/30) negative CK8 (66cfgxI20) negative CK20 (KS20.8) negative PRYOR-2 (SP21) negative CD45 (RP2/18) negative CD10 (56C6) positive, focal BCL-2 (bcl-2/100/D5) positive, dim Vimentin (V9) positive 34BE12 (34BE12) negative CD31 (JOJO/70A) positive Factor VIII (R Ag) positive S-100 (4C4.9) negative TTF-1 (8G7G3/1) negative Napsin A (Rabbit Polyclonal) negative CK5-6 (D5 & 1684) negative CK14 (LL002) negative P40 (BC28) negative P53 (DO-7) positive, 10%, dim Ki-67 (30-9) positive, 80% CD34 (QBEnd-10) positive These tests were developed and their performance characteristics determined by [facility]. They may not have been cleared or approved by the U.S. Food and Drug Administration. The FDA has determined that such clearance or approval is not necessary. The above immunohistochemical/dualISH markers are ordered and reviewed by the Pathologist. INTERPRETATION: Skin lesion of right scalp, excision: Consistent with angiosarcoma. AM:kenton 02/25/20 Case has been reviewed in consultation with Dr. Ryan who concurs with the above diagnosis. IDC:SJ
[2020-02-16 13:47] VITALS: BMI 41.1
--- NOTE | 2020-02-16 14:00 | LES_PTH ---
PATIENT: Ishaan JULIO LOC: [facility] U#:[id number] AGE/SX: 69/M ROOM: RE02/16/[address]: Dr. Jonathan Alegria MD : 1950 BED: DIS: 02/16/2020 SPEC #: [id number] RECD: 02/16/20 15:19 STATUS: H[place] RESherlyn #: [id number] LEO: 02/16/20 14:[address]: Jonathan Alegria DEPT: SURGICAL PATHOLOGY RECD BY: Renard Silva ENTERED: 02/17/20 09:19 SP TYPE: Lesion OTHR DR: Dr. Skylar Gunn, DO Tissues: Skin of scalp, NOS Procedures: Gen Path Consultation (on slides) Surgery Specimen Level IV HEADER OPERATION: Excision/debridement right scalp skin lesion PRE-OP DIAGNOSIS: Skin lesion scalp TISSUE SUBMITTED: Skin lesion right scalp MICROSCOPIC DIAGNOSIS Skin lesion of right scalp, biopsy: Consistent with angiosarcoma. See comment. AM:kenton 02/25/20 COMMENT The lesion extends to the peripheral and deep margins of excision. Immunohistochemistry ([id number]) supports the above diagnosis. Case is reviewed in consultation with Dr. Munoz of [employer]. Complete consultation is viewable in EMR. Case has been reviewed in consultation with Dr. Ryan who concurs with the above diagnosis. IDC:[email or web address] MICROSCOPIC DESCRIPTION Slides are reviewed. GROSS DESCRIPTION Received in fixative is one container labeled with the patient's name and designated skin lesion right scalp. The specimen consists of an ellipse of white-pink skin measuring 3.5 x 1.5 cm and a depth of excision measuring 1.5 cm. The specimen is inked, serially sectioned and totally submitted in two cassettes. / AM:kenton 02/17/20 TC:0 CPT: 96660 ADDENDUM ADDENDUM ADDENDUM ADDENDUM ADDENDUM ADDENDUM ADDENDUM ADDENDUM ADDENDUM ADDENDUM 03/16/2020 09:46 ADDENDUM 03/16/2020 09:46 ADDENDUM 03/16/2020 09:46 ADDENDUM 03/16/2020 09:46 ADDENDUM 03/16/2020 09:46 This addendum is added to incorporate an outside pathology consultation report. The case was examined at [facility] (#[id number]) and the following diagnosis was rendered. Skin lesion of right scalp, biopsy: Angiosarcoma, the lesion extends to the deep margin of the specimen. Please see complete above mentioned consultation report in EMR
== END | disposition home or self-care (01) ==
LOC: LABSPEC 15:33
PROVIDERS: PCP Family Medicine; Referring Provider Surgery; Visit Provider Surgery
DX: L98.9 Disorder of the skin and subcutaneous tissue, unspecified (principal)
CPT/HCPCS: 88305; 88325; 88341; 88342

== ENCOUNTER → 2020-02-27 08:30 | Outpatient (CLI) | payer MEDICARE, OTHER, SELFPAY ==
[2020-02-25 14:15] VITALS: BMI 42.3
--- NOTE | 2020-02-27 08:32 | MRI_ITS ---
STUDY: MRI BRAIN WITHOUT CONTRAST REASON FOR EXAM: Male, 69 years old. angiosarcoma TECHNIQUE: Standardized multiplanar fat and water weighted pulse sequences were obtained. COMPARISON: None. FINDINGS: Right frontal parietal craniotomy There is focal nodular soft tissue swelling or nodule in the scalp overlying the right parietal bone measuring 1.75 x 0.9 cm of uncertain etiology. Moderate atrophy and periventricular white matter ischemic change without mass effect or restricted diffusion.. Normal bilateral basal ganglia. Normal thalami. There is no extra-axial fluid accumulation. Normal flow voids within the major intracranial circulation suggesting patency by spin echo criteria. Normal sella turcica, pituitary gland, infundibular stalk, optic chiasm and hypothalamus. Normal tectal plate and pineal gland. Normal midbrain, alta and medulla. Normal cerebellum. Normal basal cisterns. Normal bilateral temporal bones. Normal bilateral internal auditory canals. No demonstrated orbital abnormality, within the constraints of a routine brain study. Mild mucosal thickening of the maxillary and ethmoid sinuses. Normal calvarium and skull base. Normal visualized soft tissue structures. Normal visualized upper cervical spine. MRI/Brain without Contrast IMPRESSION: Focal nodular soft tissue thickening or nodule in the scalp overlying the right parietal bone of uncertain etiology possibly neoplastic. Would recommend limited repeat study with contrast for further assessment following adequate sedation Moderate periventricular white matter ischemic change without mass effect or restricted diffusion.. Electronically Signed: Vikash Zavala MD at 17:19 EDT , Service support ,
== END ==
PROVIDERS: PCP Family Medicine; Visit Provider Internal Medicine Hematology & Oncology
DX: C49.9 Malignant neoplasm of connective and soft tissue, unspecified (principal)
CPT/HCPCS: 70551

== ENCOUNTER → 2020-03-01 16:02 | Outpatient (CLI) | payer MEDICARE, OTHER, SELFPAY ==
[2020-02-25 14:15] VITALS: BMI 42.3
--- NOTE | 2020-03-01 16:03 | MRI_ITS ---
STUDY: MRI SOFT TISSUE NECK WITH AND WITHOUT CONTRAST REASON FOR EXAM: Male, 69 years old. New head and neck angiosarcoma, initial staging, hx sarcoma rt parietal TECHNIQUE: Standarized fat and water weighted pulse sequences were obtained in all 3 orthogonal plane pre and post administration of IV Dotarem 27ml. COMPARISON: None. FINDINGS: Normal bilateral parotid glands. Normal bilateral furnace installer helper spaces. Normal bilateral parapharyngeal spaces. Normal bilateral carotid spaces. Normal bilateral sublingual and submandibular glands and spaces. Normal visualized nasopharynx. Normal retropharyngeal space. Normal perivertebral space. Normal visualized bilateral faucial tonsils. The visualized tongue, tongue base and oropharynx are normal. The visualized cervical lymph nodes (levels I-) are within normal size limits, and maintain normal morphology. There is no demonstrated solid or cystic mass lesion. There is no abnormal contrast enhancement. Normal epiglottis, bilateral vallecula and hypopharynx. The pre-epiglottic and paraglottic adipose spaces are normal. Normal visualized bilateral piriform sinuses, aryepiglottic folds, vocal cords, and arytenoid-cricoid articulations. Normal subglottic trachea. Normal bilateral lobes of the thyroid gland. Normal visualized pulmonary apices. Mild mucosal thickening of the maxillary sinuses bilaterally.. Cervical spine demonstrates minor spondylosis MRI/Orbit Face Neck W/WO Contrast IMPRESSION: No evidence for abnormal soft tissue mass within the neck or pathologic adenopathy. . Mild bilateral maxillary sinus disease Electronically Signed: Vikash Zavala MD at 17:34 EDT , Service support ,
--- NOTE | 2020-03-01 16:03 | MRI_ITS ---
STUDY: MRI BRAIN WITH CONTRAST REASON FOR EXAM: Male, 69 years old. New dx of RIGHT parietal angiosarcoma TECHNIQUE: Standardized multiplanar fat and water weighted pulse sequences were obtained. IV Yes YES was administered for the contrast portion of the examination. COMPARISON: MRI of the brain without contrast February 27, 2020 FINDINGS: Normal size of the ventricles and extra-axial spaces for the patient''s age. Normal white matter tracts of the supratentorial brain. Normal bilateral basal ganglia. Normal thalami. There is no extra-axial fluid accumulation. Normal flow voids within the major intracranial circulation suggesting patency by spin echo criteria. Normal venous enhancement. There is no enhancing intra-axial or extra-axial abnormality. Normal sella turcica, pituitary gland, infundibular stalk, optic chiasm and hypothalamus. Normal tectal plate and pineal gland. Normal midbrain, alta and medulla. Normal cerebellum. Normal basal cisterns. Normal bilateral temporal bones. Normal bilateral internal auditory canals. No demonstrated orbital abnormality, within the constraints of a routine brain study. Normal visualized paranasal sinuses. Normal calvarium and skull base. There is a partially enhancing serpiginous lesion in the scalp measuring approximately 2.8 x 1.3 cm in the scalp overlying the right parietal bone consistent with known angiosarcoma. There is no evidence for involvement of the skull or intracranial extension... Normal visualized upper cervical spine. MRI/Brain WITH Contrast IMPRESSION: Serpiginous partially enhancing lesion in the scalp overlying the right parietal bone consistent with known angiosarcoma without involvement of the skull or intracranial extension No evidence for brain metastasis Electronically Signed: Vikash Zavala MD at 18:06 EDT , Service support ,
== END ==
PROVIDERS: PCP Family Medicine; Visit Provider Internal Medicine Hematology & Oncology
DX: C49.0 Malignant neoplasm of connective and soft tissue of head, face and neck (principal); C76.0 Malignant neoplasm of head, face and neck
CPT/HCPCS: 70543; 70552; A9575

== ENCOUNTER 2020-03-24 09:19 | Day surgery (SDC) | payer MEDICARE, OTHER, SELFPAY ==
[2020-03-18 08:40] VITALS: BMI 41.8
[2020-03-21 14:30] VITALS: BMI 41.4
[2020-03-24] VITALS (9 sets, daily range): BP systolic 104–128; BP diastolic 58–103; PULSE 63–88; RESP 14–18; TEMP 35.8–36.6; O2SAT 94–97; BMI 41.2
[2020-03-24] MEDS: Lactated Ringers 1,000 ML 100 ML IV ×2 (09:58→12:05)
[2020-03-24 10:11] LABS: Bedside Glucose 163 mg/dL (70-110)
[2020-03-24] MEDS: Cefazolin 2 GM in 0.9% Normal Saline 100 ML IV (11:24)
[2020-03-24] MEDS: Bupivacaine Mpf 0.5% 30 ML VIAL (11:51)
--- NOTE | 2020-03-24 12:22 | RAD_ITS ---
STUDY: X-RAY CHEST REASON FOR EXAM: Male, 69 years old. Post port placement TECHNIQUE: Single AP portable view of the chest. COMPARISON: 01/14/2019 FINDINGS: EKG leads overlie the chest. A right subclavian port is in place, tip is in the distal SVC. No pneumothorax or mediastinal shift. The lungs are clear and expanded. There is no demonstrated pleural abnormality. Normal size heart. Normal mediastinum and april. Normal visualized pulmonary arteries. Normal visualized aortic arch and descending thoracic aorta. Normal visualized thoracic spine. Normal visualized ribs, clavicles, and shoulders. There is no demonstrated abnormality of the visualized soft tissue structures of the upper abdomen. RAD/CXR for Line Placement IMPRESSION: No acute pulmonary process Right subclavian port has been placed, tip is in the distal SVC Electronically Signed: Alphonse Grubbs MD at 12:49 EDT , Service support ,
--- NOTE | 2020-03-24 12:22 | HP.PCM_ITS ---
Problem List (1) Angiosarcoma of scalp Status: Chronic History and Physical Date of Admission: 03/24/20 Intake Visit Reasons: PORT PLACEMENT Chief Complaint: Sarcoma of the scalp Consumer Affairs Specialist Required: No Is patient in pain?: No Allergies No Known Allergies Allergy (Verified 03/18/20 08:40) Medications aspirin 81 mg tablet,delayed release 81 mg PO DAILY 11/20/17 [History Confirmed 03/18/20] cholecalciferol (vitamin D3) 1,250 mcg (50,000 unit) capsule 50,000 unit PO QWEEK 03/12/18 [History Confirmed 03/18/20] Blood pressure arm cuff #1 ea 03/14/18 [Rx Confirmed 03/18/20] insulin syringe-needle U-100 1/2 mL 31 gauge x 15/64 See Dose Instructions .ROUTE .MEDSUPPLY #90 ea 09/08/18 [Rx Confirmed 03/18/20] Metformin HCl [Glucophage] 500 mg PO BID 02/19/19 [History Confirmed 03/18/20] metoprolol succinate 100 mg tablet,extended release 24 hr 100 mg PO QDAY #90 tab 04/03/19 [Rx Confirmed 03/18/20] amlodipine 10 mg tablet 10 mg PO DAILY #90 tab 04/09/19 [Rx Confirmed 03/18/20] atorvastatin 40 mg tablet 40 mg PO DAILY #90 tab 04/09/19 [Rx Confirmed 03/18/20] clopidogrel 75 mg tablet 75 mg PO DAILY #90 tab 04/09/19 [Rx Confirmed 03/18/20] isosorbide mononitrate 60 mg tablet,extended release 24 hr 60 mg PO DAILY #90 tab 04/09/19 [Rx Confirmed 03/18/20] losartan 100 mg tablet 100 mg PO QDAY #90 tab 04/09/19 [Rx Confirmed 03/18/20] insulin NPH isoph U-100 human 100 unit/mL subcutaneous suspension 50 unit SC BID vial 02/16/20 [History Confirmed 03/18/20] Insulin Lispro [Humalog Kwikpen] 20 unit SUBCUT TID 03/17/20 [History Confirmed 03/18/20] [facility] Medical History 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 Father Heart disease CAD (coronary artery disease) Mother Arthritis Hypertension Grandmother Colon cancer Grandfather Prostate cancer Uncle Diabetes Social History (Updated 03/18/20 @ 09:[address] Jonathan Alegria MD) Smoking Status: Never smoker second hand exposure: No alcohol intake: never substance use type: does not use HPI HPI HPI: Ishaan JULIO, is a 69 M who presents to the office today for surgical consultation regarding port placement. I assisted the patient with a excision of a right parietal scalp lesion. Final pathology however demonstrated angiosarcoma. He has been seen locally by Dr. Parra and he has been seen at [facility]. Initially radical resection was planned but now neoadjuvant chemotherapy is recommended. February 29, [address] scan which was negative for distant disease. March 01, 2020 an MRI of the head also unremarkable for distant disease. He has had multiple peripheral biopsies done of the scalp by his report all negative. He at this point simply needs a port placed to expedite his neoadjuvant chemotherapy. HPI HPI HPI: Ishaan JULIO, is a 69 M who presents to the office today for ROS General General: Yes weight change and fatigue; no appetite, colon cancer, breast cancer or weakness HEENT HEENT: No difficulty swallowing, eye injury, eye surgery, swollen glands or hoarseness Endo Endocrine: Yes diabetes mellitus; no thyroid disease, thyroid cancer, Hair loss, heat intolerance or cold intolerance Skin Skin: No rash or changing moles Breast Breast: No left breast lump, right breast lump, nipple discharge, breast pain, abnormal mammogram, abnormal US or breast enlargement Musc Musculoskeletal: Yes back problems and arthritis; no rheumatoid arthritis, gout or joint pain Cardio Cardiovascular: Yes heart disease, high blood pressure, heart attack and heart stent; no murmur, pacemaker, atrial fibrillation, palpitations, shortness of breat with exertion or chest pain Psych Psychiatric: No depression, anxiety or hearing voices Resp Respiratory: No shortness of breath, No sleep apnea, No cough, No COPD, No asthma, No emphysema, No wheezing Gastro Gastrointestinal: No abdominal pain, No nausea or vomiting, No diarrhea, No constipation, No blood in stool, No acid reflux, No hemorrhoids, No ulcers, No gallbladder problem, No black,tarry stools [place] Hematologic: Yes blood thinners, No blood disorders, No bleeding, No anemia, No blood clots Neuro Neurologic: No weakness Exam Const General: cooperative, healthy appearing, comfortable, no acute distress Nutritional Appearance: obese HENMT Other: Right parietal scalp has a scabbed exophytic lesion slight ooze consistent with the angiosarcoma. There is evidence of 8 separate punch biopsy sites and a wagon wheel fashion around this lesion that are all dark from being treated with silver nitrate Eyes General: appearance normal, both eyes and all related structures Chest Breast Palpation: No nipple discharge Other: Bilateral anterior chest wall smooth without deformity Resp Effort & Inspection: normal respiratory effort Auscultation: clear to auscultation bilaterally Cardio Rate: regular rate Rhythm: regular rhythm Heart Sounds: no murmurs GI Palpation: soft Neuro Cognition: normal cognition Extrem General: no calf tenderness Psych Affect: normal affect Assessment & Plan Problems 1. Angiosarcoma of scalp C49.0 Plan I recommended the patient a right internal jugular port placement. This will facilitate his chemotherapy. The patient is happy with that because he sleeps on his left side. I described the technique, benefit, risk, alternatives. We will schedule and expedite his care. He is aware that Covid-19 testing will need to be performed preprocedure. That will determine the scheduling of our procedure. I appreciate the ongoing opportunity of assisting with his surgical care. Cc: Dr. Maryse Parra and Dr. Skylar Alegria M.D., F.A.C.S. 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 There are no clinical changes since date of exam. Procedure Criteria Procedure Type: Elective COVID Risk Discussion: The surgeon/proceduralist and patient have discussed in detail the risk of exposure to and/or potential harm posed by the COVID-19 virus with having a surgery/procedure at this time versus the risk of delaying the surgery/procedure. It is not possible to know either the risk of delaying the surgery or procedure or chance of getting an infection with perfect accuracy, but a joint decision was made between the patient and the surgeon/proceduralist to proceed at this time with the scheduled surgery/procedure as indicated on the consent form.
--- NOTE | 2020-03-24 12:24 | DCINST_ITS ---
Discharge Diet: No Restrictions - Pain medication may cause nausea. You should typically eat light foods as you take your pain medication. Discharge Activity: Return to Normal Activity, May Shower - Leave the bandage on for 2-3 days. When you remove the bandage, leave the steri-strips intact until they fall off. Additional Activity Instructions:: May not drive, work with heavy equipment, or sign legal documents for [address] if you are no longer taking narcotic pain medications. You may drive when you are no longer taking pain medications. Additional Dressing/Incision Instructions:: Leave the bandage on for 2-3 days. When you remove the bandage, leave the steri-strips intact until they fall off. Allergies/Adverse Reactions: Allergies No Known Allergies Allergy (Verified 03/24/20 09:33) Medications to take at Discharge aspirin 81 mg tablet,delayed release 81 mg PO DAILY 11/20/17 cholecalciferol (vitamin D3) 1,250 mcg (50,000 unit) capsule 50,000 unit PO QWEEK 03/12/18 insulin syringe-needle U-100 1/2 mL 31 gauge x 15/64 See Dose Instructions .ROUTE .MEDSUPPLY #90 ea 09/08/18 Metformin HCl [Glucophage] 500 mg PO BID 02/19/19 metoprolol succinate 100 mg tablet,extended release 24 hr 100 mg PO QDAY #90 tab 04/03/19 amlodipine 10 mg tablet 10 mg PO DAILY #90 tab 04/09/19 clopidogrel 75 mg tablet 75 mg PO DAILY #90 tab 04/09/19 isosorbide mononitrate 60 mg tablet,extended release 24 hr 60 mg PO DAILY #90 tab 04/09/19 losartan 100 mg tablet 100 mg PO QDAY #90 tab 04/09/19 insulin NPH isoph U-100 human 100 unit/mL subcutaneous suspension 50 unit SC BID vial 02/16/20 Insulin Lispro [Humalog Kwikpen] 20 unit SUBCUT TID 03/17/20 Atorvastatin Calcium 40 mg PO QHS 03/21/20 Lidocaine/Prilocaine [Lidocaine-Prilocaine Cream] 1 applicatio TP DAILY PRN PRN 30 Days #1 tube 03/22/20 Ondansetron [Ondansetron Odt] 8 mg PO Q8H PRN PRN 10 Days #30 tab.rapdis 03/22/20 Prochlorperazine Maleate 10 mg PO Q6H PRN PRN 10 Days #30 tab 03/22/20 Hydrocodone Bitart/Apap 5-325 [[place] 5MG-325MG] 1 tablet PO Q6H PRN PRN 2 Days #5 tablet 03/24/20 The following prescriptions were given: Hydrocodone Bitart/Apap 5-325 [[place] 5MG-325MG] 1 tablet PO Q6H PRN PRN 2 Days #5 tablet PRN Reason: Pain Transmission Status: Sent to [facility] Primary Care Physician: Skylar Gunn DO [Primary Care Provider] - Test Results: Test results from this visit will be discussed in further detail at your follow- up appointment, if applicable. Please Follow Up With: Jonathan Alegria MD - [phone] When: Office followup if needed
--- NOTE | 2020-03-24 12:25 | PCM.OPRPT ---
Problem List (1) Angiosarcoma of scalp Status: Chronic Report of Operation Date of Procedure: 03/24/20 Pre-Operative Diagnosis: Angiosarcoma right scalp, need of IV access for chemotherapy Post-Operative Diagnosis: Same Surgery/Procedure Performed:: Right internal jugular 6 [place] PowerPort placement. Reference #[id number]. Lot number [id number]. Expiry date 12/28/2020 Description of Surgical Findings:: Timeout and informed consent was obtained. 69-year-old gentleman was taken the operating place upon the table underwent monitored anesthesia care. The right neck and chest were sterilely prepped in routine fashion. Ancef 3 g were given intravenously preoperatively. Under ultrasound guidance the right internal jugular vein was identified. 1% lidocaine mixed 50-50 with 0.5% Marcaine was used as a local anesthetic. A total of 22 cc was used. Local was instilled under ultrasound guidance. Then a micropuncture needle was inserted under ultrasound guidance followed by Seldinger wire advancement. Local was instilled down upon the right chest wall midclavicular line second intercostal space. A transverse incision was created using electrocautery a subcutaneous pocket was created. The tubing was tunneled from the chest to the neck site. The micropuncture sheath was placed over the micropuncture wire and then exchanged out for an 035 J-wire. Sheath dilator was placed over the wire the wire dilator removed the catheter advanced through the sheath the sheath was split the catheter was positioned at the SVC atrial junction. Because of the patient's body habitus 2 cc of contrast was used to help identify the catheter. Then the catheter was flushed with saline. It was amputated to length connected to the port and secured there with a port attachment device. The port was placed in the pocket and secured there with 2-0 silk. The skin edges were approximated up to the 3-0 Vicryl subdermal stitch. The neck was closed with interrupted 5-0 Vicryl. The port was accessed. It aspirated easily it was flushed with saline and then 2 cc of heparinized saline. Steri-Strips Telfa and OpSite dressings were applied. Sponge and instrument and needle counts were reported the surgeon to be correct. Blood loss minimal. Specimen none. Drains none. Blood loss minimal. Jonathan Alegria M.D., F.A.C.S. Type of Anesthesia:: Local MAC Anesthesiologist: Timi Hannah
== END 2020-03-24 14:24 | disposition home or self-care (01) ==
LOC: SDC 09:19 → AC 09:30
PROVIDERS: Anesthesiology; PCP Family Medicine; Referring Provider Surgery; Visit Provider Surgery
PROC: (CPT 36558; principal; 2020-03-24 11:00)
DX: C49.0 Malignant neoplasm of connective and soft tissue of head, face and neck (principal); I25.10 Atherosclerotic heart disease of native coronary artery without angina pectoris; I10 Essential (primary) hypertension; E11.42 Type 2 diabetes mellitus with diabetic polyneuropathy; E78.5 Hyperlipidemia, unspecified; E66.9 Obesity, unspecified; I25.2 Old myocardial infarction; Z95.5 Presence of coronary angioplasty implant and graft; Z79.82 Long term (current) use of aspirin; Z79.899 Other long term (current) drug therapy; Z79.4 Long term (current) use of insulin; Z11.59 Encounter for screening for other viral diseases
CPT/HCPCS: 00532; 36558; 71045; 77001; 82962; 87635; G2023; J7120; J2405; U0003

== ENCOUNTER → 2020-06-15 06:17 | Outpatient (CLI) | payer MEDICARE, OTHER, SELFPAY ==
[2020-05-30 09:56] VITALS: BMI 42.0
[2020-05-30 13:21] VITALS: BMI 42.0
[2020-06-07 10:00] VITALS: BMI 41.8
--- NOTE | 2020-06-15 17:28 | STRESSREP_ITS ---
Stress Test Report Pharmacologic myocardial perfusion stress test. 69-year-old man with a history of coronary artery stenting in 2009 of the right coronary artery in 2014 of the left anterior descending artery. Stress protocol: Resting KG demonstrates normal sinus rhythm with a rate of 72 bpm normal intervals are noted resting blood pressure is 134/78 mmHg. 0.4 mg of regadenoson was infused per usual protocol followed by rapid intravenous saline flush injection continuous EKG monitoring was performed. Continuous EKG monitoring was performed occasional premature ventricular complexes were noted. The maximum heart rate was 88 bpm which was 57% of maximum predicted heart rate the maximum workload was 1 metabolic equivalent. At rest nonspecific ST-T wave changes were noted at peak infusion nonspecific ST-T wave changes were noted. No obvious angina was noted. Myocardial perfusion protocol. 14.7 mCi of technetium 99m sestamibi was injected at rest. 0.4 mg of regadenoson was infused per usual protocol peak infusion 44.7 mCi of technetium 99m sestamibi was injected stress images were obtained stress and rest images are reconstructed and compared in the short axis vertical long horizontal long axis. Gated images were also obtained Perfusion SPECT analysis: Review of the stress images demonstrate a normal cardiac silhouette size. There is a medium-sized defect noted involving the anterolateral wall on the stress images with improvement on the resting images suggestive of anterolateral ischemia of the moderate degree. The rest of the salazar appear to be well perfused. Gated SPECT analysis: The gated ejection fraction is noted to be 50%. Conclusion: Abnormal pharmacologic myocardial perfusion stress test with evidence of anter olateral ischemia. Low normal ejection fraction noted.
== END ==
PROVIDERS: PCP Family Medicine; Referring Provider Internal Medicine Cardiovascular Disease; Visit Provider Internal Medicine Cardiovascular Disease
DX: I25.10 Atherosclerotic heart disease of native coronary artery without angina pectoris (principal); Z95.5 Presence of coronary angioplasty implant and graft
CPT/HCPCS: 78452; 93017; A9500; A4216; J2785

== ENCOUNTER 2020-06-20 07:03 | Day surgery (SDC) | payer MEDICARE, OTHER, SELFPAY ==
[2020-05-30 13:21] VITALS: BMI 42.0
[2020-06-07 10:00] VITALS: BMI 41.8
[2020-06-17 11:06] VITALS: BMI 41.7
--- NOTE | 2020-06-20 09:32 | CL.D_ITS ---
Patient Name: Ishaan JULIO Study Date: 06/20/2020 Performing: Donny Choi MD Ht: 70.86 inches 180 cm : 1950 Wt: 299.83 lbs 136 kg Age: 69 Gender: male BSA: 2.5 PROCEDURE(S) PERFORMED TK10-PHD/COR/LV CLINICAL PROFILE AND INDICATIONS Indications: Suspected CAD Heart Failure: None Stress/Imaging Date: 06/07/2020Stress Test with SPECT MPI: Positive Intermediate Risk CAD Presentations: Stable angina. CONCLUSIONS Coronary artery disease with previously placed stents noted in the left anterior descending artery, p roximal to mid right coronary artery and distal right coronary artery are patent. The distal circumf ayaz artery is occluded with left to left collaterals and the distalmost right coronary artery is occl uded with [id number] collaterals. Preserved ejection fraction RECOMMENDATIONS Medical therapy DESCRIPTION OF PROCEDURE The patient arrived to the procedure lab. The risks and benefits of the procedure as well as a full d escription of our services here and current unavailability of surgical backup were fully explained to the patient and/or their significant other prior to the catheterization. The Timeout was completed, verifying the correct patient and procedure. The patient's procedural site was prepped and draped in the usual fashion. Local anesthetic was given subcutaneously to right radial region with Lidocaine 2% . Using a modified Seldinger technique, arterial access was obtained via the right radial artery, a 6 Fr sheath was inserted. Right Coronary Artery selective angiography was performed in multiple views using a 5 Fr. 4.0 [place] Pillar catheter. Left Coronary Artery selective angiography was performed in multipl e views using a 5 Fr. JL3.5 catheter. Left Ventriculography was performed in SYED projection using a 5 Fr. Pigtail catheter. LV to AO pullback pressures were then recorded.The arterial sheath was pulled and a TR Band was applied for hemostasis CORONARY ANGIOGRAPHY DOMINANCE: Right Dominant LEFT HEART ASSESSMENT Left Ventricular Ejection Fraction: by LV Gram 60 % Normal LV wall motion Normal Left Ventricular systolic function LEFT MAIN: Mild calcification LEFT ANTERIOR DESCENDING ARTERY: Previously placed stent is patent, Mild luminal irregularities less than 30% CIRCUMFLEX ARTERY: DISTAL CIRC: is occluded RIGHT CORONARY ARTERY: Previously placed stent is patent DISTAL RCA: Previously placed stent is patent RT PLV: is occluded COLLATERAL FLOW: Collateral flow from Left to Right COMPLICATIONS No Complications PROCEDURE MEDICATIONS Fentanyl 50 mcg IV Versed 1 mg IV Versed 1 mg IV Oxygen: 2 L/min via nasal cannula Heparin diluted in 23cc Heparinized saline. Patient given 10cc IA of this solution. 06/20/2020 08:30: 51 Verapamil 2.5mg, Ntg 100mcgs, 2000 units of Heparin diluted in 23cc Heparinized saline. Patient give n 10cc IA of this solution. 06/20/2020 08:30:51 SUMMARY OF HEMODYNAMIC DATA Time AIR REST ECG 07:22:48 AO 99/68 (82) SA 08:34:01 LV 88/15, 22 08:53:15 LV 92/15, 18 08:53:22 LV 96/19, 21 08:54:09 LV 97/19, 24 08:54:15 LVp 102/21, 24 08:54:19 AOp 103/64 (81) 08:54:24 Signed By Donny Choi MD On 06/20/2020 9:31:07 AM Donny Choi MD
== END 2020-06-20 11:20 | disposition home or self-care (01) ==
LOC: CLSP 07:05
PROVIDERS: PCP Family Medicine; Referring Provider Internal Medicine Cardiovascular Disease; Visit Provider Internal Medicine Cardiovascular Disease
DX: I25.118 Atherosclerotic heart disease of native coronary artery with other forms of angina pectoris (principal); C76.0 Malignant neoplasm of head, face and neck; I25.2 Old myocardial infarction; I10 Essential (primary) hypertension; E78.5 Hyperlipidemia, unspecified; E66.9 Obesity, unspecified; Z68.41 Body mass index [BMI] 40.0-44.9, adult; E11.42 Type 2 diabetes mellitus with diabetic polyneuropathy; Z95.5 Presence of coronary angioplasty implant and graft; Z79.4 Long term (current) use of insulin; Z79.82 Long term (current) use of aspirin; Z79.84 Long term (current) use of oral hypoglycemic drugs; Z79.899 Other long term (current) drug therapy
CPT/HCPCS: 93458; 99152; 99153; J7040; A4216; C1769; C1894; Q9967

== ENCOUNTER → 2020-09-05 15:30 | Outpatient (CLI) | payer MEDICARE, OTHER, SELFPAY ==
[2020-05-30 13:21] VITALS: BMI 42.0
[2020-06-28 09:38] VITALS: BMI 42.1
--- NOTE | 2020-09-05 15:42 | CT_ITS ---
STUDY: CT CHEST WITHOUT CONTRAST REASON FOR EXAM: Male, 70 years old. Incidentally found lung consolidation evaluation. hx of brain ca RADIATION DOSAGE (If Supplied By Facility): CTDIvol = ( 20.14 ) mGy, DLP = ( 684.44 ) mGycm TECHNIQUE: Transaxial imaging was performed without the administration of intravenous contrast material. Multiplanar coronal and sagittal images were reformatted. Individualized dose optimization techniques were used for this CT. COMPARISON: None. FINDINGS: A right-sided portacatheter is seen with the tip in the superior vena cava. Small benign-appearing bilateral axillary There are multiple cavitary pulmonary nodules scattered throughout the right and left lungs involving the upper and lower lobes. The margins of the cystic nodules are irregular and thickened. Adjacent to these nodular densities, there is evidence of a small amount of groundglass appearance. With the patient''s history of angiosarcoma, the differential diagnosis should consider multiple bilateral necrotic metastasis. A differential diagnosis to consider chart also include possible bilateral abscesses. There is no demonstrated pleural abnormality. There are calcifications of the coronary arteries. There are multiple small lymph nodes within the mediastinum, which are normal in size and morphology most compatible with reactive lymph hyperplasia. Normal hilar regions. Normal unenhanced pulmonary arteries. There is atherosclerotic calcification of the aortic arch . Normal osseous structures. There is no demonstrated abnormality of the visualized upper abdomen. CT/Chest without Contrast IMPRESSION: Diffuse multiple bilateral pulmonary nodules involving both lungs the large majority are cystic in nature as described. Necrotic metastasis should be ruled out. The other diagnoses to consider should include possibility of bilateral pulmonary abscesses. Clinical correlation is recommended. Electronically Signed: Taj Oliva, at 15:57 EST , Service support ,
== END ==
PROVIDERS: PCP Family Medicine; Referring Provider Student in an Organized Health Care Education/Training Program; Visit Provider Student in an Organized Health Care Education/Training Program
DX: J18.1 Lobar pneumonia, unspecified organism (principal)
CPT/HCPCS: 71250; 77014; 77290

== ENCOUNTER → 2020-09-26 14:32 | Outpatient (CLI) | payer MEDICARE, OTHER, SELFPAY ==
[2020-05-30 13:21] VITALS: BMI 42.0
[2020-09-22 09:15] VITALS: BMI 39.9
--- NOTE | 2020-09-26 14:34 | CT_ITS ---
STUDY: CT BRAIN WITH AND WITHOUT CONTRAST REASON FOR EXAM: Male, 70 years old. 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 The examination was performed with intravenous administration of IV 50mL Isovue-370. Individualized dose optimization techniques were used for this CT. COMPARISON: None. FINDINGS: Normal soft tissue structures. Normal calvarium. There is asymmetry of the ventricles consistent with an anatomic variant. There are areas of decreased attenuation within the white matter tracts of the supratentorial brain, consistent with microvascular disease changes. Normal basal ganglia and thalami. Normal brainstem. Normal cerebellum. There is no intracranial hemorrhage. There are no findings of an acute ischemic infarction. Normal visualized paranasal sinuses. CT/Brain/Head W/WO Contrast IMPRESSION: Moderate generalized brain atrophy along with microangiopathic white matter disease. No acute intracranial hemorrhage or enhancing lesion. Electronically Signed: Diana Hamlin MD at 3:31 EST , Service support ,
== END ==
PROVIDERS: PCP Family Medicine; Referring Provider Internal Medicine Hematology & Oncology; Visit Provider Internal Medicine Hematology & Oncology
DX: C76.0 Malignant neoplasm of head, face and neck (principal)
CPT/HCPCS: 70470; Q9967

== ENCOUNTER → 2020-10-08 11:42 | Outpatient (CLI) | payer MEDICARE, OTHER, SELFPAY ==
[2020-05-30 13:21] VITALS: BMI 42.0
[2020-10-06 10:10] VITALS: BMI 38.3
--- NOTE | 2020-10-08 11:44 | RAD_ITS ---
We are attempting to reach an attending provider to discuss findings. An addendum with communication details will be sent when the communication is complete. STUDY: X-RAY CHEST REASON FOR EXAM: Male, 70 years old. BRAIN CA. POSSIBLE FLUID TECHNIQUE: PA and lateral views of the chest. COMPARISON: 01/14/2019 FINDINGS: Interval placement of right internal jugular chest port with a large apical right-sided pneumothorax. The lungs are clear and expanded. There is no demonstrated pleural abnormality. Normal size heart. Normal mediastinum and april. Normal visualized pulmonary arteries. Normal visualized aortic arch and descending thoracic aorta. Normal visualized thoracic spine. Normal visualized ribs, clavicles, and shoulders. There is no demonstrated abnormality of the visualized soft tissue structures of the upper abdomen. RAD/Chest PA and Lateral IMPRESSION: Interval placement of right internal jugular chest port with a large right-sided pneumothorax. Electronically Signed: Eren Birmingham MD at 12:49 EST Tel , Service support ,
== END ==
PROVIDERS: PCP Family Medicine; Referring Provider Internal Medicine Hematology & Oncology; Visit Provider Internal Medicine Hematology & Oncology
DX: R06.02 Shortness of breath (principal); C79.89 Secondary malignant neoplasm of other specified sites
CPT/HCPCS: 71046

== ENCOUNTER 2020-10-08 15:31 | Emergency (ER) | payer MEDICARE, OTHER, SELFPAY ==
[2020-05-30 13:21] VITALS: BMI 42.0
[2020-10-06 10:10] VITALS: BMI 38.3
[2020-10-08 15:32] VITALS: BP 152/83; PULSE 113; RESP 24; TEMP 36.4; O2SAT 93; BMI 38.3
--- NOTE | 2020-10-08 15:53 | ED.VISSUMM ---
- ER Visit Summary Date of Service: 10/08/20 Chief Complaint: Needed chest tube History of Present Illness: The patient is a [address] Gunn, Dr. Choi, and Dr. Parra. 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 He was scheduled for radiation and had a CT of the chest that showed angiosarcoma to his lungs. His last day of chemo was 9 days ago. States that he had his port placed prior to his first round of chemo. Patient reports he has shortness of breath that began approximately 3 weeks ago with a nonproductive cough. He denies sick contacts. He does wear a mask. He reports shortness of breath is only when he exerts himself. He denies any chest pain. Patient had a chest x-ray today as an outpatient that shows a large apical pneumothorax on the right. Patient is on Plavix, but has not taken it today. Physical Examination: Vitals: Stable. Afebrile. General: Well-nourished and well-developed. Head: Normocephalic atraumatic. Neck: Supple, no lymphadenopathy. No JVD. Nontender. Cardiovascular: Regular rate and rhythm. No murmurs. Respiratory: No respiratory distress. Clear to auscultation bilaterally. Decreased breath sounds on the right. Abdominal: Soft, nontender, nondistended, normal bowel sounds. No guarding, rebound, or peritoneal signs. Back: Nontender. Extremities: Nontender, no edema. Skin: Normal color, no rash. Neurologic: Alert and oriented ?3. Cranial nerves II through XII are intact. Normal strength and sensation. Psych: Normal affect. Test Results: BC shows a white count of 16.3 with segmented for 75 lymphocytes of 15. Patient got Neupogen 2 days ago. H&H is 11.5 and 36.4, platelets 147. Chem-7 shows a glucose of 473 and BUN of 19. INR is 1.1. PTT is 24.3. COVID-19 is negative. X-ray that was obtained earlier today as an outpatient was reviewed. It shows a large right apical pneumothorax. Repeat x-ray after the catheter was placed that shows the catheter to be in good position. However, the large pneumothorax remains. Emergency Department Course and Treatment: Patient had his port accessed. He refused pain or nausea medications. He was given a dose of fentanyl and Ancef IV prior to placing the pneumothorax catheter. He tolerated this well. It was placed to suction. Treatment Plan: Patient was initially discussed with Dr. Crockett who asked that the patient be transferred to a tertiary care center as this may be due to his angiosarcoma that has spread to his lungs. He was discussed with Dr. Patricia at [facility] where he has been previously for his angiosarcoma who is accepted him in transfer. Disposition: Transferred in improved condition. Impression: 1. Right pneumothorax. 2. Pneumothorax catheter placed by ED physician. 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 4. Thrombocytopenia. 5. Leukocytosis after Neupogen. Procedure note The patient had the left anterior axillary line at the level of his nipple cleansed with chlorhexidine soap. It was then anesthetized 1% lidocaine without epinephrine. A small incision was made with an 11 blade. The needle was placed over the top of the rib until area returned and then the catheter was guided over this. There was free flow of oxygen into the syringe following placement of the catheter. This was sewn into place and a dressing was placed. It was then attached to a dry suction apparatus. There was a small amount of bleeding from the skin neck. There was no blood from placement of the catheter itself. There was no blood draining from the catheter. The patient tolerated it well. This note was generated with [employer] dictation software. It may contain incorrect words, spelling, and punctuation that were not noted in review of the chart prior to signing ED Disposition - Plan for ED Patient: Referrals: Skylar Gunn DO [Primary Care Provider] -
[2020-10-08 15:55] VITALS: O2SAT 93
[2020-10-08 16:37] LABS: Absolute Lymphocyte Count 2.37 X10^3/uL (0.83-4.51); Absolute Neutrophil Count 12.2 X10^3/uL (2.0-7.7); Basophil# 0.09 X10^3/uL; Basophil% 0.6 % (0-1); Eosinophil# 0.05 X10^3/uL; Eosinophils% 0.3 % (0-5); Hematocrit 36.4 % (40-54); Hemoglobin 11.5 g/dL (13.0-16.5); Lymphocyte # 2.37 X10^3/ul (4.0); Lymphocyte % 14.5 % (19-41); Mean Corp Hgb Conc 31.6 g/dL (32-36); Mean Corpuscular Hgb 27.6 pg (27.0-32.0); Mean Corpuscular Volume 87.5 fL (80-94); Mean Platelet Vol. 10.3 fl (6.2-12.0); Monocyte# 0.89 X10^3/uL; Monocyte% 5.5 % (0-10); Neutrophil # 12.21 X10^3/uL (2.7-7.7); Neutrophil % 74.7 % (47-70); Platelet Count 147 K/mm3 (150-450); RBC Distribution Width CV 14.7 % (11.6-14.6); RBC Distribution Width SD 44.2 fl (35.1-43.9); Red Blood Count 4.16 M/mm3 (4.6-6.2); White Blood Count 16.3 K/mm3 (4.4-11.0)
[2020-10-08 16:46] LABS: International Normalized Ratio 1.1; Prothrombin Time (Protime)PT. 13.4 SECONDS (11.7-14.9)
[2020-10-08 16:47] LABS: Partial Thromboplast Time 24.3 Seconds (24.1-36.2)
[2020-10-08 16:52] LABS: Anion Gap 9 (5-15); BUN 19 mg/dL (7-18); BUN/Creat Ratio 19.3 RATIO (10-20); Calcium,Total 9.1 mg/dL (8.5-10.1); Chloride 104 mmol/L (98-107); Creatinine, Serum 0.98 mg/dL (0.70-1.30); EST Glomerular Filtration Rate 80 mL/min (>60); Est Glom Filt Rate - Afr Amer 97 mL/min (>60); Estimated Creatinine Clearance 75.77 ml/min; Glucose 473 mg/dL (74-106); Potassium 3.7 mmol/L (3.5-5.1); Sodium Level 137 mmol/L (136-145)
[2020-10-08 17:31] VITALS: BP 176/84; PULSE 114; RESP 18; O2SAT 94
[2020-10-08] MEDS: fentaNYL 100 MCG/2 ML Ampul 50 MCG IV (17:51)
[2020-10-08] MEDS: Cefazolin 1 GM/50 ML BAG IV (18:10)
--- NOTE | 2020-10-08 18:45 | RAD_ITS ---
STUDY: X-RAY CHEST REASON FOR EXAM: Male, 70 years old. chest tube placement TECHNIQUE: AP COMPARISON: Earlier today FINDINGS: Right chest port is stable. A small caliber right chest tube has been placed with the tip projecting over the posterior right fifth rib. However, the size of the pneumothorax has not substantially changed since earlier today. Partial collapse of the right lung is overall stable. Normal size heart. Normal mediastinum and april. Normal visualized pulmonary arteries. There is atherosclerotic calcification of the aortic arch with tortuosity. There is demineralization of the osseous structures. Normal visualized ribs, clavicles, and shoulders. There is no demonstrated abnormality of the visualized soft tissue structures of the upper abdomen. RAD/Chest 1 View (Portable) IMPRESSION: Placement of right chest tube. Similar sized right pneumothorax. Electronically Signed: Dewayne Romano MD (Brooks) at 19:08 EST , Service support ,
[2020-10-08 19:00] VITALS: BP 176/84; PULSE 113; RESP 18; O2SAT 96
[2020-10-08 19:52] VITALS: BP 176/84; PULSE 107; RESP 18; O2SAT 93
== END 2020-10-08 21:18 | disposition short-term general hospital (02) ==
LOC: ED 15:59
PROVIDERS: Emergency Provider Emergency Medicine; PCP Family Medicine
DX: J93.9 Pneumothorax, unspecified (principal); C49.9 Malignant neoplasm of connective and soft tissue, unspecified; C78.00 Secondary malignant neoplasm of unspecified lung; D69.6 Thrombocytopenia, unspecified; D72.829 Elevated white blood cell count, unspecified; I10 Essential (primary) hypertension; I25.10 Atherosclerotic heart disease of native coronary artery without angina pectoris; E11.9 Type 2 diabetes mellitus without complications; E78.00 Pure hypercholesterolemia, unspecified; Z79.4 Long term (current) use of insulin; Z79.82 Long term (current) use of aspirin; Z79.899 Other long term (current) drug therapy
CPT/HCPCS: 32551; 36591; 71045; 71046; 80048; 85025; 85610; 85730; 87426; 96365; 96375; 99285; J7050; A4216

== ENCOUNTER → 2020-11-03 10:58 | Outpatient (CLI) | payer MEDICARE, OTHER, SELFPAY ==
[2020-05-30 13:21] VITALS: BMI 42.0
[2020-11-03 10:26] VITALS: BMI 39.0
--- NOTE | 2020-11-03 11:02 | RAD_ITS ---
STUDY: X-RAY CHEST REASON FOR EXAM: Male, 70 years old. Pleurodesis TECHNIQUE: Frontal view of the chest COMPARISON: 10/08/20 FINDINGS: Again noted is a right-sided port with its tip in the superior vena cava. There is no pneumothorax. There is a small right pleural effusion with overlying atelectasis. There is no left-sided effusion. There are no pulmonary infiltrates. The heart is normal in size. The visualized osseous structures are within normal limits. RAD/Chest PA and Lateral IMPRESSION: No pneumothorax. Small right pleural effusion with overlying atelectasis. Electronically Signed: Bolivar Pereira MD at 17:02 EST Tel , Service support ,
== END ==
PROVIDERS: PCP Family Medicine; Referring Provider Internal Medicine Hematology & Oncology; Visit Provider Internal Medicine Hematology & Oncology
DX: Z51.11 Encounter for antineoplastic chemotherapy (principal); C78.00 Secondary malignant neoplasm of unspecified lung; C77.1 Secondary and unspecified malignant neoplasm of intrathoracic lymph nodes; C49.0 Malignant neoplasm of connective and soft tissue of head, face and neck; C76.0 Malignant neoplasm of head, face and neck
CPT/HCPCS: 36591; 71046; 80053; 85025; 96367; 96413; 96415; J7050; A4216; J2405; J3490; J9201

== ENCOUNTER 2020-12-06 03:18 | Outpatient (RCR) | payer MEDICARE, OTHER, SELFPAY ==
[2020-05-30 13:21] VITALS: BMI 42.0
[2020-12-01 10:22] VITALS: BMI 39.2
[2020-12-06] MEDS: COVID-19 VACC, MRNA(PFIZER)/PF 30 MCG/0.3 ML SYRINGE IM (17:04)
[2020-12-27] MEDS: COVID-19 VACC, MRNA(PFIZER)/PF 30 MCG/0.3 ML SYRINGE IM (16:46)
== END 2021-03-07 23:59 ==
LOC: IMMUN 03:18
PROVIDERS: PCP Family Medicine; Visit Provider Family Medicine
DX: Z23 Encounter for immunization (principal)
CPT/HCPCS: 0001A; 0002A; 91300

== ENCOUNTER 2020-12-09 10:30 | Outpatient (RCR) | payer MEDICARE, OTHER, SELFPAY ==
[2020-05-30 13:21] VITALS: BMI 42.0
[2020-11-17 15:19] VITALS: BMI 38.6
--- NOTE | 2020-11-24 15:25 | HP.OTEVAL_ITS ---
Patient's Visit Information Ishaan JULIO is a 70 year old M, referred to Occupational Therapy by MARTHA Cochran, with a diagnosis of skin graft left UE. Date of Evaluation: 11/22/20 Occupational Therapist: Yoly Brink, RADHA/Delfino, CHT - Subjective This 70 year old male was seen for OT eval with dx. of left UE skin graft and limited left wrist ROM and digit ROM, pain and scar sensitivity. pt states his graft was in 2019 and he has been having chemo, and some other issues. Pt would like to get his ROM and strength back to use is left UE with ADls and IADLs. - Pain left UE 4 Pain Intensity Range: 1, 6 - ROM Wrist: right 70/60 left 40/35 ROM Comments: right RD [address] 15 UD 25. pt demo with avgerage right MCP 80* flex at MCP left 55*. extension is WFL. - Strength [employer]: right 70# left 10# Lateral Pinch: right 22# left 14# Tripod Pinch: right 18# left 6# Strength Comments: pt demo with limited left underpresser hand and pinch strength limiting use of left UE with ADLs and IADLs - Edema Wrist: right 19cm left 20.5 - Sensation Sensation Comments: numbness around skin graft - Quick DASH-Disab of Arm,Shoulder& Hand Quick DASH Score: 54.5450 - Goals Goal:: pt will demo a increase in left underpresser hand strength to 55# or greater to increase pts ind. with ADLs and IADLs by d/c. pt will demo a increase in lateral and tripod pinch by 4# to increase pts ind with using left UE with dressing tasks by d/c Goal:: pt will demo the ability to form a composite fist with left hand to increase pts ind. with ADLs and IADLs. pt will demo a increase in left wrist ROM by 10* or greater to increase pts ind. with use of left UE with ADLs and IADL by d/c Goal:: pt will report no pain greater than 1/10 with use of left UE with ADLs and IADL by d/c Goal:: pt will demo understanding of scar mtg and desensitiation by end of 3rd visit to decrease scar adhesions/sensitivity with use of right UE with IADLS - Rehabilitation General Assessment: pt demo with limited left UE wrist and digit ROM along with a decrease in pts left functional underpresser hand strength. Pt is limited with ADLs and IADLS due to the listed deficits. pt would benefit from skilled OT services 1-2 week for 8 weeks to regain functional composite fist and strength for ADLs and IADLs to return to PLOF. Today therapsit ed. pt on PROM, place and hold, scar mobilization and scar desensitization. pt and pts spouse demo understanding and agree to POC. Rehabilitation Potential: Good - Anticipated Interventions A/AAROM/PROM, Strengthening, Scar Care, Triggerpoint Release, Desensitization, Modalities, Fine Motor Coord/Miguel - Visit Plan Frequency: 2x /Week Duration: 2 Months TEXT: Thank you for the opportunity to evaluate your patient. For Medicare and Medicare HMO plans, please review the plan of care and approve it. It will need to be FAXED BACK to us at [phone] for Medicare purposes. Please let me know if there are questions or concerns regarding this plan of care. Physician Signature: Date:
--- NOTE | 2021-04-04 08:10 | HP.OT.NRP ---
Ishaan JAYMIE JULIO was seen in my office for initial evaluation on 11/22/20. The following Plan of Care was established for this patient: Initial Frequency: 2x /Week Initial Duration: 2 Months Plan: to call in to schedule in December. pt has not returned to therapy and due to time lapse in services pt d/c at this time. Anticipated Interventions: A/AAROM/PROM, Strengthening, Scar Care, Triggerpoint Release, Desensitization, Modalities, Fine Motor Coord/Miguel This patient was last seen in our office . Pertinent comments regarding their Occupational therapy will appear below: At this point I will be discontinuing this patient from occupational therapy. I would be happy to see this patient again in the future if found appropriate by the physician. Thank you! Yoly Brink, OTR/L, CHT
== END 2020-12-09 19:00 | disposition home or self-care (01) ==
LOC: OT 10:30
PROVIDERS: PCP Family Medicine; Referring Provider Nurse Practitioner Family; Visit Provider Nurse Practitioner Family
DX: R29.898 Other symptoms and signs involving the musculoskeletal system (principal)
CPT/HCPCS: 97110; 97140; 97166; 97530

== ENCOUNTER 2022-04-12 12:00 | Inpatient (IN) | payer MEDICARE, OTHER, SELFPAY ==
[2020-05-30 13:21] VITALS: BMI 42.0
[2022-04-12] VITALS (8 sets, daily range): BP systolic 99–126; BP diastolic 65–91; PULSE 88–107; RESP 16–19; TEMP 35.8–36.5; O2SAT 90–95; BMI 32.1; BMI 32.7
--- NOTE | 2022-04-12 12:17 | CT_ITS ---
STUDY: CTA CHEST REASON FOR EXAM: Male, 71 years old. 2 day history of the shortness of breath and chest pain. RADIATION DOSAGE (If Supplied By Facility): CTDIvol = ( 11.41 ) mGy, DLP = ( 610.67 ) mGycm TECHNIQUE: The examination was performed with the intravenous administration of IV 100mL Isovue-370. Post-processing of the angiographic images was performed, with multiplanar reformation and 3D reconstruction. Individualized dose optimization techniques were used for this CT. COMPARISON: Comparison is made with prior study dated 09/05/2020. FINDINGS: There are multiple bilateral pulmonary emboli. Thrombus is seen in the distal portion of the left pulmonary artery with extension into the branches of the left upper and left lower lobe pulmonary arteries. There is also evidence of thrombus in the distal portion of the right pulmonary artery with thrombi within the upper and lower pulmonary arterial branches. Normal thoracic aorta and visualized great vessels. There is no demonstrated aortic dissection. Normal heart and pericardium. Normal mediastinum. Normal hilar regions. Normal visualized trachea and bronchi. The lungs are well expanded. Normal pulmonary parenchyma. Normal pleura. Normal chest wall structures. There are degenerative changes of thoracic spine. Calcified splenic granulomas. Punctate nonobstructive calculus in the midpole of the left kidney. CT/CTA Chest W/WO Contrast IMPRESSION: Extensive bilateral pulmonary emboli as described. Mild increased markings in the posterior aspect of the right upper lobe suggestive of scarring. Electronically Signed: Taj Oliva MD at 14:00 EDT ,
--- NOTE | 2022-04-12 12:18 | EKG12_ITS ---
Test Reason : sob Blood Pressure : / mmHG Vent. Rate : 101 BPM Atrial Rate : 101 BPM P-R Int : 248 ms QRS Dur : 100 ms QT Int : 354 ms P-R-T Axes : 000 -73 -27 degrees QTc Int : 459 ms Sinus tachycardia with 1st degree A-V block Left axis deviation Incomplete right bundle branch block Septal infarct , age undetermined Inferior infarct , age undetermined Abnormal ECG Confirmed by CAREY WAGNER, ANITA ([id number]), newspaper managing editor ALYSSA MANNING ([id number]) on 04/13/2022 10:36:04 A M Referred By: Ping Confirmed By:KATIE PATINO MD
--- NOTE | 2022-04-12 12:28 | ED.VIS.DYS ---
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 He states he has no symptoms at rest or with lying down but when he ambulates he has burning chest pain and shortness of breath. No fever or cough. With his cancer infusion treatments he has been nauseous and had some diarrhea over the last few weeks but this is unchanged. He follows at the [facility] and gets monthly experimental infusions and is scheduled to get one today. He was also briefly around his son a week ago who since tested positive for COVID. Patient is vaccinated with booster. Regarding his cardiac history, he has 8 stents with the most recent being placed in [address] Pk Domingo. He called his office today when he had the symptoms and has a follow-up scheduled for tomorrow. He has no history of DVT/PE, no leg pain or swelling. <Dr. 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 He states he has no symptoms at rest or with lying down but when he ambulates he has burning chest pain and shortness of breath. No fever or cough. With his cancer infusion treatments he has been nauseous and had some diarrhea over the last few weeks but this is unchanged. He follows at the [facility] and gets monthly experimental infusions and is scheduled to get one today. He was also briefly around his son a week ago who since tested positive for COVID. Patient is vaccinated with booster. Regarding his cardiac history, he has 8 stents with the most recent [place] [address] Choi. He called his office today when he had the symptoms and has a follow-up scheduled for tomorrow. He has no history of DVT/PE, no leg pain or swelling. PFSH <NELSON Trinidad - Last Filed: 04/12/22 15:10> [facility] Medical History Angiosarcoma of scalp Atherosclerotic heart disease of cahto coronary artery with other forms of angina pectoris Diabetes type 2, controlled Essential (primary) hypertension History of non-ST elevation myocardial infarction (NSTEMI) (02/09/18) Hyperlipidemia Obesity Peripheral neuropathy Pneumothorax Port placement Primary head and neck soft tissue sarcoma Skin lesion Vascular disease Home Medications aspirin 81 mg tablet,delayed release (Adult Aspirin Regimen) 81 mg PO DAILY heart health 11/20/17 [History Last Taken 04/12/22] cholecalciferol (vitamin D3) 1,250 mcg (50,000 unit) capsule 50,000 unit PO WE supplement 03/12/18 [History Last Taken 04/11/22] lidocaine-prilocaine 2.5 %-2.5 % topical cream 1 applicatio TP DAILY PRN PRN Not Specified 30 days #1 tube 03/22/20 [Rx Last Taken Unknown] prochlorperazine maleate 10 mg tablet 10 mg PO Q6H PRN PRN Nausea 10 days #30 tabs 03/22/20 [Rx Last Taken 04/11/22] gabapentin 300 mg capsule 600 mg PO BID 11/10/20 [History Last Taken 04/12/22] cabozantinib 20 mg tablet 40 mg PO DAILY CANCER 04/13/21 [History Last Taken 04/12/22] metformin 500 mg tablet 1,000 mg PO BID diabetes 04/13/21 [History Last Taken 04/12/22] triamterene 37.5 mg-hydrochlorothiazide 25 mg tablet 1 tab PO DAILY FLUID 04/13/21 [History Last Taken 04/12/22] isosorbide mononitrate 60 mg tablet,extended release 24 hr 60 mg PO DAILY blood pressure #90 tabs 06/01/21 [Rx Last Taken 04/12/22] amlodipine 5 mg tablet 5 mg PO DAILY bp 04/12/22 [History Last Taken 04/12/22] atorvastatin 40 mg tablet 40 mg PO QHS CHOLESTEROL 04/12/22 [History Last Taken 04/11/22] levothyroxine 150 mcg tablet 150 mcg PO DAILY THYROID 04/12/22 [History Last Taken 04/12/22] loperamide 2 mg capsule 4 mg PO BID 04/12/22 [History Last Taken 04/12/22] losartan 100 mg tablet 100 mg PO DAILY blood pressure 04/12/22 [History Last Taken 04/12/22] metoprolol succinate 100 mg tablet,extended release 24 hr 100 mg PO DAILY blood pressure 04/12/22 [History Last Taken 04/12/22] omeprazole 40 mg capsule,delayed release 40 mg PO DAILY GERD 04/12/22 [History Last Taken 04/11/22] apixaban 5 mg (74 tabs) tablets in a dose pack (Eliquis DVT-PE Treat 30D Start) 5 mg PO BID #74 tabs 04/14/22 [Rx Last Taken Unknown] Allergy/AdvReac Type Severity Reaction Status Date / Time No Known Allergies Allergy Verified 04/12/22 12:04 Family History Unknown No problems noted. Father CAD (coronary artery disease) Heart disease Prostate cancer Mother Arthritis Hypertension Grandmother Colon cancer Grandfather Prostate cancer Uncle Diabetes Surgical History History of coronary artery stent placement (02/19/19) History of hydrocelectomy History of left heart catheterization (06/20/20) History of tonsillectomy and adenoidectomy Status post lung surgery Social History Smoking Status: Never smoker second hand exposure: No alcohol intake: never substance use type: does not use ROS <NELSON Trinidad - Last Filed: 04/12/22 15:10> ROS ED ROS Narrative Constitutional: Negative for fever, chills, malaise. Eyes: Negative for visual change. ENT: Negative for sore throat, ear pain, rhinorrhea. CVS: Negative for palpitations, chest pain, syncope. Respiratory: Positive for shortness of breath. Negative for cough, orthopnea. GI: Positive for nausea, diarrhea. Negative for abdominal pain, vomiting, constipation, melena, hematochezia. : Negative for dysuria, hematuria or frequency. Neuro: Negative for headache, motor/sensory dysfunction. Skin: Negative for rash, abscess, or wound. Musc: Negative for joint pain, swelling, trauma. Heme: Negative for easy bruising, bleeding, lymphadenopathy. EXAM <NELSON Trinidad - Last Filed: 04/12/22 15:10> Physical Exam Narrative Exam Narrative: CONST: Patient sitting in no acute distress. EYES: Normal inspection. ENT: Normal inspection, moist mucous membranes. NECK: Normal inspection. RESP: No respiratory distress, CTAB. CVS: Regular rate and rhythm, no murmur, no gallop. ABD: Soft and nontender, no guarding or rebound, nondistended. SKIN: Color normal, no rash, warm, dry, intact. EXTREMITIES: Normal appearance, no pedal edema. NEURO: Oriented x4. PSYCH: Normal affect. Const Vital Signs: 04/12/22 12:01 04/12/22 12:12 04/12/22 12:14 Temperature 97.1 F L Temperature Source Temporal Pulse Rate 106 H 103 H Respiratory Rate 16 19 H Respiratory Effort Short of Breath Labored Respiratory Depth Normal Respiratory Pattern Tachypnea Blood Pressure 126/86 H Blood Pressure Mean 99 Pulse Ox 94 95 Oxygen Delivery Method Room Air Room Air Room Air 04/12/22 13:48 Temperature Temperature Source Pulse Rate 102 H Respiratory Rate 16 Respiratory Effort Respiratory Depth Respiratory Pattern Blood Pressure 118/91 H Blood Pressure Mean 100 Pulse Ox 93 Oxygen Delivery Method Room Air <Dr. Nicolasa Feng DO - Last Filed: 04/15/22 02:37> Physical Exam Const Vital Signs: 04/12/22 12:01 04/12/22 12:12 04/12/22 12:14 Temperature 97.1 F L Temperature Source Temporal Pulse Rate 106 H 103 H Respiratory Rate 16 19 H Respiratory Effort Short of Breath Labored Respiratory Depth Normal Respiratory Pattern Tachypnea Blood Pressure 126/86 H Blood Pressure Mean 99 Pulse Ox 94 95 Oxygen Delivery Method Room Air Room Air Room Air 04/12/22 13:48 Temperature Temperature Source Pulse Rate 102 H Respiratory Rate 16 Respiratory Effort Respiratory Depth Respiratory Pattern Blood Pressure 118/91 H Blood Pressure Mean 100 Pulse Ox 93 Oxygen Delivery Method Room Air MDM <NELSON Trinidad - Last Filed: 04/12/22 15:10> [facility] MDM Narrative Medical decision making narrative: EKG is sinus rhythm with new T wave inversion in V3 compared to last EKG from 2019. Troponin is 269 so this is consistent with NSTEMI. Patient is pain-free at rest. I contacted on-call cardiology recommended aspirin and heparin which was initiated. He was also given IV fluids for mild BERNABE with BUN/creatinine of 42/1.55. No other significant lab abnormalities. CTA shows extensive bilateral PEs. No saddle embolus, so right heart strain. BNP will be added on and hospitalist notified. Heparin already running and patient remains hemodynamically stable. 1. Chest pain 2. NSTEMI 3. Acute kidney injury 4. Bilateral PEs Lab Data Labs: Laboratory Results - last 24 hr 04/12/22 04/12/22 04/12/22 12:34 12:34 12:34 WBC 9.9 RBC 4.10 L Hgb 13.3 Hct 41.1 MCV 100.2 H MCH 32.4 H MCHC 32.4 RDW Std Deviation 61.1 H RDW Coeff of Alexis 16.3 H Plt Count 189 MPV 10.5 Immature Gran % (Auto) 0.300 Neut % (Auto) 46.7 L Lymph % (Auto) 42.5 H Prentiss % (Auto) 5.6 Eos % (Auto) 4.4 Baso % (Auto) 0.5 Absolute Neuts (auto) 4.6 Absolute Lymphs (auto) 4.19 Nucleated RBC % 0 PT INR APTT Sodium 137 Potassium 3.8 Chloride 106 Carbon Dioxide 21.0 Anion Gap 10 BUN 42 H Creatinine 1.55 H Estim Creat Clear Calc 47.23 Est GFR (MDRD) Af Amer 57 L Est GFR (MDRD) Non-Af 47 L BUN/Creatinine Ratio 27.1 H Glucose 173 H Calcium 8.5 Total Bilirubin 0.60 AST 22 ALT 27 Alkaline Phosphatase 119 H Troponin I High Sens 269 H* Cancelled Total Protein 6.2 L Albumin 2.6 L Globulin 3.6 Albumin/Globulin Ratio 0.7 L 04/12/22 13:50 WBC RBC Hgb Hct MCV MCH MCHC RDW Std Deviation RDW Coeff of Alexis Plt Count MPV Immature Gran % (Auto) Neut % (Auto) Lymph % (Auto) Prentiss % (Auto) Eos % (Auto) Baso % (Auto) Absolute Neuts (auto) Absolute Lymphs (auto) Nucleated RBC % PT 13.3 INR 1.0 APTT 29.0 Sodium Potassium Chloride Carbon Dioxide Anion Gap BUN Creatinine Estim Creat Clear Calc Est GFR (MDRD) Af Amer Est GFR (MDRD) Non-Af BUN/Creatinine Ratio Glucose Calcium Total Bilirubin AST ALT Alkaline Phosphatase Troponin I High Sens Total Protein Albumin Globulin Albumin/Globulin Ratio Radiography Diagnostic Testing: Clinical Impression(s) from Imaging Studies Chest CTA 04/12/22 12:17 IMPRESSION: Extensive bilateral pulmonary emboli as described. Mild increased markings in the posterior aspect of the right upper lobe suggestive of scarring. Electronically Signed: Taj Oliva MD at 14:00 EDT , <Dr. Nicolasa Feng, DO - Last Filed: 04/15/22 02:37> [facility] MDM Narrative Medical decision making narrative: EKG is sinus rhythm with new T wave inversion in V3 compared to last EKG from 2019. This is interpreted by emergency medicine physician. Troponin is 269 so this is consistent with NSTEMI. Patient is pain-free at rest. I contacted on-call cardiology recommended aspirin and heparin which was initiated. He was also given IV fluids for mild BERNABE with BUN/creatinine of 42/1.55. No other significant lab abnormalities. CTA shows extensive bilateral PEs. No saddle embolus, so right heart strain. BNP will be added on and hospitalist notified. Heparin already running and patient remains hemodynamically stable. 1. Chest pain 2. NSTEMI 3. Acute kidney injury 4. Bilateral PEs I have personally performed a face to face assessment of the patient and have reviewed the BRANDON Note. I performed a substantive portion of the visit including all aspects of the following. My carrion findings include: History is patient is a 71-year-old male with history of coronary artery disease with multiple stents presenting with chest pain. Patient states for the past week he has had burning across his chest with exertion. Denies any shortness of breath or difficulty breathing. Symptoms resolved with rest. Patient states this is reminiscent of when he needed stents in the past. Of note patient is currently on an immunologic for his metastatic angiosarcoma through [facility]. Exam is Sitting in bed. No acute distress. Normocephalic atraumatic. Moist mucosal membranes. Eyes are PERRLA and EOMI. Normal conjunctiva. Neck is supple. No JVD appreciated. Lungs are clear to auscultation bilaterally. Heart regular rhythm but tachycardic. No murmur appreciated. Abdomen is soft and nontender. No peripheral edema of the extremities. Normal tone throughout. Patient is ANO x3 with no focal neurologic deficits. Behaving appropriately in the emergency room. Medical Decison Making Patient is evaluated for chest discomfort that is exertional. Given that he has active cancer differential includes pulmonary emboli as well as coronary artery disease/angina. EKG does not show any acute DE. Patient is high since he troponin is elevated at 269. Case is discussed with cardiology on-call and patient started on a heparin drip as well as given aspirin. CTA does show bilateral pulmonary emboli. No signs of right heart strain. I suspect this is actually the cause of his NSTEMI as well as his exertional chest pain. Regardless patient is started on the heparin. He is admitted for further cardiac pulmonary monitoring. In addition his creatinine is mildly elevated. He is given IV fluids in the emergency room. Patient is agreeable this plan of care. He does remain hemodynamically stable in the emergency room. Other additions or changes: [None] Lab Data Labs: Laboratory Results - last 24 hr 04/12/22 04/12/22 04/12/22 12:34 12:34 12:34 WBC 9.9 RBC 4.10 L Hgb 13.3 Hct 41.1 MCV 100.2 H MCH 32.4 H MCHC 32.4 RDW Std Deviation 61.1 H RDW Coeff of Alexis 16.3 H Plt Count 189 MPV 10.5 Immature Gran % (Auto) 0.300 Neut % (Auto) 46.7 L Lymph % (Auto) 42.5 H Prentiss % (Auto) 5.6 Eos % (Auto) 4.4 Baso % (Auto) 0.5 Absolute Neuts (auto) 4.6 Absolute Lymphs (auto) 4.19 Nucleated RBC % 0 PT INR APTT Sodium 137 Potassium 3.8 Chloride 106 Carbon Dioxide 21.0 Anion Gap 10 BUN 42 H Creatinine 1.55 H Estim Creat Clear Calc 47.23 Est GFR (MDRD) Af Amer 57 L Est GFR (MDRD) Non-Af 47 L BUN/Creatinine Ratio 27.1 H Glucose 173 H Calcium 8.5 Total Bilirubin 0.60 AST 22 ALT 27 Alkaline Phosphatase 119 H Troponin I High Sens 269 H* Cancelled Total Protein 6.2 L Albumin 2.6 L Globulin 3.6 Albumin/Globulin Ratio 0.7 L 04/12/22 13:50 WBC RBC Hgb Hct MCV MCH MCHC RDW Std Deviation RDW Coeff of Alexis Plt Count MPV Immature Gran % (Auto) Neut % (Auto) Lymph % (Auto) Prentiss % (Auto) Eos % (Auto) Baso % (Auto) Absolute Neuts (auto) Absolute Lymphs (auto) Nucleated RBC % PT 13.3 INR 1.0 APTT 29.0 Sodium Potassium Chloride Carbon Dioxide Anion Gap BUN Creatinine Estim Creat Clear Calc Est GFR (MDRD) Af Amer Est GFR (MDRD) Non-Af BUN/Creatinine Ratio Glucose Calcium Total Bilirubin AST ALT Alkaline Phosphatase Troponin I High Sens Total Protein Albumin Globulin Albumin/Globulin Ratio Radiography Diagnostic Testing: Clinical Impression(s) from Imaging Studies Chest CTA 04/12/22 12:17 IMPRESSION: Extensive bilateral pulmonary emboli as described. Mild increased markings in the posterior aspect of the right upper lobe suggestive of scarring. Electronically Signed: Taj Oliva MD at 14:00 EDT , Discharge Plan Dx/Rx/DC Orders Clinical Impression: Bilateral pulmonary embolism, NSTEMI, initial episode of care Disposition Disposition: Acute Care Hospital [facility]
[2022-04-12 12:53] LABS: Absolute Lymphocyte Count 4.19 X10^3/uL (0.83-4.51); Absolute Neutrophil Count 4.6 X10^3/uL (2.0-7.7); Basophil# 0.05 X10^3/uL; Basophil% 0.5 % (0-1); Eosinophil# 0.43 X10^3/uL; Eosinophils% 4.4 % (0-5); Hematocrit 41.1 % (40-54); Hemoglobin 13.3 g/dL (13.0-16.5); Lymphocyte # 4.19 X10^3/ul (0.83-4.51); Lymphocyte % 42.5 % (19-41); Mean Corp Hgb Conc 32.4 g/dL (32-36); Mean Corpuscular Hgb 32.4 pg (27.0-32.0); Mean Corpuscular Volume 100.2 fL (80-94); Mean Platelet Vol. 10.5 fl (6.2-12.0); Monocyte# 0.55 X10^3/uL; Monocyte% 5.6 % (0-10); NRBC Flagged by Analyzer 0 % (0-5); Neutrophil # 4.62 X10^3/uL (2.7-7.7); Neutrophil % 46.7 % (47-70); Platelet Count 189 K/mm3 (150-450); RBC Distribution Width CV 16.3 % (11.6-14.6); RBC Distribution Width SD 61.1 fl (35.1-43.9); White Blood Count 9.9 K/mm3 (4.4-11.0)
[2022-04-12 13:15] LABS: ALB/GLOB Ratio 0.7 RATIO (0.9-2.4); AST(SGOT) 22 U/L (15-37); Alanine Aminotransfer ALT/SGPT 27 U/L (16-61); Albumin, Serum 2.6 g/dL (3.2-5.0); Alkaline Phosphatase 119 U/L (45-117); Anion Gap 10 (5-15); BUN 42 mg/dL (7-18); BUN/Creat Ratio 27.1 RATIO (10-20); Calcium,Total 8.5 mg/dL (8.5-10.1); Chloride 106 mmol/L (98-107); Creatinine, Serum 1.55 mg/dL (0.70-1.30); EST Glomerular Filtration Rate 47 mL/min (>60); Est Glom Filt Rate - Afr Amer 57 mL/min (>60); Estimated Creatinine Clearance 47.23 ml/min; Globulin 3.6 g/dL (2.2-4.2); Glucose 173 mg/dL (74-106); Potassium 3.8 mmol/L (3.5-5.1); Protein, Total 6.2 g/dL (6.4-8.2); Sodium Level 137 mmol/L (136-145); Troponin-I HS (w/2H Reflex) 269 pg/mL (3.0-78.0)
--- NOTE | 2022-04-12 13:51 | PCM.HP.STD ---
[facility] - General General Date of Admission: 04/12/22 Date of Service: 04/12/22 Chief Complaint: Epigastric discomfort, shortness of breath HPI Narrative Ishaan JULIO, is a 71 M with past medical history significant for coronary artery disease with previous stent placement, history of angiosarcoma involving the right scalp currently under treatment who presented with epigastric discomfort and shortness of breath. Patient symptoms started 4 days prior to his admission. Patient reports burning sensation across the epigastrium similar to what he first experienced with his first heart attack. He is also noticed increasing fatigue with minimal activity. Patient presented to the emergency department due to the progressive nature of his symptoms. His initial troponin obtained in the ED came back consistent with acute non-STEMI. Started on heparin after the wheel cutter on-call has been notified and admitted to monitored bed for further management. Results of patient's CTA of the chest which has been obtained came back positive for bilateral PE prior to patient being transferred to the regular nursing floor REPLACED BY [facility] Medical History Angiosarcoma of scalp Atherosclerotic heart disease of [place] coronary artery with other forms of angina pectoris Diabetes type 2, controlled Essential (primary) hypertension History of non-ST elevation myocardial infarction (NSTEMI) (02/09/18) Hyperlipidemia Obesity Peripheral neuropathy Pneumothorax Port placement Primary head and neck soft tissue sarcoma Skin lesion Vascular disease Home Medications aspirin 81 mg tablet,delayed release (Adult Aspirin Regimen) 81 mg PO DAILY heart health 11/20/17 [History Last Taken 04/12/22] cholecalciferol (vitamin D3) 1,250 mcg (50,000 unit) capsule 50,000 unit PO WE supplement 03/12/18 [History Last Taken 04/11/22] insulin NPH isoph U-100 human 100 unit/mL subcutaneous suspension 50 unit subcut BID blood sugar 02/16/20 [History Last Taken 2 Months Ago ~02/10/22] insulin lispro 100 unit/mL subcutaneous pen 20 unit subcut TID blood sugar DX : E11.9 03/17/20 [History Last Taken 2 Months Ago ~02/10/22] lidocaine-prilocaine 2.5 %-2.5 % topical cream 1 applicatio TP DAILY PRN PRN Not Specified 30 days #1 tube 03/22/20 [Rx Last Taken Unknown] prochlorperazine maleate 10 mg tablet 10 mg PO Q6H PRN PRN Nausea 10 days #30 tabs 03/22/20 [Rx Last Taken 04/11/22] gabapentin 300 mg capsule 600 mg PO BID 11/10/20 [History Last Taken 04/12/22] cabozantinib 20 mg tablet 40 mg PO DAILY CANCER 04/13/21 [History Last Taken 04/12/22] metformin 500 mg tablet 1,000 mg PO BID diabetes 04/13/21 [History Last Taken 04/12/22] triamterene 37.5 mg-hydrochlorothiazide 25 mg tablet 1 tab PO DAILY FLUID 04/13/21 [History Last Taken 04/12/22] isosorbide mononitrate 60 mg tablet,extended release 24 hr 60 mg PO DAILY blood pressure #90 tabs 06/01/21 [Rx Last Taken 04/12/22] amlodipine 5 mg tablet 5 mg PO DAILY bp 04/12/22 [History Last Taken 04/12/22] atorvastatin 40 mg tablet 40 mg PO QHS CHOLESTEROL 04/12/22 [History Last Taken 04/11/22] levothyroxine 150 mcg tablet 150 mcg PO DAILY THYROID 04/12/22 [History Last Taken 04/12/22] loperamide 2 mg capsule 4 mg PO BID 04/12/22 [History Last Taken 04/12/22] losartan 100 mg tablet 100 mg PO DAILY blood pressure 04/12/22 [History Last Taken 04/12/22] metoprolol succinate 100 mg tablet,extended release 24 hr 100 mg PO DAILY blood pressure 04/12/22 [History Last Taken 04/12/22] omeprazole 40 mg capsule,delayed release 40 mg PO DAILY GERD 04/12/22 [History Last Taken 04/11/22] Allergy/AdvReac Type Severity Reaction Status Date / Time No Known Allergies Allergy Verified 04/12/22 12:04 Family History Unknown No problems noted. Father CAD (coronary artery disease) Heart disease Prostate cancer Mother Arthritis Hypertension Grandmother Colon cancer Grandfather Prostate cancer Uncle Diabetes Surgical History History of coronary artery stent placement (02/19/19) History of hydrocelectomy History of left heart catheterization (06/20/20) History of tonsillectomy and adenoidectomy Status post lung surgery Social History Smoking Status: Never smoker second hand exposure: No alcohol intake: never substance use type: does not use ROS ROS Narrative GENERAL: denies fever, chills, night sweats, HEENT: denies headache, sinus congestion, or drainage, dysphagia RESPIRATORY: shortness of breath, dyspnea on exertion CARDIAC: chest pain, GASTROINTESTINAL: Chronic diarrhea GENITOURINARY: denies dysuria, urgency, frequency, EXTREMITY: denies swelling MUSCULOSKELETAL: denies current joint pain or tenderness NEUROLOGIC: denies focal numbness, weakness, tingling HEMATOLOGIC: denies easy bruising and/or hemorrhage INTEGUMENT: denies rashes PSYCHIATRIC: denies suicidal or homicidal ideation Vital Signs Vital Signs Vital Signs: 04/12/22 12:01 04/12/22 12:12 04/12/22 12:14 Temperature 97.1 F L Temperature Source Temporal Pulse Rate 106 H 103 H Respiratory Rate 16 19 H Respiratory Effort Short of Breath Labored Respiratory Depth Normal Respiratory Pattern Tachypnea Blood Pressure 126/86 H Blood Pressure Mean 99 Pulse Ox 94 95 Oxygen Delivery Method Room Air Room Air Room Air 04/12/22 13:48 Temperature Temperature Source Pulse Rate 102 H Respiratory Rate 16 Respiratory Effort Respiratory Depth Respiratory Pattern Blood Pressure 118/91 H Blood Pressure Mean 100 Pulse Ox 93 Oxygen Delivery Method Room Air Weight Weight: 104.326 kg Body Mass Index (BMI) 32.1 Physical Exam Narrative GENERAL: cooperative HEENT: Atraumatic; EYES; Anicteric, Normal Conjunctiva NECK; supple, normal thyroid, RESPIRATORY: Diminished to auscultation CARDIOVASCULAR: Regular S1 S2, GI: soft, normoactive bowel sounds, : No Renal angle tenderness; EXTREMITIES: edema, no clubbing, MUSCULOSKELETAL: no muscle wasting NEURO: Awake; no lateralizing signs. SKIN: No Rash PSYCH; Flat affect Results Lab / Micro Data Result Diagrams: 04/12/22 12:34 04/12/22 12:34 Labs: Laboratory Results - last 24 hr 04/12/22 12:34: WBC 9.9, RBC 4.10 L, Hgb 13.3, Hct 41.1, MCV 100.2 H, MCH 32.4 H, MCHC 32.4, RDW Std Deviation 61.1 H, RDW Coeff of Alexis 16.3 H, Plt Count 189, MPV 10.5, Immature Gran % (Auto) 0.300, Neut % (Auto) 46.7 L, Lymph % (Auto) 42.5 H, [place] % (Auto) 5.6, Eos % (Auto) 4.4, Baso % (Auto) 0.5, Absolute Neuts (auto) 4.6, Absolute Lymphs (auto) 4.19, Nucleated RBC % 0 04/12/22 12:34: Sodium 137, Potassium 3.8, Chloride 106, Carbon Dioxide 21.0, Anion Gap 10, BUN 42 H, Creatinine 1.55 H, Estim Creat Clear Calc 47.23, Est GFR (MDRD) Af Amer 57 L, Est GFR (MDRD) Non-Af 47 L, BUN/Creatinine Ratio 27.1 H, Glucose 173 H, Calcium 8.5, Total Bilirubin 0.60, AST 22, ALT 27, Alkaline Phosphatase 119 H, Troponin I High Sens 269 H*, Total Protein 6.2 L, Albumin 2.6 L, Globulin 3.6, Albumin/Globulin Ratio 0.7 L 04/12/22 12:34: Troponin I High Sens Cancelled Micro: Microbiology 04/12/22 12:35 Nasal Secretion SARS-CoV-2 Antigen (Rapid) - Final Assessment & Plan Assessment/Plan (1) NSTEMI, initial episode of care: (2) Bilateral pulmonary embolism: PLAN: Plan Patient is a 71-year-old gentleman with history of angiosarcoma involving the scalp as well as coronary artery disease with previous PCI who presented with chest pain and exertional fatigue found to have elevated troponin consistent with acute non-STEMI 1. Acute non-STEMI secondary to type II non-STEMI secondary to bilateral pulmonary embolism ? Patient presented with epigastric discomfort and elevated troponin. Cardiology was notified however CTA of the chest obtained came back positive for bilateral pulmonary embolism. 2D echo ordered to rule out right heart strain. Patient started on heparin admitted to a monitored bed for subsequent management 2. 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 Can underwent excision. 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 Currently on chemo managed by [facility] oncology 3. Coronary artery disease ? With previous PCI 4. Diabetes mellitus type 2 ? Patient was previously on insulin however he has lost almost 65 pounds and has taken himself off insulin currently on metformin held on admission please on Accu-Cheks before meals and at bedtime with sliding scale coverage 5. Dyslipidemia -Patient is on statin therapy, continued at home dose 6. Chronic diarrhea ? As a result of patient's chemo on Imodium as needed 7. Diabetic polyneuropathy ? Patient is on gabapentin 8. Hypertension - Blood pressure controlled, home medications continued with dose adjustment as needed 9. Class II obesity with BMI of 32.1 ? Weight loss advised 10. DVT prophylaxis patient is on heparin Advance planning; did discuss with the patient and family (patient's spouse) regarding advanced directives as well as CODE STATUS. Did explain the various scenarios involved ( FULL CODE, DNR CCA, DNR CCA with no intubation, and DNR CC and what each meant) patient elected to remain full code with CPR and intubation if needed. Order was placed. Time spent on discussion 18 minutes. Charges/Coding Visit Charges Inpatient E&M: 63303 Init Hosp L3 Procedures Hospitalists Procedures: 16061 Advncd Care Plan 30 Min
--- NOTE | 2022-04-12 13:54 | NURSING ---
PCU NSTEMI KITTOE
[2022-04-12 14:07] LABS: Prothrombin Time (Protime)PT. 13.3 SECONDS (11.7-14.9)
[2022-04-12] MEDS: Aspirin 325 MG Tablet PO (14:15)
[2022-04-12] MEDS: Heparin Injection (Vial) 5,000 UNIT/ML VIAL 4000 UNIT IV (14:15)
[2022-04-12] MEDS: HEPARIN/D5w 25,000 UNITS 25,000 UNITS/250 ML IV.SOLN. 10 UNITS CONT INF (14:21)
--- NOTE | 2022-04-12 14:36 | ECHOD_ITS ---
Reason For Study: s/p MN Procedure This was a 2D Doppler, Color Flow transthoracic echocardiogram. The study was technically difficult. Exam performed portable in patient room. Left Ventricle Normal LV size. The estimated ejection fraction is 55 %. No evidence for diastolic dysfunction. No regional wall motion abnormalities noted. Right Ventricle Severely dilated right ventricle. Severe global right ventricular systolic dysfunction. Atria Normal left atrium. Normal right atrium. No doppler evidence for ASD. Mitral Valve There is no mitral valve stenosis. No mitral valve insufficiency. Tricuspid Valve There is no tricuspid stenosis. Trivial tricuspid valve insufficiency. Unable to estimate RV systolic pressure due to insufficient tricuspid regurgitant envelope. Aortic Valve Moderate diffuse aortic valve thickening. Trisinus/trileaflet aortic valve. There is no aortic stenosis. No aortic valve insufficiency. Pulmonic Valve There is no pulmonic valvular stenosis. Trivial pulmonic valve insufficiency. Great Vessels Normal aortic root. Pericardium/Pleural No pericardial effusion. MMode/2D Measurements & Calculations LVIDd: 4.1 cm IVSd: 1.5 cm LVOT diam: 2.4 cm LVIDs: 3.0 cm LVPWd: 1.2 cm LVOT area: 4.4 cm2 RVDd: 4.4 cm FS: 26.9 % LA dimension: 3.4 cm LAV(MOD-bp): 36.7 ml Aortic Valve Planimetry: 2.0 cm2 LAV(MOD-bp) Indexed: 16.4 ml/m2 LAV(MOD-sp2): 40.9 ml LAV(MOD-sp4): 32.9 ml LA A4 area: 14.7 cm2 RA A4 area: 15.6 cm2 Doppler Measurements & Calculations MV E max teodoro: 27.8 cm/sec Lat Peak E' Teodoro: 4.3 cm/sec Med Peak E' Teodoro: 8.4 cm/sec MV A max teodoro: 84.0 cm/sec E/E' lat: 6.4 E/E' med: 3.3 MV E/A: 0.33 MV V2 max: 83.9 cm/sec MV P1/2t max teodoro: 72.7 cm/sec Ao V2 max: 68.6 cm/sec MV max P.8 mmHg MV P1/2t: 45.9 msec Ao max P.9 mmHg MV V2 mean: 49.5 cm/sec MV dec slope: 463.5 cm/sec2 Ao V2 mean: 48.5 cm/sec MV mean P.1 mmHg MVA(P1/2t): 4.8 cm2 Ao mean P.0 mmHg MV V2 VTI: 16.0 cm Ao V2 VTI: 10.8 cm MVA(VTI): 2.4 cm2 AKHIL(I,D): 3.6 cm2 AKHIL(V,D): 3.7 cm2 LV V1 max: 57.6 cm/sec SV(LVOT): 38.6 ml LV V1 max P.3 mmHg LV V1 mean P.68 mmHg LV V1 mean: 38.6 cm/sec LV V1 VTI: 8.7 cm ECHO/Echo Complete Interpretation Summary The estimated ejection fraction is 55 %. No evidence for diastolic dysfunction. Severely dilated right ventricle. Severe global right ventricular systolic dysfunction. Ordering Physician: Steven Spence Referring Physician: Skylar Gunn Performed By: Max Sidhu RCS
--- NOTE | 2022-04-12 14:36 | EKG12_ITS ---
Test Reason : CP ADMISSION Blood Pressure : / mmHG Vent. Rate : 099 BPM Atrial Rate : 099 BPM P-R Int : 232 ms QRS Dur : 098 ms QT Int : 368 ms P-R-T Axes : -29 -69 -32 degrees QTc Int : 472 ms Sinus rhythm with 1st degree A-V block with occasional Premature ventricular complexes Left axis deviation Incomplete right bundle branch block Septal infarct , age undetermined Inferior infarct , age undetermined Abnormal ECG When compared with ECG of 12-APR-2022 12:32, MANUAL COMPARISON REQUIRED, DATA IS UNCONFIRMED Confirmed by ARPIT WAGNER, JUNAID ([id number]), editor trade journal RAE CARBAJAL ([id number]) on 04/16/2022 11:43:48 AM Referred By: Confirmed By:JUNAID MUNSON MD
[2022-04-12 14:44] LABS: Reflex Troponin-HS? (from REC) Y
[2022-04-12 15:38] LABS: Troponin-I HS 394 pg/mL (3.0-78.0)
[2022-04-12] MEDS: 0.9% Normal Saline 1,000 ML 999 ML IV (16:01)
[2022-04-12 20:18] LABS: Troponin-I HS 363 pg/mL (3.0-78.0)
[2022-04-12 21:00] LABS: Partial Thromboplast Time 74.5 Seconds (24.1-36.2)
[2022-04-12] MEDS: Loperamide 2 MG Capsule 4 MG PO (21:06)
[2022-04-12] MEDS: Atorvastatin Calcium 40 MG Tablet PO (21:07)
[2022-04-12] MEDS: Gabapentin 600 MG Tablet PO (21:07)
[2022-04-12] MEDS: Glucerna Shake 120 ML LIQUID PO (21:08)
[2022-04-12 21:13] LABS: BNP,B-Type NATRIURETIC PEPTIDE 414.7 pg/mL (0-100)
[2022-04-12 22:20] LABS: Bedside Glucose 142 mg/dL (74-106)
[2022-04-13] VITALS (10 sets, daily range): BP systolic 100–111; BP diastolic 61–76; PULSE 73–99; RESP 16–18; TEMP 36.3–37; O2SAT 93–96
[2022-04-13 02:49] LABS: Absolute Lymphocyte Count 4.22 X10^3/uL (0.83-4.51); Absolute Neutrophil Count 3.3 X10^3/uL (2.0-7.7); Basophil# 0.04 X10^3/uL; Basophil% 0.5 % (0-1); Eosinophil# 0.36 X10^3/uL; Eosinophils% 4.3 % (0-5); Hematocrit 40.8 % (40-54); Hemoglobin 13.2 g/dL (13.0-16.5); Lymphocyte # 4.22 X10^3/ul (0.83-4.51); Lymphocyte % 49.9 % (19-41); Mean Corp Hgb Conc 32.4 g/dL (32-36); Mean Corpuscular Hgb 32.1 pg (27.0-32.0); Mean Corpuscular Volume 99.3 fL (80-94); Mean Platelet Vol. 11.1 fl (6.2-12.0); Monocyte# 0.55 X10^3/uL; Monocyte% 6.5 % (0-10); NRBC Flagged by Analyzer 0 % (0-5); Neutrophil # 3.27 X10^3/uL (2.7-7.7); Neutrophil % 38.7 % (47-70); Platelet Count 177 K/mm3 (150-450); RBC Distribution Width CV 16.3 % (11.6-14.6); RBC Distribution Width SD 59.1 fl (35.1-43.9); Red Blood Count 4.11 M/mm3 (4.6-6.2); White Blood Count 8.5 K/mm3 (4.4-11.0)
[2022-04-13 03:01] LABS: Partial Thromboplast Time 64.6 Seconds (24.1-36.2)
[2022-04-13 03:13] LABS: Anion Gap 7 (5-15); BUN 38 mg/dL (7-18); BUN/Creat Ratio 30.4 RATIO (10-20); Calcium,Total 8.7 mg/dL (8.5-10.1); Chloride 108 mmol/L (98-107); Creatinine, Serum 1.25 mg/dL (0.70-1.30); EST Glomerular Filtration Rate 61 mL/min (>60); Est Glom Filt Rate - Afr Amer 73 mL/min (>60); Estimated Creatinine Clearance 58.57 ml/min; Glucose 117 mg/dL (74-106); Magnesium 1.9 mg/dL (1.6-2.6); Phosphorus 3.1 mg/dL (2.5-4.9); Sodium Level 140 mmol/L (136-145); Thyroid Stim Hormone (TSH) 3.83 uIU/mL (0.358-3.74)
[2022-04-13] MEDS: Levothyroxine 150 MCG Tablet PO (06:13)
[2022-04-13 06:46] LABS: Bedside Glucose 118 mg/dL (74-106)
--- NOTE | 2022-04-13 07:44 | PN.HOSP_ITS ---
Subjective Subjective Patient is a 71-year-old gentleman with history of angiosarcoma involving the scalp as well as coronary artery disease with previous PCI who presented with chest pain and exertional fatigue found to have elevated troponin consistent with acute non-STEMI. Subsequent evaluation with CTA of the chest demonstrated bilateral extensive PE admitted to monitored bed for further manage Objective Data Objective Data Vital Signs: Vital Signs Temp Pulse Resp BP Pulse Ox O2 Del Method O2 Flow Rate 97.3 F L 88 18 100/76 96 Room Air 93 04/13/22 03:12 04/13/22 03:12 04/13/22 03:12 04/13/22 03:12 04/13/22 03:12 04/13/22 03:15 04/12/22 16:16 Oxygen Flow Rate (L/min) 93 Oxygen Delivery Method Room Air Weight: 106.458 kg Body Mass Index (BMI) 32.7 Intake & Output: Intake and Output for Last 24 Hours 04/11/22 04/12/22 04/13/22 23:59 23:59 23:59 Intake Total 1296.5 / 1296.5 Balance 1296.5 / 1296.5 Lab / Micro Data Result Diagrams: 04/13/22 02:20 04/13/22 02:20 Labs: Laboratory Results - last 24 hr 04/12/22 12:34: WBC 9.9, RBC 4.10 L, Hgb 13.3, Hct 41.1, MCV 100.2 H, MCH 32.4 H , MCHC 32.4, RDW Std Deviation 61.1 H, RDW Coeff of Alexis 16.3 H, Plt Count 189, MPV 10.5, Immature Gran % (Auto) 0.300, Neut % (Auto) 46.7 L, Lymph % (Auto) 4 2.5 H, [place] % (Auto) 5.6, Eos % (Auto) 4.4, Baso % (Auto) 0.5, Absolute Neuts (auto) 4.6, Absolute Lymphs (auto) 4.19, Nucleated RBC % 0 04/12/22 12:34: Sodium 137, Potassium 3.8, Chloride 106, Carbon Dioxide 21.0, Anion Gap 10, BUN 42 H, Creatinine 1.55 H, Estim Creat Clear Calc 47.23, Est GFR (MDRD) Af Amer 57 L, Est GFR (MDRD) Non-Af 47 L, BUN/Creatinine Ratio 27.1 H, Glucose 173 H, Calcium 8.5, Total Bilirubin 0.60, AST 22, ALT 27, Alkaline Phosphatase 119 H, Troponin I High Sens 269 H*, Total Protein 6.2 L, Albumin 2.6 L, Globulin 3.6, Albumin/Globulin Ratio 0.7 L 04/12/22 12:34: Troponin I High Sens Cancelled 04/12/22 12:34: B-Natriuretic Peptide 414.7 H 04/12/22 13:50: PT 13.3, INR 1.0, APTT 29.0 04/12/22 14:50: Troponin I High Sens 394 H* 04/12/22 18:40: Troponin I High Sens 363 H* 04/12/22 20:30: APTT 74.5 H 04/12/22 20:46: POC Glucose 142 H 04/13/22 02:20: WBC 8.5, RBC 4.11 L, Hgb 13.2, Hct 40.8, MCV 99.3 H, MCH 32.1 H, MCHC 32.4, RDW Std Deviation 59.1 H, RDW Coeff of Alexis 16.3 H, Plt Count 177, MPV 11.1, Immature Gran % (Auto) 0.100, Neut % (Auto) 38.7 L, Lymph % (Auto) 49.9 H, [place] % (Auto) 6.5, Eos % (Auto) 4.3, Baso % (Auto) 0.5, Absolute Neuts (auto) 3.3, Absolute Lymphs (auto) 4.22, Nucleated RBC % 0 04/13/22 02:20: Sodium 140, Potassium 4.0, Chloride 108 H, Carbon Dioxide 25.0, Anion Gap 7, BUN 38 H, Creatinine 1.25, Estim Creat Clear Calc 58.57, Est GFR (MDRD) Af Amer 73, Est GFR (MDRD) Non-Af 61, BUN/Creatinine Ratio 30.4 H, Glucose 117 H, Calcium 8.7, Phosphorus 3.1, Magnesium 1.9, TSH 3.83 H 04/13/22 02:20: APTT 64.6 H 04/13/22 06:12: POC Glucose 118 H Micro: Microbiology 04/12/22 12:35 Nasal Secretion SARS-CoV-2 Antigen (Rapid) - Final Radiography Diagnostic Testing: Radiology Impression Chest CTA 04/12/22 12:17 IMPRESSION: Extensive bilateral pulmonary emboli as described. Mild increased markings in the posterior aspect of the right upper lobe suggestive of scarring. Electronically Signed: Taj Oliva MD at 14:00 EDT Reading Location ID and State: [facility] / [place] , Service support , Physical Exam Narrative GENERAL: cooperative HEENT: Atraumatic; EYES; Anicteric, Normal Conjunctiva NECK; supple, normal thyroid, RESPIRATORY: Diminished to auscultation CARDIOVASCULAR: Regular S1 S2, GI: soft, normoactive bowel sounds, : No Renal angle tenderness; EXTREMITIES: edema, no clubbing, MUSCULOSKELETAL: no muscle wasting NEURO: Awake; no lateralizing signs. SKIN: No Rash PSYCH; Flat affect Assessment & Plan Assessment/Plan (1) NSTEMI, initial episode of care: (2) Bilateral pulmonary embolism: PLAN: Plan Patient is a 71-year-old gentleman with history of angiosarcoma involving the scalp as well as coronary artery disease with previous PCI who presented with chest pain and exertional fatigue found to have elevated troponin consistent with acute non-STEMI 1. Acute non-STEMI secondary to type II non-STEMI secondary to bilateral pulmonary embolism ? Patient presented with epigastric discomfort and elevated troponin. Cardiology was notified however CTA of the chest obtained came back positive for bilateral pulmonary embolism. 2D echo ordered to rule out right heart strain. Patient started on heparin admitted to a monitored bed for subsequent management -04/13/2022; patient remains on heparin. Case discussed with patient oncologist at [facility] patient be transitioned to [facility]. Scheduled to undergo 2D echo eval 2. 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 Can underwent excision. 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 Currently on chemo managed by [facility] oncology 3. Coronary artery disease ? With previous PCI 4. Diabetes mellitus type 2 ? Patient was previously on insulin however he has lost almost 65 pounds and has taken himself off insulin currently on metformin held on admission please on Accu-Cheks before meals and at bedtime with sliding scale coverage 5. Dyslipidemia -Patient is on statin therapy, continued at home dose 6. Chronic diarrhea ? As a result of patient's chemo on Imodium as needed 7. Diabetic polyneuropathy ? Patient is on gabapentin 8. Hypertension - Blood pressure controlled, home medications continued with dose adjustment as needed 9. Class II obesity with BMI of 32.1 ? Weight loss advised 10. DVT prophylaxis patient is on heparin Charges/Coding Visit Charges Inpatient E&M: 15365 Subs Hosp L3
[2022-04-13 08:55] LABS: Partial Thromboplast Time 58.1 Seconds (24.1-36.2)
--- NOTE | 2022-04-13 10:20 | CASEMGMT ---
POLA JIMÉNEZ assessment: Face to Face with patient for initial transition planning/care coordination assessment. POLA JIMÉNEZ introduced self and role at [facility], pt voices understanding and consents to assessment. Pt is sitting up in bed in no distress on room air. Pt is A/Ox4 and answers all questions appropriately. Pt's is at bedside during assessment.? Care providers, pharmacy,?and demographics verified. ? Presentation: Pt c/o SOB and burning sensation in chest-pt w/ mets to lung and son with COVID Admitting dx: NSTEMI, bilat PE PCP: Luis A Specialists: Steph, cardio; Daron Tai cancer oncology-pt currently getting immunotherapy Preferred Pharmacy: [facility]/ provided with Eliquis 30 day free trial card Insurance: [employer] A/B, [employer] Prescription Benefit:? [facility] Living Will/HPOA: Pt has LW/HPOA and is aware they are on file at [facility]. Pt's , Donita Infante, is HPOA. LNOK: Donita Infante, /HPOA Living Arrangements: Pt lives with in split level home and states no concerns at home. Pt is independent with ADL's. Transportation: Pt drives self or drives and states no transportation concerns. DME/HHC: Pt has a cane and walker at home but does not use. Pt states has had home oxygen in past thru [employer] but none currently. Pt states no hx of HHC or SNF in past but has had Cardiac rehab in past. Pt states no concerns with going home at time of discharge. Pt is retired. Pt states does not smoke cigarettes or drink ETOH. Pt voices no further concerns/needs. CM to follow for any further discharge planning/needs. Advised pt to ask for CM if any further questions/concerns/needs arise, voices understanding. Pt goal: Home ? Plan[place] POLA JIMÉNEZ
[2022-04-13] MEDS: Glucerna Shake 120 ML LIQUID PO ×2 (10:40→14:14)
[2022-04-13] MEDS: APIXABAN 5 MG TABLET 10 MG PO ×2 (10:40→21:09)
[2022-04-13] MEDS: Triamterene 37.5MG/Hctz 25MG Capsule 1 CAP PO (10:41)
[2022-04-13] MEDS: Gabapentin 600 MG Tablet PO ×2 (10:41→21:09)
[2022-04-13] MEDS: Loperamide 2 MG Capsule 4 MG PO ×2 (10:41→21:09)
[2022-04-13] MEDS: Metoprolol(XL)Succ 100 MG Tablet PO (10:41)
[2022-04-13] MEDS: Pantoprazole Sodium 40 MG Tablet PO (10:41)
[2022-04-13] MEDS: Losartan Potassium 100 MG Tablet PO (10:41)
[2022-04-13] MEDS: amLODIPine 5 MG Tablet PO (10:41)
[2022-04-13] MEDS: Aspirin E.C. 81 MG Tablet PO (10:41)
[2022-04-13] MEDS: 0.9% Saline Lock 10 ML Syringe IV ×2 (10:45→17:43)
[2022-04-13 11:45] LABS: Bedside Glucose 146 mg/dL (74-106)
[2022-04-13 17:00] LABS: Bedside Glucose 141 mg/dL (74-106)
[2022-04-13] MEDS: Ondansetron 4 MG/2 ML Vial IV (17:43)
[2022-04-13] MEDS: Atorvastatin Calcium 40 MG Tablet PO (21:09)
[2022-04-13 21:41] LABS: Bedside Glucose 146 mg/dL (74-106)
[2022-04-14] VITALS (7 sets, daily range): BP systolic 96–113; BP diastolic 53–80; PULSE 78–88; RESP 16–18; TEMP 36.7–36.8; O2SAT 92–96
[2022-04-14] MEDS: 0.9% Saline Lock 10 ML Syringe IV ×3 (03:48→16:36)
[2022-04-14] MEDS: Levothyroxine 150 MCG Tablet PO (06:27)
[2022-04-14 06:51] LABS: Bedside Glucose 111 mg/dL (74-106)
--- NOTE | 2022-04-14 07:34 | PCM.PN.HOSP ---
Subjective Subjective Patient seen had a relatively uneventful night. Plan is for patient to be assessed for possible discharge Objective Data Objective Data Vital Signs: Vital Signs Temp Pulse Resp BP Pulse Ox O2 Del Method O2 Flow Rate 98.0 F 78 16 96/65 95 Room Air 93 04/14/22 03:52 04/14/22 03:52 04/14/22 03:52 04/14/22 03:52 04/14/22 03:52 04/14/22 03:52 04/12/22 16:16 Oxygen Flow Rate (L/min) 93 Oxygen Delivery Method Room Air Weight: 106.458 kg Body Mass Index (BMI) 32.7 Intake & Output: Intake and Output for Last 24 Hours 04/12/22 04/13/22 04/14/22 23:59 23:59 23:59 Intake Total 1296.5 / 1296.5 588.17 / 588.17 Output Total 0 / 0 Balance 1296.5 / 1296.5 588.17 / 588.17 0 / 0 Medical Nutrition Assessment Dietitian: Malnutrition Criteria Met Start: 04/13/22 12:20 Freq: Status: Active Protocol: Document 04/13/22 12:20 AG (Rec: 04/13/22 12:20 AG [id number]) Nutrition Malnutrition Evidence of Malnutrition Exists Yes Malnutrition (severe): Chronic Evidenced By Suboptimal Energy Intake ( Severe),Weight Loss (Severe) Clinical Problem Chronic Disease or Condition Related Malnutrition Etiology severe, chronic malnutrition related to inadequate energy intake w/ increased energy needs d/t angiosarcoma Signs/Symptoms as evidenced by unintentional wt loss of 17.3#/6.8% x 1 month, estimated energy intake meeting <75% of estimated energy needs >3 months Status Active Problem Recommendation Dietitian Recommendations/Changes continue regular diet d/t malnutrition; continue Glucerna 120mL 4x/day w/ medpass and will add 240mL Ensure Enlive w/ meals for additional calories/protein if consumed. Lab / Micro Data Result Diagrams: 04/13/22 02:20 04/13/22 02:20 Labs: Laboratory Results - last 24 hr 04/13/22 08:24: APTT 58.1 H 04/13/22 11:24: POC Glucose 146 H 04/13/22 16:32: POC Glucose 141 H 04/13/22 21:20: POC Glucose 146 H 04/14/22 06:25: POC Glucose 111 H Micro: Microbiology 04/12/22 12:35 Nasal Secretion SARS-CoV-2 Antigen (Rapid) - Final Physical Exam Narrative GENERAL: cooperative HEENT: Atraumatic; EYES; Anicteric, Normal Conjunctiva NECK; supple, normal thyroid, RESPIRATORY: Diminished to auscultation CARDIOVASCULAR: Regular S1 S2, GI: soft, normoactive bowel sounds, : No Renal angle tenderness; EXTREMITIES: edema, no clubbing, MUSCULOSKELETAL: no muscle wasting NEURO: Awake; no lateralizing signs. SKIN: No Rash PSYCH; Flat affect Assessment & Plan Assessment/Plan (1) NSTEMI, initial episode of care: (2) Bilateral pulmonary embolism: PLAN: Plan Patient is a 71-year-old gentleman with history of angiosarcoma involving the scalp as well as coronary artery disease with previous PCI who presented with chest pain and exertional fatigue found to have elevated troponin consistent with acute non-STEMI 1. Acute non-STEMI secondary to type II non-STEMI secondary to bilateral pulmonary embolism ? Patient presented with epigastric discomfort and elevated troponin. Cardiology was notified however CTA of the chest obtained came back positive for bilateral pulmonary embolism. 2D echo ordered to rule out right heart strain. Patient started on heparin admitted to a monitored bed for subsequent management -04/13/2022; patient remains on heparin. Case discussed with patient oncologist at [facility] patient be transitioned to [facility]. 2. 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 Can underwent excision. 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 Currently on chemo managed by [facility] oncology 3. Coronary artery disease ? With previous PCI 4. Diabetes mellitus type 2 ? Patient was previously on insulin however he has lost almost 65 pounds and has taken himself off insulin currently on metformin held on admission please on Accu-Cheks before meals and at bedtime with sliding scale coverage 5. Dyslipidemia -Patient is on statin therapy, continued at home dose 6. Chronic diarrhea ? As a result of patient's chemo on Imodium as needed 7. Diabetic polyneuropathy ? Patient is on gabapentin 8. Hypertension - Blood pressure controlled, home medications continued with dose adjustment as needed 9. Class II obesity with BMI of 32.1 ? Weight loss advised 10. DVT prophylaxis patient is on heparin Charges/Coding Visit Charges Inpatient E&M: 22033 Subs Hosp L2
[2022-04-14] MEDS: Aspirin E.C. 81 MG Tablet PO (09:17)
[2022-04-14] MEDS: APIXABAN 5 MG TABLET 10 MG PO (09:17)
[2022-04-14] MEDS: amLODIPine 5 MG Tablet PO (09:18)
[2022-04-14] MEDS: Gabapentin 600 MG Tablet PO (09:18)
[2022-04-14] MEDS: Loperamide 2 MG Capsule 4 MG PO (09:18)
[2022-04-14] MEDS: Pantoprazole Sodium 40 MG Tablet PO (09:18)
[2022-04-14] MEDS: Glucerna Shake 120 ML LIQUID PO (09:31)
--- NOTE | 2022-04-14 09:58 | DS.PCM_ITS ---
Providers Date of Admission: 04/12/22 Primary Care Physician: Dr. Skylar Gunn, DO Reason For Visit: NSTEMI Diagnosis Discharge Diagnosis (1) NSTEMI, initial episode of care: Status: Acute Code(s): I21.4 - Non-ST elevation (NSTEMI) myocardial infarction (2) Bilateral pulmonary embolism: Status: Acute Code(s): I26.99 - Other pulmonary embolism without acute cor pulmonale Plan Patient is a 71-year-old gentleman with history of angiosarcoma involving the scalp as well as coronary artery disease with previous PCI who presented with chest pain and exertional fatigue found to have elevated troponin consistent with acute non-STEMI 1. Acute non-STEMI secondary to type II non-STEMI secondary to bilateral pulmonary embolism ? Patient presented with epigastric discomfort and elevated troponin. Cardiology was notified however CTA of the chest obtained came back positive for bilateral pulmonary embolism. 2D echo ordered to rule out right heart strain. Patient started on heparin admitted to a monitored bed for subsequent management -04/13/2022; patient remains on heparin. Case discussed with patient oncologist at [facility] patient be transitioned to [facility]. 2. 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 Can underwent excision. 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 Currently on chemo managed by [facility] oncology 3. Coronary artery disease ? With previous PCI 4. Diabetes mellitus type 2 ? Patient was previously on insulin however he has lost almost 65 pounds and has taken himself off insulin currently on metformin held on admission please on Accu-Cheks before meals and at bedtime with sliding scale coverage 5. Dyslipidemia -Patient is on statin therapy, continued at home dose 6. Chronic diarrhea ? As a result of patient's chemo on Imodium as needed 7. Diabetic polyneuropathy ? Patient is on gabapentin 8. Hypertension - Blood pressure controlled, home medications continued with dose adjustment as needed 9. Class II obesity with BMI of 32.1 ? Weight loss advised 10. DVT prophylaxis patient is on heparin Medications at Discharge Home Medications aspirin 81 mg tablet,delayed release (Adult Aspirin Regimen) 81 mg PO DAILY [facility] 11/20/17 cholecalciferol (vitamin D3) 1,250 mcg (50,000 unit) capsule 50,000 unit PO WE supplement 03/12/18 lidocaine-prilocaine 2.5 %-2.5 % topical cream 1 applicatio TP DAILY PRN PRN Not Specified 30 days #1 tube 03/22/20 prochlorperazine maleate 10 mg tablet 10 mg PO Q6H PRN PRN Nausea 10 days #30 tabs 03/22/20 gabapentin 300 mg capsule 600 mg PO BID 11/10/20 cabozantinib 20 mg tablet 40 mg PO DAILY CANCER 04/13/21 metformin 500 mg tablet 1,000 mg PO BID diabetes 04/13/21 triamterene 37.5 mg-hydrochlorothiazide 25 mg tablet 1 tab PO DAILY FLUID 04/13/21 isosorbide mononitrate 60 mg tablet,extended release 24 hr 60 mg PO DAILY blood pressure #90 tabs 06/01/21 amlodipine 5 mg tablet 5 mg PO DAILY bp 04/12/22 atorvastatin 40 mg tablet 40 mg PO QHS CHOLESTEROL 04/12/22 levothyroxine 150 mcg tablet 150 mcg PO DAILY THYROID 04/12/22 loperamide 2 mg capsule 4 mg PO BID 04/12/22 losartan 100 mg tablet 100 mg PO DAILY blood pressure 04/12/22 metoprolol succinate 100 mg tablet,extended release 24 hr 100 mg PO DAILY blood pressure 04/12/22 omeprazole 40 mg capsule,delayed release 40 mg PO DAILY GERD 04/12/22 apixaban 5 mg (74 tabs) tablets in a dose pack ([employer] DVT-PE Treat 30D Start) 5 mg PO BID #74 tabs 04/14/22 Hospital Course Summary of Care Provided Minutes Spent on Discharge: 35 Physical Exam Narrative GENERAL: cooperative HEENT: Atraumatic; EYES; Anicteric, Normal Conjunctiva NECK; supple, normal thyroid, RESPIRATORY: Diminished to auscultation CARDIOVASCULAR: Regular S1 S2, GI: soft, normoactive bowel sounds, : No Renal angle tenderness; EXTREMITIES: edema, no clubbing, MUSCULOSKELETAL: no muscle wasting NEURO: Awake; no lateralizing signs. SKIN: No Rash PSYCH; Flat affect Medical Records Data Medical Nutrition Assessment Dietitian: Malnutrition Criteria Met Start: 04/13/22 12:20 Freq: Status: Active Protocol: Document 04/13/22 12:20 AG (Rec: 04/13/22 12:20 AG [id number]) Nutrition Malnutrition Evidence of Malnutrition Exists Yes Malnutrition (severe): Chronic Evidenced By Suboptimal Energy Intake ( Severe),Weight Loss (Severe) Clinical Problem Chronic Disease or Condition Related Malnutrition Etiology severe, chronic malnutrition related to inadequate energy intake w/ increased energy needs d/t angiosarcoma Signs/Symptoms as evidenced by unintentional wt loss of 17.3#/6.8% x 1 month, estimated energy intake meeting <75% of estimated energy needs >3 months Status Active Problem Recommendation Dietitian Recommendations/Changes continue regular diet d/t malnutrition; continue Glucerna 120mL 4x/day w/ medpass and will add 240mL Ensure Enlive w/ meals for additional calories/protein if consumed. Weight / BMI Weight Weight: 106.458 kg Body Mass Index (BMI) 32.7 ABG / Lab / Microbiology Data Result Diagrams: 04/13/22 02:20 04/13/22 02:20 Laboratory: Laboratory Results - last 24 hr 04/13/22 11:24: POC Glucose 146 H 04/13/22 16:32: POC Glucose 141 H 04/13/22 21:20: POC Glucose 146 H 04/14/22 06:25: POC Glucose 111 H Microbiology: Microbiology 04/12/22 12:35 Nasal Secretion SARS-CoV-2 Antigen (Rapid) - Final D/C Instructions Discharge Diet: 1800 Calorie Control Diet Discharge Activity: Return to Normal Activity Call your doctor if you observe: Fever of 101 or Higher, Shortness of breath, Fainting spells and Chest pain Meaningful Use Info Meaningful Use Diagnoses (Choose all that apply): VTE VTE Anticoag overlap given w/in hospital stay or rx'd at dc?: No Pt receive overlap for 5 days?: No Reason overlap not ordered, prescribed, or given for 5 days: Treatment Not Indicated Discharge Plan Admission Admit Date/Time: 04/12/22 13:52 Attending Provider: Steven Spence Primary Care Provider: Skylar Gunn Discharge Orders/Prescriptions Prescriptions: New Eliquis DVT-PE Treat 30D Start 5 mg (74 tabs) tablets,dose pack 5 mg PO BID Qty: 74 0RF Rx Instructions: 10 mg p.o. twice daily x7 days then 5 mg p.o. twice daily Continued aspirin [Adult Aspirin Regimen] 81 mg tablet,delayed release (DR/EC) 81 mg PO DAILY Label Comments: may take prior to surgery cholecalciferol (vitamin D3) 50,000 unit capsule 50,000 unit PO WE cabozantinib 20 mg tablet 40 mg PO DAILY Rx Instructions: must be taken on empty stomach; no food at least 2 hrs before or 1 hr after dose triamterene-hydrochlorothiazid 37.5-25 mg tablet 1 tab PO DAILY metformin 500 mg tablet 1,000 mg PO BID prochlorperazine maleate 10 MG tablet 10 mg PO Q6H PRN PRN (Reason: Nausea) 10 Days Qty: 30 2RF lidocaine-prilocaine 30 GM cream 1 applicatio TP DAILY PRN PRN (Reason: Not Specified) 30 Days Qty: 1 2RF gabapentin 300 MG capsule 600 mg PO BID loperamide 2 mg Capsule 4 mg PO BID omeprazole 40 mg Capsule,Delayed Release(Dr/Ec) 40 mg PO DAILY levothyroxine 150 mcg Tablet 150 mcg PO DAILY metoprolol succinate 100 mg tablet extended release 24 hr 100 mg PO DAILY amlodipine 5 mg tablet 5 mg PO DAILY losartan 100 mg tablet 100 mg PO DAILY atorvastatin 40 mg tablet 40 mg PO QHS isosorbide mononitrate 60 mg tablet extended release 24 hr 60 mg PO DAILY Qty: 90 3RF Discontinued insulin NPH isoph U-100 human 100 unit/mL suspension 50 unit SC BID Label Comments: PT STATES HAS NOT TAKEN IN A COUPLE OF MONTHS DUE TO NOT EATING insulin lispro 100 UNIT/ML insulin pen 20 unit subcut TID Label Comments: PT STATES HAS NOT TAKEN IN A COUPLE OF MONTHS DUE TO NOT EATING Rx Instructions: only takes when he eats big meals Referrals / Follow Up: Skylar Gunn DO [Primary Care Provider] - In 1 Week Disposition Disposition (needs filled in before D/C Order can be placed): Home, Self Care Charges/Coding Visit Charges Inpatient E&M: 46338 Disch Hosp
[2022-04-14] MEDS: Insulin Lispro 100 UNIT/ML INSULN.PEN SC (12:10)
[2022-04-14 12:36] LABS: Bedside Glucose 176 mg/dL (74-106)
== END 2022-04-14 16:51 | disposition home or self-care (01) | DRG 175 ==
LOC: ED 13:55 → PCU 14:03
PROVIDERS: Physician Assistant; Admitting Provider Internal Medicine; Emergency Provider Emergency Medicine; PCP Family Medicine; Visit Provider Internal Medicine
DX: I26.99 Other pulmonary embolism without acute cor pulmonale (principal); I21.A1 Myocardial infarction type 2; E44.0 Moderate protein-calorie malnutrition; C49.0 Malignant neoplasm of connective and soft tissue of head, face and neck; C78.02 Secondary malignant neoplasm of left lung; C78.01 Secondary malignant neoplasm of right lung; K52.1 Toxic gastroenteritis and colitis; N17.9 Acute kidney failure, unspecified; E11.42 Type 2 diabetes mellitus with diabetic polyneuropathy; E78.5 Hyperlipidemia, unspecified; I10 Essential (primary) hypertension; I25.10 Atherosclerotic heart disease of native coronary artery without angina pectoris; I25.2 Old myocardial infarction; Z95.5 Presence of coronary angioplasty implant and graft; E66.9 Obesity, unspecified; Z79.899 Other long term (current) drug therapy; Z79.82 Long term (current) use of aspirin; Z79.01 Long term (current) use of anticoagulants; Z68.32 Body mass index [BMI] 32.0-32.9, adult; Z79.84 Long term (current) use of oral hypoglycemic drugs; T45.1X5A Adverse effect of antineoplastic and immunosuppressive drugs, initial encounter
CPT/HCPCS: 36415; 71275; 80048; 80053; 82962; 83735; 83880; 84100; 84443; 84484; 85025; 85610; 85730; 87811; 93005; 93306; 97802; 99285; J7030; Q9957; Q9967; A4216; J2405

== ENCOUNTER → 2022-11-21 | Outpatient (CLI) | payer MEDICARE, OTHER, SELFPAY ==
[2020-05-30 13:21] VITALS: BMI 42.0
--- NOTE | 2022-11-21 10:06 | ECHOD_ITS ---
Reason For Study: PULM EMB Procedure This was a 2D Doppler, Color Flow transthoracic echocardiogram. Exam performed in department. Left Ventricle Normal LV size. Left ventricular systolic function is normal. The estimated ejection fraction is 55 %. Stage 1 diastolic dysfunction. No regional wall motion abnormalities noted. Right Ventricle Normal RV size. Normal systolic function. Atria The left atrium is moderately enlarged. Normal right atrium. Mitral Valve There is mild to moderate mitral annular calcification. Mild (1+) eccentric mitral valve insufficiency. Tricuspid Valve Normal tricuspid valve. Aortic Valve Trisinus/trileaflet aortic valve. Mild diffuse aortic valve thickening. Pulmonic Valve Normal pulmonic valve. Great Vessels Normal aortic root. The pulmonary artery is normal size. Normal inferior vena cava. Pericardium/Pleural No pericardial effusion. MMode/2D Measurements & Calculations LVIDd: 6.4 cm IVSd: 1.00 cm Ao root diam: 3.7 cm LVIDs: 3.7 cm LVPWd: 1.3 cm FS: 41.6 % LAV(MOD-sp4): 92.1 ml LVAd ap4: 38.1 cm2 SV(MOD-sp4): 73.1 ml LVLd ap4: 8.7 cm EDV(MOD-sp4): 136.2 ml EDV(sp4-el): 141.3 ml LVAs ap4: 22.6 cm2 LVLs ap4: 7.4 cm ESV(MOD-sp4): 63.1 ml ESV(sp4-el): 58.4 ml EF(MOD-sp4): 53.7 % EF(sp4-el): 58.7 % SV(sp4-el): 82.9 ml LA A4 area: 27.4 cm2 LA dimension(2D): 5.5 cm RA A4 area: 16.7 cm2 Time Measurements MV dec time: 0.29 sec Doppler Measurements & Calculations MV E max teodoro: 79.4 cm/sec Lat Peak E' Teodoro: 10.1 cm/sec Med Peak E' Teodoro: 4.0 cm/sec MV A max teodoro: 88.2 cm/sec E/E' lat: 7.9 E/E' med: 19.6 MV E/A: 0.90 MV V2 max: 103.1 cm/sec Ao V2 max: 171.4 cm/sec MV max P.3 mmHg MV dec slope: 271.8 cm/sec2 Ao max P.7 mmHg MV V2 mean: 67.0 cm/sec Ao V2 mean: 126.8 cm/sec MV mean P.0 mmHg Ao mean P.3 mmHg MV V2 VTI: 47.8 cm Ao V2 VTI: 44.6 cm AV (velocity ratio): 0.47 LV V1 max: 85.7 cm/sec PA V2 max: 105.9 cm/sec LV V1 max P.9 mmHg PA V2 mean: 71.1 cm/sec LV V1 mean P.6 mmHg LV V1 mean: 59.4 cm/sec LV V1 VTI: 20.9 cm ECHO/Echo Complete Interpretation Summary Normal LV size. Left ventricular systolic function is normal. The estimated ejection fraction is 55 %. Stage 1 diastolic dysfunction. The left atrium is moderately enlarged. Ordering Physician: Yoly Plata Referring Physician: Skylar Gunn Performed By: Elana Heath RVT and Student
== END | disposition home or self-care (01) ==
PROVIDERS: PCP Family Medicine; Visit Provider Physician Assistant Medical
DX: I25.118 Atherosclerotic heart disease of native coronary artery with other forms of angina pectoris (principal); I26.99 Other pulmonary embolism without acute cor pulmonale
CPT/HCPCS: 93306

== ENCOUNTER → 2023-03-13 | Outpatient (CLI) | payer MEDICARE, OTHER, SELFPAY ==
[2020-05-30 13:21] VITALS: BMI 42.0
--- NOTE | 2023-03-13 12:45 | RAD_ITS ---
INDICATION: PAIN EXAMINATION/TECHNIQUE: X-RAY - LEFT XR Knee Complete 4 Views or More 4 VIEWS COMPARISON: Right knee March 13, 2023 FINDINGS: SOFT TISSUES: No soft tissue swelling or gas. No radiopaque foreign body. Diffuse peripheral atherosclerosis. Small suprapatellar effusion. BONES/JOINTS: Normal knee alignment. No fracture. Mild tricompartment space narrowing and osteophyte formation.. No sclerotic or destructive changes observed. RAD/Knee 4 or More Views IMPRESSION: Mild tricompartment osteoarthritis. Nonspecific small suprapatellar knee joint effusion. Diffuse peripheral atherosclerosis.. Electronically Signed: Les Colon MD at 5:55 EDT ,
--- NOTE | 2023-03-13 12:50 | RAD_ITS ---
EXAM: XR RIGHT KNEE COMPLETE, 4 OR MORE VIEWS CLINICAL INDICATION: PAIN TECHNIQUE: Four or more views of the right knee. COMPARISON: No relevant prior studies available. FINDINGS: BONES/JOINTS: Mild tricompartmental degenerative changes. No acute fracture. No subluxation. Normal alignment. No sclerotic or destructive changes observed. SOFT TISSUES: Unremarkable. No soft tissue swelling or gas. No radiopaque foreign body. VASCULATURE: Arterial calcifications. RAD/Knee 4 or More Views IMPRESSION: Mild tricompartmental degenerative changes. Electronically Signed: Maycol Saldaña MD at 0:24 EDT ,
== END | disposition home or self-care (01) ==
LOC: MTRAD 12:44
PROVIDERS: PCP Family Medicine; Referring Provider Family Medicine; Visit Provider Family Medicine
DX: M25.561 Pain in right knee (principal); M25.562 Pain in left knee
CPT/HCPCS: 73564

== ENCOUNTER → 2023-09-09 | Outpatient (CLI) | payer MEDICARE, OTHER, SELFPAY ==
[2020-05-30 13:21] VITALS: BMI 42.0
--- NOTE | 2023-09-11 09:32 | STRESSREP ---
Stress Test Report Pharmacologic myocardial perfusion stress test. 74-year-old man with a history of chest pain Resting EKG demonstrates sinus rhythm with a rate of 60 bpm. Resting blood pressure is 136/80 mmHg. 0.4 mg of regadenoson was infused per usual protocol followed by rapid intravenous saline flush injection. Continuous EKG monitoring was performed. The maximum heart rate was 69 bpm which was 46% of max impacted heart rate the maximum workload was 1 metabolic equivalent. At rest there were no ST or T wave changes noted to suggest ischemia and at peak infusion nonspecific ST changes were noted which did not meet the criteria for ischemia. No clinical angina is noted. The final blood pressure was 146/68 mmHg. Myocardial perfusion protocol. 15 mCi of technetium 99m sestamibi was injected at rest. 0.4 mg of regadenoson was infused per usual protocol. At peak infusion 45 mCi of technetium 99m sestamibi was injected stress images were obtained stress and rest images were reconstructed and compared in the short axis vertical long and horizontal long axis. Gated images were also obtained. Perfusion SPECT analysis: Review of the stress images demonstrate normal uptake of tracer noted in all areas of the myocardium. The resting images similar demonstrated normal uptake of tracer noted in all areas of the myocardium. No areas of reversibility are noted to suggest ischemia and no previous infarct is noted. Gated SPECT analysis: The gated ejection fraction is 48%. Conclusion: Normal pharmacologic myocardial perfusion stress test. Low normal ejection fraction.
== END | disposition home or self-care (01) ==
LOC: CVS 06:31
PROVIDERS: PCP Family Medicine; Referring Provider Physician Assistant Medical; Visit Provider Physician Assistant Medical
DX: I25.119 Atherosclerotic heart disease of native coronary artery with unspecified angina pectoris (principal); R07.9 Chest pain, unspecified
CPT/HCPCS: 78452; 93017; A9500; A4216; J2785

== ENCOUNTER → 2023-11-11 | Outpatient (CLI) | payer MEDICARE, OTHER, SELFPAY ==
[2020-05-30 13:21] VITALS: BMI 42.0
--- NOTE | 2023-11-11 08:01 | ECHODONC_ITS ---
Reason For Study: ANTINEOPLASTIC CHEMOTHERAPY Procedure This was a 2D Doppler, Color Flow transthoracic echocardiogram. Myocardial strain analysis was performed in this exam to aid in the assessment of cardiac function. The study was technically difficult. Exam performed in department. Left Ventricle Normal LV size. The global longitudinal strain = -11.1% (abnormal). The estimated ejection fraction is 60 %. No evidence for diastolic dysfunction. No regional wall motion abnormalities noted. Right Ventricle Normal RV size. Normal systolic function. Atria Normal left atrium. Normal right atrium. No doppler evidence for ASD. Mitral Valve There is mild mitral annular calcification. There is no mitral valve stenosis. No mitral valve insufficiency. Tricuspid Valve There is no tricuspid stenosis. Unable to estimate RV systolic pressure due to inadequate jet, pulmonary artery pressure probably normal. Aortic Valve Trisinus/trileaflet aortic valve. Moderate diffuse aortic valve thickening. There is no aortic stenosis. No aortic valve insufficiency. Pulmonic Valve There is no pulmonic valvular stenosis. No pulmonic valve insufficiency. Great Vessels Normal aortic root. Pericardium/Pleural No pericardial effusion. MMode/2D Measurements & Calculations LVIDd: 4.6 cm IVSd: 1.5 cm Ao root diam: 3.7 cm LVIDs: 3.3 cm LVPWd: 1.4 cm FS: 27.0 % LAV(MOD-bp): 57.7 ml LVAd ap4: 38.0 cm2 SV(MOD-sp4): 67.4 ml LAV(MOD-bp) Indexed: 23.2 ml/m2 LVLd ap4: 8.6 cm LAV(MOD-sp2): 60.8 ml EDV(MOD-sp4): 136.3 ml LAV(MOD-sp4): 48.9 ml EDV(sp4-el): 141.8 ml LVAs ap4: 25.6 cm2 LVLs ap4: 7.8 cm ESV(MOD-sp4): 68.9 ml ESV(sp4-el): 71.0 ml EF(MOD-sp4): 49.4 % EF(sp4-el): 49.9 % SV(sp4-el): 70.7 ml LA A4 area: 18.1 cm2 LA dimension(2D): 4.8 cm TAPSE: 1.9 cm Time Measurements MV dec time: 0.29 sec Doppler Measurements & Calculations MV E max teodoro: 65.8 cm/sec Lat Peak E' Teodoro: 6.0 cm/sec Med Peak E' Teodoro: 5.7 cm/sec MV A max teodoro: 77.9 cm/sec E/E' lat: 11.1 E/E' med: 11.5 MV E/A: 0.84 MV V2 max: 94.1 cm/sec MV P1/2t max teodoro: 72.3 cm/sec Ao V2 max: 140.3 cm/sec MV max P.5 mmHg MV P1/2t: 86.1 msec Ao max P.9 mmHg MV V2 mean: 50.2 cm/sec MV dec slope: 245.9 cm/sec2 Ao V2 mean: 98.2 cm/sec MV mean P.2 mmHg Ao mean P.2 mmHg MV V2 VTI: 25.1 cm MVA(P1/2t): 2.6 cm2 Ao V2 VTI: 28.4 cm AV (velocity ratio): 0.56 LV V1 max: 72.0 cm/sec PA V2 max: 104.6 cm/sec TR max teodoro: 204.3 cm/sec LV V1 max P.1 mmHg PA V2 mean: 70.2 cm/sec TR max P.7 mmHg LV V1 mean P.3 mmHg PA V2 VTI: 23.4 cm LV V1 mean: 52.9 cm/sec LV V1 VTI: 15.9 cm ECHO/ONC Echo Complete Interpretation Summary The estimated ejection fraction is 60 %. No evidence for diastolic dysfunction. Ordering Physician: OLIVIA MEJÍA Referring Physician: Skylar Gunn Performed By: Billie Adame, ALYCIA, RVT
== END | disposition home or self-care (01) ==
PROVIDERS: PCP Family Medicine; Referring Provider Physician Assistant Medical; Visit Provider Physician Assistant Medical
DX: Z51.11 Encounter for antineoplastic chemotherapy (principal); C49.9 Malignant neoplasm of connective and soft tissue, unspecified
CPT/HCPCS: 93306; 93356

== ENCOUNTER → 2023-11-28 | Outpatient (CLI) | payer MEDICARE, OTHER, SELFPAY ==
[2020-05-30 13:21] VITALS: BMI 42.0
--- NOTE | 2023-11-28 13:00 | RAD_ITS ---
STUDY: X-RAY CHEST REASON FOR EXAM: Male, 73 years old. Cough. TECHNIQUE: Frontal and lateral views of the chest. COMPARISON: 11/03/2020 FINDINGS: Stable right internal jugular catheter with tip projected over the mid-SVC. Hyperinflation. Resolution of right pleural effusion since the prior study. Stable cardiomegaly. Normal mediastinum and april. Prominent central pulmonary arteries unchanged. Stable aortic tortuosity with calcification. Thoracic osteopenia with mild thoracic and upper lumbar spondylosis, unchanged. Normal visualized ribs, clavicles, and shoulders. No abnormality of the visualized soft tissue structures of the upper abdomen. RAD/Chest PA and Lateral IMPRESSION: Resolution of right pleural effusion. Cardiomegaly with hyperinflation and no acute or active cardiopulmonary disease. Electronically Signed: Timi Dotson MD at 13:43 EST ,
== END | disposition home or self-care (01) ==
LOC: MTRAD 12:58
PROVIDERS: PCP Family Medicine; Referring Provider Family Medicine; Visit Provider Family Medicine
DX: R05.9 Cough, unspecified (principal)
CPT/HCPCS: 71046

== ENCOUNTER 2024-05-27 19:03 | Observation (INO) | payer MEDICARE, OTHER, SELFPAY ==
[2020-05-30 13:21] VITALS: BMI 42.0
[2024-05-27 19:05] VITALS: PULSE 89; RESP 20; TEMP 37.4; O2SAT 84; BMI 41.9
[2024-05-27 19:15] VITALS: BP 158/65; O2SAT 91
--- NOTE | 2024-05-27 19:35 | EKG12_ITS ---
Test Reason : DYSRHYTHMIA Blood Pressure : / mmHG Vent. Rate : 093 BPM Atrial Rate : 093 BPM P-R Int : 264 ms QRS Dur : 106 ms QT Int : 370 ms P-R-T Axes : -31 -44 070 degrees QTc Int : 460 ms Unusual P axis, possible ectopic atrial rhythm with 1st degree A-V block Left axis deviation Pulmonary disease pattern Septal infarct , age undetermined Abnormal ECG Confirmed by Gerhard Bland ([id number]), multimedia editor ALYSSA MANNING ([id number]) on 05/28/2024 2:09:55 PM Referred By: Confirmed By:Gerhard Bland
--- NOTE | 2024-05-27 20:10 | RAD_ITS ---
EXAM: XR CHEST, 1 VIEW CLINICAL INDICATION: Bilateral lower lung field rales TECHNIQUE: Frontal view of the chest. COMPARISON: 11/28/2023 FINDINGS: LUNGS AND PLEURAL SPACES: There is retrocardiac opacity which may represent early left lower lobe pneumonia. There are interstitial opacities in both lungs. No pneumothorax. No effusion. HEART: Unremarkable. Cardiac silhouette not enlarged. MEDIASTINUM: Central airways and mediastinal contour are unremarkable. BONES/JOINTS: Unremarkable. No acute fracture. SOFT TISSUES: Unremarkable. TUBES, LINES AND DEVICES: Right-sided Port-A-Cath in stable position. RAD/Chest 1 View (Portable) IMPRESSION: Interstitial opacities which may represent scar or edema. There is a more focal left lower lobe airspace disease which may represent atelectasis or early pneumonia. Electronically Signed: Meek Hoffmann MD at 21:05 EDT ,
[2024-05-27 20:11] LABS: Absolute Lymphocyte Count 0.32 X10^3/uL (0.83-4.51); Absolute Neutrophil Count 7.2 X10^3/uL (2.0-7.7); Basophil# 0.01 X10^3/uL; Basophil% 0.1 % (0-1); Eosinophil# 0.05 X10^3/uL; Eosinophils% 0.6 % (0-5); Hematocrit 39.9 % (40-54); Hemoglobin 13.2 g/dL (13.0-16.5); Lymphocyte # 0.32 X10^3/ul (0.83-4.51); Lymphocyte % 4.1 % (19-41); Mean Corp Hgb Conc 33.1 g/dL (32-36); Mean Corpuscular Hgb 30.2 pg (27.0-32.0); Mean Corpuscular Volume 91.3 fL (80-94); Mean Platelet Vol. 10.1 fl (6.2-12.0); Monocyte# 0.16 X10^3/uL; Monocyte% 2.1 % (0-10); NRBC Flagged by Analyzer 0 % (0-5); Neutrophil # 7.18 X10^3/uL (2.7-7.7); Neutrophil % 92.8 % (47-70); POSITIVE DIFFERENTIAL YES; Platelet Count 156 K/mm3 (150-450); RBC Distribution Width CV 13.5 % (11.6-14.6); RBC Distribution Width SD 45.1 fl (35.1-43.9); Red Blood Count 4.37 M/mm3 (4.6-6.2); White Blood Count 7.7 K/mm3 (4.4-11.0)
[2024-05-27 20:13] LABS: Mucous, Urine 0 SEEN /hpf (<or=2+); Squamous Epithelial Cells - UA 0 SEEN /hpf (0-5); White Blood Cells 0 SEEN /hpf (0-5)
[2024-05-27 20:17] LABS: Color, Urine Yellow (Yellow); Glucose, Dipstick Normal (Normal); Ketone-Dipstick 5 mg/dl (Negative); Leukocyte Esterase-Dipstick Negative /ul (Negative); Nitrite-Dipstick Negative (Negative); Occult Blood-Urine Negative /ul (Negative); Protein-Dipstick 15 mg/dl (Negative); Specific Gravity, Urine 1.015 (1.002-1.030); Urine Bilirubin Dipstick Negative (Negative); Urine Clarity Clear (Clear); Urine Urobilinogen 1 mg/dl (Normal)
[2024-05-27 20:22] LABS: International Normalized Ratio 1.2; Partial Thromboplast Time 25.2 Seconds (24.1-36.2); Prothrombin Time (Protime)PT. 14.7 SECONDS (11.7-14.9)
[2024-05-27 20:25] LABS: Bacteria 1+ /hpf (None Seen); Red Blood Cells-Urine 0-5 SEEN /hpf (0-5)
[2024-05-27 20:28] LABS: AST(SGOT) 18 U/L (15-37); Alanine Aminotransfer ALT/SGPT 29 U/L (16-61); Albumin, Serum 3.5 g/dL (3.2-5.0); Alkaline Phosphatase 103 U/L (45-117); Anion Gap 11 (5-15); BUN 30 mg/dL (7-18); BUN/Creat Ratio 26.1 RATIO (10-20); Calcium,Total 9.5 mg/dL (8.5-10.1); Chloride 106 mmol/L (98-107); Creatinine, Serum 1.15 mg/dL (0.70-1.30); EST Glomerular Filtration Rate 66 mL/min (>60); Est Glom Filt Rate - Afr Amer 80 mL/min (>60); Estimated Creatinine Clearance 81.88 ml/min; Globulin 3.6 g/dL (2.2-4.2); Glucose 143 mg/dL (74-106); Potassium 3.3 mmol/L (3.5-5.1); Protein, Total 7.1 g/dL (6.4-8.2); Sodium Level 141 mmol/L (136-145)
--- NOTE | 2024-05-27 20:58 | EX.ED.DYSGE1 ---
HPI History of Present Illness Chief Complaint: General Illness Detail of Chief Complaint: Shaking chills, pallor and not feeling well after Onset/Context/Timing Onset: Today and Hours Context: Sudden Onset Timing: Continuous Quality: Not feeling well, shaking chills and shortness of breath Location: Drive home from [facility] Current Severity: Mild Maximum Severity: Moderate Worsened by: Nothing Relieved by: Nothing Narrative Narrative: Receiving immunotherapy and chemotherapy for the first time together at [facility]. Patient has history of angiosarcoma involving the right scalp. 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 He was driving home from immuno/chemotherapy. He apparently became pale did not look well. He had shaking chills. He apparently felt warm. He denies headache, visual, ocular auditory symptoms. He does endorse mild shortness of breath. He has no cough. He denies abdominal pain but does report nausea without vomiting or diarrhea. He denies dysuria, frequency, urgency or hematuria. Patient was hypoxic on room air. 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 Skin lesion History of non-ST elevation myocardial infarction (NSTEMI) (02/09/18) Atherosclerotic heart disease of [place] coronary artery with other forms of angina pectoris Essential (primary) hypertension Hyperlipidemia Vascular disease Diabetes type 2, controlled Home Medications ?Medication ?Instructions ?Recorded ?Last Taken ?Type aspirin 81 mg tablet,delayed 81 mg PO DAILY [facility] 11/20/17 04/12/22 History release (Adult Aspirin Regimen) cholecalciferol (vitamin D3) 1,250 50,000 unit PO WE supplement 03/12/18 04/11/22 History mcg (50,000 unit) capsule lidocaine-prilocaine 2.5 %-2.5 % 1 applicatio TP DAILY PRN PRN Not 03/22/20 Unknown Rx topical cream Specified 30 days #1 tube prochlorperazine maleate 10 mg 10 mg PO Q6H PRN PRN Nausea 10 03/22/20 04/11/22 Rx tablet days #30 tabs gabapentin 300 mg capsule 900 mg PO BID 11/10/20 04/12/22 History triamterene 37.5 1 tab PO DAILY FLUID 04/13/21 04/12/22 History mg-hydrochlorothiazide 25 mg tablet loperamide 2 mg capsule 4 mg PO BID PRN loose stool 04/12/22 04/12/22 History apixaban 5 mg (74 tabs) tablets in 5 mg PO BID #74 tabs 04/14/22 Unknown Rx a dose pack ([employer] DVT-PE Treat 30D Start) famotidine 20 mg tablet (Acid 20 mg PO DAILY 02/18/23 Unknown History Survey Director (famotidine)) insulin lispro 100 unit/mL 20 unit subcut TID 02/18/23 Unknown History subcutaneous pen (Humalog KwikPen (U-100) Insulin) metformin 500 mg tablet 1,000 mg PO BID diabetes 02/18/23 Unknown History nivolumab 240 mg/24 mL intravenous mg .Route 02/18/23 Unknown History solution (Opdivo) ondansetron HCl 8 mg tablet 8 mg PO Q8H PRN nausea and vomiting 02/18/23 Unknown History metoprolol succinate 100 mg See Rx Instructions .Route 05/28/23 Unknown Rx tablet,extended release 24 hr .COMPLEX #90 TABLETS losartan 100 mg tablet 100 mg PO DAILY blood pressure #90 06/04/23 Unknown Rx tabs isosorbide mononitrate 60 mg 60 mg PO DAILY blood pressure #90 06/12/23 Unknown Rx tablet,extended release 24 hr tabs atorvastatin 40 mg tablet 40 mg PO QHS CHOLESTEROL #90 tabs 08/19/23 Unknown Rx amlodipine 5 mg tablet 5 mg PO DAILY 02/10/24 Unknown History levothyroxine 150 mcg tablet 175 mcg PO DAILY THYROID 02/10/24 Unknown History meloxicam 15 mg tablet 15 mg PO DAILY 02/10/24 Unknown History prochlorperazine maleate 10 mg 10 mg PO BID PRN 02/10/24 Unknown History tablet (Compazine) semaglutide 0.25 mg or 0.5 mg (2 0.25 mg subcut QWEEK 02/10/24 Unknown History mg/1.5 mL) subcutaneous pen injector (Ozempic) omeprazole 40 mg capsule,delayed 40 mg PO DAILY 05/27/24 Unknown History release Allergy/AdvReac Type Severity Reaction Status Date / Time No Known Allergies Allergy Verified 05/27/24 19:05 Family History Unknown No problems noted. Father CAD (coronary artery disease) Heart disease Prostate cancer Mother Arthritis Hypertension Grandmother Colon cancer Grandfather Prostate cancer Uncle Diabetes Surgical History History of colonoscopy Status post lung surgery History of left heart catheterization (06/20/20) History of coronary artery stent placement (02/19/19) History of tonsillectomy and adenoidectomy History of hydrocelectomy Social History household members: spouse current occupational status: retired Smoking Status: Never smoker second hand exposure: No alcohol intake: never substance use type: does not use ROS ROS ED Constitutional Constitutional ED: Reports chills; Denies fever(s), subjective or sweats Eyes Eyes: Denies blurry vision or change in vision ENT ENT ED: Denies ear pain, rhinorrhea or sore throat Cardiovascular Cardiovascular: Denies chest pain, orthopnea, palpitations or paroxysmal nocturnal dyspnea Respiratory/Chest Respiratory/Chest: Reports dyspnea and dyspnea on exertion; Denies cough, orthopnea or paroxysmal nocturnal dyspnea Gastrointestinal Gastrointestinal: Reports nausea; Denies abdominal pain, diarrhea, melena or vomiting Genitourinary Genitourinary ED: Denies dysuria, hematuria or urinary frequency Musculoskeletal Musculoskeletal: Denies arthralgias, back pain, myalgias or neck pain Integumentary Reports rash Neurologic Neurologic: Reports weakness; Denies headache(s) or paresthesias Psychiatric Psychiatric: Denies anxiety Endocrine Endocrinology: Denies cold intolerance or heat intolerance EXAM Physical Exam Const Vital Signs: 05/27/24 19:05 05/27/24 19:15 05/27/24 19:35 Temperature 99.4 F H Temperature Source Oral Pulse Rate 89 Respiratory Rate 20 H Respiratory Effort Respiratory Pattern Blood Pressure 158/65 H Blood Pressure Mean 96 Pulse Ox 84 91 Oxygen Delivery Method Room Air Nasal Cannula Nasal Cannula Oxygen Flow Rate (L/min) 4 3 05/27/24 21:04 05/27/24 21:15 Temperature Temperature Source Pulse Rate 88 Respiratory Rate 22 H Respiratory Effort Short of Breath Respiratory Pattern Tachypnea Blood Pressure 163/70 H Blood Pressure Mean 101 Pulse Ox 94 Oxygen Delivery Method Nasal Cannula Oxygen Flow Rate (L/min) 3 Positive well nourished and well developed Constitutional Narrative: Patient is tachypneic and breathing greater than 20 times a minute. General Appearance ED: well developed and pallor; Negative for cyanotic, diaphoretic or NAD HEENT Reports dry mucous membranes HEENT Narrative: Patient has a dressing over his scalp where he has angiosarcoma. He also has a port that is in place. Negative for trauma Mouth ED: Yes dry mucous membranes Mouth: dry mucous membranes Eyes PERRL and EOMs intact bilaterally General Eye ED: Negative for pale conjunctiva or scleral icterus Neck no lymphadenopathy, supple and no JVD Chest Wall inspection of chest normal and palpation of chest normal Resp No normal respiratory effort and No clear to auscultation bilaterally Auscultation: rales bilateral lower Cardio regular rate, regular rhythm, S1 normal heart sound, S2 normal heart sound and no murmurs GI normal to inspection, nondistended, normoactive bowel sounds, non-tender, non-distended and no masses; Negative for hepatosplenomegaly Back/Spine no CVA tenderness Extremity normal to inspection General Extremety ED: Negative for edema or tenderness General Extremity: Negative for edema Neuro oriented x3, CN's II-XII intact bilaterally and no sensory deficits noted Sensorium / Orientation: alert Motor Exam: strength 5/5 throughout Psych mental status grossly normal Skin no wounds and skin turgor normal General Skin Exam: pallor; Negative for jaundice MDM MDM MDM Narrative Medical decision making narrative: This may represent a drug adverse reaction, need to entertain possibility of infection. With him being hypoxic need entertain possibility of PE. If chest x-ray reveals no abnormality we will obtain CTA. CBC was obtained to assess white count and H&H. Electrolyte panel to assess renal function in the event that a CTA is needed. Liver enzymes were obtained as well as lactate to assess for endorgan dysfunction. UA reveals bacteria with no pyuria. Will send culture. Lab Data Attestation: I reviewed the patient's lab results. Lab results narrative: White count is normal. There is a shift with 93% segs. There is no bands. Comprehensive metabolic panel is remarkable for a BUN to creatinine ratio 26:1. Glucose is 143 with a normal CO2 and anion gap. Transaminases normal. Urine reveals bacteria without pyuria. Labs: Laboratory Results - last 24 hr 05/27/24 05/27/24 19:58 20:04 WBC 7.7 RBC 4.37 L Hgb 13.2 Hct 39.9 L MCV 91.3 MCH 30.2 MCHC 33.1 RDW Std Deviation 45.1 H RDW Coeff of Alexis 13.5 Plt Count 156 MPV 10.1 Immature Gran % (Auto) 0.300 Neut % (Auto) 92.8 H Lymph % (Auto) 4.1 L [place] % (Auto) 2.1 Eos % (Auto) 0.6 Baso % (Auto) 0.1 Absolute Neuts (auto) 7.2 Absolute Lymphs (auto) 0.32 L Nucleated RBC % 0 PT 14.7 INR 1.2 APTT 25.2 Sodium 141 Potassium 3.3 L Chloride 106 Carbon Dioxide 24.0 Anion Gap 11 BUN 30 H Creatinine 1.15 Estim Creat Clear Calc 81.88 Est GFR (MDRD) Af Amer 80 Est GFR (MDRD) Non-Af 66 BUN/Creatinine Ratio 26.1 H Glucose 143 H Lactic Acid 2.0 Calcium 9.5 Total Bilirubin 0.90 AST 18 ALT 29 Alkaline Phosphatase 103 Total Protein 7.1 Albumin 3.5 Globulin 3.6 Albumin/Globulin Ratio 1.0 Urine Color Yellow Urine Clarity Clear Urine pH 6.0 Ur Specific Hickman 1.015 Urine Protein 15 H Urine Glucose (UA) Normal Urine Ketones 5 H Urine Occult Blood Negative Urine Nitrite Negative Urine Bilirubin Negative Urine Urobilinogen 1 H Ur Leukocyte Esterase Negative Urine RBC 0-5 SEEN Urine WBC 0 SEEN Ur Squamous Epith Cells 0 SEEN Urine Bacteria 1+ Urine Mucus 0 SEEN Urine Creatinine 89.30 Radiography Chest X-Ray - ED: Read by ED Physician (Chest x-ray was interpreted by me and unchanged from October 2020. There are some interstitial changes noted on the right side. There is a port noted. The ports in proper position. Cardiac silhouette size normal. [place] is normal. [place] structures are unremarkable.) Diagnostic Testing: Clinical Impression(s) from Imaging Studies Chest X-Ray 05/27/24 20:10 IMPRESSION: Interstitial opacities which may represent scar or edema. There is a more focal left lower lobe airspace disease which may represent atelectasis or early pneumonia. Electronically Signed: Meek Hoffmann MD at 21:05 EDT , Chest CTA 05/27/24 21:24 IMPRESSION: No evidence of pulmonary embolus. Previously seen bilateral emboli have resolved. There is mild bibasilar atelectasis. Electronically Signed: Meek Hoffmann MD at 22:32 EDT , CT report was read as negative for evidence of pulmonary embolus. Prior emboli have resolved. He has mild bibasal atelectasis. This does not explain his hypoxia. Treatment and Re-Evaluation :: Patient inadvertently removed his nasal cannula. When I was in the room he desaturated to 88% He is presently on 4 L and saturating 93%. There is no obvious PE on the CTA of the chest.Once I receive the formal read will contact hospitalist for admission for hypoxia. There is some atelectasis. There is no obvious infiltrate. Awaiting formal read by radiologist. Discharge Plan Triage Chief Complaint: General Illness ED Provider: Simon Dsouza Dx/Rx/DC Orders Clinical Impression: Hypoxia, Hyperlipidemia, Essential (primary) hypertension, Fatigue, Angiosarcoma of scalp, CINV (chemotherapy-induced nausea and vomiting), Adverse effect of drug in therapeutic use, Nausea & vomiting Prescriptions: No Action aspirin [Adult Aspirin Regimen] 81 mg tablet,delayed release (DR/EC) 81 mg PO DAILY Patient Comments: may take prior to surgery cholecalciferol (vitamin D3) 50,000 unit capsule 50,000 unit PO WE triamterene-hydrochlorothiazid 37.5-25 mg tablet 1 tab PO DAILY famotidine [Acid Survey Director (famotidine)] 20 mg tablet 20 mg PO DAILY insulin lispro [Humalog KwikPen Insulin] 100 unit/mL insulin pen 20 unit subcut TID ondansetron HCl 8 mg tablet 8 mg PO Q8H PRN (Reason: nausea and vomiting) Opdivo 240 mg/24 mL solution .Route Rx Instructions: Monthly Infusion@ [facility] amlodipine 5 mg tablet 5 mg PO DAILY meloxicam 15 mg tablet 15 mg PO DAILY prochlorperazine maleate [Compazine] 10 mg tablet 10 mg PO BID PRN Ozempic 0.25 mg or 0.5 mg(2 mg/1.5 mL) pen injector 0.25 mg subcut QWEEK Rx Instructions: for 4 weeks metformin 500 mg tablet 1,000 mg PO BID prochlorperazine maleate 10 MG tablet 10 mg PO Q6H PRN PRN (Reason: Nausea) 10 Days Qty: 30 2RF lidocaine-prilocaine 30 GM cream 1 applicatio TP DAILY PRN PRN (Reason: Not Specified) 30 Days Qty: 1 2RF gabapentin 300 MG capsule 900 mg PO BID Patient Comments: 3 capsules in morning and 3 in the evening loperamide 2 mg Capsule 4 mg PO BID PRN (Reason: loose stool) Eliquis DVT-PE Treat 30D Start 5 mg (74 tabs) tablets,dose pack 5 mg PO BID Qty: 74 0RF Rx Instructions: 10 mg p.o. twice daily x7 days then 5 mg p.o. twice daily levothyroxine 150 mcg tablet 175 mcg PO DAILY omeprazole 40 mg capsule,delayed release(DR/EC) 40 mg PO DAILY metoprolol succinate 100 mg tablet extended release 24 hr See Rx Instructions .ROUTE .COMPLEX Qty: 90 3RF Dose Instruction: Take 1 tablet by mouth once daily for blood pressure Rx Instructions: Take 1 tablet by mouth once daily for blood pressure losartan 100 mg tablet 100 mg PO DAILY Qty: 90 3RF isosorbide mononitrate 60 mg tablet extended release 24 hr 60 mg PO DAILY Qty: 90 3RF atorvastatin 40 mg tablet 40 mg PO QHS Qty: 90 4RF Primary Care Provider: Skylar Gunn Referrals: Skylar Gunn DO [Primary Care Provider] - Print Language: Macanese Disposition Disposition: Acute Care Hospital [facility]
[2024-05-27 21:04] VITALS: BP 163/70; PULSE 88; RESP 22; O2SAT 94
--- NOTE | 2024-05-27 21:24 | CT_ITS ---
EXAM: CT ANGIOGRAPHY CHEST WITHOUT AND WITH INTRAVENOUS CONTRAST CLINICAL INDICATION: Dyspnea, history of cancer and hypoxia TECHNIQUE: Helically acquired angiography images were obtained of the chest without and with intravenous contrast. This CT exam was performed using one or more of the following dose reduction techniques: automated exposure control, adjustment of the mA and/or kV according to patient size, and/or use of iterative reconstruction technique. MIP reconstructed images were created and reviewed. CONTRAST: IV 100mL [id number] COMPARISON: 04/12/2022 FINDINGS: PULMONARY ARTERIES: Unremarkable. Normal in caliber. No evidence of pulmonary embolism. AORTA: Unremarkable. Normal in caliber. No evidence of dissection. GREAT VESSELS OF AORTIC ARCH: Unremarkable. Normal in caliber. No evidence of dissection. LUNGS AND PLEURAL SPACES: There is mild bibasilar atelectasis. No mass. No pleural effusion or thickening. No pneumothorax. HEART: Unremarkable. Heart size is normal. No pericardial effusion. No significant coronary artery calcifications. MEDIASTINUM: Unremarkable. No mediastinal or hilar adenopathy. Esophagus is unremarkable. No hiatal hernia. THYROID: Unremarkable. No thyroid lesions. BONES/JOINTS: Unremarkable. No suspicious lytic or blastic abnormality. CT/CTA Chest W/WO Contrast IMPRESSION: No evidence of pulmonary embolus. Previously seen bilateral emboli have resolved. There is mild bibasilar atelectasis. Electronically Signed: Meek Hoffmann MD at 22:32 EDT ,
[2024-05-27] MEDS: Acetaminophen 325 MG Tablet 650 MG PO (22:09)
--- NOTE | 2024-05-27 22:40 | PCM.HP.STD ---
[facility] - General General Date of Admission: 05/27/24 Date of Service: 05/27/24 Chief Complaint: Shaking, Chills and SOB. 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 Mr. Julio reports his symptoms began while he was driving home from [facility] after he was treated with Opdivo with the gradual-onset of progressively worsening SOB with shaking chills and malaise with his family noting he was not looking well so they brought him in for further evaluation and treatment. He does admit to subjective fever, mild SOB at rest with his oxygen saturation at ~84% on RA, generalized weakness and nausea but he denies cough, vomiting, chest pain, palpitations or diaphoresis. He also denies associated headache, visual changes, diarrhea, constipation, dysuria, urinary frequency or urgency. In the ER he was noted to have a CTA of the chest that was negative for PE with former pulmonary emboli having resolved with incidentally noted bibasilar atelectasis. After speaking with the pharmacist and reviewing the medical literature he was then diagnosed with a suspected Adverse Drug Reaction to Opdivo likely causing Reactive Airways Disease with persistent hypoxia consistent with Respiratory Insufficiency with an accompanying viral-type syndrome that is well described in ~10-20% of patients taking this agent with steroids recommended as a treatment for this particular side effect complicated by mild Hypokalemia of 3.3 mmo/L present on admission and he was then admitted to the general medical floor under observation status for ongoing care for a stay that is expected to be less than 2 midnights. [facility] Medical History (Updated 05/28/24 @ 05:[address] 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5 % 1 applicatio TP DAILY PRN PRN Not 03/22/20 Unknown Rx topical cream Specified 30 days #1 tube prochlorperazine maleate 10 mg 10 mg PO Q6H PRN PRN Nausea 10 03/22/20 04/11/22 Rx tablet days #30 tabs gabapentin 300 mg capsule 900 mg PO BID 11/10/20 04/12/22 History triamterene 37.5 1 tab PO DAILY FLUID 04/13/21 04/12/22 History mg-hydrochlorothiazide 25 mg tablet loperamide 2 mg capsule 4 mg PO BID PRN loose stool 04/12/22 04/12/22 History apixaban 5 mg (74 tabs) tablets in 5 mg PO BID #74 tabs 04/14/22 Unknown Rx a dose pack ([employer] DVT-PE Treat 30D Start) famotidine 20 mg tablet (Acid 20 mg PO DAILY 02/18/23 Unknown History Development Manager (famotidine)) insulin lispro 100 unit/mL 20 unit subcut TID 02/18/23 Unknown History subcutaneous pen (Humalog KwikPen (U-100) Insulin) metformin 500 mg tablet 1,000 mg PO BID diabetes 02/18/23 Unknown History nivolumab 240 mg/24 mL intravenous mg .Route 02/18/23 Unknown History solution (Opdivo) ondansetron HCl 8 mg tablet 8 mg PO Q8H PRN nausea and vomiting 02/18/23 Unknown History metoprolol succinate 100 mg See Rx Instructions .Route 05/28/23 Unknown Rx tablet,extended release 24 hr .COMPLEX #90 TABLETS losartan 100 mg tablet 100 mg PO DAILY blood pressure #90 06/04/23 Unknown Rx tabs isosorbide mononitrate 60 mg 60 mg PO DAILY blood pressure #90 06/12/23 Unknown Rx tablet,extended release 24 hr tabs atorvastatin 40 mg tablet 40 mg PO QHS CHOLESTEROL #90 tabs 08/19/23 Unknown Rx amlodipine 5 mg tablet 5 mg PO DAILY 02/10/24 Unknown History levothyroxine 150 mcg tablet 175 mcg PO DAILY THYROID 02/10/24 Unknown History meloxicam 15 mg tablet 15 mg PO DAILY 02/10/24 Unknown History prochlorperazine maleate 10 mg 10 mg PO BID PRN 02/10/24 Unknown History tablet (Compazine) semaglutide 0.25 mg or 0.5 mg (2 0.25 mg subcut QWEEK 02/10/24 Unknown History mg/1.5 mL) subcutaneous pen injector (Ozempic) omeprazole 40 mg capsule,delayed 40 mg PO DAILY 05/27/24 Unknown History release Allergy/AdvReac Type Severity Reaction Status Date / Time No Known Allergies Allergy Verified 05/27/24 19:05 Family History Unknown No problems noted. Father CAD (coronary artery disease) Heart disease Prostate cancer Mother Arthritis Hypertension Grandmother Colon cancer Grandfather Prostate cancer Uncle Diabetes Surgical History History of colonoscopy Status post lung surgery History of left heart catheterization (06/20/20) History of coronary artery stent placement (02/19/19) History of tonsillectomy and adenoidectomy History of hydrocelectomy Social History household members: spouse current occupational status: retired Smoking Status: Never smoker second hand exposure: No alcohol intake: never substance use type: does not use ROS ROS Narrative Review of Systems: Constitutional: Patient admits to subjective fever, shaking chills, malaise and generalized weakness as per HPI. Eyes: Patient denies changes in vision or discharge from eyes. ENT: Patient denies runny nose, sore throat or ear pain. CV: Patient denies chest pain, palpitations or heart racing. Resp: Patient admits to SOB at rest with oxygen saturation of 84% on RA as per HPI. GI: Patient admits to nausea but he denies vomiting or diarrhea. : Patient denies dysuria, hematuria or urinary frequency/hesitancy. MSK: Patient admits to myalgias but he denies arthralgias. Skin: Patient hs multiple tumors on his scalp but he denies rash, abscess or jaundice. Psych: Patient denies symptoms of uncontrolled depression or anxiety. Neuro: Patient denies headache, paresthesias or focal neurologic deficits. Allergy: Patient denies lip swelling, tongue swelling or urticaria. Hematology: Patient denies easy bleeding or easy bruisability. Endocrinology: Patient denies polyuria, polydipsia and polyphagia. 14 point ROS otherwise negative except for positives noted above in HPI. Vital Signs Vital Signs Vital Signs: 05/27/24 19:05 05/27/24 19:15 05/27/24 19:35 Temperature 99.4 F H Temperature Source Oral Pulse Rate 89 Respiratory Rate 20 H Respiratory Effort Respiratory Pattern Blood Pressure 158/65 H Blood Pressure Mean 96 Pulse Ox 84 91 Oxygen Delivery Method Room Air Nasal Cannula Nasal Cannula Oxygen Flow Rate (L/min) 4 3 05/27/24 21:04 05/27/24 21:15 Temperature Temperature Source Pulse Rate 88 Respiratory Rate 22 H Respiratory Effort Short of Breath Respiratory Pattern Tachypnea Blood Pressure 163/70 H Blood Pressure Mean 101 Pulse Ox 94 Oxygen Delivery Method Nasal Cannula Oxygen Flow Rate (L/min) 3 Weight Weight: 300 lb 7.841 oz Body Mass Index (BMI) 41.9 Physical Exam Const alert, oriented x3 and no apparent distress Constitutional Narrative: Morbidly obese. General Appearance: cooperative HEENT normocephalic, head/scalp atraumatic, hearing grossly normal bilaterally and moist oral mucous membranes Eyes PERRL and EOMs intact bilaterally Neck no lymphadenopathy and supple Resp Resp Narrative: Diminished breath sounds throughout with bibasilar rales. Auscultation: rales Cardio regular rate and regular rhythm GI normal to inspection, nondistended, normoactive bowel sounds, soft to palpation, non-tender and non-distended GI Narrative: Morbidly obese. Extremity normal to inspection, full ROM and no clubbing, cyanosis or edema Skin Skin Narrative: Patient has no evidence of rash, abscess or jaundice. Neuro oriented x3, CN's II-XII intact bilaterally, moves all extremities and no focal motor deficits Sensorium / Orientation: awake, alert, oriented to person, oriented to place and oriented to time Speech: speech normal Psych affect normal Results Medical Records Data Attestation: I reviewed the patient's medical records Lab / Micro Data Attestation: I reviewed the patient's lab results. 05/27/24 19:58 05/27/24 19:58 Labs: Laboratory Results - last 24 hr 05/27/24 19:58: WBC 7.7, RBC 4.37 L, Hgb 13.2, Hct 39.9 L, MCV 91.3, MCH 30.2, MCHC 33.1, RDW Std Deviation 45.1 H, RDW Coeff of Alexis 13.5, Plt Count 156, MPV 10.1, Immature Gran % (Auto) 0.300, Neut % (Auto) 92.8 H, Lymph % (Auto) 4.1 L, [place] % (Auto) 2.1, Eos % (Auto) 0.6, Baso % (Auto) 0.1, Absolute Neuts (auto) 7.2, Absolute Lymphs (auto) 0.32 L, Nucleated RBC % 0, PT 14.7, INR 1.2, APTT 25.2, Sodium 141, Potassium 3.3 L, Chloride 106, Carbon Dioxide 24.0, Anion Gap 11, BUN 30 H, Creatinine 1.15, Estim Creat Clear Calc 81.88, Est GFR (MDRD) Af Amer 80, Est GFR (MDRD) Non-Af 66, BUN/Creatinine Ratio 26.1 H, Glucose 143 H, Lactic Acid 2.0, Calcium 9.5, Total Bilirubin 0.90, AST 18, ALT 29, Alkaline Phosphatase 103, Total Protein 7.1, Albumin 3.5, Globulin 3.6, Albumin/Globulin Ratio 1.0 05/27/24 20:04: Urine Color Yellow, Urine Clarity Clear, Urine pH 6.0, Ur Specific [place] 1.015, Urine Protein 15 H, Urine Glucose (UA) Normal, Urine Ketones 5 H, Urine Occult Blood Negative, Urine Nitrite Negative, Urine Bilirubin Negative, Urine Urobilinogen 1 H, Ur Leukocyte Esterase Negative, Urine RBC 0-5 SEEN, Urine WBC 0 SEEN, Ur Squamous Epith Cells 0 SEEN, Urine Bacteria 1+, Urine Mucus 0 SEEN, Urine Creatinine 89.30 Imaging Radiology Impression Chest X-Ray 05/27/24 20:10 IMPRESSION: Interstitial opacities which may represent scar or edema. There is a more focal left lower lobe airspace disease which may represent atelectasis or early pneumonia. Electronically Signed: Meek Hoffmann MD at 21:05 EDT , Chest CTA 05/27/24 21:24 IMPRESSION: No evidence of pulmonary embolus. Previously seen bilateral emboli have resolved. There is mild bibasilar atelectasis. Electronically Signed: Meek Hoffmann MD at 22:32 EDT , Assessment & Plan Assessment/Plan (1) Adverse effect of drug in therapeutic use: (2) Reactive airway disease: QUALIFIERS: Asthma persistence: unspecified Asthma severity: mild Qualified Code(s): J45.909 - Unspecified asthma, uncomplicated (3) Respiratory insufficiency: (4) Hypokalemia: (5) Dehydration: (6) Nausea: (7) Fatigue: QUALIFIERS: Fatigue type: unspecified Qualified Code(s): R53.83 - Other fatigue (8) Angiosarcoma of scalp: (9) Morbid obesity with BMI of 40.0-44.9, adult: PLAN: Plan 1. Adverse Drug Reaction to Opdivo likely causing Reactive Airways Disease with persistent hypoxia viral-type syndrome that is well described in 10-20% of patients taking this agent with steroids recommended as a treatment for this particular side effect - Admit to general medical floor under observation status. Continue IV Decadron begun in the ER plus give prn nebulizers with patient statin he feels much better since treatment with steroids were initiated. 2. Acute Respiratory Insufficiency attributable to #1 - Wean supplemental oxygen as tolerated. 3. Hypokalemia of 3.3 mmol/L present on admission complicating #1 & #2 - Give supplemental KCl and then recheck level in the AM to ensure improvement. 4. Dehydration with nausea and vomiting x 1; evidenced by elevated BUN/creatinine ratio of 26.1 present on admission compounding #1 - #3 - Volume resuscitate and recheck renal indices in AM to verify correction. Hold potentially nephrotoxic agents. Give IV Zofran prn for nausea or vomiting. 5. History of angiosarcoma of the scalp (2019); still on chemotherapy and immune therapy with Opdivo with Port in-place followed at [facility] - Noted with patient statin he was injected with herpes virus at [facility] to help train his immune system to attack his tumor. Therefore, we will place him on contact precautions just to be safe. 6. Morbid obesity; with BMI of 41.9 this admission - Weight loss will be recommended. Check TSH. This complicates his case and may hamper recovery. 7. Essential hypertension - Continue Metoprolol and Amlodipine - but hold Triamterene/HCTZ and Losartan until renal function normalizes. 8. Hyperlipidemia - Resume statin as previous. 9. Hypothyroidism - Continue Synthroid at current dose and check TSH. 10. DM-2; of unknown control on Metformin, Ozempic and insulin - Start full liquid diet in AM. FSBS q. AC/HS plus SSI. Check HgbA1c to objectively assess quality of diabetic control. 11. Peripheral neuropathy - Stable. 12. CAD; s/p NSTEMI (2018) with stents RCA and mid-LAD (2019) - Resume BASA. 13. History of RV dilation - Noted. 14. PVD - Stable. 15. History of PE; on Eliquis, history of PTX (2020) - Continue Eliquis as before. 16. GERD - Resume Pepcid at current dose and frequency. 17. OA - Give Tylenol prn. 18. DVT prophylaxis - Patient on Eliquis for #15 which will be continued. Total time: Approximately 70 minutes. Charges/Coding Visit Charges OBSV E&M: 42335 Observ/hosp same date L2
[2024-05-27 23:00] VITALS: BP 127/65; PULSE 79; RESP 18; O2SAT 98
[2024-05-27 23:09] VITALS: BP 127/65; PULSE 77; RESP 22; TEMP 37.2; O2SAT 94
[2024-05-27 23:10] VITALS: BP 127/65; PULSE 78; RESP 22; TEMP 37.2; O2SAT 94
[2024-05-28] VITALS (7 sets, daily range): BP systolic 139–153; BP diastolic 69–79; PULSE 57–80; RESP 18–20; TEMP 36.2–37.4; O2SAT 95–99; BMI 40.4
[2024-05-28 00:08] LABS: Reflex Lactate? Y
[2024-05-28] MEDS: Potassium Chloride Oral Tablet 20 MEQ 40 MEQ PO (01:01)
[2024-05-28 01:15] LABS: Magnesium 1.2 mg/dL (1.6-2.6); Phosphorus 2.5 mg/dL (2.5-4.9)
[2024-05-28 01:16] LABS: Lactic Acid 1.5 mmol/L (0.4-1.9)
[2024-05-28] MEDS: dexAMETHasone 10 MG/ML Vial 6 MG IV ×2 (01:26→10:51)
[2024-05-28] MEDS: KCL 20MEQ in 0.9% NS 20 MEQ/1,000 ML IV.SOLN. 100 MEQ IV (01:27)
[2024-05-28] MEDS: 0.9% Saline Lock 10 ML Syringe IV (01:27)
[2024-05-28] MEDS: Acetaminophen 325 MG Tablet 650 MG PO (04:36)
[2024-05-28] MEDS: Levothyroxine 175 MCG Tablet PO (04:37)
[2024-05-28 06:52] LABS: Absolute Lymphocyte Count 0.37 X10^3/uL (0.83-4.51); Absolute Neutrophil Count 8.4 X10^3/uL (2.0-7.7); Basophil# 0.02 X10^3/uL; Basophil% 0.2 % (0-1); Hematocrit 41.2 % (40-54); Hemoglobin 13.6 g/dL (13.0-16.5); Lymphocyte # 0.37 X10^3/ul (0.83-4.51); Lymphocyte % 4.1 % (19-41); Mean Corpuscular Hgb 30.2 pg (27.0-32.0); Mean Corpuscular Volume 91.4 fL (80-94); Mean Platelet Vol. 10.3 fl (6.2-12.0); Monocyte# 0.31 X10^3/uL; Monocyte% 3.4 % (0-10); NRBC Flagged by Analyzer 0 % (0-5); Neutrophil # 8.38 X10^3/uL (2.7-7.7); POSITIVE DIFFERENTIAL YES; Platelet Count 149 K/mm3 (150-450); RBC Distribution Width CV 13.5 % (11.6-14.6); RBC Distribution Width SD 45.1 fl (35.1-43.9); Red Blood Count 4.51 M/mm3 (4.6-6.2); White Blood Count 9.1 K/mm3 (4.4-11.0)
[2024-05-28 07:28] LABS: ALB/GLOB Ratio 0.9 RATIO (0.9-2.4); AST(SGOT) 30 U/L (15-37); Alanine Aminotransfer ALT/SGPT 36 U/L (16-61); Albumin, Serum 3.5 g/dL (3.2-5.0); Alkaline Phosphatase 95 U/L (45-117); Anion Gap 6 (5-15); BUN 21 mg/dL (7-18); BUN/Creat Ratio 20.8 RATIO (10-20); Calcium,Total 9.5 mg/dL (8.5-10.1); Chloride 107 mmol/L (98-107); Creatinine, Serum 1.01 mg/dL (0.70-1.30); EST Glomerular Filtration Rate 77 mL/min (>60); Est Glom Filt Rate - Afr Amer 93 mL/min (>60); Estimated Creatinine Clearance 91.36 ml/min; Glucose 213 mg/dL (74-106); Protein, Total 7.5 g/dL (6.4-8.2); Sodium Level 137 mmol/L (136-145); Thyroid Stim Hormone (TSH) 0.902 uIU/mL (0.358-3.740)
[2024-05-28 08:07] LABS: Hemoglobin A1c 6.9 % (3.8-5.6)
[2024-05-28] MEDS: Insulin Lispro 100 UNIT/ML INSULN.PEN 20 UNIT SC ×2 (08:14→11:56)
[2024-05-28] MEDS: Aspirin E.C. 81 MG Tablet PO (08:16)
[2024-05-28] MEDS: Magnesium Sulfate 2 GM in Dextrose 5%-Water (100mL Bag) 100 ML IV (08:17)
--- NOTE | 2024-05-28 10:47 | PCM.DC ---
Discharge Instructions Diet Discharge Diet: Low fat / Low cholesterol Activity Discharge Activity: Return to Normal Activity Dressing / Incision Call your doctor if you observe: Fever of 101 or Higher, Shortness of breath, Dizziness, Fainting spells, Swelling in the ankles, Chest pain and Increased palpitations (irregular heartbeat) Follow Up Care Test Results: Test results from this visit will be discussed in further detail at your follow-up appointment, if applicable. Discharge Plan Admission Admit Date/Time: 05/27/24 23:20 Attending Provider: Marcelino Lara Primary Care Provider: Skylar Gunn Consulting Providers: Steven Alicea Discharge Orders/Prescriptions Prescriptions: Continued aspirin [Adult Aspirin Regimen] 81 mg tablet,delayed release (DR/EC) 81 mg PO DAILY Patient Comments: may take prior to surgery cholecalciferol (vitamin D3) 50,000 unit capsule 50,000 unit PO WE triamterene-hydrochlorothiazid 37.5-25 mg tablet 1 tab PO DAILY famotidine [Acid Manager Chinese (famotidine)] 20 mg tablet 20 mg PO DAILY insulin lispro [Humalog KwikPen Insulin] 100 unit/mL insulin pen 20 unit subcut TID ondansetron HCl 8 mg tablet 8 mg PO Q8H PRN (Reason: nausea and vomiting) Opdivo 240 mg/24 mL solution .Route Rx Instructions: Monthly Infusion@ [facility] amlodipine 5 mg tablet 5 mg PO DAILY meloxicam 15 mg tablet 15 mg PO DAILY prochlorperazine maleate [Compazine] 10 mg tablet 10 mg PO BID PRN Ozempic 0.25 mg or 0.5 mg(2 mg/1.5 mL) pen injector 0.25 mg subcut QWEEK Rx Instructions: for 4 weeks metformin 500 mg tablet 1,000 mg PO BID prochlorperazine maleate 10 MG tablet 10 mg PO Q6H PRN PRN (Reason: Nausea) 10 Days Qty: 30 2RF lidocaine-prilocaine 30 GM cream 1 applicatio TP DAILY PRN PRN (Reason: Not Specified) 30 Days Qty: 1 2RF gabapentin 300 MG capsule 900 mg PO BID Patient Comments: 3 capsules in morning and 3 in the evening loperamide 2 mg Capsule 4 mg PO BID PRN (Reason: loose stool) Eliquis DVT-PE Treat 30D Start 5 mg (74 tabs) tablets,dose pack 5 mg PO BID Qty: 74 0RF Rx Instructions: 10 mg p.o. twice daily x7 days then 5 mg p.o. twice daily levothyroxine 150 mcg tablet 175 mcg PO DAILY omeprazole 40 mg capsule,delayed release(DR/EC) 40 mg PO DAILY metoprolol succinate 100 mg tablet extended release 24 hr See Rx Instructions .ROUTE .COMPLEX Qty: 90 3RF Dose Instruction: Take 1 tablet by mouth once daily for blood pressure Rx Instructions: Take 1 tablet by mouth once daily for blood pressure losartan 100 mg tablet 100 mg PO DAILY Qty: 90 3RF isosorbide mononitrate 60 mg tablet extended release 24 hr 60 mg PO DAILY Qty: 90 3RF atorvastatin 40 mg tablet 40 mg PO QHS Qty: 90 4RF Referrals / Follow Up: Skylar Gunn DO [Primary Care Provider] - Within 1 Week Disposition Disposition (needs filled in before D/C Order can be placed): Home, Self Care
[2024-05-28] MEDS: APIXABAN 5 MG TABLET PO (10:51)
[2024-05-28] MEDS: Pantoprazole Sodium 40 MG Tablet PO (10:52)
[2024-05-28] MEDS: amLODIPine 5 MG Tablet PO (10:52)
[2024-05-28] MEDS: Metoprolol(XL)Succ 100 MG Tablet PO (10:52)
[2024-05-28] MEDS: Isosorbide Mononitrate 60 MG Tablet PO (10:52)
[2024-05-28] MEDS: Famotidine 20 MG Tablet PO (10:52)
[2024-05-28] MEDS: Gabapentin 300 MG Capsule 900 MG PO (10:57)
[2024-05-28 12:25] LABS: Bedside Glucose 283 mg/dL (74-106)
--- NOTE | 2024-05-28 13:07 | CASEMGMT ---
POLA CM into pt room, pt sitting in chair in no distress. Pt states he lives with his in a split level home. Pt states he is able to ambulate without device and navigate his steps. Pt is I in ADLs. Pt is able to drive but usually transports him. Pt states he may join [employer]. He denies need for any therapy at home. He is aware he can notify his PCP if he should change his mind once he gets home. Pt denies any concerns at home. Pt came in room to pick pt up for ca home.
--- NOTE | 2024-05-28 13:45 | CHAPLAIN ---
Type of Pastoral Visit _x__ Initial Visit ___ Follow-up Visit ___ On-call Visit ___ General Patient Visit ___ Spiritual Assessment ___ Family Conference ___ Bereavement ___ Rapid Response ___ Code Blue ___ Other (describe below) Pastoral Care Referral From _x__ Patient ___ Family ___ Nurse ___ Physician ___ Sports Management Professor ___ Fire Technology Instructor ___ Other (describe below) Sacrament/Intervention _x__ Active listening ___ Anointing ___ Episcopal ___ Bereavement ___ Communion _x__ Leah exploration ___ _x__ Life review _x__ Prayer ___ Reconciliation ___ Sacrament of Sick _x__ Supportive presence ___ Wedding ___ Other (describe below) Pastoral Comments patient gives a lengthy review of his health and the history of surgeries and treatments; pt acknowledges his cancer, questions related to life and , spiritual doubts and desires to get answers, and the blessings that he has enjoyed; pt has eight grandchildren that he hopes to watch grow; pt does not follow holiness but was raised Religion as a child and his is a Oriental Orthodox; pt asks some questions that reveal his thoughts and feelings on life and his cancer journey; time give to listen, to affirm, and to show respectful care
--- NOTE | 2024-05-28 16:52 | DS.PCM_ITS ---
Providers Date of Admission: 05/27/24 Primary Care Physician: Dr. Skylar Gunn DO Reason For Visit: ADVERSE DRUG REACTION TO OPDIVO TRIGGERING RAD Diagnosis Discharge Diagnosis (1) Adverse effect of drug in therapeutic use: Status: Acute Code(s): T50.905A - Adverse effect of unspecified drugs, medicaments and biological substances, initial encounter (2) Reactive airway disease: Status: Acute Code(s): J45.909 - Unspecified asthma, uncomplicated Qualifiers: Asthma severity: mild Asthma persistence: unspecified Qualified Code(s): J45.909 - Unspecified asthma, uncomplicated (3) Respiratory insufficiency: Status: Acute Code(s): R06.89 - Other abnormalities of breathing (4) Hypokalemia: Status: Acute Code(s): E87.6 - Hypokalemia (5) Dehydration: Status: Acute Code(s): E86.0 - Dehydration (6) Nausea: Status: Acute Code(s): R11.0 - Nausea (7) Fatigue: Status: Chronic Code(s): R53.83 - Other fatigue Qualifiers: Fatigue type: unspecified Qualified Code(s): R53.83 - Other fatigue (8) Angiosarcoma of scalp: Status: Chronic Code(s): C49.0 - Malignant neoplasm of connective and soft tissue of head, face and neck (9) Morbid obesity with BMI of 40.0-44.9, adult: Status: Acute Code(s): E66.01 - Morbid (severe) obesity due to excess calories; Z68.41 - Body mass index [BMI] 40.0-44.9, adult Medications at Discharge Home Medications aspirin 81 mg tablet,delayed release (Adult Aspirin Regimen) 81 mg PO DAILY [facility] 11/20/17 cholecalciferol (vitamin D3) 1,250 mcg (50,000 unit) capsule 50,000 unit PO WE supplement 03/12/18 lidocaine-prilocaine 2.5 %-2.5 % topical cream 1 applicatio TP DAILY PRN PRN Not Specified 30 days #1 tube 03/22/20 prochlorperazine maleate 10 mg tablet 10 mg PO Q6H PRN PRN Nausea 10 days #30 tabs 03/22/20 gabapentin 300 mg capsule 900 mg PO BID 02/11/21 triamterene 37.5 mg-hydrochlorothiazide 25 mg tablet 1 tab PO DAILY FLUID 04/13/21 loperamide 2 mg capsule 4 mg PO BID PRN loose stool 04/12/22 apixaban 5 mg (74 tabs) tablets in a dose pack (Eliquis DVT-PE Treat 30D Start) 5 mg PO BID #74 tabs 04/14/22 famotidine 20 mg tablet (Acid Dyslexia Teacher (famotidine)) 20 mg PO DAILY 02/18/23 insulin lispro 100 unit/mL subcutaneous pen (Humalog KwikPen (U-100) Insulin) 20 unit subcut TID 02/18/23 metformin 500 mg tablet 1,000 mg PO BID diabetes 02/18/23 nivolumab 240 mg/24 mL intravenous solution (Opdivo) mg .Route 02/18/23 ondansetron HCl 8 mg tablet 8 mg PO Q8H PRN nausea and vomiting 02/18/23 metoprolol succinate 100 mg tablet,extended release 24 hr See Rx Instructions .Route .COMPLEX #90 TABLETS 05/28/23 losartan 100 mg tablet 100 mg PO DAILY blood pressure #90 tabs 06/04/23 isosorbide mononitrate 60 mg tablet,extended release 24 hr 60 mg PO DAILY blood pressure #90 tabs 06/12/23 atorvastatin 40 mg tablet 40 mg PO QHS CHOLESTEROL #90 tabs 08/19/23 amlodipine 5 mg tablet 5 mg PO DAILY 02/10/24 levothyroxine 150 mcg tablet 175 mcg PO DAILY THYROID 02/10/24 meloxicam 15 mg tablet 15 mg PO DAILY 02/10/24 prochlorperazine maleate 10 mg tablet (Compazine) 10 mg PO BID PRN 02/10/24 semaglutide 0.25 mg or 0.5 mg (2 mg/1.5 mL) subcutaneous pen injector (Ozempic) 0.25 mg subcut QWEEK 02/10/24 omeprazole 40 mg capsule,delayed release 40 mg PO DAILY 05/27/24 Hospital Course Operations None Procedures None Summary of Care Provided Minutes Spent on Discharge: 32 Hospital Course: Per HPI: Ishaan INFANTE, is a 73 M with a past medical history of essential hypertension, hyperlipidemia, hypothyroidism, morbid obesity; with BMI of 41.9 this admission, DM-2; of unknown control on Metformin, Ozempic and insulin, peripheral neuropathy, CAD; s/p NSTEMI (2018) with stents RCA and mid-LAD (2019), history of RV dilation, PVD, history of PE; on Eliquis, history of PTX (2020), GERD, OA and history of angiosarcoma of the scalp (2019); still on chemotherapy and immune therapy with Opdivo with [place] in-place followed at [facility] who presents to [facility] ER complaining of shaking, chills and SOB. Mr. Infante reports his symptoms began while he was driving home from [facility] after he was treated with Opdivo with the gradual-onset of progressively worsening SOB with shaking chills and malaise with his family noting he was not looking well so they brought him in for further evaluation and treatment. He does admit to subjective fever, mild SOB at rest with his oxygen saturation at ~84% on RA, generalized weakness and nausea but he denies cough, vomiting, chest pain, palpitations or diaphoresis. He also denies associated headache, visual changes, diarrhea, constipation, dysuria, urinary frequency or urgency. In the ER he was noted to have a CTA of the chest that was negative for PE with former pulmonary emboli having resolved with incidentally noted bibasilar atelectasis. After speaking with the pharmacist and reviewing the medical literature he was then diagnosed with a suspected Adverse Drug Reaction to Opdivo likely causing Reactive Airways Disease with persistent hypoxia consistent with Respiratory Insufficiency with an accompanying viral-type syndrome that is well described in ~10-20% of patients taking this agent with steroids recommended as a treatment for this particular side effect complicated by mild Hypokalemia of 3.3 mmo/L present on admission and he was then admitted to the general medical floor under observation status for ongoing care for a stay that is expected to be less than 2 midnights. Hospital Course: 1. Adverse drug reaction to Opdivo and 2 reactive airway disease with hypoxia?7 3-year-old male who just received an infusion of Opdivo for his angiosarcoma and became pale and lightheaded and short of breath. He presented to the ER was placed on inhalers and Decadron. He had significant rapid recovery and this morning was not requiring any oxygen. I discussed with him the possibility for discharge and expressed understanding of the risk benefits going home and will like to go home today. Given significant improvement in his symptoms and that this was likely a transient reaction, elected to not discharge him on steroids. I did discuss with him the need to let his oncologist know about the reaction to Opdivo. 2. Essential hypertension, hyperlipidemia, hypothyroidism, type 2 diabetes, peripheral neuropathy, CAD status post stent, peripheral vascular disease, history of PE are all chronic medical conditions which complicate his care. His home medications were continued where appropriate Physical Exam Narrative General: Alert, Oriented x3, Cooperative, No apparent distress HEENT: Atraumatic, PERRLA, EOMI, Normocephalic, scalp dressing CDI Oral: Moist Mucosa Neck: Supple, No JVD Lungs: Diminished, Normal air movement, No rhonchi, No wheeze, No rales Cardiovascular: Regular rate, Regular Rhythm, Normal S1, Normal S2, No murmurs Abdomen: Soft, Non Tender, Non-Distended, No Hepato-splenomegaly Extremities: No edema, Capillary Refill Less than 3 Seconds Skin: No rashes, No breakdown Musculoskeletal: No Tenderness to Palpation of Joints or Extremities Neurological: No focal neurological deficits, Motor Exam 5/5 strength throughout, Sensory exam intact to light touch and pain Psych/Mental Status: Normal Affect, Appropriate Weight / BMI Weight Weight: 289 lb 8 oz Body Mass Index (BMI) 40.4 ABG / Lab / Microbiology Data 05/28/24 06:09 05/28/24 06:09 Laboratory: Laboratory Results - last 24 hr 05/27/24 19:58: WBC 7.7, RBC 4.37 L, Hgb 13.2, Hct 39.9 L, MCV 91.3, MCH 30.2, MCHC 33.1, RDW Std Deviation 45.1 H, RDW Coeff of Alexis 13.5, Plt Count 156, MPV 10.1, Immature Gran % (Auto) 0.300, Neut % (Auto) 92.8 H, Lymph % (Auto) 4.1 L, [place] % (Auto) 2.1, Eos % (Auto) 0.6, Baso % (Auto) 0.1, Absolute Neuts (auto) 7.2, Absolute Lymphs (auto) 0.32 L, Nucleated RBC % 0, PT 14.7, INR 1.2, APTT 25.2, Sodium 141, Potassium 3.3 L, Chloride 106, Carbon Dioxide 24.0, Anion Gap 11, BUN 30 H, Creatinine 1.15, Estim Creat Clear Calc 81.88, Est GFR (MDRD) Af Amer 80, Est GFR (MDRD) Non-Af 66, BUN/Creatinine Ratio 26.1 H, Glucose 143 H, Lactic Acid 2.0, Calcium 9.5, Phosphorus 2.5, Magnesium 1.2 L, Total Bilirubin 0.90, AST 18, ALT 29, Alkaline Phosphatase 103, Total Protein 7.1, Albumin 3.5, Globulin 3.6, Albumin/Globulin Ratio 1.0 05/27/24 20:04: Urine Color Yellow, Urine Clarity Clear, Urine pH 6.0, Ur Specific [place] 1.015, Urine Protein 15 H, Urine Glucose (UA) Normal, Urine Ketones 5 H, Urine Occult Blood Negative, Urine Nitrite Negative, Urine Bilirubin Negative, Urine Urobilinogen 1 H, Ur Leukocyte Esterase Negative, Urine RBC 0-5 SEEN, Urine WBC 0 SEEN, Ur Squamous Epith Cells 0 SEEN, Urine Bacteria 1+, Urine Mucus 0 SEEN, Urine Creatinine 89.30 05/28/24 00:35: Lactic Acid 1.5 05/28/24 06:09: WBC 9.1, RBC 4.51 L, Hgb 13.6, Hct 41.2, MCV 91.4, MCH 30.2, MCHC 33.0, RDW Std Deviation 45.1 H, RDW Coeff of Alexis 13.5, Plt Count 149 L, MPV 10.3, Immature Gran % (Auto) 0.300, Neut % (Auto) 92.0 H, Lymph % (Auto) 4.1 L, [place] % (Auto) 3.4, Eos % (Auto) 0.0, Baso % (Auto) 0.2, Absolute Neuts (auto) 8.4 H, Absolute Lymphs (auto) 0.37 L, Nucleated RBC % 0, Sodium 137, Potassium 4.0, Chloride 107, Carbon Dioxide 24.0, Anion Gap 6, BUN 21 H, Creatinine 1.01, Estim Creat Clear Calc 91.36, Est GFR (MDRD) Af Amer 93, Est GFR (MDRD) Non-Af 77, BUN/Creatinine Ratio 20.8 H, Glucose 213 H, Hemoglobin A1c 6.9 H, Calcium 9.5, Total Bilirubin 1.00, AST 30, ALT 36, Alkaline Phosphatase 95, Total Protein 7.5, Albumin 3.5, Globulin 4.0, Albumin/Globulin Ratio 0.9, TSH 0.902 05/28/24 11:52: POC Glucose 283 H Radiography Diagnostic Testing: Radiology Impression Chest X-Ray 05/27/24 20:10 IMPRESSION: Interstitial opacities which may represent scar or edema. There is a more focal left lower lobe airspace disease which may represent atelectasis or early pneumonia. Electronically Signed: Meek Hoffmann MD at 21:05 EDT , Chest CTA 05/27/24 21:24 IMPRESSION: No evidence of pulmonary embolus. Previously seen bilateral emboli have resolved. There is mild bibasilar atelectasis. Electronically Signed: Meek Hoffmann MD at 22:32 EDT , D/C Instructions Discharge Diet: Low fat / Low cholesterol Call your doctor if you observe: Fever of 101 or Higher, Shortness of breath, Dizziness, Fainting spells, Swelling in the ankles, Chest pain and Increased palpitations (irregular heartbeat) Meaningful Use Info Meaningful Use Meaningful Use Diagnoses (Choose all that apply): None applicable Ischemic Stroke Statin Dosing Therapy Reference: STATIN DOSE THERAPY REFERENCE: * Patients > 75 years receive moderate or high dose statin therapy. * Patients 75 years or YOUNGER should receive HIGH intensity statin dose unless contraindicated. You will be required to document reason for non-treatment if statin daily dose does not meet guidelines. HIGH DOSE STATIN THERAPY DAILY Atorvastatin > than or = to 40 mg Rosuvastatin > than or = to 20 mg Amlodipine + Atorvastatin > than or = to 2.5/40 mg Ezetimibe + Simvastatin 10/80 mg Simvastatin 80mg Discharge Plan Admission Admit Date/Time: 05/27/24 23:20 Attending Provider: Marcelino Lara Primary Care Provider: Skylar Gunn Consulting Providers: Steven Alicea Discharge Orders/Prescriptions Prescriptions: Continued aspirin [Adult Aspirin Regimen] 81 mg tablet,delayed release (DR/EC) 81 mg PO DAILY Patient Comments: may take prior to surgery cholecalciferol (vitamin D3) 50,000 unit capsule 50,000 unit PO WE triamterene-hydrochlorothiazid 37.5-25 mg tablet 1 tab PO DAILY famotidine [Acid Dyslexia Teacher (famotidine)] 20 mg tablet 20 mg PO DAILY insulin lispro [Humalog KwikPen Insulin] 100 unit/mL insulin pen 20 unit subcut TID ondansetron HCl 8 mg tablet 8 mg PO Q8H PRN (Reason: nausea and vomiting) Opdivo 240 mg/24 mL solution .Route Rx Instructions: Monthly Infusion@ [facility] amlodipine 5 mg tablet 5 mg PO DAILY meloxicam 15 mg tablet 15 mg PO DAILY prochlorperazine maleate [Compazine] 10 mg tablet 10 mg PO BID PRN Ozempic 0.25 mg or 0.5 mg(2 mg/1.5 mL) pen injector 0.25 mg subcut QWEEK Rx Instructions: for 4 weeks metformin 500 mg tablet 1,000 mg PO BID prochlorperazine maleate 10 MG tablet 10 mg PO Q6H PRN PRN (Reason: Nausea) 10 Days Qty: 30 2RF lidocaine-prilocaine 30 GM cream 1 applicatio TP DAILY PRN PRN (Reason: Not Specified) 30 Days Qty: 1 2RF gabapentin 300 MG capsule 900 mg PO BID Patient Comments: 3 capsules in morning and 3 in the evening loperamide 2 mg Capsule 4 mg PO BID PRN (Reason: loose stool) Eliquis DVT-PE Treat 30D Start 5 mg (74 tabs) tablets,dose pack 5 mg PO BID Qty: 74 0RF Rx Instructions: 10 mg p.o. twice daily x7 days then 5 mg p.o. twice daily levothyroxine 150 mcg tablet 175 mcg PO DAILY omeprazole 40 mg capsule,delayed release(DR/EC) 40 mg PO DAILY metoprolol succinate 100 mg tablet extended release 24 hr See Rx Instructions .ROUTE .COMPLEX Qty: 90 3RF Dose Instruction: Take 1 tablet by mouth once daily for blood pressure Rx Instructions: Take 1 tablet by mouth once daily for blood pressure losartan 100 mg tablet 100 mg PO DAILY Qty: 90 3RF isosorbide mononitrate 60 mg tablet extended release 24 hr 60 mg PO DAILY Qty: 90 3RF atorvastatin 40 mg tablet 40 mg PO QHS Qty: 90 4RF Referrals / Follow Up: Skylar Gunn DO [Primary Care Provider] - Within 1 Week Disposition Disposition (needs filled in before D/C Order can be placed): Home, Self Care Charges/Coding Visit Charges Inpatient E&M: 02656 Disch Hosp >30min
== END 2024-05-28 13:42 | disposition home or self-care (01) ==
LOC: ED 22:55 → MS3 05-28 00:31
PROVIDERS: Admitting Provider Internal Medicine; Emergency Provider Emergency Medicine; PCP Family Medicine; Visit Provider Family Medicine
DX: J45.909 Unspecified asthma, uncomplicated (principal); C49.0 Malignant neoplasm of connective and soft tissue of head, face and neck; Z68.41 Body mass index [BMI] 40.0-44.9, adult; E66.01 Morbid (severe) obesity due to excess calories; E11.51 Type 2 diabetes mellitus with diabetic peripheral angiopathy without gangrene; E11.42 Type 2 diabetes mellitus with diabetic polyneuropathy; Z79.4 Long term (current) use of insulin; R42 Dizziness and giddiness; R09.02 Hypoxemia; E87.6 Hypokalemia; Z79.85 Long-term (current) use of injectable non-insulin antidiabetic drugs; E78.5 Hyperlipidemia, unspecified; E86.0 Dehydration; Z79.890 Hormone replacement therapy; Z95.5 Presence of coronary angioplasty implant and graft; K21.9 Gastro-esophageal reflux disease without esophagitis; I25.10 Atherosclerotic heart disease of native coronary artery without angina pectoris; R68.83 Chills (without fever); I10 Essential (primary) hypertension; J98.11 Atelectasis; E03.9 Hypothyroidism, unspecified; M19.90 Unspecified osteoarthritis, unspecified site; T45.1X5A Adverse effect of antineoplastic and immunosuppressive drugs, initial encounter; Z86.711 Personal history of pulmonary embolism; Z79.899 Other long term (current) drug therapy; R11.0 Nausea; R53.83 Other fatigue
CPT/HCPCS: 36415; 71045; 71275; 80053; 81001; 82570; 82962; 83036; 83605; 83735; 84100; 84443; 85025; 85610; 85730; 87040; 87077; 87086; 87088; 87186; 93005; 94668; 96365; 96366; 96375; 99221; 99284; Q9967; A4216; G0378

== ENCOUNTER 2025-01-25 12:57 | Inpatient (IN) | payer MEDICARE, OTHER, SELFPAY ==
[2020-05-30 13:21] VITALS: BMI 42.0
[2025-01-25] VITALS (27 sets, daily range): BP systolic 123–159; BP diastolic 64–96; PULSE 83–108; RESP 17–27; TEMP 36.6–37.1; O2SAT 83–96; BMI 38.1; BMI 37.3
--- NOTE | 2025-01-25 14:11 | EKG12_ITS ---
Test Reason : SOB Blood Pressure : */* mmHG Vent. Rate : 99 BPM Atrial Rate : * BPM P-R Int : * ms QRS Dur : 100 ms QT Int : 402 ms P-R-T Axes : * -43 29 degrees QTcB Int : 515 ms Atrial fibrillation Left axis deviation Minimal voltage criteria for LVH, may be normal variant ( [place] product ) Septal infarct Prolonged QT Abnormal ECG Confirmed by CAREY WAGNER, ANITA ([id number]), makeup editor RAE CARBAJAL ([id number]) on 01/27/2025 2:39:46 PM Referred By: Marcelino Lara Confirmed By: ANITA PATINO MD
--- NOTE | 2025-01-25 14:18 | EX.ED.DYSGE1 ---
HPI History of Present Illness Chief Complaint: Shortness of Breath Narrative Narrative: Patient is a 74-year-old male with past medical history of angiosarcoma of the scalp, PE on Eliquis, diabetes, GERD, hypothyroidism, hypertension, peripheral vascular disease, hyperlipidemia who presented to the emergency department the chief complaint shortness of breath. Patient states that for the past week he has been having worsening shortness of breath on exertion and notes that last night his oxygen level was low around 80% on room air he states that he is not normally on oxygen. He states that he has not been missing any doses of his anticoagulation and has been compliant with this. Patient states that he has had a pneumothorax in the past and had oxygen at home while ago while trying a new chemo drug but does not have any oxygen at home currently. [facility] Medical History (Updated 01/25/25 @ 17:[address] 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 History of non-ST elevation myocardial infarction (NSTEMI) (02/09/18) Atherosclerotic heart disease of [place] coronary artery with other forms of angina pectoris Essential (primary) hypertension Hyperlipidemia Vascular disease Diabetes type 2, controlled Home Medications ?Medication ?Instructions ?Recorded ?Last Taken ?Type aspirin 81 mg tablet,delayed 81 mg PO DAILY heart health 11/20/17 01/25/25 History release (Adult Aspirin Regimen) cholecalciferol (vitamin D3) 1,250 50,000 unit PO WE supplement 03/12/18 01/20/25 History mcg (50,000 unit) capsule prochlorperazine maleate 10 mg 10 mg PO Q6H PRN PRN Nausea 10 03/22/20 01/25/25 Rx tablet days #30 tabs gabapentin 300 mg capsule 900 mg PO TID 11/10/20 01/25/25 History loperamide 2 mg capsule 4 mg PO BID PRN loose stool 04/12/22 04/12/22 History apixaban 5 mg (74 tabs) tablets in 5 mg PO BID #74 tabs 04/14/22 01/25/25 Rx a dose pack (Eliquis DVT-PE Treat 30D Start) metformin 500 mg tablet 1,000 mg PO BID diabetes 02/18/23 01/25/25 History nivolumab 240 mg/24 mL intravenous mg .Route 02/18/23 12/31/24 History solution (Opdivo) ondansetron HCl 8 mg tablet 8 mg PO Q8H PRN nausea and vomiting 02/18/23 01/24/25 History amlodipine 5 mg tablet 5 mg PO DAILY 02/10/24 01/25/25 History omeprazole 40 mg capsule,delayed 40 mg PO DAILY 05/27/24 01/24/25 History release isosorbide mononitrate 60 mg 60 mg PO DAILY for blood pressure 06/16/24 01/25/25 Rx tablet,extended release 24 hr #90 TABLETS losartan 100 mg tablet 100 mg PO DAILY for blood pressure 06/16/24 01/25/25 Rx #90 TABLETS metoprolol succinate 100 mg 100 mg PO DAILY for blood pressure 06/16/24 01/25/25 Rx tablet,extended release 24 hr #90 tabs atorvastatin 40 mg tablet 40 mg PO QHS CHOLESTEROL #90 tabs 09/14/24 01/24/25 Rx acetaminophen 500 mg tablet 1,000 mg PO Q4H PRN fever or pain 01/25/25 Unknown History (Tylenol Extra Strength) insulin regular human 100 unit/mL See Rx Instructions subcut BID 01/25/25 01/24/25 History (3 mL) subcutaneous pen (Novolin R FlexPen) insulin regular human 100 unit/mL 16 unit subcut .COMPLEX 01/25/25 Unknown History injection solution (Humulin R Regular U-100 Insulin) levothyroxine 175 mcg tablet 175 mcg PO DAILY 01/25/25 01/24/25 History (Euthyrox) lorazepam 1 mg tablet (Ativan) 2 mg PO DAILY PRN before MRI 01/25/25 Unknown History Allergy/AdvReac Type Severity Reaction Status Date / Time No Known Allergies Allergy Verified 01/25/25 13:00 Family History Unknown No problems noted. Father CAD (coronary artery disease) Heart disease Prostate cancer Mother Arthritis Hypertension Grandmother Colon cancer Grandfather Prostate cancer Uncle Diabetes Surgical History History of colonoscopy Status post lung surgery History of left heart catheterization (06/20/20) History of coronary artery stent placement (02/19/19) History of tonsillectomy and adenoidectomy History of hydrocelectomy Social History household members: spouse current occupational status: retired Smoking Status: Never smoker second hand exposure: No alcohol intake: never substance use type: does not use ROS ROS ED ROS Narrative Constitutional: Denies any fevers, chills, headaches Eyes: Denies change in vision double vision blurry vision Cardiovascular: Denies chest pain or palpitations Respiratory: Complains of dyspnea on exertion and a dry cough Abdomen: Patient states that he is constantly nauseous this is not new denies abdominal pain vomiting diarrhea : Denies urinary symptoms Neurological: Denies numbness, weakness, tingling Musculoskeletal: Denies back pain Skin: Denies rashes or lesions EXAM Physical Exam Narrative Exam Narrative: General: Patient is lying in bed rest comfortably did not appear to be in acute distress Head: Atraumatic, normocephalic Eyes: PERRL bilaterally, EOMI bilateral, no conjunctival injection noted Neck: Soft, supple, trachea midline Cardiovascular: Regular rate and rhythm Respiratory: Clear to auscultation bilaterally Abdomen: Soft, nondistended, no tenderness palpation Extremities: +4/5 strength noted in the bilateral upper and lower extremities, radial pulses +2/4 in the bilateral extremities, no pedal edema exam Neurological: Patient follow commands knew that he was at [facility] year is 2024 Skin: Warm, dry, intact no rashes lesions noted Const Vital Signs: 01/25/25 12:58 01/25/25 13:00 01/25/25 13:50 Temperature 97.8 F 97.8 F Temperature Source Oral Oral Pulse Rate 108 H 108 H Respiratory Rate 18 18 Respiratory Effort Short of Breath Respiratory Depth Normal Respiratory Pattern Tachypnea Blood Pressure 132/86 H 132/86 H Blood Pressure Mean 101 101 Pulse Ox 96 96 Oxygen Delivery Method Room Air Room Air Room Air Oxygen Flow Rate (L/min) 01/25/25 14:03 01/25/25 14:03 01/25/25 14:44 Temperature 98.2 F Temperature Source Oral Pulse Rate 94 Respiratory Rate 22 H Respiratory Effort Respiratory Depth Respiratory Pattern Blood Pressure 137/73 H Blood Pressure Mean 94 Pulse Ox 95 94 92 Oxygen Delivery Method Nasal Cannula Nasal Cannula Nasal Cannula Oxygen Flow Rate (L/min) 2 2 2 01/25/25 15:00 01/25/25 15:12 01/25/25 15:15 Temperature 98.2 F Temperature Source Oral Pulse Rate 85 86 83 Respiratory Rate 19 H 25 H 18 Respiratory Effort Respiratory Depth Respiratory Pattern Blood Pressure 144/96 H 155/85 H Blood Pressure Mean 112 105 Pulse Ox 93 95 92 Oxygen Delivery Method Nasal Cannula Oxygen Flow Rate (L/min) 01/25/25 15:30 01/25/25 15:45 01/25/25 15:56 Temperature 98.7 F Temperature Source Oral Pulse Rate 83 83 83 Respiratory Rate 24 H 25 H 25 H Respiratory Effort Respiratory Depth Respiratory Pattern Blood Pressure 159/83 H 131/66 H 131/66 H Blood Pressure Mean 104 85 87 Pulse Ox 92 90 92 Oxygen Delivery Method Nasal Cannula Oxygen Flow Rate (L/min) 2 01/25/25 16:00 01/25/25 16:15 01/25/25 16:30 Temperature Temperature Source Pulse Rate 91 Respiratory Rate 19 H 23 H Respiratory Effort Respiratory Depth Respiratory Pattern Blood Pressure 132/66 H 123/71 H 137/70 H Blood Pressure Mean 85 88 87 Pulse Ox 92 89 Oxygen Delivery Method Oxygen Flow Rate (L/min) 01/25/25 16:34 01/25/25 16:35 01/25/25 16:35 Temperature 98.7 F Temperature Source Pulse Rate 83 Respiratory Rate 22 H Respiratory Effort Respiratory Depth Respiratory Pattern Blood Pressure 131/66 H Blood Pressure Mean 87 Pulse Ox 91 88 92 Oxygen Delivery Method Room Air Nasal Cannula Oxygen Flow Rate (L/min) 2 01/25/25 17:00 Temperature 98.7 F Temperature Source Oral Pulse Rate 93 Respiratory Rate 20 H Respiratory Effort Respiratory Depth Respiratory Pattern Blood Pressure 127/73 H Blood Pressure Mean 91 Pulse Ox 93 Oxygen Delivery Method Nasal Cannula Oxygen Flow Rate (L/min) 2 MDM MDM MDM Narrative Medical decision making narrative: Patient is a 74-year-old male who presented to the emerged part with chief complaint dyspnea on exertion. On the differential diagnosis includes but not limited to ACS, pneumonia, pneumothorax, upper respiratory infection secondary viral etiology, CHF, PE although do have low suspicion for this as he is chronically anticoagulated on Eliquis not missing doses. Once workup is obtained reviewed he will be reevaluated. Patient will be given 30 cc/kg bolus of IV fluids based on ideal body weight for BMI of greater than 30 at 1415. Patient's CBC was reviewed and showed no evidence leukocytosis white blood count normal at 6.6, hemoglobin 12.4, platelet count was noted be 283. Patient's INR 1.5, PT of 17.9 is chronically anticoagulated and Eliquis. Patient sodium normal 137, potassium 3.5, creatinine normal at 0.96. Patient lactic acid was 2.8, AST and ALT are 23 and 22 respectively. Patient's troponin was noted to be 24 delta troponin pending. Patient proBNP elevated to 2655 which is likely leading to his elevation in troponin. Patient's EKG did show atrial fibrillation with a controlled rate of 99 bpm no history of A-fib but he is already anticoagulated. Patient's chest x-ray reviewed by myself and by radiology which showed slightly limited to hypoinflated exam. Similar right perihilar and basilar airspace disease. Background interstitial prominence may have increased slightly on the right. Consider asymmetric pulmonary edema atypical pneumonia or pneumonitis given the history. Patient was given 40 mg IV Lasix and while sitting in bed resting comfortably off of oxygen his oxygen saturation dropped to 88% he was placed back on 2 L nasal cannula and will discuss case with hospitalist for admission. Discussed case with hospitalist Dr. Lara who accept the patient for admission. Patient notified as well as family at bedside all question concerns answered they are agreeable with this plan. Lab Data Labs: Laboratory Results - last 24 hr 01/25/25 01/25/25 01/25/25 14:38 16:30 16:38 WBC 6.6 RBC 3.96 L Hgb 12.4 L Hct 36.8 L MCV 92.9 MCH 31.3 MCHC 33.7 RDW Std Deviation 43.8 RDW Coeff of Alexis 13.0 Plt Count 283 MPV 10.0 Immature Gran % (Auto) 0.500 Neut % (Auto) 62.2 Lymph % (Auto) 23.2 Archer % (Auto) 12.6 H Eos % (Auto) 0.9 Baso % (Auto) 0.6 Absolute Neuts (auto) 4.1 Absolute Lymphs (auto) 1.53 Nucleated RBC % 0 PT 17.9 H INR 1.5 APTT 37.8 H Sodium 137 Potassium 3.5 Chloride 101 Carbon Dioxide 21.7 Anion Gap 14 BUN 21 H Creatinine 0.96 Estim Creat Clear Calc 91.87 Est GFR (MDRD) Non-Af 83 BUN/Creatinine Ratio 21.6 H Glucose 143 H Lactic Acid 2.8 H* Calcium 8.6 Total Bilirubin 0.93 AST 23 ALT 22 Alkaline Phosphatase 103 Troponin T High Sens 24 H Troponin T Hi Sens 2 Hr 22 NT pro BNP II 2655 H Total Protein 6.1 Albumin 3.0 L Globulin 3.2 Albumin/Globulin Ratio 0.9 Urine Color Yellow Urine Clarity Clear Urine pH 6.0 Ur Specific Alba 1.010 Urine Protein 30 H Urine Glucose (UA) Normal Urine Ketones Negative Urine Occult Blood 10 H Urine Nitrite Negative Urine Bilirubin Negative Urine Urobilinogen 1 H Ur Leukocyte Esterase Negative Radiography Diagnostic Testing: Clinical Impression(s) from Imaging Studies Chest X-Ray 01/25/25 14:50 IMPRESSION: 1. Slightly limited hypoinflated exam. Similar RIGHT perihilar and bibasilar airspace disease. Background interstitial prominence may have increased slightly on the RIGHT. Consider asymmetric pulmonary edema, atypical pneumonia, or pneumonitis. Given patient history, clinical follow-up is recommended. 2. Additional description as above. Reading Location: [facility] Discharge Plan Triage Chief Complaint: Shortness of Breath ED Provider: Mohsen Hannah Dx/Rx/DC Orders Clinical Impression: Acute hypoxic respiratory failure, CHF (congestive heart failure) Prescriptions: No Action aspirin [Adult Aspirin Regimen] 81 mg tablet,delayed release (DR/EC) 81 mg PO DAILY Patient Comments: may take prior to surgery cholecalciferol (vitamin D3) 50,000 unit capsule 50,000 unit PO WE ondansetron HCl 8 mg tablet 8 mg PO Q8H PRN (Reason: nausea and vomiting) Opdivo 240 mg/24 mL solution .Route Rx Instructions: Monthly Infusion@ [facility] amlodipine 5 mg tablet 5 mg PO DAILY metformin 500 mg tablet 1,000 mg PO BID prochlorperazine maleate 10 MG tablet 10 mg PO Q6H PRN PRN (Reason: Nausea) 10 Days Qty: 30 2RF gabapentin 300 MG capsule 900 mg PO TID Patient Comments: loperamide 2 mg Capsule 4 mg PO BID PRN (Reason: loose stool) Eliquis DVT-PE Treat 30D Start 5 mg (74 tabs) tablets,dose pack 5 mg PO BID Qty: 74 0RF Rx Instructions: 10 mg p.o. twice daily x7 days then 5 mg p.o. twice daily Novolin R FlexPen 100 unit/mL (3 mL) insulin pen See Rx Instructions subcut BID Rx Instructions: 16U BEFORE LARGE MEALS AND 8U BEFORE SMALL MEALS PLUS SLIDING SCALE subcutaneously twice a day; 150-199=2U, 200-249=4U, 250-299=6U, 300-349=8U, >350 CALL PCP Humulin R Regular U-100 Insuln 100 unit/mL solution 16 unit subcut .COMPLEX Rx Instructions: 16 units subcutaneously before meals and at bedtime; plus sliding scale levothyroxine [Euthyrox] 175 mcg tablet 175 mcg PO DAILY lorazepam [Ativan] 1 mg tablet 2 mg PO DAILY PRN (Reason: before MRI) acetaminophen [Tylenol Extra Strength] 500 mg tablet 1,000 mg PO Q4H PRN (Reason: fever or pain) omeprazole 40 mg capsule,delayed release(DR/EC) 40 mg PO DAILY losartan 100 mg tablet 100 mg PO DAILY Qty: 90 3RF metoprolol succinate 100 mg tablet extended release 24 hr 100 mg PO DAILY Qty: 90 3RF isosorbide mononitrate 60 mg tablet extended release 24 hr 60 mg PO DAILY Qty: 90 3RF atorvastatin 40 mg tablet 40 mg PO QHS Qty: 90 3RF Primary Care Provider: Skylar Gunn Referrals: Skylar Gunn DO [Primary Care Provider] - Print Language: [place] Disposition Disposition: Acute Care Hospital [facility]
[2025-01-25] MEDS: 0.9% Normal Saline (1000mL) 1,000 ML 999 ML IV (14:40)
--- NOTE | 2025-01-25 14:50 | RAD_ITS ---
PROCEDURE: CHEST PA AND LATERAL (RADCXR), 01/25/2025 REASON FOR EXAM: SOB TECHNIQUE: PA and lateral views of the chest were obtained. COMPARISON: 05/27/2024 FINDINGS: Heart: Unremarkable. Mediastinum: Atherosclerosis Lungs/pleura: Hypoinflation with vascular crowding. No convincing focal consolidation. Redemonstrated RIGHT perihilar and bibasilar opacities. Interstitial background prominence on the RIGHT may have increased. No pleural effusion or visible pneumothorax. Bones: Suspect demineralization. Lines and support devices: None. Other: RIGHT chest wall port/catheter. RAD/Chest PA and Lateral IMPRESSION: 1. Slightly limited hypoinflated exam. Similar RIGHT perihilar and bibasilar a irspace disease. Background interstitial prominence may have increased slightly on the RIGHT. Consider asymmetric pulmo nary edema, atypical pneumonia, or pneumonitis. Given patient history, clinical follow-up is recommended. 2. Additional description as above. Reading Location: [id number]
[2025-01-25 14:57] LABS: Absolute Lymphocyte Count 1.53 X10^3/uL (0.83-4.51); Absolute Neutrophil Count 4.1 X10^3/uL (2.0-7.7); Basophil# 0.04 X10^3/uL; Basophil% 0.6 % (0-1); Eosinophil# 0.06 X10^3/uL; Eosinophils% 0.9 % (0-5); Hematocrit 36.8 % (40-54); Hemoglobin 12.4 g/dL (13.0-16.5); Lymphocyte # 1.53 X10^3/ul (0.83-4.51); Lymphocyte % 23.2 % (19-41); Mean Corp Hgb Conc 33.7 g/dL (32-36); Mean Corpuscular Hgb 31.3 pg (27.0-32.0); Mean Corpuscular Volume 92.9 fL (80-94); Monocyte# 0.83 X10^3/uL; Monocyte% 12.6 % (0-10); NRBC Flagged by Analyzer 0 % (0-5); Neutrophil # 4.11 X10^3/uL (2.7-7.7); Neutrophil % 62.2 % (47-70); Platelet Count 283 K/mm3 (150-450); RBC Distribution Width SD 43.8 fl (35.1-43.9); Red Blood Count 3.96 M/mm3 (4.6-6.2); White Blood Count 6.6 K/mm3 (4.4-11.0)
[2025-01-25 15:07] LABS: International Normalized Ratio 1.5; Prothrombin Time (Protime)PT. 17.9 SECONDS (11.7-14.9)
[2025-01-25 15:08] LABS: Partial Thromboplast Time 37.8 Seconds (24.1-36.2)
[2025-01-25 15:33] LABS: ALB/GLOB Ratio 0.9 RATIO (0.9-2.4); AST(SGOT) 23 U/L (<=37); Alanine Aminotransfer ALT/SGPT 22 U/L (<=46); Alkaline Phosphatase 103 U/L (40-129); Anion Gap 14 (5-15); BUN 21 mg/dL (4-19); BUN/Creat Ratio 21.6 RATIO (10-20); Calcium,Total 8.6 mg/dL (7.6-11.0); Carbon Dioxide 21.7 mmol/L (21.0-32.0); Chloride 101 mmol/L (98-108); Creatinine, Serum 0.96 mg/dL (0.70-1.20); EST Glomerular Filtration Rate 83 (>60); Estimated Creatinine Clearance 91.87 ml/min (50-250); Globulin 3.2 g/dL (2.2-4.2); Glucose 143 mg/dL (70-99); Potassium 3.5 mmol/L (3.3-5.1); Pro- Brain NATRIURETIC PEPTIDE 2655 pg/mL (<=900); Protein, Total 6.1 g/dL (5.9-8.4); Sodium Level 137 mmol/L (133-145); Total Bilirubin 0.93 mg/dL (0.00-1.30); Troponin T High Sensitivity 24 ng/L (<=22)
[2025-01-25 15:47] LABS: Lactic Acid 2.8 mmol/L (0.0-2.0)
[2025-01-25] MEDS: Furosemide 40 MG/4 ML Vial IV (15:48)
[2025-01-25 16:38] LABS: Mucous, Urine 0 SEEN /hpf (<or=2+); Squamous Epithelial Cells - UA 0 SEEN /hpf (0-5)
[2025-01-25 17:12] LABS: Color, Urine Yellow (Yellow); Glucose, Dipstick Normal (Normal); Ketone-Dipstick Negative (Negative); Leukocyte Esterase-Dipstick Negative /ul (Negative); Nitrite-Dipstick Negative (Negative); Occult Blood-Urine 10 /ul (Negative); Protein-Dipstick 30 mg/dl (Negative); Urine Bilirubin Dipstick Negative (Negative); Urine Clarity Clear (Clear); Urine Urobilinogen 1 mg/dl (Normal)
[2025-01-25 17:23] LABS: Troponin T High Sens 2 HR 22 ng/L (<=22)
[2025-01-25 18:31] LABS: Hyaline Cast 0-5 SEEN /lpf (0-5)
[2025-01-25 18:32] LABS: Bacteria 1+ /hpf (None Seen); Red Blood Cells-Urine 0-5 SEEN /hpf (0-5); White Blood Cells 0-5 SEEN /hpf (0-5)
--- NOTE | 2025-01-25 18:35 | PCM.HP.STD ---
[facility] - General General Date of Admission: 01/25/25 HPI Narrative Ishaan JULIO, is a 74 M who presents to the hospital for increasing shortness of breath. He was found to have an elevated BNP in the ER and was placed on oxygen which she does not wear at home. 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 He has noticed over the last couple days that he has had increasing shortness of breath and dyspnea on exertion, and he tested himself last evening was found to be in the low to mid 80s on room air. He is doing much better today on 2 L nasal cannula. BNP was found to be 2600. He did have an elevated lactic acid but no signs of infection therefore not significant. He was given a dose of Lasix in the ER and feels a little bit better though this was after being given a liter of fluid. [facility] Medical History (Updated 01/25/25 @ 17:[address] 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 History of non-ST elevation myocardial infarction (NSTEMI) (02/09/18) Atherosclerotic heart disease of [place] coronary artery with other forms of angina pectoris Essential (primary) hypertension Hyperlipidemia Vascular disease Diabetes type 2, controlled Home Medications ?Medication ?Instructions ?Recorded ?Last Taken ?Type aspirin 81 mg tablet,delayed 81 mg PO DAILY heart health 11/20/17 01/25/25 History release (Adult Aspirin Regimen) cholecalciferol (vitamin D3) 1,250 50,000 unit PO WE supplement 03/12/18 01/20/25 History mcg (50,000 unit) capsule prochlorperazine maleate 10 mg 10 mg PO Q6H PRN PRN Nausea 10 03/22/20 01/25/25 Rx tablet days #30 tabs gabapentin 300 mg capsule 900 mg PO TID 11/10/20 01/25/25 History loperamide 2 mg capsule 4 mg PO BID PRN loose stool 04/12/22 04/12/22 History apixaban 5 mg (74 tabs) tablets in 5 mg PO BID #74 tabs 04/14/22 01/25/25 Rx a dose pack ([employer] DVT-PE Treat 30D Start) metformin 500 mg tablet 1,000 mg PO BID diabetes 02/18/23 01/25/25 History nivolumab 240 mg/24 mL intravenous mg .Route 02/18/23 12/31/24 History solution (Opdivo) ondansetron HCl 8 mg tablet 8 mg PO Q8H PRN nausea and vomiting 02/18/23 01/24/25 History amlodipine 5 mg tablet 5 mg PO DAILY 02/10/24 01/25/25 History omeprazole 40 mg capsule,delayed 40 mg PO DAILY 05/27/24 01/24/25 History release isosorbide mononitrate 60 mg 60 mg PO DAILY for blood pressure 06/16/24 01/25/25 Rx tablet,extended release 24 hr #90 TABLETS losartan 100 mg tablet 100 mg PO DAILY for blood pressure 06/16/24 01/25/25 Rx #90 TABLETS metoprolol succinate 100 mg 100 mg PO DAILY for blood pressure 06/16/24 01/25/25 Rx tablet,extended release 24 hr #90 tabs atorvastatin 40 mg tablet 40 mg PO QHS CHOLESTEROL #90 tabs 09/14/24 01/24/25 Rx acetaminophen 500 mg tablet 1,000 mg PO Q4H PRN fever or pain 01/25/25 Unknown History (Tylenol Extra Strength) insulin regular human 100 unit/mL See Rx Instructions subcut BID 01/25/25 01/24/25 History (3 mL) subcutaneous pen (Novolin R FlexPen) insulin regular human 100 unit/mL 16 unit subcut .COMPLEX 01/25/25 Unknown History injection solution (Humulin R Regular U-100 Insulin) levothyroxine 175 mcg tablet 175 mcg PO DAILY 01/25/25 01/24/25 History (Euthyrox) lorazepam 1 mg tablet (Ativan) 2 mg PO DAILY PRN before MRI 01/25/25 Unknown History Allergy/AdvReac Type Severity Reaction Status Date / Time No Known Allergies Allergy Verified 01/25/25 13:00 Family History Unknown No problems noted. Father CAD (coronary artery disease) Heart disease Prostate cancer Mother Arthritis Hypertension Grandmother Colon cancer Grandfather Prostate cancer Uncle Diabetes Surgical History History of colonoscopy Status post lung surgery History of left heart catheterization (06/20/20) History of coronary artery stent placement (02/19/19) History of tonsillectomy and adenoidectomy History of hydrocelectomy Social History household members: spouse current occupational status: retired Smoking Status: Never smoker second hand exposure: No alcohol intake: never substance use type: does not use ROS Constitutional Constitutional: Denies chills, fatigue, fever(s) or malaise Eyes Eyes: Denies blurry vision ENT HEENT: Denies headache(s) or nasal discharge Cardiovascular Cardiovascular: Reports orthopnea; Denies chest pain, dyspnea on exertion or syncope Respiratory/Chest Respiratory/Chest: Reports cough, shortness of breath at rest and shortness of breath with exertion Gastrointestinal Gastrointestinal: Denies constipation, diarrhea, nausea or vomiting Genitourinary Genitourinary: Denies dysuria Neurologic Neurologic: Denies focal weakness, numbness or tremor(s) Psychiatric Psychiatric: Denies anxiety or depression Vital Signs Vital Signs Vital Signs: 01/25/25 12:58 01/25/25 13:00 01/25/25 13:50 Temperature 97.8 F 97.8 F Temperature Source Oral Oral Pulse Rate 108 H 108 H Respiratory Rate 18 18 Respiratory Effort Short of Breath Respiratory Depth Normal Respiratory Pattern Tachypnea Blood Pressure 132/86 H 132/86 H Blood Pressure Mean 101 101 Pulse Ox 96 96 Oxygen Delivery Method Room Air Room Air Room Air Oxygen Flow Rate (L/min) 01/25/25 14:03 01/25/25 14:03 01/25/25 14:44 Temperature 98.2 F Temperature Source Oral Pulse Rate 94 Respiratory Rate 22 H Respiratory Effort Respiratory Depth Respiratory Pattern Blood Pressure 137/73 H Blood Pressure Mean 94 Pulse Ox 95 94 92 Oxygen Delivery Method Nasal Cannula Nasal Cannula Nasal Cannula Oxygen Flow Rate (L/min) 2 2 2 01/25/25 15:00 01/25/25 15:12 01/25/25 15:15 Temperature 98.2 F Temperature Source Oral Pulse Rate 85 86 83 Respiratory Rate 19 H 25 H 18 Respiratory Effort Respiratory Depth Respiratory Pattern Blood Pressure 144/96 H 155/85 H Blood Pressure Mean 112 105 Pulse Ox 93 95 92 Oxygen Delivery Method Nasal Cannula Oxygen Flow Rate (L/min) 01/25/25 15:30 01/25/25 15:45 01/25/25 15:56 Temperature 98.7 F Temperature Source Oral Pulse Rate 83 83 83 Respiratory Rate 24 H 25 H 25 H Respiratory Effort Respiratory Depth Respiratory Pattern Blood Pressure 159/83 H 131/66 H 131/66 H Blood Pressure Mean 104 85 87 Pulse Ox 92 90 92 Oxygen Delivery Method Nasal Cannula Oxygen Flow Rate (L/min) 2 01/25/25 16:00 01/25/25 16:15 01/25/25 16:30 Temperature Temperature Source Pulse Rate 91 Respiratory Rate 19 H 23 H Respiratory Effort Respiratory Depth Respiratory Pattern Blood Pressure 132/66 H 123/71 H 137/70 H Blood Pressure Mean 85 88 87 Pulse Ox 92 89 Oxygen Delivery Method Oxygen Flow Rate (L/min) 01/25/25 16:34 01/25/25 16:35 01/25/25 16:35 Temperature 98.7 F Temperature Source Pulse Rate 83 Respiratory Rate 22 H Respiratory Effort Respiratory Depth Respiratory Pattern Blood Pressure 131/66 H Blood Pressure Mean 87 Pulse Ox 91 88 92 Oxygen Delivery Method Room Air Nasal Cannula Oxygen Flow Rate (L/min) 2 01/25/25 16:45 01/25/25 17:00 01/25/25 17:00 Temperature 98.7 F Temperature Source Oral Pulse Rate 90 93 96 Respiratory Rate 25 H 20 H 17 Respiratory Effort Respiratory Depth Respiratory Pattern Blood Pressure 136/64 H 127/73 H Blood Pressure Mean 81 91 Pulse Ox 92 93 83 Oxygen Delivery Method Nasal Cannula Oxygen Flow Rate (L/min) 2 01/25/25 17:02 01/25/25 17:15 01/25/25 17:30 Temperature Temperature Source Pulse Rate 93 95 92 Respiratory Rate 20 H 26 H 27 H Respiratory Effort Respiratory Depth Respiratory Pattern Blood Pressure 139/88 H 127/73 H 130/69 H Blood Pressure Mean 101 89 87 Pulse Ox 93 91 90 Oxygen Delivery Method Oxygen Flow Rate (L/min) 01/25/25 17:45 01/25/25 18:00 01/25/25 18:00 Temperature 97.9 F Temperature Source Oral Pulse Rate 94 93 95 Respiratory Rate 27 H 18 26 H Respiratory Effort Respiratory Depth Respiratory Pattern Blood Pressure 148/69 H 146/85 H 146/85 H Blood Pressure Mean 90 105 103 Pulse Ox 92 93 92 Oxygen Delivery Method Nasal Cannula Oxygen Flow Rate (L/min) 2 01/25/25 18:15 Temperature Temperature Source Pulse Rate 93 Respiratory Rate 24 H Respiratory Effort Respiratory Depth Respiratory Pattern Blood Pressure 127/69 H Blood Pressure Mean 82 Pulse Ox 90 Oxygen Delivery Method Oxygen Flow Rate (L/min) Weight Weight: 273 lb 5.971 oz Body Mass Index (BMI) 38.1 Physical Exam Narrative General: Alert, Oriented x3, Cooperative, No apparent distress HEENT: Atraumatic, PERRLA, EOMI, Normocephalic Oral: Moist Mucosa Neck: Supple, No JVD Lungs: Diminished, Normal air movement, No rhonchi, No wheeze, No rales Cardiovascular: Regular rate, Regular Rhythm, Normal S1, Normal S2, No murmurs Abdomen: Soft, Non Tender, Non-Distended, No Hepato-splenomegaly Extremities: No edema, Capillary Refill Less than 3 Seconds Skin: No rashes, No breakdown Musculoskeletal: No Tenderness to Palpation of Joints or Extremities Neurological: No focal neurological deficits, moves all extremities, peripheral neuropathy Psych/Mental Status: Normal Affect, Appropriate Results Lab / Micro Data 01/25/25 14:38 01/25/25 14:38 Labs: Laboratory Results - last 24 hr 01/25/25 14:38: WBC 6.6, RBC 3.96 L, Hgb 12.4 L, Hct 36.8 L, MCV 92.9, MCH 31.3, MCHC 33.7, RDW Std Deviation 43.8, RDW Coeff of Alexis 13.0, Plt Count 283, MPV 10.0, Immature Gran % (Auto) 0.500, Neut % (Auto) 62.2, Lymph % (Auto) 23.2, [place] % (Auto) 12.6 H, Eos % (Auto) 0.9, Baso % (Auto) 0.6, Absolute Neuts (auto) 4.1, Absolute Lymphs (auto) 1.53, Nucleated RBC % 0, PT 17.9 H, INR 1.5, APTT 37.8 H, Sodium 137, Potassium 3.5, Chloride 101, Carbon Dioxide 21.7, Anion Gap 14, BUN 21 H, Creatinine 0.96, Estim Creat Clear Calc 91.87, Est GFR (MDRD) Non-Af 83, BUN/Creatinine Ratio 21.6 H, Glucose 143 H, Lactic Acid 2.8 H*, Calcium 8.6, Total Bilirubin 0.93, AST 23, ALT 22, Alkaline Phosphatase 103, Troponin T High Sens 24 H, NT pro BNP II 2655 H, Total Protein 6.1, Albumin 3.0 L, Globulin 3.2, Albumin/Globulin Ratio 0.9 01/25/25 16:30: Urine Color Yellow, Urine Clarity Clear, Urine pH 6.0, Ur Specific [place] 1.010, Urine Protein 30 H, Urine Glucose (UA) Normal, Urine Ketones Negative, Urine Occult Blood 10 H, Urine Nitrite Negative, Urine Bilirubin Negative, Urine Urobilinogen 1 H, Ur Leukocyte Esterase Negative, Urine RBC 0-5 SEEN, Urine WBC 0-5 SEEN, Ur Squamous Epith Cells 0 SEEN, Urine Bacteria 1+, Hyaline Casts 0-5 SEEN, Urine Mucus 0 SEEN 01/25/25 16:38: Troponin T Hi Sens 2 Hr 22 Micro: Microbiology 01/25/25 14:37 Mucosa - Nose SARS-CoV-2, Influenza & RSV (PCR) - Final Imaging Radiology Impression Chest X-Ray 01/25/25 14:50 IMPRESSION: 1. Slightly limited hypoinflated exam. Similar RIGHT perihilar and bibasilar airspace disease. Background interstitial prominence may have increased slightly on the RIGHT. Consider asymmetric pulmonary edema, atypical pneumonia, or pneumonitis. Given patient history, clinical follow-up is recommended. 2. Additional description as above. Reading Location: [facility] Assessment & Plan Assessment/Plan (1) CHF (congestive heart failure): PLAN: Plan 1. Acute hypoxic respiratory insufficiency secondary to likely CHF exacerbation versus pulmonary hypertension ? Will obtain an echocardiogram, his last echo was in 11/11/2023 with an EF of 60% and no diastolic dysfunction ? Continue with Lasix ? BNP is elevated ? No signs of pneumonia or active infection ? Continue with daily weights 2. Angiosarcoma ? He does have scalp changes from radiation and surgery to get blood work once a month down at [facility] ? He used to be on Opdivo but had reactive airway reaction to that medication ? Continue with his Zofran and Compazine as he is frequently nauseated 3. Essential HTN/HLD/CAD status post multiple stents ? Continue with his home blood pressure medications ? Continue with his aspirin and Lipitor ? Will monitor make adjustments as necessary 4. DM2 ? Will resume his home insulin ? Accu-Cheks ACHS ? Will monitor make adjustments as necessary 5. History of PE ? Continue with Eliquis 6. Hypothyroidism ? Stable ? Continue with Synthroid DVT: Eliquis 75 minutes was spent on direct patient care, including documentation as well as chart review and collaboration with colleagues Charges/Coding Visit Charges Inpatient E&M: 09838 Init Hosp L3
[2025-01-25 18:45] LABS: Reflex Lactate? Y
--- NOTE | 2025-01-25 19:26 | CASEMGMT ---
Addendum entered by Lelo Vásquez 01/25/25 19:35: Patient expressed desire to obtain a standard walker during admission. LOC Freeman, CUSTOMER ACCOUNTS ADVISOR Original Note: Care Management Face to Face with patient for initial transition planning/care coordination assessment in the ED. This securities underwriter introduced self and role at [facility]. Patient alert and oriented. Patient willing to participate in assessment and is able to answer all questions appropriately. Patient's sons Efren and Renard at bedside; permission given to speak in front of them. Patient's , Donita, entered room at end of assessment. Care providers, pharmacy, and demographics verified. Admitting Diagnosis: CHF Other diagnosis history: angiosarcoma, hypothyroidism, GERD, diabetes PCP: Skylar Gunn Specialists: Dr. Bundy at [facility]. Preferred Pharmacy: [facility] Insurance: Medicare A B (primary). A[employer] Sr. Supplement (secondary). Prescription Benefit: yes Living Will/HPOA: , Donita (primary). son, Daron Glynn (secondary). son, Eren Schwartz (tertiary). LNOK: , Donita. Sons, Renard and Efren (go by middle names). Daughter, Tiff. Living Arrangements: with in a split level home with 2 steps to enter, 7 steps between floors, reports to be independent at baseline with all ADLs/IADLs Transportation: drives (patient states driving when needed, but avoids most of time due to neuropathy in feet). DME: rollator, pulse ox, Dexcom G7 HHC: none SNF/Rehab: none Community Resources: none Patient goals: Patient wishes to discharge home, denies need for home health care at this time. Patient denies any further needs or concerns at this time. Disposition Plan: admission to acute; RN CM/SW to follow for discharge planning needs that may arise. LOC Freeman, CUSTOMER ACCOUNTS ADVISOR
[2025-01-25 19:50] LABS: Lactic Acid 1.4 mmol/L (0.0-2.0)
[2025-01-25 21:51] LABS: Troponin T High Sens 4 HR 25 ng/L (<=22)
[2025-01-25] MEDS: APIXABAN 5 MG TABLET PO (23:42)
[2025-01-25] MEDS: Gabapentin 300 MG Capsule 900 MG PO (23:42)
[2025-01-25] MEDS: Atorvastatin Calcium 40 MG Tablet PO (23:43)
[2025-01-26] VITALS (10 sets, daily range): BP systolic 98–157; BP diastolic 56–84; PULSE 72–88; RESP 16–20; TEMP 35.9–36.9; O2SAT 83–98; BMI 37.3
[2025-01-26 00:50] LABS: Bedside Glucose 186 mg/dL (74-106)
[2025-01-26 00:50] LABS: Bedside Glucose 230 mg/dL (74-106)
[2025-01-26] MEDS: Levothyroxine 175 MCG Tablet PO (05:21)
[2025-01-26] MEDS: Gabapentin 300 MG Capsule 900 MG PO ×3 (05:21→22:17)
--- NOTE | 2025-01-26 05:55 | ECHOCS_ITS ---
Reason For Study Reason For Study: CHF Procedure This was a 2D Doppler, Color Flow transthoracic echocardiogram. The study was technically difficult. Exam performed portable in patient room. Left Ventricle Normal LV size. The estimated ejection fraction is 55-60 %. Unable to assess diastolic dysfunction. No regional wall motion abnormalities noted. Right Ventricle Normal RV size. Normal systolic function. Atria The left and right atria are normal. No doppler evidence for ASD. Mitral Valve There is no mitral valve stenosis. No mitral valve insufficiency. Tricuspid Valve There is no tricuspid stenosis. Trivial tricuspid valve insufficiency. Unable to estimate RV systolic pressure due to insufficient tricuspid regurgitant envelope. Aortic Valve Trisinus/trileaflet aortic valve. Mild diffuse aortic valve thickening. Mild aortic stenosis. No aortic valve insufficiency. Pulmonic Valve There is no pulmonic valvular stenosis. No pulmonic valve insufficiency. Great Vessels Normal sized aortic root. Pericardium/Pleural No pericardial effusion. Medication Diluted definity 2ml given slow IV push to enhance endocardial definition. MMode/2D Measurements & Calculations LVIDd: 5.4 cm IVSd: 1.4 cm LVOT diam: 2.0 cm LVIDs: 3.8 cm LVPWd: 1.4 cm RVDd: 3.0 cm FS: 29.8 % LVOT area: 3.1 cm2 Ao root diam: 3.6 cm LAV(MOD-bp): 55.3 ml LVAd ap4: 29.4 cm2 LAV(MOD-bp) Indexed: 22.7 ml/m2 LVLd ap4: 8.0 cm LAV(MOD-sp2): 58.6 ml EDV(MOD-sp4): 84.8 ml LAV(MOD-sp4): 51.0 ml EDV(sp4-el): 91.1 ml LVAs ap4: 15.8 cm2 LVLs ap4: 6.6 cm ESV(MOD-sp4): 30.8 ml ESV(sp4-el): 32.2 ml EF(MOD-sp4): 63.6 % EF(sp4-el): 64.7 % SV(MOD-sp4): 54.0 ml SV(sp4-el): 58.9 ml LA A4 area: 18.9 cm2 SI(MOD-sp4): 22.2 ml/m2 LA dimension(2D): 3.9 cm RA A4 area: 16.3 cm2 TAPSE: 2.2 cm Time Measurements MV dec time: 0.23 sec Doppler Measurements & Calculations MV A max teodoro: 89.6 cm/sec Lat Peak E' Teodoro: 12.7 cm/sec Med Peak E' Teodoro: 7.2 cm/sec Ao V2 max: 223.0 cm/sec LV V1 max: 103.1 cm/sec SV(LVOT): 53.8 ml Ao max P.9 mmHg LV V1 max P.3 mmHg Ao V2 mean: 167.0 cm/sec LV V1 mean P.0 mmHg Ao mean P.9 mmHg LV V1 mean: 65.5 cm/sec Ao V2 VTI: 39.9 cm LV V1 VTI: 17.5 cm AV (velocity ratio): 0.44 AKHIL(I,D): 1.4 cm2 AKHIL(V,D): 1.4 cm2 PA V2 max: 100.0 cm/sec TR max teodoro: 243.2 cm/sec TR max P.7 mmHg ECHO/Echo Complete W/ Contrast Interpretation Summary The estimated ejection fraction is 55-60 %. Unable to assess diastolic dysfunction. Mild aortic stenosis. Ordering Physician: Marcelino Lara Referring Physician: SUNNY JUAREZ Performed By: Nikki Leahy RDCS
[2025-01-26 06:01] LABS: Absolute Lymphocyte Count 0.75 X10^3/uL (0.83-4.51); Absolute Neutrophil Count 2.3 X10^3/uL (2.0-7.7); Basophil# 0.02 X10^3/uL; Basophil% 0.6 % (0-1); Eosinophil# 0.06 X10^3/uL; Eosinophils% 1.7 % (0-5); Hematocrit 48.1 % (40-54); Hemoglobin 16.2 g/dL (13.0-16.5); Lymphocyte # 0.75 X10^3/ul (0.83-4.51); Lymphocyte % 20.7 % (19-41); Mean Corp Hgb Conc 33.7 g/dL (32-36); Mean Corpuscular Hgb 30.9 pg (27.0-32.0); Mean Corpuscular Volume 91.6 fL (80-94); Mean Platelet Vol. 9.7 fl (6.2-12.0); Monocyte# 0.45 X10^3/uL; Monocyte% 12.4 % (0-10); NRBC Flagged by Analyzer 0 % (0-5); Neutrophil # 2.33 X10^3/uL (2.7-7.7); Platelet Count 185 K/mm3 (150-450); RBC Distribution Width CV 13.1 % (11.6-14.6); RBC Distribution Width SD 43.9 fl (35.1-43.9); Red Blood Count 5.25 M/mm3 (4.6-6.2); White Blood Count 3.6 K/mm3 (4.4-11.0)
[2025-01-26 06:18] LABS: Anion Gap 14 (5-15); BUN 21 mg/dL (4-19); BUN/Creat Ratio 21.1 RATIO (10-20); Carbon Dioxide 25.1 mmol/L (21.0-32.0); Chloride 99 mmol/L (98-108); Creatinine, Serum 1.01 mg/dL (0.70-1.20); EST Glomerular Filtration Rate 79 (>60); Estimated Creatinine Clearance 86.33 ml/min (50-250); Glucose 195 mg/dL (70-99); Potassium 3.5 mmol/L (3.3-5.1); Sodium Level 137 mmol/L (133-145)
[2025-01-26 06:38] LABS: Bedside Glucose 188 mg/dL (74-106)
[2025-01-26] MEDS: Aspirin E.C. 81 MG Tablet PO (08:20)
[2025-01-26] MEDS: Metoprolol(XL)Succ 100 MG Tablet PO (09:39)
[2025-01-26] MEDS: Isosorbide Mononitrate 60 MG Tablet PO (09:39)
[2025-01-26] MEDS: amLODIPine 5 MG Tablet PO (09:39)
[2025-01-26] MEDS: Losartan Potassium 100 MG Tablet PO (09:40)
[2025-01-26] MEDS: Furosemide 40 MG/4 ML Vial IV ×2 (09:40→17:15)
--- NOTE | 2025-01-26 10:39 | PN.HOSP_ITS ---
Reason for Visit Reason for Visit: Diagnoses Heart failure, unspecified (01/25/25) Subjective Subjective Saw patient at bedside this morning, and son present. Patient was mildly fatigued appearing but otherwise sitting comfortably in bedside chair, conversing normally and in no acute distress. He was breathing comfortably on 3 L nasal cannula at rest. Denied any shortness of breath at rest. Noted that he had not gotten out of bed or the bedside chair to ambulate since arriving up to the floor yesterday evening. Reported ongoing mild dry cough. Reports decent but not significant urine output with IV Lasix to this point. No other new concerns this morning. Objective Data Objective Data Vital Signs: Vital Signs Temp Pulse Resp BP Pulse Ox O2 Del Method O2 Flow Rate 98.4 F 88 17 157/84 H 92 Nasal Cannula 3 01/26/25 08:11 01/26/25 09:39 01/26/25 08:11 01/26/25 08:11 01/26/25 08:11 01/26/25 08:22 01/26/25 08:22 Oxygen Flow Rate (L/min) 3 Oxygen Delivery Method Nasal Cannula Weight: 121.3 kg Body Mass Index (BMI) 37.3 Intake & Output: Intake and Output for Last 24 Hours 01/24/25 01/25/25 01/26/25 23:59 23:59 23:59 Intake Total 1000 / 1240 480 / 480 Output Total 300 / 300 Balance 1000 / 1240 180 / 180 Lab / Micro Data 01/26/25 05:40 01/26/25 05:40 Labs: Laboratory Results - last 24 hr 01/25/25 14:38: WBC 6.6, RBC 3.96 L, Hgb 12.4 L, Hct 36.8 L, MCV 92.9, MCH 31.3, MCHC 33.7, RDW Std Deviation 43.8, RDW Coeff of Alexis 13.0, Plt Count 283, MPV 10.0, Immature Gran % (Auto) 0.500, Neut % (Auto) 62.2, Lymph % (Auto) 23.2, M emigdio % (Auto) 12.6 H, Eos % (Auto) 0.9, Baso % (Auto) 0.6, Absolute Neuts (auto) 4.1, Absolute Lymphs (auto) 1.53, Nucleated RBC % 0, PT 17.9 H, INR 1.5, APTT 37.8 H, Sodium 137, Potassium 3.5, Chloride 101, Carbon Dioxide 21.7, Anion Gap 14, BUN 21 H, Creatinine 0.96, Estim Creat Clear Calc 91.87, Est GFR (MDRD) Non- Af 83, BUN/Creatinine Ratio 21.6 H, Glucose 143 H, Lactic Acid 2.8 H*, Calcium 8.6, Total Bilirubin 0.93, AST 23, ALT 22, Alkaline Phosphatase 103, Troponin T High Sens 24 H, NT pro BNP II 2655 H, Total Protein 6.1, Albumin 3.0 L, Globulin 3.2, Albumin/Globulin Ratio 0.9 01/25/25 16:30: Urine Color Yellow, Urine Clarity Clear, Urine pH 6.0, Ur Specific Mcgrady 1.010, Urine Protein 30 H, Urine Glucose (UA) Normal, Urine Ketones Negative, Urine Occult Blood 10 H, Urine Nitrite Negative, Urine Bilirubin Negative, Urine Urobilinogen 1 H, Ur Leukocyte Esterase Negative, Urine RBC 0-5 SEEN, Urine WBC 0-5 SEEN, Ur Squamous Epith Cells 0 SEEN, Urine Bacteria 1+, Hyaline Casts 0-5 SEEN, Urine Mucus 0 SEEN 01/25/25 16:38: Troponin T Hi Sens 2 Hr 22 01/25/25 19:05: Lactic Acid 1.4 01/25/25 21:10: Troponin T Hi Sens 4Hr 25 H 01/25/25 21:17: POC Glucose 230 H 01/25/25 23:54: POC Glucose 186 H 01/26/25 05:40: WBC 3.6 L, RBC 5.25, Hgb 16.2, Hct 48.1, MCV 91.6, MCH 30.9, MCHC 33.7, RDW Std Deviation 43.9, RDW Coeff of Alexis 13.1, Plt Count 185, MPV 9.7, Immature Gran % (Auto) 0.600, Neut % (Auto) 64.0, Lymph % (Auto) 20.7, [place] % (Auto) 12.4 H, Eos % (Auto) 1.7, Baso % (Auto) 0.6, Absolute Neuts (auto) 2.3, Absolute Lymphs (auto) 0.75 L, Nucleated RBC % 0, Sodium 137, Potassium 3.5, Chloride 99, Carbon Dioxide 25.1, Anion Gap 14, BUN 21 H, Creatinine 1.01, Estim Creat Clear Calc 86.33, Est GFR (MDRD) Non-Af 79, BUN/Creatinine Ratio 21.1 H, G lucose 195 H, Calcium 9.0 01/26/25 05:45: POC Glucose 188 H Micro: Microbiology 01/25/25 16:30 Urine, Clean Catch Urine Culture - Preliminary Culture exhibits no growth. 01/25/25 14:37 Mucosa - Nose SARS-CoV-2, Influenza & RSV (PCR) - Final Radiography Diagnostic Testing: Radiology Impression Chest X-Ray 01/25/25 14:50 IMPRESSION: 1. Slightly limited hypoinflated exam. Similar RIGHT perihilar and bibasilar airspace disease. Background interstitial prominence may have increased slightly on the RIGHT. Consider asymmetric pulmonary edema, atypical pneumonia, or pneumonitis. Given patient history, clinical follow-up is recommended. 2. Additional description as above. Reading Location: [facility] Physical Exam Const alert, oriented x3 and no apparent distress Constitutional Narrative: Pleasant elderly male, class II obesity, mildly fatigued appearing, otherwise sitting back comfortably in bedside chair, conversing normally, in no acute distress. General Appearance: cooperative and comfortable HEENT normocephalic, head/scalp atraumatic, hearing grossly normal bilaterally, nasal mucous membranes and turbinates normal and moist oral mucous membranes Eyes PERRL, EOMs intact bilaterally and conjunctivae normal Neck full ROM Chest inspection of chest normal Resp normal respiratory effort and no use of accessory muscles Resp Narrative: Breathing comfortably on 3 L nasal cannula at rest. Mildly decreased breath sounds in bilateral lung bases, otherwise good air movement throughout with no wheezing or crackles noted. Cardio regular rate, regular rhythm, no murmurs and peripheral pulses 2+ throughout GI normal to inspection, nondistended, normoactive bowel sounds, soft to palpation, non-tender and non-distended Back/Spine normal ROM Extremity normal to inspection, full ROM and no pedal edema Skin no rashes or lesions noted Neuro no focal motor deficits Speech: speech normal Motor Exam: strength 5/5 throughout Psych mental status grossly normal Assessment & Plan Assessment/Plan (1) Respiratory insufficiency: PLAN: Plan Patient is a 74-year-old male who presented to [facility] ED on 01/25/2025 with worsening shortness of breath. 1. Suspected mild pulmonary hypertension with acute hypoxia in setting of underlying lung disease from lung metastases ? Not on home oxygen. Presented with worsening shortness of breath with exertion. Hypoxic to the mid 80s at rest and with exertion on admit. Chest x- ray showed right perihilar and bibasilar airspace disease with background initial prominence slightly increased on right. BNP elevated at 2655. However, echo on 01/26 showed EF 55 to 60%, no LV or RV issues, no significant valvular issues. No pulmonary hypertension was called but it was noted to be a technically difficult study. Highest suspicion is for some degree of pulmonary hypertension in setting of worsening lung disease from lung metastases. Has upcoming CT scans and oncology follow-up later this week at [facility]. Will treat with IV Lasix 40 mg twice daily for now, though I suspect patient does not have much volume overload at this time. Monitor daily BMP and urine output. Will plan to transition to p.o. Lasix tomorrow and complete oxygen ambulatory testing tomorrow morning in preparation for discharge home, with plan for close oncology follow-up. 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 Follows with oncology at [facility] and radiation oncology here. See Dr. Jennings's radiation oncology note from 11/23 for further details. Reviewed [facility] records as well. Patient was more recently found to have lung metastases in setting of angiosarcoma that was initially diagnosed back in 2019. Was recently initiated on Temodar plus nivolumab therapy; notably has completed several systemic therapies over the past 5 years. Seems less likely that lung issues are related to current therapy but cannot rule out. Unclear if prior systemic therapies could also be playing a role. Close outpatient follow-up with oncology after discharge is planned. 3. History of CAD with stenting, hypertension, hyperlipidemia ? Follows with cardiology here, last office visit on 12/30. Continue home aspirin, statin, amlodipine, Imdur, losartan, and Toprol. Chronic medical conditions: ? Class II obesity: BMI 37 on admit. Complicates hospital course, care and prognosis. ? Type 2 diabetes mellitus with neuropathy: Treating with Lantus 15 units daily and Humalog 5 units with meals plus sliding scale insulin while inpatient, adjust as needed. Should be okay to resume home regimen on discharge. Continue home gabapentin. ? Hypothyroidism: Continue home Synthroid. ? GERD: Continue home PPI. ? History of PE: Continue home Eliquis. DVT prophylaxis: Not indicated, on Eliquis CODE STATUS: Full code, verified Expected disposition: Home, 1 to 2 days Total clinical time spent by myself addressing the patient's medical issues, reviewing all the data, and collaborating with patient's care team: 35 minutes. Charges/Coding Visit Charges Inpatient E&M: 52389 Subs Hosp L2
[2025-01-26] MEDS: Insulin Glargine-YFGN 100 UNIT/ML Pen 15 UNIT SC (11:27)
[2025-01-26] MEDS: Insulin Lispro 100 UNIT/ML INSULN.PEN SC ×5 (11:29→22:18)
[2025-01-26 11:52] LABS: Bedside Glucose 240 mg/dL (74-106)
[2025-01-26] MEDS: APIXABAN 5 MG TABLET PO ×2 (12:44→22:16)
[2025-01-26] MEDS: Ondansetron 8 MG Tablet PO (13:56)
[2025-01-26 19:19] LABS: Bedside Glucose 254 mg/dL (74-106)
--- NOTE | 2025-01-26 21:30 | CPS ---
@2014 per RN, patient refused ABG
[2025-01-26] MEDS: Pantoprazole Sodium 40 MG Tablet PO (22:17)
[2025-01-26] MEDS: Atorvastatin Calcium 40 MG Tablet PO (22:17)
[2025-01-27] VITALS (11 sets, daily range): BP systolic 111–136; BP diastolic 62–103; PULSE 73–104; RESP 16–20; TEMP 36.1–36.8; O2SAT 82–95; BMI 37.0
[2025-01-27 01:37] LABS: Bedside Glucose 245 mg/dL (74-106)
[2025-01-27] MEDS: Gabapentin 300 MG Capsule 900 MG PO ×3 (04:56→21:27)
[2025-01-27] MEDS: Levothyroxine 175 MCG Tablet PO (04:57)
[2025-01-27 05:14] LABS: Hematocrit 47.1 % (40-54); Hemoglobin 16.1 g/dL (13.0-16.5); Mean Corp Hgb Conc 34.2 g/dL (32-36); Mean Corpuscular Hgb 31.3 pg (27.0-32.0); Mean Corpuscular Volume 91.5 fL (80-94); Platelet Count 164 K/mm3 (150-450); RBC Distribution Width CV 13.2 % (11.6-14.6); RBC Distribution Width SD 43.5 fl (35.1-43.9); Red Blood Count 5.15 M/mm3 (4.6-6.2); White Blood Count 2.8 K/mm3 (4.4-11.0)
[2025-01-27 05:51] LABS: Anion Gap 13 (5-15); BUN 21 mg/dL (4-19); BUN/Creat Ratio 23.6 RATIO (10-20); Carbon Dioxide 26.3 mmol/L (21.0-32.0); Chloride 97 mmol/L (98-108); EST Glomerular Filtration Rate 90 (>60); Estimated Creatinine Clearance 96.63 ml/min (50-250); Glucose 205 mg/dL (70-99); Sodium Level 137 mmol/L (133-145)
--- NOTE | 2025-01-27 08:15 | CT_ITS ---
PROCEDURE: CT CHEST, ABD, PEL W/CONTRAST 01/27/2025 REASON FOR EXAM: ABD DISCOMFORT Chest pain TECHNIQUE: Chest, abdomen and pelvis CT with intravenous contrast. Coronal and Sagittal reconstruction series were provided. One or more dose reduction techniques were used (e.g., Automated exposure control, adjustment of the mA and/or kV according to patient size, use of iterative reconstruction technique. PATIENT PREPARATION: Per protocol ORAL CONTRAST TYPE: None. CONTRAST: 99 cc Isovue 370 RADIATION DOSE SUMMARY: DLP: 2559.71 mGycm COMPARISON: May 27, [address] FINDINGS: CT CHEST: Hardware: There is a central access port on the right with its tip unchanged. Lymph nodes: There are no pathologic lymph nodes by size criteria. Heart and Vasculature: Coronary artery calcifications are noted. Main pulmonary artery Hounsfield units = 367. There is no visible pulmonary embolus. Lungs and Airways: There is interstitial lung disease with a component of peripheral fibrosis and scattered small bullae, similar to the prior. There is interstitial infiltrate in the periphery of the right lower lung and throughout the left lung with no focal consolidation. There is a 0.5 cm solid pulmonary nodule in the right upper lung, image 44/121, unchanged. Stable calcified granulomas are noted. Pleura: There is no pneumothorax or effusion Bones: There is no acute bony abnormality CT ABDOMEN/PELVIS: Liver: Unremarkable Gallbladder: Unremarkable Spleen: Splenic granulomas are unchanged. Pancreas: Unremarkable Adrenals: Unremarkable Kidneys: There is no renal stone, mass, or hydronephrosis in the right. There is a 0.9 cm nonobstructing stone in the lower pole of the left kidney. There is no ureteral stone or hydronephrosis. Bladder: Unremarkable Reproductive Organs: Prostate calcifications are noted Bowel: There is a moderate stool load. Small bowel loops are not distended. Appendix: Normal in appearance Lymph nodes: There is no pathologic adenopathy by size criteria. Vasculature: Atherosclerotic calcifications are noted Peritoneum / Retroperitoneum: There is no free air or free fluid Bones: There is no acute bony abnormality CT/CT Chest, Abd, Pel w/Contrast IMPRESSION: There is interstitial lung disease with a component of peripheral fibrosis and scattered small bullae, similar to the prior. There is interstitial infiltrate in the periphery of the right lower lung and t hroughout the left lung with no focal consolidation. There is a 0.5 cm solid pulmonary nodule in the right upper lung, image 44/121, unchanged. Yearly follow-up is recommended. There is a 0.9 cm nonobstructing stone in the lower pole of the left kidney. Reading Location: [facility]
[2025-01-27] MEDS: Potassium Chloride Oral Tablet 20 MEQ 40 MEQ PO (08:51)
[2025-01-27] MEDS: Insulin Lispro 100 UNIT/ML INSULN.PEN SC ×7 (08:51→21:29)
[2025-01-27] MEDS: Aspirin E.C. 81 MG Tablet PO (08:54)
[2025-01-27] MEDS: APIXABAN 5 MG TABLET PO ×2 (08:54→21:28)
[2025-01-27] MEDS: Isosorbide Mononitrate 60 MG Tablet PO (08:55)
[2025-01-27] MEDS: amLODIPine 5 MG Tablet PO (08:55)
[2025-01-27] MEDS: Losartan Potassium 100 MG Tablet PO (08:55)
[2025-01-27] MEDS: Metoprolol(XL)Succ 100 MG Tablet PO (08:55)
[2025-01-27 09:21] LABS: Bedside Glucose 283 mg/dL (74-106)
[2025-01-27] MEDS: Glucerna Shake 120 ML LIQUID PO ×3 (09:59→17:23)
[2025-01-27] MEDS: Insulin Glargine-YFGN 100 UNIT/ML Pen 15 UNIT SC (10:00)
--- NOTE | 2025-01-27 11:27 | PCM.PN.HOSP ---
Reason for Visit Reason for Visit: Diagnoses Heart failure, unspecified (01/25/25) Other abnormalities of breathing (01/25/25) Subjective Subjective Saw patient at bedside this morning, son present. Patient appeared similar to yesterday, was mildly fatigued appearing but otherwise sitting back comfortably in bedside chair, breathing comfortably on 3 L nasal cannula, answering questions appropriately and in no acute distress. States he feels about the same today as he did yesterday. Continues to have dry cough. Tolerated CT scan without issue this morning. Did note that he has significant pain with ABG draws and would like to avoid this unless absolute necessary. No other new concerns today. Objective Data Objective Data Vital Signs: Vital Signs Temp Pulse Resp BP Pulse Ox O2 Del Method O2 Flow Rate 98.2 F 104 H 16 136/103 H 95 Nasal Cannula 3 01/27/25 08:58 01/27/25 08:58 01/27/25 08:58 01/27/25 08:58 01/27/25 08:58 01/27/25 08:58 01/27/25 08:58 Oxygen Flow Rate (L/min) 3 Oxygen Delivery Method Nasal Cannula Weight: 120.7 kg Body Mass Index (BMI) 37.0 Intake & Output: Intake and Output for Last 24 Hours 01/25/25 01/26/25 01/27/25 23:59 23:59 23:59 Intake Total 1000 / 1240 1160 / 1460 2340 / 2340 Output Total 1030 / 1430 900 / 900 Balance 1000 / 1240 130 / 30 1440 / 1440 Medical Nutrition Assessment Dietitian: Malnutrition Criteria Met Start: 01/26/25 11:19 Freq: Status: Active Protocol: Document 01/26/25 16:40 SB (Rec: 01/26/25 16:40 SB [id number]) Nutrition Malnutrition Evidence of Yes Malnutrition Exists Malnutrition (severe Acute Illness/Injury ): Evidenced By Suboptimal Energy Intake (Severe),Weight Loss (Severe) Clinical Problem Acute Disease or Injury Related Malnutrition Etiology severe related to inadequate oral intake Signs/Symptoms as evidenced by PO meeting <75% of estimated nutrition needs x 2-3 months and 10% unintentional weight loss x 2 months. Status Active Problem Recommendation Dietitian Adjust to consistent carbohydrate, no added salt diet. Recommendations/ Will order 120ml strawberry glucerna shake 4x daily Changes with medpass. Will monitor weight trends. Lab / Micro Data 01/27/25 04:45 01/27/25 04:45 Labs: Laboratory Results - last 24 hr 01/26/25 11:24: POC Glucose 240 H 01/26/25 17:00: POC Glucose 254 H 01/26/25 22:13: POC Glucose 245 H 01/27/25 04:45: WBC 2.8 L, RBC 5.15, Hgb 16.1, Hct 47.1, MCV 91.5, MCH 31.3, MCHC 34.2, RDW Std Deviation 43.5, RDW Coeff of Alexis 13.2, Plt Count 164, MPV 10.0, Sodium 137, Potassium 3.0 L, Chloride 97 L, Carbon Dioxide 26.3, Anion Gap 13, BUN 21 H, Creatinine 0.90, Estim Creat Clear Calc 96.63, Est GFR (MDRD) Non-Af 90, BUN/Creatinine Ratio 23.6 H, Glucose 205 H, Calcium 9.0 01/27/25 08:49: POC Glucose 283 H Micro: Microbiology 01/25/25 16:30 Urine, Clean Catch Urine Culture - Final Culture exhibits no growth. 01/25/25 14:37 Mucosa - Nose SARS-CoV-2, Influenza & RSV (PCR) - Final Radiography Diagnostic Testing: Radiology Impression Echocardiogram 01/26/25 05:55 Interpretation Summary The estimated ejection fraction is 55-60 %. Unable to assess diastolic dysfunction. Mild aortic stenosis. Ordering Physician: Marcelino Lara Referring Physician: SUNNY JUAREZ Performed By: Nikki Leahy RDCS Chest/Abdomen/Pelvis CT 01/27/25 08:15 IMPRESSION: There is interstitial lung disease with a component of peripheral fibrosis and scattered small bullae, similar to the prior. There is interstitial infiltrate in the periphery of the right lower lung and throughout the left lung with no focal consolidation. There is a 0.5 cm solid pulmonary nodule in the right upper lung, image 44/121, unchanged. Yearly follow-up is recommended. There is a 0.9 cm nonobstructing stone in the lower pole of the left kidney. Reading Location: [facility] Physical Exam Const alert, oriented x3 and no apparent distress Constitutional Narrative: Pleasant elderly male, class II obesity, mildly fatigued appearing, otherwise sitting back comfortably in bedside chair, conversing normally, in no acute distress. Stable. General Appearance: cooperative and comfortable HEENT normocephalic, head/scalp atraumatic, hearing grossly normal bilaterally, nasal mucous membranes and turbinates normal and moist oral mucous membranes Eyes PERRL, EOMs intact bilaterally and conjunctivae normal Neck full ROM Chest inspection of chest normal Resp normal respiratory effort and no use of accessory muscles Resp Narrative: Breathing comfortably on 3 L nasal cannula at rest. Mildly decreased breath sounds in bilateral lung bases with mild crackles noted, otherwise no wheezing noted. Cardio regular rate, regular rhythm, no murmurs and peripheral pulses 2+ throughout GI normal to inspection, nondistended, normoactive bowel sounds, soft to palpation, non-tender and non-distended Back/Spine normal ROM Extremity normal to inspection, full ROM and no pedal edema Skin no rashes or lesions noted Neuro no focal motor deficits Speech: speech normal Motor Exam: strength 5/5 throughout Psych mental status grossly normal Assessment & Plan Assessment/Plan (1) Respiratory insufficiency: PLAN: Plan Patient is a 74-year-old male who presented to [facility] ED on 01/25/2025 with worsening shortness of breath. 1. Acute hypoxia suspected secondary to interstitial pneumonitis from cancer treatment ? Not on home oxygen. Presented with worsening shortness of breath with exertion. Hypoxic to the mid 80s at rest and with exertion on admit. Chest x-ray showed right perihilar and bibasilar airspace disease with background initial prominence slightly increased on right. BNP elevated at 2655. However, echo on 01/26 showed EF 55 to 60%, no LV or RV issues, no significant valvular issues. Initial etiology was suspected to be heart failure or pulmonary hypertension. However, patient continued to have hypoxia at rest and with exertion without any improvement with Lasix. CT chest on 01/27 showed interstitial lung disease with component of peripheral fibrosis and interstitial infiltrate in right lower lung periphery and throughout left lower lung without focal consolidation. Given this finding, suspected etiology is now some degree of interstitial pneumonitis secondary to his cancer treatment as noted below. Completed oxygen testing on 01/27 and patient required 3 L at rest and 5 L with exertion. Will treat with IV Solu-Medrol 40 mg 3 times daily for now. Will plan to repeat oxygen testing tomorrow morning and if somewhat improved, will plan for discharge home tomorrow with close outpatient follow-up with oncology. 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 Follows with oncology at [facility] and radiation oncology here. See Dr. Jennings's radiation oncology note from 11/23 for further details. Reviewed [facility] records as well. Patient was more recently found to have lung metastases in setting of angiosarcoma that was initially diagnosed back in 2019. Was recently initiated on Temodar plus nivolumab therapy; notably has completed several systemic therapies over the past 5 years. Have concern that current lung issues are due to some degree of interstitial pneumonitis from his current therapy regimen. Will need close outpatient follow-up with oncology on discharge. 3. History of CAD with stenting, hypertension, hyperlipidemia ? Follows with cardiology here, last office visit on 12/30. Continue home aspirin, statin, amlodipine, Imdur, losartan, and Toprol. Chronic medical conditions: ? Class II obesity: BMI 37 on admit. Complicates hospital course, care and prognosis. ? Type 2 diabetes mellitus with neuropathy: Treating with Lantus 15 units daily and Humalog 5 units with meals plus sliding scale insulin while inpatient, adjust as needed. Should be okay to resume home regimen on discharge. Continue home gabapentin. ? Hypothyroidism: Continue home Synthroid. ? GERD: Continue home PPI. ? History of PE: Continue home Eliquis. DVT prophylaxis: Not indicated, on Eliquis CODE STATUS: Full code, verified Expected disposition: Home, 1 to 2 days Total clinical time spent by myself addressing the patient's medical issues, reviewing all the data, and collaborating with patient's care team: 35 minutes.
[2025-01-27 11:52] LABS: Bedside Glucose 329 mg/dL (74-106)
[2025-01-27] MEDS: 0.9% Saline Lock 10 ML Syringe IV ×2 (12:18→17:24)
[2025-01-27 16:32] LABS: Bedside Glucose 354 mg/dL (74-106)
[2025-01-27] MEDS: Atorvastatin Calcium 40 MG Tablet PO (21:28)
[2025-01-27] MEDS: Pantoprazole Sodium 40 MG Tablet PO (21:29)
[2025-01-27 23:49] LABS: Bedside Glucose 350 mg/dL (74-106)
[2025-01-28 04:00] VITALS: BP 138/83; PULSE 81; RESP 16; TEMP 36.5; O2SAT 92
[2025-01-28 05:03] VITALS: BMI 37.6
[2025-01-28] MEDS: Gabapentin 300 MG Capsule 900 MG PO (05:41)
[2025-01-28] MEDS: Levothyroxine 175 MCG Tablet PO (05:41)
[2025-01-28 06:12] LABS: Mean Corp Hgb Conc 33.3 g/dL (32-36); Mean Corpuscular Hgb 31.2 pg (27.0-32.0); Mean Corpuscular Volume 93.5 fL (80-94); Mean Platelet Vol. 9.9 fl (6.2-12.0); Platelet Count 299 K/mm3 (150-450); RBC Distribution Width CV 13.3 % (11.6-14.6); RBC Distribution Width SD 44.7 fl (35.1-43.9); Red Blood Count 3.85 M/mm3 (4.6-6.2); White Blood Count 4.3 K/mm3 (4.4-11.0)
[2025-01-28 07:25] LABS: Anion Gap 10 (5-15); BUN 30 mg/dL (4-19); BUN/Creat Ratio 25.5 RATIO (10-20); Calcium,Total 9.8 mg/dL (7.6-11.0); Carbon Dioxide 26.9 mmol/L (21.0-32.0); Chloride 97 mmol/L (98-108); Creatinine, Serum 1.19 mg/dL (0.70-1.20); EST Glomerular Filtration Rate 64 (>60); Estimated Creatinine Clearance 73.62 ml/min (50-250); Glucose 409 mg/dL (70-99); Potassium 4.4 mmol/L (3.3-5.1); Sodium Level 135 mmol/L (133-145)
[2025-01-28] MEDS: Insulin Lispro 100 UNIT/ML INSULN.PEN SC ×4 (07:58→11:36)
[2025-01-28] MEDS: Aspirin E.C. 81 MG Tablet PO (07:59)
[2025-01-28 08:19] LABS: Bedside Glucose 333 mg/dL (74-106)
[2025-01-28] MEDS: Lactated Ringers 1,000 ML 500 ML IV (08:20)
[2025-01-28] MEDS: 0.9% Saline Lock 10 ML Syringe IV (08:21)
[2025-01-28 09:25] VITALS: BP 146/77; PULSE 75; RESP 16; TEMP 36.6; O2SAT 95
[2025-01-28] MEDS: Losartan Potassium 100 MG Tablet PO (09:27)
[2025-01-28] MEDS: Insulin Glargine-YFGN 100 UNIT/ML Pen 15 UNIT SC (09:28)
[2025-01-28] MEDS: APIXABAN 5 MG TABLET PO (09:28)
[2025-01-28] MEDS: Isosorbide Mononitrate 60 MG Tablet PO (09:28)
[2025-01-28 09:29] VITALS: BP 146/77; PULSE 75
[2025-01-28] MEDS: Metoprolol(XL)Succ 100 MG Tablet PO (09:29)
[2025-01-28] MEDS: amLODIPine 5 MG Tablet PO (09:29)
[2025-01-28] MEDS: predniSONE 20 MG Tablet 40 MG PO (09:33)
--- NOTE | 2025-01-28 10:24 | PCM.DC.SUM ---
Providers Date of Admission: 01/25/25 Date of Discharge: 01/28/25 Primary Care Physician: Dr. Skylar Gunn DO Reason For Visit: CHF VS PULM HTN Diagnosis Discharge Diagnosis (1) Respiratory insufficiency: Status: Acute Code(s): R06.89 - Other abnormalities of breathing Medications at Discharge Home Medications aspirin 81 mg tablet,delayed release (Adult Aspirin Regimen) 81 mg PO DAILY heart health 11/20/17 cholecalciferol (vitamin D3) 1,250 mcg (50,000 unit) capsule 50,000 unit PO WE supplement 03/12/18 prochlorperazine maleate 10 mg tablet 10 mg PO Q6H PRN PRN Nausea 10 days #30 tabs 03/22/20 gabapentin 300 mg capsule 900 mg PO TID nerve pain 11/10/20 loperamide 2 mg capsule 4 mg PO BID PRN loose stool 04/12/22 metformin 500 mg tablet 1,000 mg PO BID diabetes 02/18/23 nivolumab 240 mg/24 mL intravenous solution (Opdivo) mg .Route 02/18/23 ondansetron HCl 8 mg tablet 8 mg PO Q8H PRN nausea and vomiting 02/18/23 amlodipine 5 mg tablet 5 mg PO DAILY blood pressure 02/10/24 omeprazole 40 mg capsule,delayed release 40 mg PO DAILY reflux 05/27/24 isosorbide mononitrate 60 mg tablet,extended release 24 hr 60 mg PO DAILY for blood pressure #90 TABLETS 06/16/24 losartan 100 mg tablet 100 mg PO DAILY for blood pressure #90 TABLETS 06/16/24 metoprolol succinate 100 mg tablet,extended release 24 hr 100 mg PO DAILY for blood pressure #90 tabs 06/16/24 atorvastatin 40 mg tablet 40 mg PO QHS CHOLESTEROL #90 tabs 09/14/24 acetaminophen 500 mg tablet (Tylenol Extra Strength) 1,000 mg PO Q4H PRN fever or pain 01/25/25 insulin regular human 100 unit/mL (3 mL) subcutaneous pen (Novolin R FlexPen) See Rx Instructions subcut BID diabetes 01/25/25 insulin regular human 100 unit/mL injection solution (Humulin R Regular U-100 Insulin) 16 unit subcut .COMPLEX DM 01/25/25 levothyroxine 175 mcg tablet (Euthyrox) 175 mcg PO DAILY thyroid 01/25/25 lorazepam 1 mg tablet (Ativan) 2 mg PO DAILY PRN before MRI 01/25/25 apixaban 5 mg tablet (Eliquis) 5 mg PO BID #0 tabs 01/28/25 prednisone 10 mg tablet See Taper PO DAILY 12 days #30 tabs 01/28/25 Hospital Course Operations None Procedures EKG, Transthoracic echo and - (Chest x-ray, CT chest abdomen pelvis with IV contrast) Summary of Care Provided Minutes Spent on Discharge: 35 Hospital Course: Patient is a 74-year-old male who presented to [facility] ED on 01/25/2025 with worsening shortness of breath. Hospital course as noted below. Patient discharged home in stable condition on 01/28. 1. Acute hypoxia suspected secondary to interstitial pneumonitis from cancer treatment ? Not on home oxygen. Presented with worsening shortness of breath with exertion. Hypoxic to the mid 80s at rest and with exertion on admit. Chest x-ray showed right perihilar and bibasilar airspace disease with background initial prominence slightly increased on right. BNP elevated at 2655. However, echo on 01/26 showed EF 55 to 60%, no LV or RV issues, no significant valvular issues. Initial etiology was suspected to be heart failure or pulmonary hypertension. However, patient continued to have hypoxia at rest and with exertion without any improvement with Lasix. CT chest on 01/27 showed interstitial lung disease with component of peripheral fibrosis and interstitial infiltrate in right lower lung periphery and throughout left lower lung without focal consolidation. Given this finding, suspected etiology is now some degree of interstitial pneumonitis secondary to his cancer treatment as noted below. Completed oxygen testing on 01/27 and patient required 3 L at rest and 5 L with exertion. Treated with IV Solu-Medrol 40 mg x 2 doses on 01/27 and repeat oxygen testing on 01/28 improved with patient only requiring 3 L with exertion and oxygen at rest. Will discharge on steroid taper of prednisone 40 mg x 3 days, then 30 mg x 3 days, then 20 mg x 3 days, then 10 mg x 3 days. Recommend close outpatient follow-up with oncology on discharge. 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 Follows with oncology at [facility] and radiation oncology here. See Dr. Jennings's radiation oncology note from 11/23 for further details. Reviewed [facility] records as well. Patient was more recently found to have lung metastases in setting of angiosarcoma that was initially diagnosed back in 2020. Was recently initiated on Temodar plus nivolumab therapy; notably has completed several systemic therapies over the past 5 years. Have concern that current lung issues are due to some degree of interstitial pneumonitis from his current therapy regimen as noted above. Will need close outpatient follow-up with oncology on discharge. 3. History of CAD with stenting, hypertension, hyperlipidemia ? Follows with cardiology here, last office visit on 12/30. Continue home aspirin, statin, amlodipine, Imdur, losartan, and Toprol. Chronic medical conditions: ? Class II obesity: BMI 37 on admit. Complicates hospital course, care and prognosis. ? Type 2 diabetes mellitus with neuropathy: Treated with Lantus 15 units daily and Humalog 5 units with meals plus sliding scale insulin while inpatient. Okay to resume home regimen on discharge. Continue home gabapentin. ? Hypothyroidism: Continue home Synthroid. ? GERD: Continue home PPI. ? History of PE: Continue home Eliquis. Total clinical time spent by myself addressing the patient's medical issues, reviewing all the data, and collaborating with patient's care team: 35 minutes. Physical Exam Const alert, oriented x3 and no apparent distress Constitutional Narrative: Pleasant elderly male, class II obesity, mildly fatigued appearing, otherwise sitting back comfortably in bedside chair, conversing normally, in no acute distress. Stable. General Appearance: cooperative and comfortable HEENT normocephalic, head/scalp atraumatic, hearing grossly normal bilaterally, nasal mucous membranes and turbinates normal and moist oral mucous membranes Eyes PERRL, EOMs intact bilaterally and conjunctivae normal Neck full ROM Chest inspection of chest normal Resp normal respiratory effort and no use of accessory muscles Resp Narrative: Breathing comfortably on 2 L nasal cannula at rest. Mildly decreased breath sounds in bilateral lung bases but otherwise good air appointment throughout and no wheezing or crackles noted. Improved from admission. Cardio regular rate, regular rhythm, no murmurs and peripheral pulses 2+ throughout GI normal to inspection, nondistended, normoactive bowel sounds, soft to palpation, non-tender and non-distended Back/Spine normal ROM Extremity normal to inspection, full ROM and no pedal edema Skin no rashes or lesions noted Neuro no focal motor deficits Speech: speech normal Motor Exam: strength 5/5 throughout Psych mental status grossly normal Medical Records Data Medical Nutrition Assessment Dietitian: Malnutrition Criteria Met Start: 01/26/25 11:19 Freq: Status: Active Protocol: Document 01/26/25 16:40 SB (Rec: 01/26/25 16:40 SB [id number]) Nutrition Malnutrition Evidence of Yes Malnutrition Exists Malnutrition (severe Acute Illness/Injury ): Evidenced By Suboptimal Energy Intake (Severe),Weight Loss (Severe) Clinical Problem Acute Disease or Injury Related Malnutrition Etiology severe related to inadequate oral intake Signs/Symptoms as evidenced by PO meeting <75% of estimated nutrition needs x 2-3 months and 10% unintentional weight loss x 2 months. Status Active Problem Recommendation Dietitian Adjust to consistent carbohydrate, no added salt diet. Recommendations/ Will order 120ml strawberry glucerna shake 4x daily Changes with [employer]. Will monitor weight trends. Weight / BMI Weight Weight: 122.4 kg Body Mass Index (BMI) 37.6 ABG / Lab / Microbiology Data 01/28/25 05:55 01/28/25 05:55 Laboratory: Laboratory Results - last 24 hr 01/27/25 16:04: POC Glucose 354 H 01/27/25 21:26: POC Glucose 350 H 01/28/25 05:55: WBC 4.3 L, RBC 3.85 L, Hgb 12.0 L, Hct 36.0 L, MCV 93.5, MCH 31.2, MCHC 33.3, RDW Std Deviation 44.7 H, RDW Coeff of Alexis 13.3, Plt Count 299, MPV 9.9, Sodium 135, Potassium 4.4, Chloride 97 L, Carbon Dioxide 26.9, Anion Gap 10, BUN 30 H, Creatinine 1.19, Estim Creat Clear Calc 73.62, Est GFR (MDRD) Non-Af 64, BUN/Creatinine Ratio 25.5 H, Glucose 409 H, Calcium 9.8 01/28/25 07:55: POC Glucose 333 H 01/28/25 11:31: POC Glucose 360 H Microbiology: Microbiology 01/25/25 14:20 Blood Culture (Wb) - Port Blood Culture - Preliminary No growth in 48 hours. 01/25/25 14:38 Blood Culture (Wb) - Port Blood Culture - Preliminary No growth in 48 hours. 01/25/25 16:30 Urine, Clean Catch Urine Culture - Final Culture exhibits no growth. 01/25/25 14:37 Mucosa - Nose SARS-CoV-2, Influenza & RSV (PCR) - Final D/C Instructions DC O2, CPAP, BIPAP Needs Home O2 Discharge instructions: Yes Type of respiratory needs?: Oxygen Oxygen frequency: With Ambulation Oxygen liters per minute during Ambulation: 3 DC home with Oxygen: Yes Home O2 MD Review: I have reviewed the oxygen testing, and the patient qualifies for home oxygen equipment and portability. The patient is mobile in the home and the community. Meaningful Use Info Meaningful Use Meaningful Use Diagnoses (Choose all that apply): None applicable Ischemic Stroke Statin Dosing Therapy Reference: STATIN DOSE THERAPY REFERENCE: * Patients > 75 years receive moderate or high dose statin therapy. * Patients 75 years or YOUNGER should receive HIGH intensity statin dose unless contraindicated. You will be required to document reason for non-treatment if statin daily dose does not meet guidelines. HIGH DOSE STATIN THERAPY DAILY Atorvastatin > than or = to 40 mg Rosuvastatin > than or = to 20 mg Amlodipine + Atorvastatin > than or = to 2.5/40 mg Ezetimibe + Simvastatin 10/80 mg Simvastatin 80mg Discharge Plan Admission Admit Date/Time: 01/25/25 18:30 Primary Reason for Your Visit: Shortness of breath Attending Provider: Elliot Phillips Primary Care Provider: Skylar Gunn Consulting Providers: Marcelino Lara; Steven Bundy Instructions Additional Instructions / Restrictions: Take prednisone taper as noted below. Continue other home medications as prescribed. Importantly, make sure you are monitoring your blood sugars while on prednisone as they may run high. Follow-up with your [facility] cancer doctor soon. Discharge Orders/Prescriptions Prescriptions: New Eliquis 5 mg Tablet 5 mg PO BID Qty: 0 0RF prednisone 10 mg tablet See Taper PO DAILY 12 Days Qty: 30 0RF Taper: Prednisone Taper 40 mg WITH BREAKFAST for 3 Days and 0 Hour 30 mg WITH BREAKFAST for 3 Days and 0 Hour 20 mg WITH BREAKFAST for 3 Days and 0 Hour 10 mg WITH BREAKFAST for 3 Days and 0 Hour Continued aspirin [Adult Aspirin Regimen] 81 mg tablet,delayed release (DR/EC) 81 mg PO DAILY Patient Comments: may take prior to surgery cholecalciferol (vitamin D3) 50,000 unit capsule 50,000 unit PO WE ondansetron HCl 8 mg tablet 8 mg PO Q8H PRN (Reason: nausea and vomiting) Opdivo 240 mg/24 mL solution .Route Rx Instructions: Monthly Infusion@ [facility] amlodipine 5 mg tablet 5 mg PO DAILY metformin 500 mg tablet 1,000 mg PO BID prochlorperazine maleate 10 MG tablet 10 mg PO Q6H PRN PRN (Reason: Nausea) 10 Days Qty: 30 2RF gabapentin 300 MG capsule 900 mg PO TID Patient Comments: loperamide 2 mg Capsule 4 mg PO BID PRN (Reason: loose stool) Novolin R FlexPen 100 unit/mL (3 mL) insulin pen See Rx Instructions subcut BID Rx Instructions: 16U BEFORE LARGE MEALS AND 8U BEFORE SMALL MEALS PLUS SLIDING SCALE subcutaneously twice a day; 150-199=2U, 200-249=4U, 250-299=6U, 300-349=8U, >350 CALL PCP Humulin R Regular U-100 Insuln 100 unit/mL solution 16 unit subcut .COMPLEX Rx Instructions: 16 units subcutaneously before meals and at bedtime; plus sliding scale levothyroxine [Euthyrox] 175 mcg tablet 175 mcg PO DAILY lorazepam [Ativan] 1 mg tablet 2 mg PO DAILY PRN (Reason: before MRI) acetaminophen [Tylenol Extra Strength] 500 mg tablet 1,000 mg PO Q4H PRN (Reason: fever or pain) omeprazole 40 mg capsule,delayed release(DR/EC) 40 mg PO DAILY losartan 100 mg tablet 100 mg PO DAILY Qty: 90 3RF metoprolol succinate 100 mg tablet extended release 24 hr 100 mg PO DAILY Qty: 90 3RF isosorbide mononitrate 60 mg tablet extended release 24 hr 60 mg PO DAILY Qty: 90 3RF atorvastatin 40 mg tablet 40 mg PO QHS Qty: 90 3RF Discontinued Eliquis DVT-PE Treat 30D Start 5 mg (74 tabs) tablets,dose pack 5 mg PO BID Qty: 74 0RF Rx Instructions: 10 mg p.o. twice daily x7 days then 5 mg p.o. twice daily Referrals / Follow Up: Skylar Gunn DO [Primary Care Provider] - Disposition Disposition (needs filled in before D/C Order can be placed): Home, Self Care Charges/Coding Visit Charges Inpatient E&M: 51511 Disch Hosp >30min
[2025-01-28 11:03] VITALS: O2SAT 85; O2SAT 88; O2SAT 90; O2SAT 94
[2025-01-28 11:14] VITALS: BP 113/65; PULSE 75; RESP 16; TEMP 36.6; O2SAT 92
--- NOTE | 2025-01-28 11:16 | PCM.HOSP.N ---
Hospitalist Note I have reviewed the oxygen testing, and this patient qualifies for the home equipment and portability. The patient is mobile in the home and the community.
--- NOTE | 2025-01-28 12:01 | CASEMGMT ---
POLA CM noted DC order. Pt qualifies for 3L O2 with ambulation. [place] and [place] [facility] [place] [facility] [place]
[2025-01-28 12:10] LABS: Bedside Glucose 360 mg/dL (74-106)
== END 2025-01-28 13:49 | disposition home or self-care (01) | DRG 196 ==
LOC: ED 19:14 → PCU 19:18
PROVIDERS: Admitting Provider Family Medicine; Emergency Provider Emergency Medicine; PCP Family Medicine; Referring Provider Family Medicine; Visit Provider Hospitalist
DX: J84.89 Other specified interstitial pulmonary diseases (principal); E43 Unspecified severe protein-calorie malnutrition; C78.00 Secondary malignant neoplasm of unspecified lung; C49.0 Malignant neoplasm of connective and soft tissue of head, face and neck; I27.20 Pulmonary hypertension, unspecified; I11.0 Hypertensive heart disease with heart failure; E11.42 Type 2 diabetes mellitus with diabetic polyneuropathy; E03.9 Hypothyroidism, unspecified; Z68.37 Body mass index [BMI] 37.0-37.9, adult; I48.91 Unspecified atrial fibrillation; I50.9 Heart failure, unspecified; Z79.4 Long term (current) use of insulin; K21.9 Gastro-esophageal reflux disease without esophagitis; E78.5 Hyperlipidemia, unspecified; I25.10 Atherosclerotic heart disease of native coronary artery without angina pectoris; I25.2 Old myocardial infarction; Z79.01 Long term (current) use of anticoagulants; Z79.890 Hormone replacement therapy; Z79.84 Long term (current) use of oral hypoglycemic drugs; Z95.5 Presence of coronary angioplasty implant and graft; Z79.82 Long term (current) use of aspirin; E66.812 Obesity, class 2; R09.02 Hypoxemia; Z79.899 Other long term (current) drug therapy; Z86.711 Personal history of pulmonary embolism
CPT/HCPCS: 36591; 71046; 71260; 74177; 80048; 80053; 81001; 82962; 83605; 83880; 84484; 85025; 85027; 85610; 85730; 87040; 87086; 87631; 93005; 93306; 97802; 99285; Q9957; Q9967; A4216; C8929; J1940

== ENCOUNTER → 2025-04-06 | Outpatient (CLI) | payer MEDICARE, OTHER, SELFPAY ==
[2020-05-30 13:21] VITALS: BMI 42.0
--- NOTE | 2025-04-06 09:36 | EKG12_ITS ---
Test Reason : MED CHECK Blood Pressure : */* mmHG Vent. Rate : 66 BPM Atrial Rate : 66 BPM P-R Int : 254 ms QRS Dur : 108 ms QT Int : 454 ms P-R-T Axes : 8 26 69 degrees QTcB Int : 475 ms Sinus rhythm with 1st degree A-V block with Fusion complexes Septal infarct (cited on or before 11-Feb-2018) Abnormal ECG Confirmed by ARPIT WAGNER, JUNAID ([id number]), department editor RAE CARBAJAL ([id number]) on 04/07/2025 7:12:37 AM Referred By: Maryse Parra Confirmed By: JUNAID MUNSON MD
== END | disposition home or self-care (01) ==
LOC: PSN 09:32
PROVIDERS: PCP Family Medicine; Referring Provider Internal Medicine Hematology & Oncology; Visit Provider Internal Medicine Hematology & Oncology
DX: C76.0 Malignant neoplasm of head, face and neck (principal); C78.00 Secondary malignant neoplasm of unspecified lung; C77.1 Secondary and unspecified malignant neoplasm of intrathoracic lymph nodes; C49.0 Malignant neoplasm of connective and soft tissue of head, face and neck
CPT/HCPCS: 93005

== ENCOUNTER → 2025-05-18 | Outpatient (CLI) | payer MEDICARE, OTHER, SELFPAY ==
[2020-05-30 13:21] VITALS: BMI 42.0
--- NOTE | 2025-05-18 10:22 | EKG12_ITS ---
Test Reason : DRUG THERAPY Blood Pressure : */* mmHG Vent. Rate : 56 BPM Atrial Rate : 56 BPM P-R Int : 264 ms QRS Dur : 98 ms QT Int : 494 ms P-R-T Axes : -21 -16 46 degrees QTcB Int : 476 ms Sinus bradycardia with 1st degree A-V block Incomplete right bundle branch block Septal infarct (cited on or before 11-Feb-2018) Abnormal ECG Confirmed by ARPIT WAGNER, JUNAID ([id number]), business editor RAE CARBAJAL ([id number]) on 05/19/2025 9:33:57 AM Referred By: Maryse Parra Confirmed By: JUNAID MUNSON MD
== END | disposition home or self-care (01) ==
LOC: PSN 10:16
PROVIDERS: PCP Family Medicine; Referring Provider Internal Medicine Hematology & Oncology; Visit Provider Internal Medicine Hematology & Oncology
DX: C34.90 Malignant neoplasm of unspecified part of unspecified bronchus or lung (principal); C78.7 Secondary malignant neoplasm of liver and intrahepatic bile duct; Z79.899 Other long term (current) drug therapy
CPT/HCPCS: 93005

== ENCOUNTER → 2025-08-19 | Outpatient (CLI) | payer MEDICARE, OTHER, SELFPAY ==
[2020-05-30 13:21] VITALS: BMI 42.0
--- NOTE | 2025-08-19 14:05 | CT_ITS ---
PROCEDURE: CT CHEST AND ABD W/ CONTRAST 08/19/2025 REASON FOR EXAM: F/U METS SARCOMA IV CONTRAST ONLY TECHNIQUE: Chest and abdomen CT with intravenous contrast. Coronal and Sagittal reconstruction series were provided. One or more dose reduction techniques were used (e.g., Automated exposure control, adjustment of the mA and/or kV according to patient size, use of iterative reconstruction technique. The amount of IV contrast utilized was not recorded RADIATION DOSE SUMMARY: CTDlvol: 27 mGy DLP: 2083 mGycm COMPARISON: 01/27/2025 FINDINGS: There is a new nodule at the right lung apex measuring 5 mm on image 34. Not discretely visible on the prior study. Small areas of cyst formation are identified. In the right lower lobe there is a stable nodule measuring about 4.5 mm. In the right lower lobe more inferiorly, there is a new nodule above the right hemidiaphragm which measures 7 mm. No suspicious left-sided nodules are identified. Normal axilla. Normal chest wall. Normal mediastinum. Normal aorta. No dissection. No aneurysm. Mild coronary artery calcification. No pericardial effusion. Gallbladder, liver and spleen unremarkable. Normal pancreas. Patent portal vein. No retroperitoneal adenopathy. No bowel obstruction. No ascites or peritoneal thickening. No osseous blastic or lytic lesions. No lumbar or thoracic compression deformity. CT/CT Chest AND Abd W/ Contrast IMPRESSION: Coronary artery calcification (CAC) is present New pulmonary nodules when compared to the prior study of 01/27/2025. Given th e history of sarcoma, these are suspicious for metastasis [facility]
[2025-08-19] MEDS: 0.9% Saline Lock 10 ML Syringe IV (14:36)
== END | disposition home or self-care (01) ==
LOC: CT 14:01
PROVIDERS: PCP Family Medicine; Referring Provider Internal Medicine Hematology & Oncology; Visit Provider Internal Medicine Hematology & Oncology
DX: C76.0 Malignant neoplasm of head, face and neck (principal); C78.01 Secondary malignant neoplasm of right lung; C78.02 Secondary malignant neoplasm of left lung; C77.1 Secondary and unspecified malignant neoplasm of intrathoracic lymph nodes; C49.0 Malignant neoplasm of connective and soft tissue of head, face and neck
CPT/HCPCS: 71260; 74160; 93005; Q9967